=== PATIENT | female | born 1960 | race Caucasian/White ===

== ENCOUNTER 2017-12-22 13:58 | Emergency (ER) | payer MEDICAID, SELFPAY ==
[2017-12-22 14:01] VITALS: BP 150/91; PULSE 102; PULSE 98; RESP 14; TEMP 36.4; O2SAT 97; O2SAT 98; BMI 31.8
--- NOTE | 2017-12-22 14:03 | EKG12_ITS ---
Test Reason : [facility] Blood Pressure : / mmHG Vent. Rate : 090 BPM Atrial Rate : 090 BPM P-R Int : 170 ms QRS Dur : 092 ms QT Int : 334 ms P-R-T Axes : 068 -43 070 degrees QTc Int : 408 ms Sinus rhythm with occasional Premature ventricular complexes Left axis deviation Septal infarct , age undetermined Abnormal ECG Confirmed by GROVER HUERTA, EVE ([id number]), video editor KRISTINA POWELL ([id number]) on 12/25/2017 3:12:46 PM Referred By: NARCISA Confirmed By:EVE NESS MD
[2017-12-22 14:25] LABS: Absolute Neutrophil Count 7.3 X10^3/uL (2.0-7.7); Basophil# 0.04 X10^3/uL; Basophil% 0.3 % (0-1); Eosinophil# 0.65 X10^3/uL; Eosinophils% 5.4 % (0-5); Hematocrit 46.7 % (37-47); Hemoglobin 15.6 g/dl (12.0-15.0); Lymphocyte % 27.3 % (19-41); Mean Corp Hgb Conc 33.4 g/gl (32-36); Mean Corpuscular Hgb 30.6 pg (27.0-32.0); Mean Corpuscular Volume 91.7 fL (81-99); Mean Platelet Vol. 11.7 fl (6.2-12.0); Monocyte# 0.79 X10^3/uL; Monocyte% 6.5 % (0-10); Neutrophil # 7.28 X10^3/uL (2.7-7.7); Neutrophil % 60.3 % (47-70); POSITIVE COUNT NO; POSITIVE DIFFERENTIAL NO; POSITIVE MORPHOLOGY NO; Platelet Count 98 K/mm3 (150-450); RBC Distribution Width CV 13.4 % (11.6-14.6); RBC Distribution Width SD 45.2 fl (35.1-43.9); Red Blood Count 5.09 M/mm3 (4.2-5.4); White Blood Count 12.1 K/mm3 (4.4-11.0)
[2017-12-22 14:48] LABS: Alcohol, Blood (Medical)-Serum < 3.0 mg/dL
[2017-12-22 14:51] LABS: Anion Gap 9 (5-15); BUN 7 mg/dL (7-18); BUN/Creat Ratio 9.6 RATIO (10-20); Calcium,Total 9.6 mg/dL (8.5-10.1); Chloride 109 mmol/L (98-107); Creatinine, Serum 0.73 mg/dL (0.55-1.02); EST Glomerular Filtration Rate 87 mL/min (>60); Est Glom Filt Rate - Afr Amer 105 mL/min (>60); Estimated Creatinine Clearance 72.54 ml/min; Glucose 137 mg/dL (74-106); Potassium 3.6 mmol/L (3.5-5.1); Sodium Level 140 mmol/L (136-145)
[2017-12-22 15:15] LABS: Pregnancy, Serum, hCG Quali. NEGATIVE Negative (0-9 Nonpreg)
[2017-12-22 15:19] LABS: Amphetamine Urine VISTA POSITIVE (<1000 ng/mL); Barbiturate Urine VISTA NEGATIVE (< 200 ng/mL); Benzodiazepine Urine VISTA NEGATIVE (< 200 ng/mL); Cocaine Urine VISTA NEGATIVE (< 300 ng/mL); Ecstacy Urine VISTA NEGATIVE (< 500 ng/mL); Methadone Urine VISTA NEGATIVE (< 300 ng/mL); PCP Urine VISTA NEGATIVE (< 25 ng/mL); THC Urine VISTA POSITIVE (< 50 ng/mL); Vista UDS pH Range 5
--- NOTE | 2017-12-22 16:25 | ED.VISSUMM ---
- ER Visit Summary Date of Service: 12/22/17 Chief Complaint: Suicidal gesture History of Present Illness: The patient is a 57 F presents to the emergency department with suicidal gesture. Patient states that she got into a verbal altercation with her daughter today. She states that she took 5 of her Paxil. She states that her son made her vomit them up. She states that she has been increasingly depressed. She denies any prior attempted suicide. She denies any fevers or chills. She was brought here by squad after the son called. Physical Examination: Vital signs reviewed General: Well-nourished, well-developed Head: Normocephalic, atraumatic Eyes: Pupils equal and reactive, extraocular muscles intact Neck, supple, no lymphadenopathy Heart: Regular rate and rhythm Respiratory: No distress, clear bilaterally Abdomen: Soft, nontender, nondistended, no peritoneal signs Back: Nontender Extremities: Nontender, no edema, no cords Skin: Normal color no rash Neuro: Alert and oriented, no focal or lateralizing deficits Test Results: [] Emergency Department Course and Treatment: EKG was obtained on patient arrival. There was no prolonged QT or other dangerous arrhythmia. The patient was observed. Screening labs were obtained were unremarkable. At this time, I do for the patient is medically cleared for psychiatric evaluation. Patient was discussed with crisis. Disposition is pending. Treatment Plan: [] Disposition: Pending Impression: Suicidal gesture This note was generated with [employer] dictation software. It may contain incorrect words, spelling, and punctuation that were not noted in review of the chart prior to signing ED Disposition - Plan for ED Patient: Chief Complaint: Overdose Referrals: Jeannette Dill [Primary Care Provider] -
--- NOTE | 2017-12-22 16:53 | ED.DCSUM_ITS ---
- ER Visit Summary Date of Service: 12/22/17 Chief Complaint: [] History of Present Illness: The patient is a 57 F [] Physical Examination: [] Test Results: [] Emergency Department Course and Treatment: [] Treatment Plan: [] Disposition: [] Impression: [] This note was generated with [employer] dictation software. It may contain incorrect words, spelling, and punctuation that were not noted in review of the chart prior to signing ED Disposition - Plan for ED Patient: Chief Complaint: Overdose Instructions: ED Depression Referrals: Counseling,Center [GROUP OF PHYSICIANS] -
[2017-12-22 17:13] VITALS: BP 135/75; PULSE 80; RESP 14; O2SAT 98
== END 2017-12-22 17:16 | disposition home or self-care (01) ==
LOC: ED 14:32
PROVIDERS: Emergency Provider Emergency Medicine
DX: R45.851 Suicidal ideations (principal); F32.9 Major depressive disorder, single episode, unspecified; Z72.0 Tobacco use; Z79.899 Other long term (current) drug therapy
CPT/HCPCS: 80048; 80307; 80320; 84703; 85025; 93005; 99285; G0480

== ENCOUNTER → 2018-01-16 11:09 | Outpatient (CLI) | payer MEDICAID, SELFPAY ==
--- NOTE | 2018-01-16 11:15 | EKG12_ITS ---
Test Reason : ABN EKG Blood Pressure : / mmHG Vent. Rate : 068 BPM Atrial Rate : 068 BPM P-R Int : 156 ms QRS Dur : 090 ms QT Int : 386 ms P-R-T Axes : 004 -35 024 degrees QTc Int : 410 ms Normal sinus rhythm Left axis deviation Low voltage QRS (limb leads) Septal infarct , age undetermined Abnormal ECG Confirmed by ISABELLE HUERTA, GRAHAM ([id number]), managing editor KRISTINA POWELL ([id number]) on 01/17/2018 3:21:04 PM Referred By: [facility] Confirmed By:GRAHAM WALTON MD
== END ==
DX: R94.31 Abnormal electrocardiogram [ECG] [EKG] (principal)
CPT/HCPCS: 93005

== ENCOUNTER → 2018-02-26 09:32 | Outpatient (CLI) | payer MEDICAID, SELFPAY ==
[2018-02-13 16:19] VITALS: BMI 32.1
[2018-02-26 10:54] LABS: AST(SGOT) 12 U/L (15-37); Alanine Aminotransfer ALT/SGPT 13 U/L (13-56); Alkaline Phosphatase 61 U/L (45-117); Bilirubin, Direct 0.13 mg/dL (0.00-0.30); Cholesterol 176 mg/dL (200); Globulin 3.6 g/dL (2.2-4.2); High Density Lipoprotein 50 mg/dL; Protein, Total 6.6 g/dL (6.4-8.2); Triglycerides 146 mg/dL; Very Low Density Lipoprotein 29 mg/dL (5-40)
== END ==
PROVIDERS: Referring Provider Internal Medicine Cardiovascular Disease; Visit Provider Internal Medicine Cardiovascular Disease
DX: E78.5 Hyperlipidemia, unspecified (principal)
CPT/HCPCS: 36415; 80061; 80076

== ENCOUNTER → 2018-03-07 12:49 | Outpatient (CLI) | payer MEDICAID, SELFPAY ==
--- NOTE | 2018-03-07 12:50 | STEWCON_ITS ---
Reason For Study: Abnormal EKG Stress Results Protocol: Mook Protocol Maximum Predicted HR: 161 bpm Target HR: 137 bpm % Maximum Predicted HR: 86 % DurationHeart Rate Stage (mm:ss) (bpm) BP Comment Baseline 71 116/72Diluted Definity 4 ML Given; No Chest Pain Mook Protocol Stage I 3:00 121 164/78No Chest Pain; Moderate Dyspnea Mook Protocol Stage II 1:30 139 / No Chest Pain; Moderate to Severe Dyspnea Recovery 79 118/80No Chest Pain Stress Duration: 4:30 mm:ss Maximum Stress HR: 139 bpm METS: 7 Baseline Echocardiogram Findings The estimated ejection fraction is 65 %. Stress Echo Wall motion Data Resting WM Intermediate WM Stress WM Resting Wall Motion Wall Motion Stress No regional wall motion Mid-Anterior : Mildly abnormalities noted. hypokinetic. Mid-anteroseptal : Mildly hypokinetic. EKG Data The baseline ECG displays normal sinus rhythm. The patient exercised according to the regular Mook protocol for a total duration of 4:30. The maximum heart rate attained was 144 beats per minute. This was 89% of maximum predicted heart rate. The patient exercised into stage 2 of the Mook protocol. During stress, there were no ST or T wave changes noted to suggest ischemia. Interpretation Summary The estimated ejection fraction is 65 %. Mid-anteroseptal : Mildly hypokinetic Abnormal, adequate, treadmill echocardiogram. Positive for ischemia by echocardiographic criteria. Patient appeared to develop mid anterior and anteroseptal hypokinesis at peak exercise seen in 2 views. No anginal symptoms noted. Rare PVCs noted. Appropriate blood pressure response to exercise. Below average exercise capacity for age. Final LVEF approximately 55%. Poor echo windows noted requiring Definity agent. Test terminated due to dyspnea which may be an anginal equivalent. Ordering Physician: Mynor Ramsey Referring Physician: Mynor Ramsey Performed By: Merary Craven RDCS
--- OUTSIDE RECORDS SUMMARY | 2018-05-02 21:48 | XMS RPT_ITS ---
:1960 Author Organization OHIP Support Name Relationship Address Phone D Unavailable Unavailable Unavailable IRINA KETTY Unavailable [address] + [place] [address] QUARLESSHAWNA CRAMER Unavailable Unavailable + D Unavailable Unavailable Unavailable IRINA, KETTY Unavailable [address] + [place] [address] QUARLESSHAWNA CRAMER Unavailable Unavailable + D Unavailable Unavailable Unavailable IRINA, EKTTY Unavailable [address] + [place] [address] QUARLESSHAWNA CRAMER Unavailable Unavailable + D Unavailable Unavailable Unavailable IRINA KETTY Unavailable [address] + [place] [address] QUARLESSHAWNA CRAMER Unavailable Unavailable + D Unavailable Unavailable Unavailable IRINA, KETTY Unavailable [address] + [place] [address] QUARLESSHAWNA CRAMER Unavailable . + [place], [place] . D Unavailable Unavailable Unavailable IRINA, KETTY Unavailable [address] + [place] [address] QUARLESSHAWNA CRAMER Unavailable Unavailable + [place], [place] D Unavailable Unavailable Unavailable IRINA KETTY Unavailable [address] + [place] [address] QUARLESSHAWNA CRAMER Unavailable Unavailable + [place], [place] D Unavailable Unavailable Unavailable IRINA, KETTY Unavailable [address] + [place] [address] QUARLESSHAWNA CRAMER Unavailable Unavailable + [place] IRINA KETTY Unavailable [address] + [place] [address] UE Unavailable Unavailable Unavailable QUARLES, SHAWNA Unavailable . + ., [place] . KETTY AREVALO Unavailable [address] + [place] [address] UE Unavailable Unavailable Unavailable QUARLES, SHAWNA Unavailable Unavailable Unavailable KETTY AREVALO Unavailable [address] + [place] [address] UE Unavailable Unavailable Unavailable QUARLES, SHAWNA Unavailable . + ., [place] . KETTY AREVALO Unavailable [address] + [place] [address] UE Unavailable Unavailable Unavailable QUARLES, SHAWNA Unavailable Unavailable Unavailable Care Team Providers Name Role Phone Mynor Ramsey Attending Unavailable Mynor Ramsey Referring Unavailable [facility] Unavailable Swivannat CHRISTINE, Joyce Consulting Unavailable Mynor Ramsey Consulting Unavailable [facility] Unavailable Luc Bliss Attending Unavailable [facility] Attending Unavailable [facility] Referring Unavailable [facility] Primary [facility] Unavailable Mynor Ramsey Attending Unavailable [facility] Referring Unavailable Victor Hugo Walton Attending Unavailable Victor Hugo Walton Referring Unavailable Mynor Ramsey Attending Unavailable Mynor Ramsey Referring Unavailable [facility] Primary [facility] Unavailable Swihart CHRISTINE, Joyce Consulting Unavailable Mynor Ramsey Attending Unavailable Mynor Ramsey Referring Unavailable [facility] Primary [facility] Unavailable Mynor Ramsey Attending Unavailable Mynor Ramsey Referring Unavailable [facility] Primary [facility] Unavailable [address] THRU ORDER TAKER, Joyce Consulting Unavailable Mynor Ramsey Attending Unavailable Mynor Ramsey Referring Unavailable [facility] Unavailable [address] THRU ORDER TAKER, Joyce Consulting Unavailable Mynor Ramsey Consulting Unavailable Mynor Ramsey Attending Unavailable [facility] Referring Unavailable Mynor Ramsey Attending Unavailable Mynor Ramsey Referring Unavailable [facility] Primary [facility] Unavailable [address] THRU ORDER TAKER, Joyce Consulting Unavailable Mynor Ramsey Attending Unavailable Mynor Ramsey Referring Unavailable [facility] Unavailable [address] THRU ORDER TAKER, Joyce Consulting Unavailable Mynor Ramsey Consulting Unavailable PROBLEMS PROBLEMS DATE TYPE CONDITION / CODE ATTENDING STATUS SOURCE 03/22/2018 Unknown R06.09 - Other forms Mynor Ramsey of dyspnea / Community R06.09(ICD-10) Hospital Repository 03/22/2018 Unknown R07.9 - Chest pain, Mynor Ramsey unspecified / Community R07.9(ICD-10) Hospital Repository 03/22/2018 Unknown R94.39 - Abnormal Mynor Ramsey result of other Pending Sale To [facility] function study / Repository R94.39(ICD-10) 03/16/2018 Unknown R94.31 - Abnormal Mynor Ramsey electrocardiogram Community [ECG] [EKG] / Hospital R94.31(ICD-10) Repository PROCEDURES PROCEDURES No Procedure Records FoundRESULTS RESULTS DISCHARGE INSTRUCTION Observed: 03/24/2018 Status: F Source: [place] 1:31 PM [facility] REPOSITORY [facility] Medical Records Department [address] [place] [address] Instructions for Home/Discharge Instructions 03/22/18 0855 MR#: [id number] Acct: [id number] Name: ALLY LIMON Brandie Rep #: [id number] : 1960 58 From: Luh TRAMMELL PCP: [facility] Status: [facility] Discharge Diet: No Restrictions - You may continue your normal diet. Discharge Activity: Return to Normal Activity May shower in (days): 1 May resume sexual activity in: 1 week - if no groin problems occur. Lifting Restrictions: 10 pounds and also avoid any pushing or pulling for 3 days after your test. Call your doctor if your incision/area has: Continuous Slow Oozing, Sudden Increased Bleeding, Increased Pain/ Swelling, Increased Redness, Foul Smelling Discharge, Swelling at the incision site Call your doctor if you observe: Fever of 101 or Higher, Chest pain Remove Dressing in (days):: 1 Additional Dressing/Incision Instructions:: Keep the dressing (bandage) on until the next morning. You may then shower, but do not take a tub bath for 5 days after your test. It is normal to have some tenderness and discomfort at the puncture site. Sometimes bruising also occurs. However, if pain, numbness, or coldness occurs below the puncture site (in your leg, toes, arms or fingers) call your doctor at once. You may have a small, marble sized knot at the puncture site. This is normal. Do not rub it. It will go away in 4-6 weeks. Bleeding can occur from the area where the puncture was done. Blood may spurt or drip from the site. If blood spurts, apply pressure right away to stop bleeding and call 911. Although rare, bleeding into the tissue (hematoma) can also occur. If this happens, a large, firm area goose egg under the skin will appear. If any of these occur, lie down as flat as you can and have someone apply firm pressure to the cath site with a gauze pad or a clean washcloth for 10-15 minutes. Call 911 or go to the Emergency Department. Additional Instructions: You will need to stay on the Plavix for at least one year before stopping this Allergies/Adverse Reactions: Allergies latex Allergy (Verified 03/13/18 11:38) Rash codeine Adverse Reaction (Verified 03/13/18 11:38) Nausea Medications to take at Discharge Albuterol IH (ProAir) [Proair Hfa] 2 puff INHALATION Q4H PRN PRN 10/28/13 Levothyroxine [Synthroid] 75 mcg PO DAILY 10/28/13 Paroxetine HCl [Paxil] 40 mg PO DAILY 10/28/13 albuterol sulfate 2.5 mg/3 mL (0.083 %) solution for nebulization 2.5 mg INHALATION Q4H PRN 02/05/18 cholecalciferol (vitamin D3) 2,000 unit capsule 2,000 unit PO DAILY 02/05/18 gabapentin 100 mg capsule 100 mg PO DAILY 02/05/18 gabapentin 300 mg capsule 300 mg PO QHS cap 02/05/18 mesalamine 800 mg tablet,delayed release 800 mg PO TID tab 02/05/18 mometasone-formoterol HFA 200 mcg-5 mcg/actuation aerosol inhaler 2 puff INHALATION BID 02/05/18 omeprazole 40 mg capsule,delayed release 40 mg PO DAILY 02/05/18 aspirin 81 mg tablet,delayed release 81 mg PO DAILY #30 tab 03/09/18 clopidogrel 75 mg tablet 75 mg PO DAILY #30 tab 03/09/18 Primary Care Physician: Celso Dill [Primary Care Provider] - Test Results: Test results from this visit will be discussed in further detail at your follow-up appointment, if applicable. Please Follow Up With: Luh Vazquez PA When: 04/04 at 1pm Cardiac Rehabilitation Info Cardiac Rehabilitation Program Information: Cardiac Rehabilitation is important for patients like you who are recovering from a heart problem. Cardiac rehabilitation programs are recognized as integral to the continued care of the patient with coronary heart disease. The cardiac rehabilitation program is designed to optimize a patient's physical, psychological, and social functioning. Health rn homecare work in cardiac rehabilitation programs and assist you with getting the treatments you need to get stronger and healthier - like exercise, healthy eating habits, and medications. Cardiac rehabilitation has been show to help people with heart problems live longer and have better life enjoyment than people who do not go to cardiac rehabilitation. Please contact the Cardiac Rehabilitation Program at [facility] at in two weeks if you have not heard from them. 03/24/18 1331 <Electronically signed by Luh TRAMMELL> Date Luh TRAMMELL CC: Joyce KING; [facility] 12 LEAD ELECTROCARDIOGRAM Observed: 03/23/2018 Status: F Source: [place] 11:08 AM [facility] REPOSITORY [facility] Cardiovascular Services [address] [place] [address] 12 Lead EKG 03/22/18 0524 MR#: [id number] Acct: [id number] Name: LIMONALLY Brandie Rep #: [id number] : 1960 58 From: Atif Wilkins MD Attending Dr: Mynor Ramsey MD Status: [facility] Ordering Dr: Mynor Ramsey MD Date: 03/22/18 Location: [facility] Sex: F C Admitted: Test Reason : AM EKG Blood Pressure : / mmHG Vent. Rate : 059 BPM Atrial Rate : 059 BPM P-R Int : 138 ms QRS Dur : 082 ms QT Int : 394 ms P-R-T Axes : 047 -25 032 degrees QTc Int : 390 ms Sinus bradycardia Septal infarct , age undetermined Abnormal ECG When compared with ECG of 21-MAR-2018 11:19, MANUAL COMPARISON REQUIRED, DATA IS UNCONFIRMED Confirmed by ATIF WILKINS MD ([id number]), editor at large KRISTINA POWELL ([id number]) on 03/23/2018 11:07:30 AM Referred By: Mynor Ramsey Confirmed By:ATIF WILKINS MD 03/23/18 110 Date Atif Wilkins MD CC: Mynor Ramsey MD; [facility] Signed 12 LEAD ELECTROCARDIOGRAM Observed: 03/23/2018 Status: F Source: [place] 11:08 AM [facility] REPOSITORY [facility] Cardiovascular Services [address] [place] [address] 12 Lead EKG 03/21/18 1119 MR#: [id number] Acct: [id number] Name: ALLY LIMON Brandie Rep #: [id number] : 1960 58 From: Atif Wilkins MD Attending Dr: Mynor Ramsey MD Status: [facility]P [facility] Ordering Dr: Mynor Ramsey MD Date: 03/21/18 Location: [facility] Sex: F C Admitted: Test Reason : POST PCI Blood Pressure : / mmHG Vent. Rate : 060 BPM Atrial Rate : 060 BPM P-R Int : 170 ms QRS Dur : 082 ms QT Int : 426 ms P-R-T Axes : 061 -32 024 degrees QTc Int : 426 ms Normal sinus rhythm Left axis deviation Septal infarct , age undetermined Abnormal ECG Confirmed by ATIF WILKINS MD ([id number]), editor at large KRISTINA POWELL ([id number]) on 03/23/2018 11:08:03 AM Referred By: Mynor Ramsey Confirmed By:ATIF WILKINS MD 03/23/181 Date Atif Wilkins MD CC: Mynor Ramsey MD; [facility] Signed CBC-COMPLETE BLOOD CNT Collected: 03/22/2018 Status: F Source: [place] NO DIFF 5:20 AM [facility] REPOSITORY TYPE CODE TESTS RESULT OUT OF RANGE REFERENCE UNITS LAB L100.1000 4.4-11.0 K/mm3 Normal WBC 9.0 LAB L100.1200 4.2-5.4 M/mm3 Normal RBC 4.25 LAB L100.1300 12.0-15.0 g/dl Normal HGB 13.0 LAB L100.1400 37-47 % Normal HCT 40.2 LAB L100.1500 81-99 fL Normal MCV 94.6 LAB L100.1600 27.0-32.0 pg Normal MCH 30.6 LAB L100.1700 32-36 g/gl Normal MCHC 32.3 LAB L100.1810 11.6-14.6 % Normal RDW CV 13.5 LAB L100.1820 35.1-43.9 fl High RDW SD 45.1 LAB L100.1900 150-450 K/mm3 Normal PLT 237 LAB L100.2000 6.2-12.0 fl Normal MPV 10.6 Performed By: #### L100.0500 #### [facility] [address] [place], [place], [address] COMPREHENSIVE METABOLIC Collected: 03/22/2018 Status: F Source: [place] PROFIL 5:20 AM [facility] REPOSITORY TYPE CODE TESTS RESULT OUT OF RANGE REFERENCE UNITS LAB L501.0100 74-106 mg/dL Normal GLU 100 Result Comment: Fasting Glucose result from 100 to 125 mg/dL suggests IMPAIRED HOMEOSTASIS per A.D.A. criteria. Please note revised GLUCOSE reference range effective 2017. LAB L501.1000 7-18 mg/dL Low BUN 6 LAB L501.1100 0.55-1.02 mg/dL Normal CREAT,SERUM 0.61 Result Comment: The validity of the calculated GFR AND GFRAA in patients over 70 years has not been determined. Clinical correlation is essential. LAB L501.1110 >60 mL/min Normal EST GFR 107 Result Comment: Non- GFR Calc LAB L501.1115 >60 mL/min Normal EST GFR - AA 129 Result Comment: GFR Calc LAB L501.1255 ml/min Normal Estimated CRCL 85.75 LAB L501.1300 10-20 RATIO Low BUN/CRE 9.8 LAB L501.1500 6.4-8. g/dL Normal 2 T PROT 6.4 LAB L501.1800 3.2-5. g/dL Low 0 ALB 3.0 LAB L501.1950 2.2-4. g/dL Normal 2 GLOB 3.4 LAB L501.2000 0.9-2. RATIO Normal 4 A/G 0.9 LAB L501.2200 8.5-10 mg/dL Normal .1 CA 8.7 LAB L501.4100 15-37 U/L Low AST 9 LAB L501.4305 45-117 U/L Normal ALK P 61 LAB L501.4405 13-56 U/L Normal ALT 13 LAB L501.4600 0.20-1 mg/dL Normal .00 T BILI 0.40 LAB L501.5300 136-14 mmol/L Normal 5 NA 143 LAB L501.5600 3.5-5. mmol/L Normal 1 K 4.2 LAB L501.5900 98-107 mmol/L High CL 112 LAB L501.6100 21.0-3 mmol/L Normal 2.0 CO2 24.0 LAB L501.6200 5-15 Normal GAP 7 Performed By: #### L500.4050, L500.4100 #### [facility] [address] [place], [address] LIPID PROFILE Collected: 03/22/2018 Status: F Source: [place] 5:20 AM [facility] REPOSITORY TYPE CODE TESTS RESULT OUT OF RANGE REFERENCE UNITS LAB L501.4900 200 mg/dL Normal CHOL 169 Result Comment: <200 mg/dL Desirable 200-240 mg/dL Borderline >240 mg/dL High Risk LAB L501.5000 mg/dL Normal TRIG 70 Result Comment: The drugs N-Acetylcysteine and Metamizole may falsely depress this assay. Serum Triglycerides Reference Interval Normal <150 mg/dL Borderline high 150 - 199 mg/dL High 200 - 499 mg/dL Very High > or = 500 mg/dL LAB L501.6400 mg/dL Normal HDL 58 Result Comment: The drugs N-Acetylcysteine and Metamizole may falsely depress this assay. Reference Range HDL <40 mg/dL Low HDL Cholesterol HDL >or= 60 mg/dL High HDL Cholesterol LAB L501.6500 0-130 mg/dL Normal LDL 97 LAB L501.6600 5-40 mg/dL Normal VLDL 14 Performed By: #### L500.4050, L500.4100 #### [facility] [address] [facility] [place], [address] ACT ACTIVATED CLOTTING Collected: 03/21/2018 Status: F Source: [place] TIME 10:41 AM [facility] REPOSITORY TYPE CODE TESTS RESULT OUT OF RANGE REFERENCE UNITS LAB L9100.0100 74-137 sec High ACTk CLOT 202 TIME Performed By: #### L9100.0100 #### [facility] Point of Care [address] [place] [address] CBC-COMPLETE BLOOD CNT Collected: 03/21/2018 Status: F Source: [place] NO DIFF 9:00 AM [facility] REPOSITORY TYPE CODE TESTS RESULT OUT OF RANGE REFERENCE UNITS LAB L100.1000 4.4-11.0 K/mm3 Normal WBC 7.9 LAB L100.1200 4.2-5.4 M/mm3 Normal RBC 4.55 LAB L100.1300 12.0-15.0 g/dl Normal HGB 13.8 LAB L100.1400 37-47 % Normal HCT 42.9 LAB L100.1500 81-99 fL Normal MCV 94.3 LAB L100.1600 27.0-32.0 pg Normal MCH 30.3 LAB L100.1700 32-36 g/gl Normal MCHC 32.2 LAB L100.1810 11.6-14.6 % Normal RDW CV 13.7 LAB L100.1820 35.1-43.9 fl High RDW SD 46.0 LAB L100.1900 150-450 K/mm3 Normal PLT 220 LAB L100.2000 6.2-12.0 fl Normal MPV 10.9 Performed By: #### L100.0500 #### [facility] [address] [facility]. [place], [place], [address] PROTHROMBIN TIME W/INR Collected: 03/21/2018 Status: F Source: [place] 9:00 AM [facility] REPOSITORY TYPE CODE TESTS RESULT OUT OF RANGE REFERENCE UNITS LAB L300.4150 11.7-14.9 SECONDS Normal PROTIME 13.7 LAB L300.4200 Normal INR 1.1 Performed By: #### L300.3900, L300.4310 #### [facility] [address] [place], [place], [address] PARTIAL THROMBOPLAST Collected: 03/21/2018 Status: F Source: [place] TIME 9:00 AM [facility] REPOSITORY TYPE CODE TESTS RESULT OUT OF RANGE REFERENCE UNITS LAB L300.4310 24.1-36.2 Seconds Normal PTT 31.8 Performed By: #### L300.3900, L300.4310 #### [facility] [address] [facility] [place], [address] BASIC METABOLIC Collected: 03/21/2018 Status: F Source: [place] PROFILE (BMP) 9:00 AM [facility] REPOSITORY TYPE CODE TESTS RESULT OUT OF RANGE REFERENCE UNITS LAB L501.0100 74-106 mg/dL Normal GLU 83 Result Comment: Please note revised GLUCOSE reference range effective 2017. LAB L501.1000 7-18 mg/dL Normal BUN 7 LAB L501.1100 0.55-1.02 mg/dL Normal CREAT,SERUM 0.57 Result Comment: The validity of the calculated GFR AND GFRAA in patients over 70 years has not been determined. Clinical correlation is essential. LAB L501.1110 >60 mL/min Normal EST GFR 115 Result Comment: Non- GFR Calc LAB L501.1115 >60 mL/min Normal EST GFR - AA 139 Result Comment: GFR Calc LAB L501.1300 10-20 RATIO Normal BUN/CRE 12.3 LAB L501.2200 8.5-10.1 mg/dL CA Normal 8.9 LAB L501.5300 136-145 mmol/L NA Normal 141 LAB L501.5600 3.5-5.1 mmol/L K Normal 3.9 LAB L501.5900 98-107 mmol/L High CL 109 LAB L501.6100 21.0-32.0 mmol/L Normal CO2 25.0 LAB L501.6200 5-15 Normal GAP 7 Performed By: #### L500.2500 #### [facility] [address] [place], [address] ECHOCARDIOGRAM COMPLETE Observed: 03/16/2018 Status: F Source: [place] 11:52 AM [facility] REPOSITORY [facility] Cardiovascular Services [address] [place] [address] Echo Complete 03/15/18 1257 MR#: [id number] Acct: [id number] Name: ALLY LIMON Rep #: [id number] : 1960 58 From: Mynor Ramsey MD Attending Dr: Mynor Ramsey MD Status: REG CLI Ordering Dr: Mynor Ramsey MD Date: 03/15/18 Location: [facility] Sex: F C Admitted: Reason For Study: Abnormal EKG Procedure This was a 2D Doppler, Color Flow transthoracic echocardiogram. Exam performed in department. Left Ventricle Normal size and thickness. The estimated ejection fraction is 65 %. Stage 1 diastolic dysfunction. No regional wall motion abnormalities noted. Right Ventricle Normal size and thickness. Normal systolic function. Atria Normal left atrium. Normal right atrium. Normal atrial septum. Mitral Valve The mitral valve is structurally normal. No prolapse or stenosis seen. Tricuspid Valve Normal tricuspid valve. Unable to estimate RV systolic pressure due to inadequate jet, pulmonary artery pressure probably normal. Aortic Valve Normal aortic valve. Trisinus/trileaflet aortic valve. Pulmonic Valve Normal pulmonic valve. Great Vessels Normal aortic root. Normal arch. Normal inferior vena cava. Inferior vena cava collapse with sniff. Pericardium/Pleural No pericardial effusion. MMode/2D Measurements AND Calculations LVIDd: 4.4 cm IVSd: 1.3 cm Ao root diam: 3.4 cm LVIDs: 3.0 cm LVPWd: 1.1 cm RVDd: 3.8 cm FS: 30.8 % LAV(MOD-bp): 43.9 ml LVAd ap4: 26.7 cm2 SV(MOD-sp4): 44.9 ml LAV(MOD-bp) Indexed: 23.1 ml/m2 EDV(MOD-sp4): 80.8 ml LAV(MOD-sp2): 40.1 ml EDV(sp4-el): 82.8 ml LAV(MOD-sp4): 42.5 ml LVAs ap4: 16.1 cm2 ESV(MOD-sp4): 36.0 ml ESV(sp4-el): 36.1 ml EF(MOD-sp4): 55.5 % EF(sp4-el): 56.4 % SV(sp4-el): 46.7 ml LA A4 area: 16.8 cm2 RA A4 area: 14.9 cm2 Time Measurements MV dec time: 0.36 sec Doppler Measurements AND Calculations MV E max micky: 61.5 cm/sec Lat Peak E' Micky: 10.3 cm/sec Med Peak E' Micky: 7.6 cm/sec MV A max micky: 73.3 cm/sec E/E' lat: 6.0 E/E' med: 8.0 MV E/A: 0.84 MV V2 max: 80.2 cm/sec MV P1/2t max micky: 60.8 cm/sec Ao V2 max: 142.1 cm/sec MV max P.6 mmHg MV P1/2t: 101.8 msec Ao max P.1 mmHg MV V2 mean: 43.8 cm/sec Ao V2 mean: 85.9 cm/sec MV mean P.87 mmHg MV dec slope: 174.9 cm/sec2 Ao mean P.6 mmHg MV V2 VTI: 25.7 cm MVA(P1/2t): 2.2 cm2 Ao V2 VTI: 26.3 cm LV V1 max: 113.9 cm/sec PA V2 max: 91.4 cm/sec LV V1 max P.2 mmHg LV V1 mean P.2 mmHg LV V1 mean: 66.7 cm/sec LV V1 VTI: 21.1 cm Interpretation Summary The estimated ejection fraction is 65 %. Stage 1 diastolic dysfunction. Unable to estimate RV systolic pressure due to inadequate jet, pulmonary artery pressure probably normal. There is no comparison study available. Ordering Physician: Mynor Ramsey Referring Physician: Mynor Ramsey Performed By: Lavon Arroyo, [facility] 03/16/18 1152 Date Mynor Ramsey MD CC: Mynor Ramsey MD; [facility] Date Dictated: 03/15/18 1257 Date Transcribed: 03/16/181151 Lead Die Molder: Signed CARDIOLOGY VISIT Observed: 03/13/2018 Status: F Source: [place] REPORT 11:49 AM [facility] REPOSITORY [facility] [address] [place], [place] [address]. [address] [place] [address] OFFICE VISIT Date of Service: 03/13/18 MR#: [id number] Acct: [id number] Name: ALLY LIMON Rep #: [id number] : 1960 Provider: Mynor Ramsey MD Age/Sex: 58/F Location: [facility] Status: Signed HPI HPI Chief Complaint: Abnl EKG/updated H AND P Details: ALLY LIMON, is a 58 F who presents to the office today for evaluation of EKG abnormalities and to update her H AND P for upcoming catheterization. She has a history of asthma, hypothyroidism, GERD, depression, rheumatoid arthritis and left knee pain. Apparently she previously visited [facility] ER due to overdose of Paxil. Patient reported an increase in stress mostly due to of her mother and family conflict with her daughter. In the ER an EKG was found to be abnormal with specific findings of normal sinus rhythm, left anterior hemiblock, and low voltage on the QRS and possible old septal infarct patient was referred to our office for further evaluation. Is now in counseling for her suicide attempt, and is doing fairly well. She smokes about less than 1/2 pack cigarettes per day, but has markedly cut back from our office visit in February 2018, and has smoked for the past 53 years. She does complain dyspnea on exertion but has had asthma since she was a child. Her asthma is mostly triggered by extreme temperatures but not by her smoking. She is tried nicotine gum and nicotine patch in the past which was unsuccessful. She has never tried Chantix. To the best of her knowledge she cannot recall a time when she developed chest pressure or chest pain or flulike symptoms which may have been an RI and disguise. She is taking and tolerating her medicines well. She does have a history of ulcerative colitis as well but appears to be in remission. Part of her cardiac workup she underwent a treadmill echocardiogram on 03/07/18 in which she only went about 4-1/2 minutes, and had anterior and apical hypokinesis at peak exercise. Since her last visit the patient has had some exertional chest pain, and she is pending left heart catheterization on 03/21/18. She has cut down to smoking about 6 cigarettes/day she is taking and tolerating her aspirin Plavix well. She has had no lower GI bleeding. In our office today her blood pressure is 100/60 and pulse is 68 and regular. Her physical exam demonstrates clear lungs bilaterally, regular rate and rhythm, normal S1/S2, no murmurs, S3 or S4, no edema noted. 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 EKG dated 01/16/18 shows normal sinus rhythm, left anterior hemiblock, possible old anteroseptal wall myocardial infarction, no acute changes. Lipids as of 02/26/18 showing LDL of 97 and HDL of 50. 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 Is patient in pain?: No Allergies latex Allergy (Verified 03/13/18 11:38) Rash codeine Adverse Reaction (Verified 03/13/18 11:38) Nausea Medications Albuterol IH (ProAir) [Proair Hfa] 2 puff INHALATION Q4H PRN PRN 10/28/13 [History Confirmed 03/13/18] Levothyroxine [Synthroid] 75 mcg PO DAILY 10/28/13 [History Confirmed 03/13/18] Paroxetine HCl [Paxil] 40 mg PO DAILY 10/28/13 [History Confirmed 03/13/18] albuterol sulfate 2.5 mg/3 mL (0.083 %) solution for nebulization 2.5 mg INHALATION Q4H PRN 02/05/18 [History Confirmed 03/13/18] cholecalciferol (vitamin D3) 2,000 unit capsule 2,000 unit PO DAILY 02/05/18 [History Confirmed 03/13/18] gabapentin 100 mg capsule 100 mg PO .COMPLEX 02/05/18 [History Confirmed 03/13/18] gabapentin 300 mg capsule 300 mg PO QHS cap 02/05/18 [History Confirmed 03/13/18] mesalamine 800 mg tablet,delayed release 800 mg PO TID tab 02/05/18 [History Confirmed 03/13/18] minocycline 100 mg capsule 100 mg PO DAILY 02/05/18 [History Confirmed 03/13/18] mometasone-formoterol HFA 200 mcg-5 mcg/actuation aerosol inhaler 2 puff INHALATION BID 02/05/18 [History Confirmed 03/13/18] omeprazole 40 mg capsule,delayed release 40 mg PO DAILY 02/05/18 [History Confirmed 03/13/18] aspirin 81 mg tablet,delayed release 81 mg PO DAILY #30 tab 03/09/18 [Rx Confirmed 03/13/18] clopidogrel 75 mg tablet 75 mg PO DAILY #30 tab 03/09/18 [Rx Confirmed 03/13/18] PFSH Medical History Dyspnea on exertion (Acute) Abnormal stress test (Acute) Rheumatoid arthritis (Chronic) Depression (Chronic) GERD (gastroesophageal reflux disease) (Chronic) Hypothyroidism (Chronic) Asthma (Chronic) Premature ventricular contractions (Acute) Abnormal EKG (Acute) Surgical History History of carpal tunnel release (Chronic) History of total hysterectomy (Chronic 2003) S/P tonsillectomy and adenoidectomy (Chronic) Family History Mother COPD (chronic obstructive pulmonary disease) Daughter Bipolar disorder Schizophrenia PTSD (post-traumatic stress disorder) Daughter Schizophrenia Bipolar disorder PTSD (post-traumatic stress disorder) Social History Smoking Status: Current every day smoker ROS Const Const: Positive for other (Here for updated H AND P for heart cath on 03/21/18); negative for fatigue, weakness, body ache, fever(s), headache(s), chills, frequent falls, night sweats, daytime sleepiness, difficulty sleeping, excessive sweating, weight gain, weight loss, increased appetite, poor appetite or anorexia Eyes Eyes: Negative for blind spots, loss of peripheral vision, transient loss of vision, blurry vision, change in vision, double vision, floaters, tunnel vision or other ENT ENT: Negative for headache(s), dizziness, hearing loss, tinnitus, Nosebleed/epistaxis, balance problems, post nasal drip, lip swelling, tongue swelling, bleeding gums, hoarseness, neck pain, dry mouth or other Cardio Chest Pain: Yes (continues to have on exertion: abnormal stress) Palpitations: No Edema: None Muscle aches with walking: None Resp Respiratory: Positive for SOB with activity (occcasionally); negative for SOB at rest, SOB orthopnea\SOB lying down, Cough, Coughing up blood/hemoptysis, chest congestion, pain on inspiration, snoring, stridor, wheezing, crackles, paroxysmal nocturnal dyspnea or other GI GI: Negative nausea, vomiting, heartburn, constipation, belching, bloating, cramping, vomiting blood/hematemesis, bright, red blood in stools, black,tarry stools, loose stools, Difficulty Swallowing or other : Negative for hematuria, frequent nighttime urination/ nocturia, erectile dysfunction or abnormal vaginal bleeding Musc Musc: Negative for balance problems, muscle aches/ myalgia, muscle weakness or joint pain Skin Skin: Negative redness, non-healing lesions, rash, unusual bruising, skin ulcer, wounds, jaundice or other Neuro Neuro: Negative for weakness, headache(s), frequent falls, blurry vision, double vision, dizziness, lightheadedness, near syncope, syncope, orthostatic symptoms, confusion, memory loss, restless legs, vertigo, seizures, lack of coordination or other Franklin Hematologic/Lymphatic: Negative for easy bleeding, easy bruising, enlarged lymph nodes or other Endo Endo: Negative for fatigue, excessive sweating, cold intolerance, heat intolerance, flushing, increased thirst/drinking, increased hunger, hair loss, hair growth or other Psych Psych: Negative for anxiety, depression, thoughts of harming anyone, thoughts of harming yourself, visual hallucinations, panic attacks or audible hallucinations Allergy Allergy/Immunology: Negative for lip swelling, Negative for tongue swelling, Negative for rash, Negative for throat swelling, Negative for hives Cardiology Exam Const Appearance: cooperative, healthy appearing and no acute distress Nutritional Appearance: well nourished Orientation: alert, oriented x3 and oriented to person Head Head: normal to inspection, atraumatic and normocephalic Nose: external nose normal Face and Sinus: face symmetric Mouth: oral mucosae normal Eyes General: appearance normal, both eyes and all related structures Eyelids: eyelids normal Conjunctivae: conjunctivae normal Pupils: PERRL and normal by confrontation EOM: EOM intact bilaterally Neck Neck: normal visual inspection and full ROM Carotids: normal carotid upstroke Chest Chest inspection: normal inspection of the chest Auscultation: Bilateral: Clear to Auscultation Cardio Palpation: normal PMI Rate: regular rate Rhythm: regular rhythm Heart sounds: S1 normal and S2 normal GI GI: normal to inspection, no hepatosplenomegaly and bowel sounds present Neuro General: alert, oriented x3, awake, CN's II-XI intact bilaterally and moves all extremities Skin Skin: no rashes or lesions noted Extremities Pulses: Normal: Right Femoral Pulse, Left Femoral Pulse, Right Dorsalis Pedis Pulse, Left Dorsalis Pedis Pulse, Right Posterior Tibial Pulse, Left Posterior Tibial Pulse, Right Radial Pulse, Left Radial Pulse Lower Extremity Edema: None: Bilateral Psych Psychological: normal affect Assessment AND Plan 1. Abnormal stress test R94.39 Plan 1. Abnormal stress test: The patient has a combination of abnormal EKG, abnormal stress test with anterior hypokinesis, poor exercise capacity, and intermittent subtle virginal chest pain. She is tolerating her aspirin and Plavix well, and she is scheduled to undergo a diagnostic left heart catheterization on 03/21/18. I wish to make sure that she can tolerate Tip of the therapy given her ulcerative colitis. She appears to be stable at this time and her blood pressure is well controlled. 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 Should the patient have worsening exertional angina have a low threshold to move up her catheterization date. In the meantime she will continue baby aspirin, Plavix. She is a poor candidate for beta-blockers given her previous asthma. We will hold off on antilipid therapy until after her catheterizations been completed. I think the patient would be a good candidate for nicotine replacement therapy such as a nicotine patch at 7 mg a day. She is down to 6 cigarettes/day. The risks/benefits of the procedure were thoroughly spent with the patient including specific attention to lack of on-site surgical backup, the patient is agreed to proceed. 2. Return office in 6 months. This note was generated using a voice recognition system and there may be incorrect words, spelling or punctuation that were not noted when reviewing the office note prior to saving. Orders Orders: Plan Detail Other Orders Orders: Follow Up +6M ([facility]) Coding Level of Care Code Off vis,est,level 3 Diagnoses Abnormal stress test R94.39 Coding Level of Care Code Off vis,est,level 3 Diagnoses Abnormal stress test R94.39 03/13/18 1149 <Electronically signed by Mynor Ramsey MD> Date Mynor Ramsey MD [facility] Signature: Date (if applicable) CC: [facility] CARDIOLOGY VISIT Observed: 03/09/2018 Status: F Source: [place] REPORT 11:14 AM [facility] REPOSITORY [facility] [address] [place] [address] OFFICE VISIT Date of Service: 02/06/18 MR#: [id number] Acct: [id number] Name: ALLY LIMON Rep #: [id number] : 1960 Provider: Mynor Ramsey MD Age/Sex: 58/F Location: [facility] Status: Signed HPI HPI Details: ALLY LIMON, is a 58 F who presents to the office today for Intake Intake Visit Reasons: ABN EKG ([facility]) Allergies latex Allergy (Verified 02/13/18 16:22) Rash codeine Adverse Reaction (Verified 02/13/18 16:22) Nausea Medications Albuterol IH (ProAir) [Proair Hfa] 2 puff INHALATION Q4H PRN PRN 10/28/13 [History Confirmed 02/07/18] Levothyroxine [Synthroid] 75 mcg PO DAILY 10/28/13 [History Confirmed 02/07/18] Paroxetine HCl [Paxil] 40 mg PO DAILY 10/28/13 [History Confirmed 02/07/18] albuterol sulfate 2.5 mg/3 mL (0.083 %) solution for nebulization 2.5 mg INHALATION Q4H PRN 02/05/18 [History Confirmed 02/07/18] cholecalciferol (vitamin D3) 2,000 unit capsule 2,000 unit PO DAILY 02/05/18 [History Confirmed 02/07/18] gabapentin 100 mg capsule 100 mg PO .COMPLEX 02/05/18 [History Confirmed 02/07/18] gabapentin 300 mg capsule 300 mg PO QHS cap 02/05/18 [History Confirmed 02/07/18] mesalamine 800 mg tablet,delayed release 800 mg PO TID tab 02/05/18 [History Confirmed 02/07/18] minocycline 100 mg capsule 100 mg PO DAILY 02/05/18 [History Confirmed 02/07/18] mometasone-formoterol HFA 200 mcg-5 mcg/actuation aerosol inhaler 2 puff INHALATION BID 02/05/18 [History Confirmed 02/07/18] omeprazole 40 mg capsule,delayed release 40 mg PO DAILY 02/05/18 [History Confirmed 02/07/18] aspirin 81 mg tablet,delayed release 81 mg PO DAILY #30 tab 03/09/18 [Rx] clopidogrel 75 mg tablet 75 mg PO DAILY #30 tab 03/09/18 [Rx] PFSH Medical History Rheumatoid arthritis (Chronic) Depression (Chronic) GERD (gastroesophageal reflux disease) (Chronic) Hypothyroidism (Chronic) Asthma (Chronic) Premature ventricular contractions (Acute) Abnormal EKG (Acute) Surgical History History of carpal tunnel release (Chronic) History of total hysterectomy (Chronic 2003) S/P tonsillectomy and adenoidectomy (Chronic) Family History Mother COPD (chronic obstructive pulmonary disease) Daughter Bipolar disorder Schizophrenia PTSD (post-traumatic stress disorder) Daughter Schizophrenia Bipolar disorder PTSD (post-traumatic stress disorder) Social History Smoking Status: Current every day smoker ROS Const Const: Negative for fatigue, weakness, body ache, fever(s), headache(s), chills, frequent falls, night sweats, daytime sleepiness, difficulty sleeping, excessive sweating, weight gain, weight loss, increased appetite, poor appetite, anorexia or other Eyes Eyes: Negative for blind spots, loss of peripheral vision, transient loss of vision, blurry vision, change in vision, double vision, floaters, tunnel vision or other ENT ENT: Negative for headache(s), dizziness, hearing loss, tinnitus, Nosebleed/epistaxis, balance problems, post nasal drip, lip swelling, tongue swelling, bleeding gums, hoarseness, neck pain, dry mouth or other Cardio Chest Pain: No Resp Respiratory: Negative for SOB with activity, SOB at rest, SOB orthopnea\SOB lying down, Coughing up blood/hemoptysis, chest congestion, pain on inspiration, snoring, stridor, wheezing, crackles, paroxysmal nocturnal dyspnea or other GI GI: Negative nausea, vomiting, heartburn, constipation, belching, bloating, cramping, vomiting blood/hematemesis, bright, red blood in stools, black,tarry stools, loose stools, Difficulty Swallowing or other : Negative for hematuria, frequent nighttime urination/ nocturia, erectile dysfunction or abnormal vaginal bleeding Musc Musc: Negative for balance problems, muscle aches/ myalgia, muscle weakness or joint pain Skin Skin: Negative redness, non-healing lesions, rash, unusual bruising, skin ulcer, wounds, jaundice or other Neuro Neuro: Negative for weakness, headache(s), frequent falls, blurry vision, double vision, dizziness, lightheadedness, near syncope, syncope, orthostatic symptoms, confusion, memory loss, restless legs, vertigo, seizures, lack of coordination or other [place] Hematologic/Lymphatic: Negative for easy bleeding, easy bruising, enlarged lymph nodes or other Endo Endo: Negative for fatigue, excessive sweating, cold intolerance, heat intolerance, flushing, increased thirst/drinking, increased hunger, hair loss, hair growth or other Psych Psych: Negative for anxiety, depression, thoughts of harming anyone, thoughts of harming yourself, visual hallucinations, panic attacks or audible hallucinations Allergy Allergy/Immunology: Negative for lip swelling, Negative for tongue swelling, Negative for rash, Negative for throat swelling, Negative for hives Coding Level of Care Code Off vis,est,level 3 Coding Level of Care Code Off vis,est,level 3 03/09/18 1114 <Electronically signed by Mynor Ramsey MD> Date Mynor Ramsey MD Cosigner Signature: Date (if applicable) CC: [facility] STRESS TEST ECHO W/ Observed: 03/07/2018 Status: F Source: [place] CONTRAST 4:14 PM [facility] REPOSITORY [facility] [place] [address] Stress Test Echo W/Contrast MR#: [id number] Acct: [id number] Name: ALLY LIMON Rep #: [id number] : 1960 58 From: Mynor Ramsey MD Primary Care: [facility] Status: REG CLI Ordering Dr: Mynor Ramsey MD Sex: F C Reason For Study: Abnormal EKG Stress Results Protocol: Mook Protocol Maximum Predicted HR: 161 bpm Target HR: 137 bpm % Maximum Predicted HR: 86 % DurationHeart Rate Stage (mm:ss) (bpm) BP Comment Baseline 71 116/72Diluted Definity 4 ML Given; No Chest Pain Mook Protocol Stage I 3:00 121 164/78No Chest Pain; Moderate Dyspnea Mook Protocol Stage II 1:30 139 / No Chest Pain; Moderate to Severe Dyspnea Recovery 79 118/80No Chest Pain Stress Duration: 4:30 mm:ss Maximum Stress HR: 139 bpm METS: 7 Baseline Echocardiogram Findings The estimated ejection fraction is 65 %. Stress Echo Wall motion Data Resting WM Intermediate WM Stress WM Resting Wall Motion Wall Motion Stress No regional wall motion Mid-Anterior : Mildly abnormalities noted. hypokinetic. Mid-anteroseptal : Mildly hypokinetic. EKG Data The baseline ECG displays normal sinus rhythm. The patient exercised according to the regular Mook protocol for a total duration of 4:30. The maximum heart rate attained was 144 beats per minute. This was 89% of maximum predicted heart rate. The patient exercised into stage 2 of the Mook protocol. During stress, there were no ST or T wave changes noted to suggest ischemia. Interpretation Summary The estimated ejection fraction is 65 %. Mid-anteroseptal : Mildly hypokinetic Abnormal, adequate, treadmill echocardiogram. Positive for ischemia by echocardiographic criteria. Patient appeared to develop mid anterior and anteroseptal hypokinesis at peak exercise seen in 2 views. No anginal symptoms noted. Rare PVCs noted. Appropriate blood pressure response to exercise. Below average exercise capacity for age. Final LVEF approximately 55%. Poor echo windows noted requiring Definity agent. Test terminated due to dyspnea which may be an anginal equivalent. Ordering Physician: Mynor Ramsey Referring Physician: Mynor Ramsey Performed By: Merary Craven RDCS 03/07/18 1613 Date Mynor Ramsey MD CC: Mynor Ramsey MD; [facility] Date Dictated: 03/07/18 1314 Date Transcribed: 03/07/181612 Lead Die Molder: Signed LIVER PROFILE Collected: 02/26/2018 Status: F Source: [place] 9:47 AM [facility] REPOSITORY TYPE CODE TESTS RESULT OUT OF RANGE REFERENCE UNITS LAB L501.1500 6.4-8.2 g/dL Normal T PROT 6.6 LAB L501.1800 3.2-5.0 g/dL Low ALB 3.0 LAB L501.1950 2.2-4.2 g/dL Normal GLOB 3.6 LAB L501.4100 15-37 U/L Low AST 12 LAB L501.4305 45-117 U/L Normal ALK P 61 LAB L501.4405 13-56 U/L Normal ALT 13 LAB L501.4600 0.20-1.00 mg/dL Normal T BILI 0.40 LAB L501.4700 0.00-0.30 mg/dL Normal D BILI 0.13 Performed By: #### L500.3400, L500.4100 #### [facility] [address] [place], [place], [id number] LIPID PROFILE Collected: 02/26/2018 Status: F Source: [place] 9:47 AM [facility] REPOSITORY TYPE CODE TESTS RESULT OUT OF RANGE REFERENCE UNITS LAB L501.4900 200 mg/dL Normal CHOL 176 Result Comment: <200 mg/dL Desirable 200-240 mg/dL Borderline >240 mg/dL High Risk LAB L501.5000 mg/dL Normal TRIG 146 Result Comment: The drugs N-Acetylcysteine and Metamizole may falsely depress this assay. Serum Triglycerides Reference Interval Normal <150 mg/dL Borderline high 150 - 199 mg/dL High 200 - 499 mg/dL Very High > or = 500 mg/dL LAB L501.6400 mg/dL Normal HDL 50 Result Comment: The drugs N-Acetylcysteine and Metamizole may falsely depress this assay. Reference Range HDL <40 mg/dL Low HDL Cholesterol HDL >or= 60 mg/dL High HDL Cholesterol LAB L501.6500 0-130 mg/dL Normal LDL 97 LAB L501.6600 5-40 mg/dL Normal VLDL 29 Performed By: #### L500.3400, L500.4100 #### [facility] [address] [place], [address] CARDIOLOGY VISIT Observed: 02/18/2018 Status: F Source: [place] REPORT 12:32 PM [facility] REPOSITORY [facility] 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 Accompanied by: Daughter Is patient in pain?: No Allergies latex Allergy (Verified 02/13/18 16:22) Rash codeine Adverse Reaction (Verified 02/13/18 16:22) Nausea Medications Albuterol IH (ProAir) [Proair Hfa] 2 puff INHALATION Q4H PRN PRN 10/28/13 [History Confirmed 02/07/18] Levothyroxine [Synthroid] 75 mcg PO DAILY 10/28/13 [History Confirmed 02/07/18] Paroxetine HCl [Paxil] 40 mg PO DAILY 10/28/13 [History Confirmed 02/07/18] albuterol sulfate 2.5 mg/3 mL (0.083 %) solution for nebulization 2.5 mg INHALATION Q4H PRN 02/05/18 [History Confirmed 02/07/18] cholecalciferol (vitamin D3) 2,000 unit capsule 2,000 unit PO DAILY 02/05/18 [History Confirmed 02/07/18] gabapentin 100 mg capsule 100 mg PO .COMPLEX 02/05/18 [History Confirmed 02/07/18] gabapentin 300 mg capsule 300 mg PO QHS cap 02/05/18 [History Confirmed 02/07/18] mesalamine 800 mg tablet,delayed release 800 mg PO TID tab 02/05/18 [History Confirmed 02/07/18] minocycline 100 mg capsule 100 mg PO DAILY 02/05/18 [History Confirmed 02/07/18] mometasone-formoterol HFA 200 mcg-5 mcg/actuation aerosol inhaler 2 puff INHALATION BID 02/05/18 [History Confirmed 02/07/18] omeprazole 40 mg capsule,delayed release 40 mg PO DAILY 02/05/18 [History Confirmed 02/07/18] PFSH Medical History Rheumatoid arthritis (Chronic) Depression (Chronic) GERD (gastroesophageal reflux disease) (Chronic) Hypothyroidism (Chronic) Asthma (Chronic) Premature ventricular contractions (Acute) Abnormal EKG (Acute) Surgical History History of carpal tunnel release (Chronic) History of total hysterectomy (Chronic 2003) S/P tonsillectomy and adenoidectomy (Chronic) Family History Mother COPD (chronic obstructive pulmonary disease) Daughter Bipolar disorder Schizophrenia PTSD (post-traumatic stress disorder) Daughter Schizophrenia Bipolar disorder PTSD (post-traumatic stress disorder) Social History Smoking Status: Current every day smoker ROS Const Const: Positive for other (Referred by ER for abn. ekg); negative for fatigue, weakness, body ache, fever(s), headache(s), chills, frequent falls, night sweats, daytime sleepiness, difficulty sleeping, excessive sweating, weight gain, weight loss, increased appetite, poor appetite or anorexia Eyes Eyes: Negative for blind spots, loss of peripheral vision, transient loss of vision, blurry vision, change in vision, double vision, floaters, tunnel vision or other ENT ENT: Negative for headache(s), dizziness, hearing loss, tinnitus, Nosebleed/epistaxis, balance problems, post nasal drip, lip swelling, tongue swelling, bleeding gums, hoarseness, neck pain, dry mouth or other Cardio Chest Pain: No Palpitations: No Edema: None Muscle aches with walking: None Resp Respiratory: Positive for SOB with activity (Does smoke.) and Cough (productive clear sputum); negative for SOB at rest, SOB orthopnea\SOB lying down, Coughing up blood/hemoptysis, chest congestion, pain on inspiration, snoring, stridor, wheezing, crackles, paroxysmal nocturnal dyspnea or other GI GI: Negative nausea, vomiting, heartburn, constipation, belching, bloating, cramping, vomiting blood/hematemesis, bright, red blood in stools, black,tarry stools, loose stools, Difficulty Swallowing or other : Negative for hematuria, frequent nighttime urination/ nocturia, erectile dysfunction or abnormal vaginal bleeding Musc Musc: Negative for balance problems, muscle aches/ myalgia, muscle weakness or joint pain Skin Skin: Negative redness, non-healing lesions, rash, unusual bruising, skin ulcer, wounds, jaundice or other Neuro Neuro: Negative for weakness, headache(s), frequent falls, blurry vision, double vision, dizziness, lightheadedness, near syncope, syncope, orthostatic symptoms, confusion, memory loss, restless legs, vertigo, seizures, lack of coordination or other [place] Hematologic/Lymphatic: Negative for easy bleeding, easy bruising, enlarged lymph nodes or other Endo Endo: Negative for fatigue, excessive sweating, cold intolerance, heat intolerance, flushing, increased thirst/drinking, increased hunger, hair loss, hair growth or other Psych Psych: Negative for anxiety, depression, thoughts of harming anyone, thoughts of harming yourself, visual hallucinations, panic attacks or audible hallucinations Allergy Allergy/Immunology: Negative for lip swelling, Negative for tongue swelling, Negative for rash, Negative for throat swelling, Negative for hives Assessment AND Plan Orders Orders: Plan Detail Follow Up +6M (Bra[place]io) Coding Level of Care Code Off vis,est,level 3 Coding Level of Care Code Off vis,est,level 3 02/18/18 1232 <Electronically signed by Mynor Ramsey MD> Date [facility] Signature: Date (if applicable) CC: [facility] CARDIOLOGY VISIT Observed: 02/13/2018 Status: F Source: [place] REPORT 4:40 PM [facility] REPOSITORY [facility] [address] [place] [address]. [address] [place] [address] OFFICE VISIT Date of Service: 02/13/18 MR#: [id number] Acct: [id number] Name: ALLY LIMON Rep #: [id number] : 1960 Provider: Mynor Ramsey MD Age/Sex: 58/F Location: [facility] Status: Signed HPI HPI Chief Complaint: Abnl EKG Details: ALLY LIMON, is a 58 F who presents to the office today for evaluation of EKG abnormalities. She has a history of asthma, hypothyroidism, GERD, depression, rheumatoid arthritis and left knee pain. Apparently she recent visited [facility] due to overdose of Paxil. Patient reported an increase in stress mostly due to of her mother and family conflict with her daughter. In the ER an EKG was found to be abnormal with specific findings of normal sinus rhythm, left anterior hemiblock, and low voltage on the QRS and possible old septal infarct patient was referred to our office for further evaluation. Is now in counseling for her suicide attempt, and is doing fairly well. She smokes about less than 1/2 pack cigarettes per day for the past 53 years and continues to smoke. She denies any chest pain, chest pressure, but does complain dyspnea on exertion but has had asthma since she was a child. Her asthma is mostly triggered by extreme temperatures but not by her smoking. She is tried nicotine gum and nicotine patch in the past which was unsuccessful. She has never tried Chantix. To the best of her knowledge she cannot recall a time when she developed chest pressure or chest pain or flulike symptoms which may have been an RI and disguise. She is taking and tolerating her medicines well. She does have a history of ulcerative colitis as well but appears to be in remission. In our office today her blood pressure is 90/64 and pulse is 84 and regular. Her physical exam demonstrates clear lungs bilaterally, regular rate and rhythm, normal S1/S2, no murmurs, S3 or S4, no edema noted. 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 EKG dated 01/16/18 shows normal sinus rhythm, left anterior hemiblock, possible old anteroseptal wall myocardial infarction, no acute changes. Lipids are pending. Intake Vital Signs02/13/18 Height 5 ft 4 in 02/13/18 Weight: 187 lb 02/13/18 Body Mass Index (BMI) 32.1 02/13/18 Blood Pressure 90/64 Intake Visit Reasons: ABN EKG (FREE CLINIC) Allergies latex Allergy (Verified 02/13/18 16:22) Rash codeine Adverse Reaction (Verified 02/13/18 16:22) Nausea Medications Albuterol IH (ProAir) [Proair Hfa] 2 puff INHALATION Q4H PRN PRN 10/28/13 [History Confirmed 02/07/18] Levothyroxine [Synthroid] 75 mcg PO DAILY 10/28/13 [History Confirmed 02/07/18] Paroxetine HCl [Paxil] 40 mg PO DAILY 10/28/13 [History Confirmed 02/07/18] albuterol sulfate 2.5 mg/3 mL (0.083 %) solution for nebulization 2.5 mg INHALATION Q4H PRN 02/05/18 [History Confirmed 02/07/18] cholecalciferol (vitamin D3) 2,000 unit capsule 2,000 unit PO DAILY 02/05/18 [History Confirmed 02/07/18] gabapentin 100 mg capsule 100 mg PO .COMPLEX 02/05/18 [History Confirmed 02/07/18] gabapentin 300 mg capsule 300 mg PO QHS cap 02/05/18 [History Confirmed 02/07/18] mesalamine 800 mg tablet,delayed release 800 mg PO TID tab 02/05/18 [History Confirmed 02/07/18] minocycline 100 mg capsule 100 mg PO DAILY 02/05/18 [History Confirmed 02/07/18] mometasone-formoterol HFA 200 mcg-5 mcg/actuation aerosol inhaler 2 puff INHALATION BID 02/05/18 [History Confirmed 02/07/18] omeprazole 40 mg capsule,delayed release 40 mg PO DAILY 02/05/18 [History Confirmed 02/07/18] PFSH Medical History Rheumatoid arthritis (Chronic) Depression (Chronic) GERD (gastroesophageal reflux disease) (Chronic) Hypothyroidism (Chronic) Asthma (Chronic) Premature ventricular contractions (Acute) Abnormal EKG (Acute) Surgical History History of carpal tunnel release (Chronic) History of total hysterectomy (Chronic 2003) S/P tonsillectomy and adenoidectomy (Chronic) Family History Mother COPD (chronic obstructive pulmonary disease) Daughter Bipolar disorder Schizophrenia PTSD (post-traumatic stress disorder) Daughter Schizophrenia Bipolar disorder PTSD (post-traumatic stress disorder) Social History Smoking Status: Current every day smoker Cardiology Exam Const Appearance: cooperative, healthy appearing and no acute distress Nutritional Appearance: well nourished Orientation: alert, oriented x3 and oriented to person Head Head: normal to inspection, atraumatic and normocephalic Nose: external nose normal Face and Sinus: face symmetric Mouth: oral mucosae normal Eyes General: appearance normal, both eyes and all related structures Eyelids: eyelids normal Conjunctivae: conjunctivae normal Pupils: PERRL and normal by confrontation EOM: EOM intact bilaterally Neck Neck: normal visual inspection and full ROM Carotids: normal carotid upstroke Chest Chest inspection: normal inspection of the chest Auscultation: Bilateral: Clear to Auscultation Cardio Palpation: normal PMI Rate: regular rate Rhythm: regular rhythm Heart sounds: S1 normal and S2 normal GI GI: normal to inspection, no hepatosplenomegaly and bowel sounds present Neuro General: alert, oriented x3, awake, CN's II-XI intact bilaterally and moves all extremities Skin Skin: no rashes or lesions noted Extremities Pulses: Normal: Right Femoral Pulse, Left Femoral Pulse, Right Dorsalis Pedis Pulse, Left Dorsalis Pedis Pulse, Right Posterior Tibial Pulse, Left Posterior Tibial Pulse, Right Radial Pulse, Left Radial Pulse Lower Extremity Edema: None: Bilateral Psych Psychological: normal affect Assessment AND Plan 1. Abnormal EKG R94.31 12/22/17 @ [facility] ER: Septal infarct, age undetermined, left axis deviation, occ. PVC's Plan 1. Abnormal EKG: Patient has signs and symptoms of possible significant coronary occlusive disease and has an abnormal EKG. Her shortness of breath may be asthma related. She can use to smoke and she has had a recent suicide attempt by taking too much Paxil. She is currently in counseling and doing fairly well with respect to that. To better evaluate her abnormal EKG I recommended a 2D echo with Doppler as well as a treadmill echocardiogram. If either 1 of these are grossly abnormal she will require a diagnostic coronary angiogram. If her stress test is negative, we will continue medical management at this time. I have strongly encouraged the patient discontinue all tobacco products, and she may require assistance from a medicine standpoint such as Chantix if this is permissible with her other antianxiety and antidepressant medications. In addition I recommend a fasting lipid profile to further risk stratify the patient. If her LDL is greater than 130 I would recommend antilipid therapy for primary prevention. 2. Return office in 6 months. This note was generated using a voice recognition system and there may be incorrect words, spelling or punctuation that were not noted when reviewing the office note prior to saving. Plan Detail Other Medications Discontinued: Follow Up +6M ([place]) Coding Level of Care Code Off vis,new,level 4 Diagnoses Abnormal EKG R94.31 Coding Level of Care Code Off vis,new,level 4 Diagnoses Abnormal EKG R94.31 02/13/18 1640 <Electronically signed by Mynor Ramsey MD> Date Mynor Jenkins Signature: Date (if applicable) CC: 12 LEAD ELECTROCARDIOGRAM Observed: 01/17/2018 Status: F Source: [place] 3:21 PM [facility] REPOSITORY [facility] Cardiovascular Services [address] [place] [address] 12 Lead EKG 01/16/18 1123 MR#: [id number] Acct: [id number] Name: ALLY LIMON Rep #: [id number] : 1960 57 From: Victor Hugo Walton MD Attending Dr: CELSO MUNSON Status: REG CLI Ordering Dr: Celso Dill Date: 01/16/18 Location: [facility] Sex: F C Admitted: Test Reason : ABN EKG Blood Pressure : / mmHG Vent. Rate : 068 BPM Atrial Rate : 068 BPM P-R Int : 156 ms QRS Dur : 090 ms QT Int : 386 ms P-R-T Axes : 004 -35 024 degrees QTc Int : 410 ms Normal sinus rhythm Left axis deviation Low voltage QRS (limb leads) Septal infarct , age undetermined Abnormal ECG Confirmed by ISABELLE HUERTA, VICTOR HUGO ([id number]), editor at large KRISTINA POWELL ([id number]) on 01/17/2018 3:21:04 PM Referred By: CELSO MUNSON Confirmed By:VICTOR HUGO WALTON MD 01/17/18 1521 Date Victor Hugo Walton MD CC: CELSO MUNSON Signed CBC AND DIFFERENTIAL Collected: 12/27/2017 Status: F Source: [place] 9:06 AM CLINIC REFERENCE REPOSITORY TYPE CODE TESTS RESULT OUT OF REFERENCE UNITS RANGE LAB WBC(LOINC) 3.70-11.00 k/uL WBC 9.31 LAB RBC(LOINC) 3.90-5.20 m/uL RBC 4.78 LAB HGB(LOINC) 11.5-15.5 g/dL Hemoglobin 14.6 LAB HCT(LOINC) 36.0-46.0 % Hematocrit 44.8 LAB MCV(LOINC) 80.0-100.0 fL MCV 93.7 LAB MCH(LOINC) 26.0-34.0 pG MCH 30.5 LAB MCHC(LOINC 30.5-36.0 g/dL ) MCHC 32.6 LAB RDWCV(LOIN 11.5-15.0 % C) RDW-CV 13.2 LAB PLTCT(LOIN 150-400 C) Platelet Count Result Comment: Platelets Clumped, Estimate Normal Result checked and verified No clot detected. Platelet count confirmed by manual review of peripheral blood smear. LAB MPV(LOINC) 9.0-12.7 fL MPV 11.9 LAB ANEUT(LOINC) % Neut% 54.2 LAB AANEUT(LOINC) 1.45-7.50 k/uL Abs Neut 5.05 LAB ALYMP(LOINC) % Lymph% 30.5 LAB AALYMP(LOINC) 1.00-4.00 k/uL Abs Lymph 2.84 LAB AMONO(LOINC) % Queens% 7.6 LAB AAMONO(LOINC) <0.87 k/uL Abs [place] 0.71 LAB AEOS(LOINC) % Eosin% 6.7 LAB AAEOS(LOINC) <0.46 k/uL High Abs Eosin 0.62 LAB ABASO(LOINC) % Baso% 1.0 LAB AABASO(LOINC) <0.11 k/uL Abs Baso 0.09 LAB AUNRBC(LOINC) 0 /100 WBC NRBCs 0.0 LAB ABNRBC(LOINC) <0.01 k/uL Absolute nRBC <0.01 LAB DTYP(LOINC) DTYPE ADIFF Performed By: #### FT4, TSH, CBCDIF, HBA1C, LIPB, CMP, VITD #### [facility] Routine Lab [address] [place], [place] [address] COMP METABOLIC PANEL Collected: 12/27/2017 Status: F Source: [place] 9:06 AM CLINIC REFERENCE REPOSITORY TYPE CODE TESTS RESULT OUT OF REFERENCE UNITS RANGE LAB TP(LOINC) 6.3-8.0 g/dL Protein, Total 7.2 LAB ALB(LOINC) 3.9-4.9 g/dL Albumin 4.0 LAB CA(LOINC) 8.5-10.2 mg/dL Calcium, Total 9.8 LAB TBIL(LOINC 0.2-1.3 mg/dL ) Bilirubin, Total 0.4 LAB ALKP(LOINC 32-117 U/L ) Alkaline Phosphatase 63 LAB AST(LOINC) 13-35 U/L AST 17 LAB GLU(LOINC) 74-99 mg/dL Glucose 91 LAB BUN(LOINC) 7-21 mg/dL Low BUN 6 LAB CRET(LOINC 0.58-0.96 mg/dL ) Creatinine 0.65 LAB NA(LOINC) 136-144 mmol/L Sodium 141 LAB K(LOINC) 3.7-5.1 mmol/L Potassium 4.2 LAB CL(LOINC) 97-105 mmol/L Chloride 104 LAB CO2(LOINC) 22-30 mmol/L CO2 25 LAB AGAP(LOINC 9-18 mmol/L ) Anion Gap 12 LAB ALT(LOINC) 7-38 U/L ALT 9 LAB GFRAA(LOIN C) eGFR- >60 Amer. LAB GFRNAA([place] . NC) eGFR-All Other Races >60 Performed By: #### FT4, TSH, CBCDIF, HBA1C, LIPB, CMP, VITD #### [facility] Routine Lab [address] [place] [address] LIPID PANEL, BASIC Collected: 12/27/2017 Status: F Source: [place] 9:06 AM CLINIC REFERENCE REPOSITORY TYPE CODE TESTS RESULT OUT OF REFERENCE UNITS RANGE LAB CHOL(LOINC <200 mg/dL ) Cholesterol 192 LAB TRIGLY([place] <150 mg/dL NC) Triglyceride 144 LAB HDL(LOINC) >39 mg/dL HDL-Cholesterol 43 LAB LDL(LOINC) <100 mg/dL High LDL-Cholesterol 120 LAB NONHDL([place] <130 mg/dL NC) Non HDL High Cholesterol 149 LAB FT(LOINC) hrs Fasting Time UN LAB VLDL(LOINC <30 mg/dL ) VLDL Cholesterol 29 LAB TCHDL(LOIN <5.10 C) TC:HDL Ratio 4.47 LAB LDLHDL([place] <2.54 NC) LDL:HDL Ratio High 2.79 Performed By: #### FT4, TSH, CBCDIF, HBA1C, LIPB, CMP, VITD #### [facility] Routine Lab [address] [place] [address] TSH Collected: 12/27/2017 Status: F Source: [place] 9:06 AM CLINIC REFERENCE REPOSITORY TYPE CODE TESTS RESULT OUT OF RANGE REFERENCE UNITS LAB TSH(LOINC) 0.400-5.500 uU/mL High TSH 10.060 Performed By: #### FT4, TSH, CBCDIF, HBA1C, LIPB, CMP, VITD #### [facility] Routine Lab [address] [place] [address] FREE T4 Collected: 12/27/2017 Status: F Source: [place] 9:06 AM [facility] REFERENCE REPOSITORY TYPE CODE TESTS RESULT OUT OF RANGE REFERENCE UNITS LAB FT4(LOINC) 0.9-1.7 ng/dL Free T4 0.9 Performed By: #### FT4, TSH, CBCDIF, HBA1C, LIPB, CMP, VITD #### [facility] Routine Lab [address] [place] [address] HEMOGLOBIN A1C Collected: 12/27/2017 Status: F Source: [place] 9:06 AM CLINIC REFERENCE REPOSITORY TYPE CODE TESTS RESULT OUT OF REFERENCE UNITS RANGE LAB HGBA1C(ARNULFO 4.3-5.6 % NC) Hemoglobin A1c 5.5 LAB HBA0(LOINC mg/dL ) Est. Average Glucose 111 Performed By: #### FT4, TSH, CBCDIF, HBA1C, LIPB, CMP, VITD #### [facility] Routine Lab [address] [place] [address] VITAMIN D 25 HYDROXY Collected: 12/27/2017 Status: F Source: [place] 9:06 AM CLINIC REFERENCE REPOSITORY TYPE CODE TESTS RESULT OUT OF REFERENCE UNITS RANGE LAB VITD(LOINC) 31.0-80.0 ng/mL Vitamin D 25 36.6 Hydroxy Performed By: #### FT4, TSH, CBCDIF, HBA1C, LIPB, CMP, VITD #### [facility] Routine Lab [address] [place] [id number] 12 LEAD ELECTROCARDIOGRAM Observed: 12/25/2017 Status: F Source: [place] 3:12 PM [facility] REPOSITORY [facility] Cardiovascular Services [address] [place] [address] 12 Lead EKG 12/22/17 1440 MR#: [id number] Acct: [id number] Name: ALLY LIMON Rep #: [id number] : 1960 57 From: Atif Wilkins MD Attending Dr: Status: DEP ER Ordering Dr: Luc Bliss MD Date: 12/22/17 Location: ED Sex: F C Admitted: Test Reason : MHC Blood Pressure : / mmHG Vent. Rate : 090 BPM Atrial Rate : 090 BPM P-R Int : 170 ms QRS Dur : 092 ms QT Int : 334 ms P-R-T Axes : 068 -43 070 degrees QTc Int : 408 ms Sinus rhythm with occasional Premature ventricular complexes Left axis deviation Septal infarct , age undetermined Abnormal ECG Confirmed by GROVER HUERTA, ATIF ([id number]), editor at large KRISTINA POWELL ([id number]) on 12/25/2017 3:12:46 PM Referred By: NARCISA Confirmed By:ATIF WILKINS MD 12/25/17 1512 Date Atif Wilkins MD CC: Luc Bliss MD; CELSO MUNSON Signed EMERGENCY DEPARTMENT Observed: 12/22/2017 Status: F Source: [place] SUMMARY 4:57 PM [facility] REPOSITORY [facility] Medical Records Department [address] [place] [address] Emergency Department Summary 12/22/17 1652 MR#: [id number] Acct: [id number] Name: ALLY LIMON Rep #: [id number] : 1960 57 From: Luc Bliss MD PCP: CELSO MUNSON Status: REG ER - ER Visit Summary Date of Service: 12/22/17 Chief Complaint: [] History of Present Illness: The patient is a 57 F [] Physical Examination: [] Test Results: [] Emergency Department Course and Treatment: [] Treatment Plan: [] Disposition: [] Impression: [] This note was generated with compropagoation software. It may contain incorrect words, spelling, and punctuation that were not noted in review of the chart prior to signing ED Disposition - Plan for ED Patient: Chief Complaint: Overdose Instructions: ED Depression Referrals: Counseling,Center [GROUP OF PHYSICIANS] - What to do if you have Problems For any increased pain, shortness of breath, bleeding, nausea or vomiting, chest pain, or any unexpected problems, contact your Primary Care Provider. Call [employer] [facility] ([phone]) or report to the closest Emergency Room. Call 911 if necessary. 12/22/17 165 <Electronically signed by Luc Bliss MD> Date Luc Bliss MD Cosigner Signature (If Indicated): Date CC: CELSO MUNSON EMERGENCY DEPARTMENT Observed: 12/22/2017 Status: F Source: [place] SUMMARY 4:52 PM [facility] REPOSITORY [facility] Medical Records Department [address] [place] [address] Emergency Department Summary 12/22/17 1625 MR#: [id number] Acct: [id number] Name: ALLY LIMON Rep #: [id number] : 1960 57 From: Luc Bliss MD PCP: CELSO MUNSON Status: REG ER ADDENDUM by Luc Bliss MD on 12/22/17 at 1652 The patient was seen and evaluated by crisis. At this point, she is anirudh for safety. She states that she was just angry and upset her daughter. I do not feel that this was a legitimate attempt. The patient is comfortable going home with family. She does know that if anything changes she should return immediately or call 911. She will be discharged home. Date Luc Bliss MD cc: CELSO TAVARES [facility] * Signed - ER Visit Summary Date of Service: 12/22/17 Chief Complaint: Suicidal gesture History of Present Illness: The patient is a 57 F presents to the emergency department with suicidal gesture. Patient states that she got into a verbal altercation with her daughter today. She states that she took 5 of her Paxil. She states that her son made her vomit them up. She states that she has been increasingly depressed. She denies any prior attempted suicide. She denies any fevers or chills. She was brought here by squad after the son called. Physical Examination: Vital signs reviewed General: Well-nourished, well-developed Head: Normocephalic, atraumatic Eyes: Pupils equal and reactive, extraocular muscles intact Neck, supple, no lymphadenopathy Heart: Regular rate and rhythm Respiratory: No distress, clear bilaterally Abdomen: Soft, nontender, nondistended, no peritoneal signs Back: Nontender Extremities: Nontender, no edema, no cords Skin: Normal color no rash Neuro: Alert and oriented, no focal or lateralizing deficits Test Results: [] Emergency Department Course and Treatment: EKG was obtained on patient arrival. There was no prolonged QT or other dangerous arrhythmia. The patient was observed. Screening labs were obtained were unremarkable. At this time, I do for the patient is medically cleared for psychiatric evaluation. Patient was discussed with crisis. Disposition is pending. Treatment Plan: [] Disposition: Pending Impression: Suicidal gesture This note was generated with Settle dictation software. It may contain incorrect words, spelling, and punctuation that were not noted in review of the chart prior to signing ED Disposition - Plan for ED Patient: Chief Complaint: Overdose Referrals: [facility] Katharine,Celso Tavares [Primary Care Provider] - What to do if you have Problems For any increased pain, shortness of breath, bleeding, nausea or vomiting, chest pain, or any unexpected problems, contact your Primary Care Provider. Call [employer] [facility] ([phone]) or report to the closest Emergency Room. Call 911 if necessary. 12/22/17 1639 <Electronically signed by Luc Bliss MD> Date Luc Bliss MD Cosigner Signature (If Indicated): Date CC: CELSO TAVARES [facility] URINE DRUG SCREEN Collected: 12/22/2017 Status: F Source: [place] (ALEX) 2:45 PM [facility] REPOSITORY TYPE CODE TESTS RESULT OUT OF RANGE REFERENCE UNITS LAB L505.0075 TO BE Normal CONFIRMED Result Comment: CONFIRMATORY TESTING FOR ALL POSITIVE URINE DRUG SCREEN RESULTS WILL ONLY BE SENT OUT UPON PHYSICIAN ORDER. VISTA Urine Drug Screen methods provide only preliminary analytical test results. A more specific alternate chemical method must be used in order to obtain a confirmed analytical result. Gas chromatography/mass spectrometery (GC/MS) is the preferred confirmatory method. Clinical consideration and professional judgement should be applied to any drug of abuse test result, particularly when preliminary positive results are used. URINE TCA TESTING MUST BE ORDERED SEPARATELY. USE TEST MNEMONIC: [facility] LAB L505.5005 VISTA UDS PH 5 Normal LAB L505.5015 <1000 High ng/mL AMPHETAMINES POSITIVE LAB L505.5025 < 200 ng/mL BARBITIURATES Normal NEGATIVE LAB L505.5035 < 200 ng/mL BENZODIAZIPINE Normal NEGATIVE LAB L505.5045 < 300 ng/mL COCAINE Normal NEGATIVE LAB L505.5055 < 500 ng/mL ECSTACY Normal NEGATIVE LAB L505.5065 < 300 ng/mL METHADONE Normal NEGATIVE LAB L505.5075 < 300 ng/mL OPIATES Normal NEGATIVE LAB L505.5085 < 25 ng/mL PCP Normal NEGATIVE LAB L505.5095 < 50 High ng/mL THC POSITIVE Performed By: #### L505.5000 #### [facility] [place], [address] CBC W/DIFF, AUTOMATED Collected: 12/22/2017 Status: F Source: [place] 2:10 PM [facility] REPOSITORY TYPE CODE TESTS RESULT OUT OF RANGE REFERENCE UNITS LAB L100.1000 4.4-11.0 K/mm3 High WBC 12.1 LAB L100.1200 4.2-5.4 M/mm3 Normal RBC 5.09 LAB L100.1300 12.0-15.0 g/dl High HGB 15.6 LAB L100.1400 37-47 % Normal HCT 46.7 LAB L100.1500 81-99 fL Normal MCV 91.7 LAB L100.1600 27.0-32.0 pg Normal MCH 30.6 LAB L100.1700 32-36 g/gl Normal MCHC 33.4 LAB L100.1810 11.6-14.6 % Normal RDW CV 13.4 LAB L100.1820 35.1-43.9 fl High RDW SD 45.2 LAB L100.1900 150-450 K/mm3 Low PLT 98 LAB L100.2000 6.2-12.0 fl Normal MPV 11.7 LAB L100.2100 47-70 % Normal NEUT% 60.3 LAB L100.2200 19-41 % Normal LY% 27.3 LAB L100.2300 0-10 % Normal MONO% 6.5 LAB L100.2400 0-5 % High EO% 5.4 LAB L100.2500 0-1 % Normal BASO% 0.3 LAB L100.2550 0.0-0.9 % Normal IM GRAN % 0.200 Result Comment: IG% - Immature Granulocytes (promyelocytes, myelocytes and metamyelocytes) > 1% indicates that a LEFT SHIFT is Present. LAB L100.2620 2.0-7.7 X10 3/uL Normal Absolute Neut 7.3 LAB L100.2720 0.83-4.51 X10 3/ul Normal Absolute Lymph 3.30 Performed By: #### L100.0100 #### [facility] [place], [address] ALCOHOL, BLOOD Collected: 12/22/2017 Status: F Source: [place] (MEDICAL)-SERUM 2:10 PM [facility] REPOSITORY TYPE CODE TESTS RESULT OUT OF RANGE REFERENCE UNITS LAB L501.9100 mg/dL Normal SERUM < 3.0 ETOH Result Comment: The serum:whole blood ethanol ratio is approximately 1.14 and varies slightly with hematocrit. Medical Alcohol reference interval and critical value in non-tolerant individuals; 50 - 100 Impairment 100 Intoxication 100 - 250 Severe Poisoning 250 - 400 Deep/possible fatal coma Performed By: #### L501.9100 #### [facility] [address] [facility] [address] [place], [place], [id number] BASIC METABOLIC Collected: 12/22/2017 Status: F Source: [place] PROFILE (BMP) 2:10 PM [facility] REPOSITORY TYPE CODE TESTS RESULT OUT OF RANGE REFERENCE UNITS LAB L501.0100 74-106 mg/dL High GLU 137 Result Comment: Fasting Glucose result greater than or equal to 126 mg/dL suggests DIABETES MELLITUS per A.D.A. criteria. Please note revised GLUCOSE reference range effective 2017. LAB L501.1000 7-18 mg/dL Normal BUN 7 LAB L501.1100 0.55-1.02 mg/dL Normal CREAT,SERUM 0.73 Result Comment: The validity of the calculated GFR AND GFRAA in patients over 70 years has not been determined. Clinical correlation is essential. LAB L501.1110 >60 mL/min Normal EST GFR 87 Result Comment: Non- GFR Calc LAB L501.1115 >60 mL/min Normal EST GFR - AA 105 Result Comment: GFR Calc LAB L501.1255 ml/min Normal Estimated CRCL 72.54 LAB L501.1300 10-20 RATIO Low BUN/CRE 9.6 LAB L501.2200 8.5-10 mg/dL Normal .1 CA 9.6 LAB L501.5300 136-14 mmol/L Normal 5 NA 140 LAB L501.5600 3.5-5. mmol/L Normal 1 K 3.6 LAB L501.5900 98-107 mmol/L High CL 109 LAB L501.6100 21.0-3 mmol/L Normal 2.0 CO2 22.0 LAB L501.6200 5-15 Normal GAP 9 Performed By: #### L500.2500 #### [facility] [address] [facility] [place], [place], [address] ,SERUM,HCG QUALI. Collected: Status: F Source: [place] 12/22/2017 2:10 PM [facility] REPOSITORY TYPE CODE TESTS RESULT OUT OF REFERENCE UNITS RANGE LAB L700.7000 0-9 Nonpreg Negative Normal HCGSQUAL NEGATIVE LAB L700.6700 =>Qualitative mIU/mL Normal HCG Qual 2 triggr Performed By: #### L700.6800 #### [facility] [address] [place], [address] PROGRESS Observed: 08/16/2017 Status: COMPLETED Source: [place] 1:25 PM [facility] REPOSITORY HNO ID: [id number] Author: Jennifer Watts ([facility]) Service: (none) Author Type: Nurse Practitioner Type: Progress Notes Filed: 08/16/2017 1:38 PM Note Text: Subjective HPI Ally Limon is a 57 year old female who presents with her right thumb swollen and painful, for the past 2 months. She has been soaking it in epsom salt and water and she pulled an ingrown nail out of it last night and it has been throbbing since. She has taken tylenol for the pain. She rates the pain a 10/10 today. She has had some yellow drainage and bleeding from the nailbed. Review of Systems Constitutional: Negative. Negative for fever. Musculoskeletal: Negative. Negative for joint pain. Skin: See HPI BP 102/68 Pulse 80 Temp 36.8 ?C (98.3 ?F) (Tympanic) Resp 16 Wt 88.1 kg (194 lb 3.2 oz) BMI 33.33 kg/m? PAST MEDICAL HISTORY Diagnosis Date - Asthma - Bronchitis - Depression - Hypothyroid - Non morbid obesity 08/21/2015 - Rectal bleeding - Tobacco abuse - Ulcerative colitis (HCC) PAST SURGICAL HISTORY Procedure Laterality Date - COLONOSCOP W/ OR W/O BRSH SPEC 02/13/13 Colonoscopy - COLONOSCOP W/ OR W/O BRS SPEC 08/27/15 Colonoscopy - EGD W/O OR W/BRUSH/WASH 02/13/13 EGD - PAST SURGICAL HISTORY OF 1993 complete hysterectomy - PAST SURGICAL HISTORY OF 1994? cyst removed right hand - PAST SURGICAL HISTORY OF 04/2015 carpal tunnel left wrist ALLERGIES Codeine; Latex MEDICATIONS mesalamine (ASACOL HD) 800 mg TbEC EC tablet Take 1 tablet by mouth three times daily. PANTOPRAZOLE SODIUM (PANTOPRAZOLE ORAL) Take by mouth once daily. gabapentin (NEURONTIN) 100 mg capsule Take 2-3caps by mouth at night Levothyroxine 75 mcg cap Take by mouth. budesonide-formoterol (SYMBICORT) 160-4.5 mcg/actuation inhaler Inhale 2 Puffs as instructed twice daily. PARoxetine (PAXIL) 40 mg tablet Take 40 mg by mouth once daily. albuterol HFA (PROAIR HFA) 90 mcg/actuation inhaler Inhale 2 Puffs as instructed every 4 hours as needed. FAMILY HISTORY Problem Relation Age of Onset - Coronary Artery Disease Mother - Diabetes Brother Social History Substance Use Topics - Smoking status: Current Every Day Smoker Packs/day: 0.50 Years: 38.00 Types: Cigarettes - Smokeless tobacco: Never Used Comment: smoked up to 2 packs/day, now down to 0.5 pks/day - Alcohol use No Objective Physical Exam Constitutional: She is well-developed, well-nourished, and in no distress. Musculoskeletal: Right hand: She exhibits tenderness. She exhibits normal range of motion, normal capillary refill and no swelling. Normal sensation noted. Hands: Neurological: She is alert. Skin: Skin is warm and dry. There is erythema. Nursing note and vitals reviewed. ASSESSMENT/PLAN: 1. Paronychia of right thumb - ICD9: 681.02, ICD10: L03.011 - Begin treatment with Cephalaxin (Keflex) - No lymphangetic streaking, this was defined for patient to watch for and to seek medical care immediately if appears - CEPHALEXIN 500 MG CAPSULE - MUPIROCIN 2 % TOPICAL OINTMENT - advised patient to continue epsom salt soaks but to allow digit to dry between soaking times, limit soaks to 15 mins three times daily. - Follow-up with your PCP in 3-5 days if symptoms have not improved or sooner if symptoms worsen - Discussed red flags and need for immediate medical evaluation if any occur. - Discussed supportive care treatment with fluids, rest and analgesia. - Discussed expected course of illness Jennifer Watts APRN.MACHINE II ENGRAVER CNOV Observed: 08/16/2017 Status: COMPLETED Source: [place] 1:15 PM [facility] REPOSITORY Office Visit ([facility]) ALLY LIMON ([id number]) 1960 F Date Time Provider Department 08/16/17 1:15 PM JENNIFER WATTS ([facility]) [facility] During your visit today, we recorded the following information about you: Temperature Pulse Respiration Blood pressure 98.3 degrees 80/minute 16/minute 102/68 Weight 88.1 kg Jennifer Watts ([facility]) 08/16/2017 1:38 PM Signed Subjective HPI Allysantos Limon is a 57 year old female who presents with her right thumb swollen and painful, for the past 2 months. She has been soaking it in epsom salt and water and she pulled an ingrown nail out of it last night and it has been throbbing since. She has taken tylenol for the pain. She rates the pain a 10/10 today. She has had some yellow drainage and bleeding from the nailbed. Review of Systems Constitutional: Negative. Negative for fever. Musculoskeletal: Negative. Negative for joint pain. Skin: See HPI BP 102/68 Pulse 80 Temp 36.8 ?C (98.3 ?F) (Tympanic) Resp 16 Wt 88.1 kg (194 lb 3.2 oz) BMI 33.33 kg/m? PAST MEDICAL HISTORY Diagnosis Date - Asthma - Bronchitis - Depression - Hypothyroid - Non morbid obesity 08/21/2015 - Rectal bleeding - Tobacco abuse - Ulcerative colitis (HCC) PAST SURGICAL HISTORY Procedure Laterality Date - COLONOSCOP W/ OR W/O BRS SPEC 02/13/13 Colonoscopy - COLONOSCOP W/ OR W/O BRS SPEC 08/27/15 Colonoscopy - EGD W/O OR W/BRUSH/WASH 02/13/13 EGD - PAST SURGICAL HISTORY OF 1993 complete hysterectomy - PAST SURGICAL HISTORY OF 1994? cyst removed right hand - PAST SURGICAL HISTORY OF 04/2015 carpal tunnel left wrist ALLERGIES Codeine; Latex MEDICATIONS mesalamine (ASACOL HD) 800 mg TbEC EC tablet Take 1 tablet by mouth three times daily. PANTOPRAZOLE SODIUM (PANTOPRAZOLE ORAL) Take by mouth once daily. gabapentin (NEURONTIN) 100 mg capsule Take 2-3caps by mouth at night Levothyroxine 75 mcg cap Take by mouth. budesonide-formoterol (SYMBICORT) 160-4.5 mcg/actuation inhaler Inhale 2 Puffs as instructed twice daily. PARoxetine (PAXIL) 40 mg tablet Take 40 mg by mouth once daily. albuterol HFA (PROAIR HFA) 90 mcg/actuation inhaler Inhale 2 Puffs as instructed every 4 hours as needed. FAMILY HISTORY Problem Relation Age of Onset - Coronary Artery Disease Mother - Diabetes Brother Social History Substance Use Topics - Smoking status: Current Every Day Smoker Packs/day: 0.50 Years: 38.00 Types: Cigarettes - Smokeless tobacco: Never Used Comment: smoked up to 2 packs/day, now down to 0.5 pks/day - Alcohol use No Objective Physical Exam Constitutional: She is well-developed, well-nourished, and in no distress. Musculoskeletal: Right hand: She exhibits tenderness. She exhibits normal range of motion, normal capillary refill and no swelling. Normal sensation noted. Hands: Neurological: She is alert. Skin: Skin is warm and dry. There is erythema. Nursing note and vitals reviewed. ASSESSMENT/PLAN: 1. Paronychia of right thumb - ICD9: 681.02, ICD10: L03.011 - Begin treatment with Cephalaxin (Keflex) - No lymphangetic streaking, this was defined for patient to watch for and to seek medical care immediately if appears - CEPHALEXIN 500 MG CAPSULE - MUPIROCIN 2 % TOPICAL OINTMENT - advised patient to continue epsom salt soaks but to allow digit to dry between soaking times, limit soaks to 15 mins three times daily. - Follow-up with your PCP in 3-5 days if symptoms have not improved or sooner if symptoms worsen - Discussed red flags and need for immediate medical evaluation if any occur. - Discussed supportive care treatment with fluids, rest and analgesia. - Discussed expected course of illness Jennifer Watts APRN.Jennifer Velasco ([employer]) 08/16/2017 1:30 PM Signed Take medications as prescribed. If not improving in 3-5 days, or you have worsening symptoms, see your primary care provider for recheck. Referring Provider: SELF [[id number]] Allergies As of Date: 08/16/2017 Noted Allergy Reaction CODEINE 07/26/2012 8 - GI Upset LATEX 07/26/2012 2 - Rash Date Reviewed: 08/16/2017 Reviewed by: Jennifer Watts ([facility]) - Fully Assessed Reason for Visit: Thumb Pain [1582] Cmt: right thumb painful and swollen after removing ingrown nail x 2 months Primary Visit Diagnosis:Paronychia of right thumb [L03.011] Order(s):cephALEXin (KEFLEX) 500 mg capsuleTake 1 capsule by mouth three times daily for 10 days.Disp: 30 capsuleRfl: 0 mupirocin (BACTROBAN) 2 % ointmentApply 1 application to affected area three times daily. Location: right thumbDisp: 15 gRfl: 0 Prescriptions as of 08/16/2017 Sig: MESALAMINE 800 MG TABLET,ERIN* Take 1 tablet by mouth three * PANTOPRAZOLE ORAL Take by mouth once daily. GABAPENTIN 100 MG CAPSULE Take 2-3caps by mouth at night LEVOTHYROXINE 75 MCG CAPSULE Take by mouth. BUDESONIDE-FORMOTEROL HFA 160* Inhale 2 Puffs as instructed * PAROXETINE 40 MG TABLET Take 40 mg by mouth once crys* ALBUTEROL SULFATE HFA 90 MCG/* Inhale 2 Puffs as instructed * CEPHALEXIN 500 MG CAPSULE Take 1 capsule by mouth three* MUPIROCIN 2 % TOPICAL OINTMENT Apply 1 application to affect* Problem List As Of Date 08/16/[address] of the chest [R93.8] INVALID FOR* Bilateral hand pain [M79.641, M79.642] INVALID FOR* Hip pain, bilateral [M25.551, M25.552] INVALID FOR* Lumbago [M54.5] INVALID FOR* Rheumatoid arthritis of multiple sites without *INVALID FOR* NEELAM positive [R76.8] INVALID FOR* Nicotine dependence, uncomplicated [F17.200] INVALID FOR* [place]berden nodes [M15.1] INVALID FOR* Pain in both feet [M79.671, M79.672] INVALID FOR* Vitamin D deficiency [E55.9] INVALID FOR* Positive anti-CCP test [R76.8] INVALID FOR* PHN (postherpetic neuralgia) [B02.29] INVALID FOR* Bilateral low back pain without sciatica [M54.5]INVALID FOR* Chronic pain syndrome [G89.4] INVALID FOR* Knee pain, bilateral [M25.561, M25.562] INVALID FOR* Rectal bleeding [K62.5] Hypothyroid [E03.9] INVALID FOR* Tobacco abuse [Z72.0] INVALID FOR* Depression [F32.9] INVALID FOR* Ulcerative colitis (HCC) [K51.90] INVALID FOR* Asthma [J45.909] INVALID FOR* Non morbid obesity [E66.9] INVALID FOR* Ulcerative colitis with rectal bleeding (HCC) [*INVALID FOR* Other instructions from your clinician: Take medications as prescribed. If not improving in 3- 5 days, or you have worsening symptoms, see your primary care provider for recheck. Prescriptions ordered this encounter Disp Refills Start End CEPHALEXIN 500 MG CAPSULE 30 c* 0 08/16/2017 08/26/2017 Route: ORAL Sig: Take 1 capsule by mouth three times daily for 10 days. MUPIROCIN 2 % TOPICAL OINTMENT 15 g 0 08/16/2017 Route: TOPICAL Sig: Apply 1 application to affected area three times daily. Location: right thumb Encounter Status:Closed by JENNIFER WATTS on 08/16/17 FECAL OCCULT BLD Collected: 05/25/2017 Status: F Source: [facility] 8:18 AM CLINIC REFERENCE REPOSITORY TYPE CODE TESTS RESULT OUT OF REFERENCE UNITS RANGE LAB IFO(LOINC) Negative Immuno Negative FOB COMP METABOLIC PANEL Collected: 05/12/2017 Status: F Source: [place] 9:35 AM CLINIC REFERENCE REPOSITORY TYPE CODE TESTS RESULT OUT OF REFERENCE UNITS RANGE LAB TP(LOINC) 6.3-8.0 g/dL Protein, Total 7.2 LAB ALB(LOINC) 3.9-4.9 g/dL Albumin 3.9 LAB CA(LOINC) 8.5-10.2 mg/dL Calcium, Total 9.2 LAB TBIL(LOINC 0.2-1.3 mg/dL ) Bilirubin, Total 0.3 LAB ALKP(LOINC 32-117 U/L ) Alkaline Phosphatase 69 LAB AST(LOINC) 13-35 U/L AST 20 LAB GLU(LOINC) 74-99 mg/dL Glucose 94 LAB BUN(LOINC) 7-21 mg/dL BUN 12 LAB CRET(LOINC 0.58-0.96 mg/dL ) Creatinine 0.74 LAB NA(LOINC) 136-144 mmol/L Sodium 142 LAB K(LOINC) 3.7-5.1 mmol/L Potassium 4.5 LAB CL(LOINC) 97-105 mmol/L Chloride High 106 LAB CO2(LOINC) 22-30 mmol/L CO2 24 LAB AGAP(LOINC 9-18 mmol/L ) Anion Gap 12 LAB ALT(LOINC) 7-38 U/L ALT 10 LAB GFRAA(LOIN C) eGFR- >60 Amer. LAB GFRNAA(ARNULFO . NC) eGFR-All Other Races >60 LIPID PANEL, BASIC Collected: 05/12/2017 Status: F Source: [place] 9:35 AM CLINIC REFERENCE REPOSITORY TYPE CODE TESTS RESULT OUT OF REFERENCE UNITS RANGE LAB CHOL(LOINC <200 mg/dL ) Cholesterol 189 LAB TRIGLY(ARNULFO <150 mg/dL NC) Triglyceride 86 LAB HDL(LOINC) >39 mg/dL HDL-Cholesterol 63 LAB LDL(LOINC) <100 mg/dL High LDL-Cholesterol 109 LAB NONHDL(ARNULFO <130 mg/dL NC) Non HDL Cholesterol 126 LAB FT(LOINC) hrs Fasting Time 10 LAB VLDL(LOINC <30 mg/dL ) VLDL Cholesterol 17 LAB TCHDL(LOIN <5.10 C) TC:HDL Ratio 3.00 LAB LDLHDL(ARNULFO <2.54 NC) LDL:HDL Ratio 1.73 CBC AND DIFFERENTIAL Collected: 05/12/2017 Status: F Source: [place] 9:35 AM [facility] REFERENCE REPOSITORY TYPE CODE TESTS RESULT OUT OF REFERENCE UNITS RANGE LAB WBC(LOINC) 3.70-11.00 k/uL WBC 8.17 LAB RBC(LOINC) 3.90-5.20 m/uL RBC 4.76 LAB HGB(LOINC) 11.5-15.5 g/dL Hemoglobin 14.3 LAB HCT(LOINC) 36.0-46.0 % High Hematocrit 46.5 LAB MCV(LOINC) 80.0-100.0 fL MCV 97.7 LAB MCH(LOINC) 26.0-34.0 pG MCH 30.0 LAB MCHC(LOINC 30.5-36.0 g/dL ) MCHC 30.8 LAB RDWCV(LOIN 11.5-15.0 % C) RDW-CV 13.9 LAB PLTCT(LOIN 150-400 k/uL C) Low Platelet Count 147 LAB MPV(LOINC) 9.0-12.7 fL MPV 11.2 LAB ANEUT(LOIN % C) Neut% 54.6 LAB AANEUT(ARNULFO 1.45-7.50 k/uL NC) Abs Neut 4.46 LAB ALYMP(LOIN % C) Lymph% 27.2 LAB AALYMP(ARNULFO 1.00-4.00 k/uL NC) Abs Lymph 2.22 LAB AMONO(LOIN % C) [place]% 7.8 LAB AAMONO(ARNULFO <0.87 k/uL NC) Abs [place] 0.64 LAB AEOS(LOINC % ) Eosin% 9.4 LAB AAEOS(LOIN <0.46 k/uL C) Abs High Eosin 0.77 LAB ABASO(LOIN % C) Baso% 1.0 LAB AABASO(ARNULFO <0.11 k/uL NC) Abs Baso 0.08 LAB AUNRBC(ARNULFO 0 /100 WBC NC) NRBCs 0.0 LAB ABNRBC(ARNULFO <0.01 k/uL NC) Absolute nRBC <0.01 LAB DTYP(LOINC ) DTYPE ADIFF TSH Collected: 05/12/2017 Status: F Source: [place] 9:35 AM CLINIC REFERENCE REPOSITORY TYPE CODE TESTS RESULT OUT OF RANGE REFERENCE UNITS LAB TSH(LOINC) 0.400-5.500 uU/mL TSH 3.830 FREE T4 Collected: 05/12/2017 Status: F Source: [place] 9:35 AM CLINIC REFERENCE REPOSITORY TYPE CODE TESTS RESULT OUT OF RANGE REFERENCE UNITS LAB FT4(LOINC) 0.9-1.7 ng/dL Low Free T4 0.8 HEMOGLOBIN A1C Collected: 05/12/2017 Status: F Source: [place] 9:35 AM CLINIC REFERENCE REPOSITORY TYPE CODE TESTS RESULT OUT OF REFERENCE UNITS RANGE LAB HGBA1C(ARNULFO 4.3-5.6 % NC) Hemoglobin A1c 5.6 LAB HBA0(LOINC mg/dL ) Est. Average Glucose 114 VITAMIN D 25 HYDROXY Collected: 05/12/2017 Status: F Source: [place] 9:35 AM CLINIC REFERENCE REPOSITORY TYPE CODE TESTS RESULT OUT OF REFERENCE UNITS RANGE LAB VITD(LOINC) 31.0-80.0 ng/mL Low Vitamin D 25 30.7 Hydroxy ALPHA 1 ANTITRYPSIN Collected: 02/03/2017 Status: F Source: [place] 9:30 AM CLINIC REFERENCE REPOSITORY TYPE CODE TESTS RESULT OUT OF REFERENCE UNITS RANGE LAB AAT(LOINC) 90-200 mg/dL Alpha 1 antitrypsin 148 FREE T4 Collected: 09/30/2016 Status: F Source: [place] 8:30 AM CLINIC REFERENCE REPOSITORY TYPE CODE TESTS RESULT OUT OF RANGE REFERENCE UNITS LAB FT4(LOINC) 0.9-1.7 ng/dL Free T4 0.9 Performed By: #### TSH, FT4 #### [facility] Routine Lab [address] [id number] TSH Collected: 09/30/2016 Status: F Source: [place] 8:30 AM CLINIC REFERENCE REPOSITORY TYPE CODE TESTS RESULT OUT OF RANGE REFERENCE UNITS LAB TSH(LOINC) 0.400-5.500 uU/mL High TSH 5.820 Performed By: #### TSH, FT4 #### [facility] Routine Lab [address] [id number] ALLERGIES ALLERGIES DATE TYPE / CODE NAME / CODE REACTION SEVERITY SOURCE 03/13/2018 Drug codeine/N00021 Nausea Unknown [facility] Allergy/4160 1550(RXNORM) [place] [address](SNOMED Repository CT) 03/13/2018 Drug latex/[id number] Rash Unknown [facility] Allergy/4160 21(RXNORM) [facility] [address](SNOMED Repository CT) 07/26/2012 DRUG CODEINE GI UPSET [facility] INGREDI/4195 [facility] [address](SNOMED Repository CT) 07/26/2012 DRUG LATEX RASH [facility]/4195 [facility] [address]653(SNOMED Repository CT) ENCOUNTERS ENCOUNTERS ADMIT/DISCHARGE ACCOUNT ADMITTING ENCOUNTER LOCATION SOURCE NUMBER [facility] 03/22/2018 [id number] Ambulatory BMSBuilding:Edwige Ramsey MS.CF.[facility] Repository 03/21/2018/03/22/20 [id number] Ambulatory [address] Hospital ing:CLSPRoom: Repository [id number] 03/15/2018 [id number] Ambulatory BMSBuilding:B Braulio MS.CF.[facility] Repository 03/15/2018 [id number] Ambulatory [facility] Hospital ing:[facility] Repository 03/13/2018/03/13/20 [id number] Ambulatory BMSBuilding:B Braulio 18 MS.[facility] Repository 03/07/2018 [id number] Ambulatory BMSBuilding:B Stokes MS.CF.[facility] Repository 03/07/2018 [id number] Ambulatory [facility] Hospital ing:[facility]S Repository 02/26/2018 [id number] Ambulatory [facility] Hospital ing:LAB Repository 02/13/2018/02/14/20 [id number] Ambulatory BMSBuilding:B Braulio 18 MS.[facility] Repository 01/16/2018 [id number] Ambulatory [facility] Hospital ing:[facility]S Repository 01/16/2018 [id number] Ambulatory BMSBuilding:W Braulio [facility] Repository 12/22/2017/12/23/19 [id number] Emergency [address] Hospital ing:ED Repository 08/16/2017/08/18/19 [id number] Ambulatory [address] Repository PAYERS PAYERS ENCOUNTER GUARANTOR PAYER SUBSCRIBER SOURCE 03/22/2018 ALLY Diego Primary ALLY C Braulio [id number] Insurance:MEDICARE GILLESPIEDOB: [facility] RDAPT PART A BPolic [id number] Number: Repository [address]Iiw: [phone] [id number] [phone] () Date:2018-03-09 03/22/2018 Secondary ALLY C Stokes Insurance:MEDICAIDPo GILLESPIEDOB[facility] Number: [id number] Hospital [id number] Repository e Date:2018-03-09 03/22/2018 Tertiary NOT GIVENUNK Stokes Insurance:SELF PAY [facility]: Effective Repository Date:2018-03-22 03/21/2018 ALLY C Primary ALLY C Stokes [id number] Insurance:MEDICARE GILLESPIEDOB: [address] PART A [facility] [id number] Number: Repository [address]Qhq: 330 [id number] [phone] (HP) Date:2018-03-09 03/21/2018 Secondary ALLY C Stokes Insurance:MEDICAIDPo GILLESPIEDOB: Community licy Number: [id number] Hospital [id number] Repository e Date:2018-03-09 03/21/2018 Tertiary NOT GIVENUNK Bra[place]io Insurance:SELF PAY [facility] Number: Effective Repository Date:2018-03-09 03/15/2018 ALLY C Primary ALLY C Braulio [id number] Insurance:MEDICARE GILLESPIEDOB: [address] PART A [facility] [id number], [place] Number: Repository [id number]: 330 [id number] [phone] (HP) Date:2018-02-14 03/15/2018 Secondary ALLY C Stokes Insurance:MEDICAIDPo GILLESPIEDOB: Community licy Number: [id number] Hospital [id number] Repository e Date:2018-02-14 03/15/2018 Tertiary NOT GIVENUNK Stokes Insurance:SELF PAY [facility] Number: Effective Repository Date:2018-03-15 03/15/2018 ALLY C Primary ALLY C Stokes [id number] Insurance:MEDICARE GILLESPIEDOB: [address] PART A [facility] [id number], [place] Number: Repository [phone]: 330 [id number] [phone] (HP) Date:2018-02-14 03/15/2018 Secondary ALLY C Braulio Insurance:MEDICAIDPo GILLESPIEDOB: Community licy Number: [id number] Hospital [id number] Repository e Date:2018-02-14 03/15/2018 Tertiary NOT GIVENUNK [place] Insurance:SELF PAY [facility] Hospital Number: Effective Repository Date:2018-02-14 03/13/2018 ALLY Diego Primary ALLY C Braulio [id number] Insurance:MEDICARE GILLESPIEDOB: [facility] [address] PART A BPolicy [id number] Number: Repository [address]Kht: 330 [id number] [phone] (HP) Date:2018-03-09 03/13/2018 Secondary ALLY C Braulio Insurance:CARESOURCE GILLESPIEDOB: Community Policy Number: [id number] Hospital [id number] Repository Date:2018-03-09[address]ATTN: [place] [address]AP: 03/13/2018 Tertiary NOT GIVENUNK [place] Insurance:SELF PAY [facility] Number: Effective Repository Date:2018-03-13 03/07/2018 ALLY Diego Primary ALLY C Braulio [id number] Insurance:CARESOURCE GILLESPIEDOB: [facility] [address] Policy Number: [id number] [id number] Repository [address]Vsk: [phone]) Date:2018-02-14P O [phone] () [address]ATTN: [place] [address]HO: 03/07/2018 Secondary NOT GIVENUNK Stokes Insurance:SELF PAY [facility] Number: Effective Repository Date:2018-03-07 03/07/2018 ALLY C Primary ALLY C Stokes [id number] Insurance:CARESOURCE GILLESPIEDOB: [facility] [address] Policy Number: [id number] [id number] Repository [address]Nkn: ([phone]) Date:2018-02-14P O [phone] () [address]ATTN: [place] [address]VD: 03/07/2018 Secondary NOT GIVENUNK Bra[place] Insurance:SELF PAY [facility] Number: Effective Repository Date:2018-02-14 02/26/2018 ALLY C Primary ALLY C Braulio [id number] Insurance:CARESOURCE GILLESPIEDOB: [facility] [address] Policy Number: [id number] [id number] Repository [address]Mlh: ([phone]) Date:2018-02-26 O [phone] () [address]ATTN: [place] [address]DO: 02/26/2018 Secondary NOT GIVENUNK Bra[place] Insurance:SELF PAY [facility] Hospital Number: Effective Repository Date:2018-02-26 02/13/2018 ALLY C Primary ALLY C Braulio [id number] Insurance:CARESOURCE GILLESPIEDOB: [facility] [address] Policy Number: [id number] [address] [id number] Repository [address]Zmr: ([phone]) Date:2018-02-07 O [phone] () [address]ATTN: [place] [address]BP: 02/13/2018 Secondary ALLY C Braulio Insurance:MEDICARE GILLESPIEDOB: Community PART A [facility] [id number] Hospital Number: Repository [id number] Date:2018-02-07 02/13/2018 Tertiary NOT GIVENUNK Bra[place] Insurance:SELF PAY [facility] Hospital Number: Effective Repository Date:2018-02-13 01/16/2018 ALLY C Primary ALLY C Braulio [id number] Insurance:CARESOURCE GILLESPIEDOB: [facility] [address] Policy Number: [id number] [id number] Repository [address]Rqt: ([phone]) Date:2018-01-16P O [phone] () [address]ATTN: [place] [address]IL: 01/16/2018 Secondary NOT GIVENUNK Braulio Insurance:SELF PAY [facility] Number: Effective Repository Date:2018-01-16 01/16/2018 ALLY Brandie Primary ALLY Diego Stokes [id number] Insurance:CARESOURCE GILLESPIEDOB: [facility] [address] Policy Number: [id number] [id number] Repository [address]Ugw: ([phone]) Date:2018-01-16P O [phone] () [address]ATTN: [place] [address]XT: 01/16/2018 Secondary NOT GIVENUNK Braulio Insurance:SELF PAY [facility] Number: Effective Repository Date:2018-01-16 12/22/2017 Ally Diego Primary Ally Diego Braulio [id number] Insurance:CARESOURCE GillespieDOB: [facility] Rd[address] Policy Number: [id number] [id number] Repository [address]Mqg: ([phone]) Date:2017-12-22P O [phone] () [address]ATTN: [place] [address]UJ: 12/22/2017 Secondary NOT GIVENUNK Stokes Insurance:SELF PAY [facility] Number: Effective Repository Date:2017-12-22
== END ==
PROVIDERS: Referring Provider Internal Medicine Cardiovascular Disease; Visit Provider Internal Medicine Cardiovascular Disease
DX: R94.31 Abnormal electrocardiogram [ECG] [EKG] (principal)
CPT/HCPCS: 93017; 93350; Q9957; A4216; C8928

== ENCOUNTER → 2018-03-15 12:56 | Outpatient (CLI) | payer MEDICARE, MEDICAID, SELFPAY ==
[2018-03-13 11:36] VITALS: BMI 31.9
--- NOTE | 2018-03-15 12:58 | ECHOD_ITS ---
Reason For Study: Abnormal EKG Procedure This was a 2D Doppler, Color Flow transthoracic echocardiogram. Exam performed in department. Left Ventricle Normal size and thickness. The estimated ejection fraction is 65 %. Stage 1 diastolic dysfunction. No regional wall motion abnormalities noted. Right Ventricle Normal size and thickness. Normal systolic function. Atria Normal left atrium. Normal right atrium. Normal atrial septum. Mitral Valve The mitral valve is structurally normal. No prolapse or stenosis seen. Tricuspid Valve Normal tricuspid valve. Unable to estimate RV systolic pressure due to inadequate jet, pulmonary artery pressure probably normal. Aortic Valve Normal aortic valve. Trisinus/trileaflet aortic valve. Pulmonic Valve Normal pulmonic valve. Great Vessels Normal aortic root. Normal arch. Normal inferior vena cava. Inferior vena cava collapse with sniff. Pericardium/Pleural No pericardial effusion. MMode/2D Measurements & Calculations LVIDd: 4.4 cm IVSd: 1.3 cm Ao root diam: 3.4 cm LVIDs: 3.0 cm LVPWd: 1.1 cm RVDd: 3.8 cm FS: 30.8 % LAV(MOD-bp): 43.9 ml LVAd ap4: 26.7 cm2 SV(MOD-sp4): 44.9 ml LAV(MOD-bp) Indexed: 23.1 ml/m2 EDV(MOD-sp4): 80.8 ml LAV(MOD-sp2): 40.1 ml EDV(sp4-el): 82.8 ml LAV(MOD-sp4): 42.5 ml LVAs ap4: 16.1 cm2 ESV(MOD-sp4): 36.0 ml ESV(sp4-el): 36.1 ml EF(MOD-sp4): 55.5 % EF(sp4-el): 56.4 % SV(sp4-el): 46.7 ml LA A4 area: 16.8 cm2 RA A4 area: 14.9 cm2 Time Measurements MV dec time: 0.36 sec Doppler Measurements & Calculations MV E max micky: 61.5 cm/sec Lat Peak E' Micky: 10.3 cm/sec Med Peak E' Micky: 7.6 cm/sec MV A max micky: 73.3 cm/sec E/E' lat: 6.0 E/E' med: 8.0 MV E/A: 0.84 MV V2 max: 80.2 cm/sec MV P1/2t max micky: 60.8 cm/sec Ao V2 max: 142.1 cm/sec MV max P.6 mmHg MV P1/2t: 101.8 msec Ao max P.1 mmHg MV V2 mean: 43.8 cm/sec Ao V2 mean: 85.9 cm/sec MV mean P.87 mmHg MV dec slope: 174.9 cm/sec2 Ao mean P.6 mmHg MV V2 VTI: 25.7 cm MVA(P1/2t): 2.2 cm2 Ao V2 VTI: 26.3 cm LV V1 max: 113.9 cm/sec PA V2 max: 91.4 cm/sec LV V1 max P.2 mmHg LV V1 mean P.2 mmHg LV V1 mean: 66.7 cm/sec LV V1 VTI: 21.1 cm Interpretation Summary The estimated ejection fraction is 65 %. Stage 1 diastolic dysfunction. Unable to estimate RV systolic pressure due to inadequate jet, pulmonary artery pressure probably normal. There is no comparison study available. Ordering Physician: Mynor Ramsey Referring Physician: Mynor Ramsey Performed By: Lavon Arroyo RCS
== END ==
PROVIDERS: Referring Provider Internal Medicine Cardiovascular Disease; Visit Provider Internal Medicine Cardiovascular Disease
DX: R94.31 Abnormal electrocardiogram [ECG] [EKG] (principal)
CPT/HCPCS: 93306

== ENCOUNTER 2018-03-21 07:16 | Day surgery (SDC) | payer MEDICARE, MEDICAID, SELFPAY ==
[2018-03-13 11:36] VITALS: BMI 31.9
[2018-03-13 13:41] LABS: Hematocrit 42.9 % (37-47); Hemoglobin 13.8 g/dl (12.0-15.0); Mean Corp Hgb Conc 32.2 g/gl (32-36); Mean Corpuscular Hgb 30.3 pg (27.0-32.0); Mean Corpuscular Volume 94.3 fL (81-99); Mean Platelet Vol. 10.9 fl (6.2-12.0); Platelet Count 220 K/mm3 (150-450); RBC Distribution Width CV 13.7 % (11.6-14.6); Red Blood Count 4.55 M/mm3 (4.2-5.4); White Blood Count 7.9 K/mm3 (4.4-11.0)
[2018-03-13 13:43] LABS: Scan Indicated on CBC? Y/N NO
[2018-03-13 13:52] LABS: International Normalized Ratio 1.1; Prothrombin Time (Protime)PT. 13.7 SECONDS (11.7-14.9)
[2018-03-13 13:53] LABS: Partial Thromboplast Time 31.8 Seconds (24.1-36.2)
[2018-03-13 14:14] LABS: Anion Gap 7 (5-15); BUN 7 mg/dL (7-18); BUN/Creat Ratio 12.3 RATIO (10-20); Calcium,Total 8.9 mg/dL (8.5-10.1); Chloride 109 mmol/L (98-107); Creatinine, Serum 0.57 mg/dL (0.55-1.02); EST Glomerular Filtration Rate 115 mL/min (>60); Est Glom Filt Rate - Afr Amer 139 mL/min (>60); Glucose 83 mg/dL (74-106); Potassium 3.9 mmol/L (3.5-5.1); Sodium Level 141 mmol/L (136-145)
[2018-03-20 09:31] VITALS: BMI 31.9
[2018-03-21] VITALS (19 sets, daily range): BP systolic 103–131; BP diastolic 40–86; PULSE 58–86; RESP 14–23; TEMP 36.7–36.9; O2SAT 94–100; BMI 32.2; BMI 31.7
--- NOTE | 2018-03-21 11:01 | CL.I_ITS ---
Patient Name: BRANDON REDD Study Date: 03/21/2018 Performing: Mynor Ramsey MD Ht: 64.17 inches 163 cm : 1960 Wt: 185.19 lbs 84 kg Age: 58 Gender: female BSA: 1.9 PROCEDURE(S) PERFORMED EE15-IAY/COR/LV PO62-TQW W OR WO PTCA, SINGLE CORONARY ARTERY CLINICAL PROFILE AND CO-MORBIDITIES Indications: New Onset Angina <= 2 months, Suspected CAD Heart Failure: None Stress/Imaging Stress Echocardiogram: Yes Result: Positive Low Risk Stress Echocardiogram: Positi ve Low Risk Angina Classification Anginal Classification w/in 2 Weeks: CCS II CAD Presentations: Unstable angina. Comorbidities/Risk Factors: Current/Recent Smoker (< 1year) Hypertension Dyslipidemia Chronic Lung Disease CONCLUSIONS Single vessel CAD of the mid LAD Perserved Left Ventricular systolic function with normal EDP Non obstructive coronary arteries Successful PTCA/CAPRICE of mid LAD with a 3.0 x 16 Promus Synergy; post dilated with a 3.0 x 8 NC Balloon ; 75%-->0%, no dissection. RECOMMENDATIONS Referred for immediate PCI Highly recommend quitting all tobacco products Follow up with primary behavioral health tech Risk factor modification ASA Indefinitley Plavix for at least 12 months Routine post interventional care Refer for Outpatient Cardiac Rehab Manual sheath removal per protocol Follow up with Dr. Ramsey Medical management of mid RCA unless or until pt has recurrent chest pain. DESCRIPTION OF PROCEDURE The patient arrived to the procedure lab. The risks and benefits of the procedure as well as a full d escription of our services here and lack of surgical backup were fully explained to the patient and/o r their significant other prior to the catheterization. The Timeout was completed, verifying the judy ect patient and procedure. The patient's procedural site was prepped and draped in the usual fashion. Local anesthetic was given subcutaneously to right groin region with Lidocaine 2%. Using a modified Seldinger technique, arterial access was obtained via the right femoral artery, a 4Fr sheath was inse rted. Left Coronary Artery selective angiography was performed in multiple views using a 4 Fr. JL5 c atheter. Right Coronary Artery selective angiography was then performed in multiple views using a 4 F r. 3DRC catheter. Left Ventriculography was performed in LARRY projection using a 4 Fr. Pigtail cathete r. LV to AO pullback pressures were then recordedThe images were reviewed and options discussed. A decision was then made to proceed with an Intervention, IVUS or other adjunct procedure. Arterial sheath was exchanged for a 6 Fr Sheath. EBU3.75 Guide catheter was inserted and engaged into the LCA. BMW Guide wire was advanced to the LAD. 3x16 Synergy Drug Eluting stent was inserted. D rug Eluting stent was advanced across the lesion in the LAD, mid. Angiogram performed post stent depl oyment. 3x8 NC Emerge Balloon catheter was inserted. Balloon catheter was advanced across lesion in t he LAD, mid. PTCA balloon inflated at 14 atms for 8 secs. PTCA balloon inflated at 14 atms for 6 secs . Angiogram performed post balloon dilatation. Contrast was injected through the sheath and the Right Iliac and Femoral artery were assessed for possible closure device. The arterial sheath was pulled and a Mynx closure device was deployed for hemostasis CORONARY ANGIOGRAPHY DOMINANCE: Right Dominant LEFT HEART ASSESSMENT Left Ventricular Ejection Fraction: by LV Gram 75 % Normal Left Ventricular systolic function Normal Left Ventricular End Diastolic Pressure Normal LV wall motion LEFT MAIN: Angiographically normal LEFT ANTERIOR DECENDING ARTERY: MID LAD: 75 % Stenosis CIRCUMFLEX ARTERY: Mild luminal irregularities less than 30% RIGHT CORONARY ARTERY: MID RCA: 50 % long tubular Stenosis INTERVENTION INFORMATION LESION SITE: LAD (Mid) Lesion Complexity: Non-High/Non-C, lesion at bifurcation: Yes, thrombus present: No, lesion length: 1 6 mm, culprit lesion: Yes Pre Stenosis: 75 % Pre intervention CARLITOS flow: 3 PROCEDURE: Drug Eluting Stent with post dilatation Post Stenosis: 0 % Post intervention CARLITOS flow: 3 Lesion Devices: Nur .[address] [place] Straight 190cm Medtronic 6 Fr EBU3.75 100cm Guide Catheter Torito Sci Synergy MR CAPRICE 3.00x16 Torito Sci NC EMERGE MR 3.00x08 BALLOON COMPLICATIONS No Complications PROCEDURE MEDICATIONS Versed 1 mg IV Oxygen: 2 L/min via nasal cannula Heparin 6000 unit(s) IV 03/21/2018 10:22:32 Nitro 200 mcg IC 03/21/2018 10:24:33 Nitro 200 mcg IC 03/21/2018 10:24:33 IV Fluids: .9 NaCl increased to WO ml/hr 03/21/2018 10:24:20 SUMMARY OF HEMODYNAMIC DATA Time AIR REST ECG 07:39:00 AO 91/62 (76) SA 10:12:56 LV 125/0, 22 10:18:53 LV 113/-8, 14 10:18:59 LVp 121/-8, 7 10:19:06 AOp 110/65 (85) 10:19:11 Signed By Mynor Ramsey MD On 03/21/2018 11:00:42 AM Mynor Ramsey MD
--- NOTE | 2018-03-21 11:10 | EKG12_ITS ---
Test Reason : POST PCI Blood Pressure : / mmHG Vent. Rate : 060 BPM Atrial Rate : 060 BPM P-R Int : 170 ms QRS Dur : 082 ms QT Int : 426 ms P-R-T Axes : 061 -32 024 degrees QTc Int : 426 ms Normal sinus rhythm Left axis deviation Septal infarct , age undetermined Abnormal ECG Confirmed by GROVER HUERTA, EVE ([id number]), map editor KRISTINA POWELL ([id number]) on 03/23/2018 11:08:03 AM Referred By: Mynor Ramsey Confirmed By:EVE NESS MD
[2018-03-21 11:15] LABS: ACT Activated Clotting Time 202 sec (74-137)
[2018-03-21] MEDS: 0.9% Normal Saline 1,000 ML 150 ML IV (11:52)
[2018-03-21] MEDS: Acetaminophen 325 MG Tablet 650 MG PO (12:32)
--- NOTE | 2018-03-21 13:09 | CRPHASE1 ---
Patient Data/Charges Refer Phase II:: Yes Phase II Referral:: [facility] Risk Factors/Lifestyle Smoking Status: Current every day smoker Hx Dyslipidemia: Yes Hx Obesity: Yes Height: 1.63 m Weight:: 83.915 kg BMI: 31.7 Family History: Family History (Last Reviewed 03/13/18 @ 11:36 by Stephania Cooper) Mother COPD (chronic obstructive pulmonary disease) Daughter Bipolar disorder Schizophrenia PTSD (post-traumatic stress disorder) Daughter Schizophrenia Bipolar disorder PTSD (post-traumatic stress disorder) Phase I Education Given On:: [place], Nutrition, Antiplatelet medication, CHF, Smoking cessation, Diabetes - Type I, Diabetes - Type II Issues Affecting Care:: None, Reading difficulty, Physical, Cognitive, Cultural/Religion, Visual, Economic, Hearing, Emotional, Language/Speech, Social Knowledge of Condition:: Yes Medical/Surgical History [place]:: Yes Hypertension:: Yes Dyslipidemia:: Yes Discharge/Home/Social Eval Discharge Disposition: Home
--- NOTE | 2018-03-21 13:13 | CRPHASE1_ITS ---
Patient Data/Charges Refer Phase II:: Yes Phase II Referral:: [facility] Risk Factors/Lifestyle Smoking Status: Current every day smoker Hx Dyslipidemia: Yes Hx Obesity: Yes Height: 1.63 m Weight:: 83.915 kg BMI: 31.7 Family History: Family History (Last Reviewed 03/13/18 @ 11:36 by Stephania Cooper) Mother COPD (chronic obstructive pulmonary disease) Daughter Bipolar disorder Schizophrenia PTSD (post-traumatic stress disorder) Daughter Schizophrenia Bipolar disorder PTSD (post-traumatic stress disorder) Phase I Education Given On:: [place], Nutrition, Antiplatelet medication, CHF, Smoking cessation, Diabetes - Type I, Diabetes - Type II Issues Affecting Care:: None, Reading difficulty, Physical, Cognitive, Cultural/Scientologist, Visual, Economic, Hearing, Emotional, Language/Speech, Social Knowledge of Condition:: Yes Medical/Surgical History [place]:: Yes Hypertension:: Yes Dyslipidemia:: Yes Discharge/Home/Social Eval Discharge Disposition: Home
--- NOTE | 2018-03-21 13:14 | CRPH1.INSTRU ---
General Education CAD and cardiac anatomy and function:: Patient communicates acknowledgment, Family communicates acknowledgment Explanation of diagnoses and procedures:: Patient communicates acknowledgment Sign/Symptoms of OR:: Patient communicates acknowledgment Antiplatelet therapy: Patient communicates acknowledgment Proper use of NTG-SL: Not instructed Emergency procedures and activation of EMS: Patient communicates acknowledgment Compliance of all prescribed medications: Patient communicates acknowledgment Smoking Patient Nicotine/Smoking Risk Factors Are:: Cigarettes Nicotine/Smoking Response Code:: Patient communicates acknowledgment Dyslipidemia Dyslipidemia Response Code:: Patient communicates acknowledgment Overweight/Obesity Patient Overweight/Obesity Risk Factors Are:: Overweight = 26-29 Recommendations Include:: Weight loss of 5-10%, Reduced calorie diet, Exercise 5-7 times/week Overweight/Obesity:: Patient communicates acknowledgment Hypertension Recommendations Include:: Maintain BP <130/85, BP <130/80 if diabetic, DASH dietary guidelines, Decrease/maintain normal body weight, Moderation of ETOH Hypertension:: Patient communicates acknowledgment Heart Disease Heart Disease Response Code:: Patient communicates acknowledgment Diabetes Patient Diabetes Risk Factors Are:: No documented hx of diabetes Diabetes:: Patient communicates acknowledgment Metabolic Syndrome Metabolic Syndrome Response Code:: Patient communicates acknowledgment Sedentary Sedentary Response Code:: Patient communicates acknowledgment Stress Stress Response Code:: Patient communicates acknowledgment
[2018-03-21] MEDS: Pantoprazole Sodium 40 MG Tablet PO (15:02)
[2018-03-21] MEDS: Albuterol 2.5 MG/3 ML VIAL.NEB. INHALATION (18:43)
[2018-03-21] MEDS: Budesonide Respules 0.5 MG/2 ML AMPUL.NEB. INHALATION (18:43)
[2018-03-21] MEDS: Gabapentin 300 MG Capsule PO (21:15)
[2018-03-21] MEDS: Doxycycline 100 MG CAPSULE PO (21:15)
[2018-03-21] MEDS: MESALAMINE 400 MG CAPSULE.DR 800 MG PO (21:15)
[2018-03-22] VITALS (13 sets, daily range): BP systolic 104–129; BP diastolic 59–81; PULSE 70–81; RESP 16–25; TEMP 36.5–36.9; O2SAT 94–98
[2018-03-22] MEDS: Levothyroxine 75 MCG Tablet PO (05:28)
[2018-03-22] MEDS: MESALAMINE 400 MG CAPSULE.DR 800 MG PO ×2 (05:28→09:36)
[2018-03-22 05:43] LABS: Hematocrit 40.2 % (37-47); Mean Corp Hgb Conc 32.3 g/gl (32-36); Mean Corpuscular Hgb 30.6 pg (27.0-32.0); Mean Corpuscular Volume 94.6 fL (81-99); Mean Platelet Vol. 10.6 fl (6.2-12.0); Platelet Count 237 K/mm3 (150-450); RBC Distribution Width CV 13.5 % (11.6-14.6); RBC Distribution Width SD 45.1 fl (35.1-43.9); Red Blood Count 4.25 M/mm3 (4.2-5.4)
[2018-03-22 05:53] LABS: Scan Indicated on CBC? Y/N NO
[2018-03-22 05:54] LABS: ALB/GLOB Ratio 0.9 RATIO (0.9-2.4); AST(SGOT) 9 U/L (15-37); Alanine Aminotransfer ALT/SGPT 13 U/L (13-56); Alkaline Phosphatase 61 U/L (45-117); Anion Gap 7 (5-15); BUN 6 mg/dL (7-18); BUN/Creat Ratio 9.8 RATIO (10-20); Calcium,Total 8.7 mg/dL (8.5-10.1); Chloride 112 mmol/L (98-107); Cholesterol 169 mg/dL (200); Creatinine, Serum 0.61 mg/dL (0.55-1.02); EST Glomerular Filtration Rate 107 mL/min (>60); Est Glom Filt Rate - Afr Amer 129 mL/min (>60); Estimated Creatinine Clearance 85.75 ml/min; Globulin 3.4 g/dL (2.2-4.2); Glucose 100 mg/dL (74-106); High Density Lipoprotein 58 mg/dL; Potassium 4.2 mmol/L (3.5-5.1); Protein, Total 6.4 g/dL (6.4-8.2); Sodium Level 143 mmol/L (136-145); Triglycerides 70 mg/dL; Very Low Density Lipoprotein 14 mg/dL (5-40)
[2018-03-22] MEDS: Albuterol 2.5 MG/3 ML VIAL.NEB. INHALATION (05:58)
[2018-03-22] MEDS: Budesonide Respules 0.5 MG/2 ML AMPUL.NEB. INHALATION (05:58)
--- NOTE | 2018-03-22 07:10 | NURSING ---
All documentation by Wolfgang Pham RN reviewed and agreed upon by this RN.
--- NOTE | 2018-03-22 08:55 | PCM.DC.CCA ---
Discharge Diet: No Restrictions - You may continue your normal diet. Discharge Activity: Return to Normal Activity May shower in (days): 1 May resume sexual activity in: 1 week - if no groin problems occur. Lifting Restrictions: 10 pounds and also avoid any pushing or pulling for 3 days after your test. Call your doctor if your incision/area has: Continuous Slow Oozing, Sudden Increased Bleeding, Increased Pain/ Swelling, Increased Redness, Foul Smelling Discharge, Swelling at the incision site Call your doctor if you observe: Fever of 101 or Higher, Chest pain Remove Dressing in (days):: 1 Additional Dressing/Incision Instructions:: Keep the dressing (bandage) on until the next morning. You may then shower, but do not take a tub bath for 5 days after your test. It is normal to have some tenderness and discomfort at the puncture site. Sometimes bruising also occurs. However, if pain, numbness, or coldness occurs below the puncture site (in your leg, toes, arms or fingers) call your doctor at once. You may have a small, marble sized knot at the puncture site. This is normal. Do not rub it. It will go away in 4-6 weeks. Bleeding can occur from the area where the puncture was done. Blood may spurt or drip from the site. If blood spurts, apply pressure right away to stop bleeding and call 911. Although rare, bleeding into the tissue (hematoma) can also occur. If this happens, a large, firm area goose egg under the skin will appear. If any of these occur, lie down as flat as you can and have someone apply firm pressure to the cath site with a gauze pad or a clean washcloth for 10-15 minutes. Call 911 or go to the Emergency Department. Additional Instructions: You will need to stay on the Plavix for at least one year before stopping this Allergies/Adverse Reactions: Allergies latex Allergy (Verified 03/13/18 11:38) Rash codeine Adverse Reaction (Verified 03/13/18 11:38) Nausea Medications to take at Discharge Albuterol IH (ProAir) [Proair Hfa] 2 puff INHALATION Q4H PRN PRN 10/28/13 Levothyroxine [Synthroid] 75 mcg PO DAILY 10/28/13 Paroxetine HCl [Paxil] 40 mg PO DAILY 10/28/13 albuterol sulfate 2.5 mg/3 mL (0.083 %) solution for nebulization 2.5 mg INHALATION Q4H PRN 02/05/18 cholecalciferol (vitamin D3) 2,000 unit capsule 2,000 unit PO DAILY 02/05/18 gabapentin 100 mg capsule 100 mg PO DAILY 02/05/18 gabapentin 300 mg capsule 300 mg PO QHS cap 02/05/18 mesalamine 800 mg tablet,delayed release 800 mg PO TID tab 02/05/18 mometasone-formoterol HFA 200 mcg-5 mcg/actuation aerosol inhaler 2 puff INHALATION BID 02/05/18 omeprazole 40 mg capsule,delayed release 40 mg PO DAILY 02/05/18 aspirin 81 mg tablet,delayed release 81 mg PO DAILY #30 tab 03/09/18 clopidogrel 75 mg tablet 75 mg PO DAILY #30 tab 03/09/18 Primary Care Physician: Jeannette Dill [Primary Care Provider] - Test Results: Test results from this visit will be discussed in further detail at your follow-up appointment, if applicable. Please Follow Up With: Luh Vazquez PA When: 04/04 at 1pm Cardiac Rehabilitation Info Cardiac Rehabilitation Program Information: Cardiac Rehabilitation is important for patients like you who are recovering from a heart problem. Cardiac rehabilitation programs are recognized as integral to the continued care of the patient with coronary heart disease. The cardiac rehabilitation program is designed to optimize a patient's physical, psychological, and social functioning. Health acute care assistant work in cardiac rehabilitation programs and assist you with getting the treatments you need to get stronger and healthier - like exercise, healthy eating habits, and medications. Cardiac rehabilitation has been show to help people with heart problems live longer and have better life enjoyment than people who do not go to cardiac rehabilitation. Please contact the Cardiac Rehabilitation Program at [facility] at in two weeks if you have not heard from them.
--- NOTE | 2018-03-22 08:58 | DCINST_ITS ---
Discharge Diet: No Restrictions - You may continue your normal diet. Discharge Activity: Return to Normal Activity May shower in (days): 1 May resume sexual activity in: 1 week - if no groin problems occur. Lifting Restrictions: 10 pounds and also avoid any pushing or pulling for 3 days after your test. Call your doctor if your incision/area has: Continuous Slow Oozing, Sudden Increased Bleeding, Increased Pain/ Swelling, Increased Redness, Foul Smelling Discharge, Swelling at the incision site Call your doctor if you observe: Fever of 101 or Higher, Chest pain Remove Dressing in (days):: 1 Additional Dressing/Incision Instructions:: Keep the dressing (bandage) on until the next morning. You may then shower, but do not take a tub bath for 5 days after your test. It is normal to have some tenderness and discomfort at the puncture site. Sometimes bruising also occurs. However, if pain, numbness, or coldness occurs below the puncture site (in your leg, toes, arms or fingers) call your doctor at once. You may have a small, marble sized knot at the puncture site. This is normal. Do not rub it. It will go away in 4-6 weeks. Bleeding can occur from the area where the puncture was done. Blood may spurt or drip from the site. If blood spurts, apply pressure right away to stop bleeding and call 911. Although rare, bleeding into the tissue (hematoma) can also occur. If this happens, a large, firm area goose egg under the skin will appear. If any of these occur, lie down as flat as you can and have someone apply firm pressure to the cath site with a gauze pad or a clean washcloth for 10-15 minutes. Call 911 or go to the Emergency Department. Additional Instructions: You will need to stay on the Plavix for at least one year before stopping this Allergies/Adverse Reactions: Allergies latex Allergy (Verified 03/13/18 11:38) Rash codeine Adverse Reaction (Verified 03/13/18 11:38) Nausea Medications to take at Discharge Albuterol IH (ProAir) [Proair Hfa] 2 puff INHALATION Q4H PRN PRN 10/28/13 Levothyroxine [Synthroid] 75 mcg PO DAILY 10/28/13 Paroxetine HCl [Paxil] 40 mg PO DAILY 10/28/13 albuterol sulfate 2.5 mg/3 mL (0.083 %) solution for nebulization 2.5 mg INHALATION Q4H PRN 02/05/18 cholecalciferol (vitamin D3) 2,000 unit capsule 2,000 unit PO DAILY 02/05/18 gabapentin 100 mg capsule 100 mg PO DAILY 02/05/18 gabapentin 300 mg capsule 300 mg PO QHS cap 02/05/18 mesalamine 800 mg tablet,delayed release 800 mg PO TID tab 02/05/18 mometasone-formoterol HFA 200 mcg-5 mcg/actuation aerosol inhaler 2 puff INHALATION BID 02/05/18 omeprazole 40 mg capsule,delayed release 40 mg PO DAILY 02/05/18 aspirin 81 mg tablet,delayed release 81 mg PO DAILY #30 tab 03/09/18 clopidogrel 75 mg tablet 75 mg PO DAILY #30 tab 03/09/18 Primary Care Physician: Jeannette Dill [Primary Care Provider] - Test Results: Test results from this visit will be discussed in further detail at your follow- up appointment, if applicable. Please Follow Up With: Luh Vazquez PA When: 04/04 at 1pm Cardiac Rehabilitation Info Cardiac Rehabilitation Program Information: Cardiac Rehabilitation is important for patients like you who are recovering from a heart problem. Cardiac rehabilitation programs are recognized as integral to the continued care of the patient with coronary heart disease. The cardiac rehabilitation program is designed to optimize a patient's physical, psychological, and social functioning. Health aged or disabled care worker work in cardiac rehabilitation programs and assist you with getting the treatments you need to get stronger and healthier - like exercise, healthy eating habits, and medications. Cardiac rehabilitation has been show to help people with heart problems live longer and have better life enjoyment than people who do not go to cardiac rehabilitation. Please contact the Cardiac Rehabilitation Program at [facility] at in two weeks if you have not heard from them.
[2018-03-22] MEDS: Doxycycline 100 MG CAPSULE PO (09:35)
[2018-03-22] MEDS: Clopidogrel Bisulfate 75 MG Tablet PO (09:36)
[2018-03-22] MEDS: Pantoprazole Sodium 40 MG Tablet PO (09:36)
[2018-03-22] MEDS: Aspirin E.C. 81 MG Tablet PO (09:36)
[2018-03-22] MEDS: Gabapentin 100 MG Capsule 200 MG PO (09:39)
--- NOTE | 2018-03-22 10:00 | EKG12_ITS ---
Test Reason : AM EKG Blood Pressure : / mmHG Vent. Rate : 059 BPM Atrial Rate : 059 BPM P-R Int : 138 ms QRS Dur : 082 ms QT Int : 394 ms P-R-T Axes : 047 -25 032 degrees QTc Int : 390 ms Sinus bradycardia Septal infarct , age undetermined Abnormal ECG When compared with ECG of 21-MAR-2018 11:19, MANUAL COMPARISON REQUIRED, DATA IS UNCONFIRMED Confirmed by GROVER HUERTA, EVE ([id number]), non linear editor KRISTINA POWELL ([id number]) on 03/23/2018 11:07:30 AM Referred By: Mynor Ramsey Confirmed By:EVE NESS MD
--- NOTE | 2018-03-22 11:08 | PN.CARD_ITS ---
Subjectve: Patient doing very well overnight. No chest pain or angina. Right groin is clean/dry/intact without evidence of thrills, bruits or hematoma. EKG shows normal sinus rhythm, no acute changes. Hemoglobin and creatinine within nominal limits. Telemetry negative. Objective: Vital Signs Temp Pulse Resp BP Pulse Ox 97.7 F L 76 16 111/63 96 03/22/18 08:00 03/22/18 10:00 03/22/18 10:00 03/22/18 10:00 03/22/18 10:00 Oxygen Flow Rate (L/min) 2 Oxygen Delivery Method Room Air Weight: 184 lb 11.958 oz Body Mass Index (BMI) 32.2 Intake and Output for Last 24 Hours 03/20/18 03/21/18 03/22/18 23:59 23:59 23:59 Intake Total 1380 / 1380 480 / 480 Output Total 200 / 200 Balance 1180 / 1180 480 / 480 General: Awake, Alert, Oriented x 3 HEENT: PERRL, EOMI, Sclera Non Icteric Neck: Supple, Good ROM, No Lymph Node Enlargement Lungs: Clear to auscultation Cardiovascular: Regular Rhythm, Normal S1, Normal S2, No Murmurs, No Rubs, No Gallops Vascular: No Carotid Bruits, Normal Femoral Pulses, Normal Radial Pulses, Normal Dorsalis Pedal Pulse, Normal Posterior Tibial Pulses Abdomen: Bowel Sounds Present, Soft, Non Tender, No HSM, No Organomegaly Extremities: No Cyanosis, No Clubbing, No edema Neurological: No Focal Motor or Sensory Deficit 03/22/18 05:20: WBC 9.0, RBC 4.25, Hgb 13.0, Hct 40.2, MCV 94.6, MCH 30.6, MCHC 32.3, RDW 13.5, RDW Differential 45.1 H, Plt Count 237, MPV 10.6 03/22/18 05:20: Sodium 143, Potassium 4.2, Chloride 112 H, Carbon Dioxide 24.0, Anion Gap 7, BUN 6 L, Creatinine 0.61, Est GFR (MDRD) Af Amer 129, Est GFR (MDRD) Non-Af 107, BUN/Creatinine Ratio 9.8 L, Glucose 100, Calcium 8.7, Total Bilirubin 0.40, Triglycerides 70, Cholesterol 169, LDL Cholesterol 97, VLDL Cholesterol 14, HDL Cholesterol 58 Rhythm: EKG: ECHO: Stress Test: Cardiac Cath: PCI: CT Surgery: Holter monitor: EPS: PPM: CXR: Chest CT Scan: Medical Necessity - Tobacco Use Smoking Status: Current every day smoker Assessment/Plan 1. Coronary artery disease: Patient underwent successful angioplasty and drug- eluting stenting of her mid LAD. No additional lesions require intervention or evaluation at this time. Patient will maintain aspirin Plavix going forward. She will be discharged home and follow-up with Dr. Ramsey going forward. She will return in 2 weeks for a groin check. If everything is okay she may then be enrolled in cardiac rehab. 2. Hyperlipidemia: Continue statin based medications. Her LDL should be let less than 70. 3. Patient may be discharged home. Code Visit Inpatient E&M: 37766 Subs Hosp L2
--- OUTSIDE RECORDS SUMMARY | 2018-05-07 02:28 | XMS RPT_ITS ---
:1960 Author Organization OHIP Support Name Relationship Address Phone D Unavailable Unavailable Unavailable KETTY AREVALO Unavailable [address] + [place] [address] QUARLESSHAWNA CRAMER Unavailable . + ., . . D Unavailable Unavailable Unavailable IRINA KETTY Unavailable [address] + [place] [address] QUARLESSHAWNA CRAMER Unavailable Unavailable + D Unavailable Unavailable Unavailable IRINA KETTY Unavailable [address] + [place] [address] QUARLESKAITLYNN CRAMERA Unavailable . + ., . . D Unavailable Unavailable Unavailable IRINA KETTY Unavailable [address] + [place] [address] QUARLESSHAWNA CRAMER Unavailable Unavailable + D Unavailable Unavailable Unavailable IRINA KETTY Unavailable [address] + [place] [address] QUARLESKAITLYNN CRAMERA Unavailable Unavailable + D Unavailable Unavailable Unavailable IRINA KETTY Unavailable [address] + [place] [address] KAITLYNN QUARLSEA Unavailable Unavailable + D Unavailable Unavailable Unavailable IRINA KETTY Unavailable [address] + [place] [address] QUARLESSHAWNA CRAMER Unavailable . + [place], [place] . D Unavailable Unavailable Unavailable IRINA KETTY Unavailable [address] + [place] [address] QUARLESKAITLYNN CRAMERA Unavailable Unavailable + [place], [place] D Unavailable Unavailable Unavailable IRINA KETTY Unavailable [address] + [place] [address] QUARLESKAITLYNN CRAMERA Unavailable Unavailable + [place], [place] D Unavailable Unavailable Unavailable IRINA KETTY Unavailable [address] + [place] [address] QUARLES SHAWNA Unavailable Unavailable + [place] KETTY AREVALO Unavailable [address] + [place] [address] UE Unavailable Unavailable Unavailable QUARLES, SHAWNA Unavailable . + ., [place] . IRINA KETTY Unavailable [address] + [place] [address] UE Unavailable Unavailable Unavailable QUARLES, SHAWNA Unavailable Unavailable Unavailable KETTY AREVALO Unavailable [address] + [place] [address] UE Unavailable Unavailable Unavailable QUARLES, SHAWNA Unavailable . + ., [place] . KETTY AREVALO Unavailable [address] + [place] [address] UE Unavailable Unavailable Unavailable QUARLES SHAWNA Unavailable Unavailable Unavailable Care Team Providers Name Role Phone Mynor Ramsey Attending Unavailable Mynor Ramsey Referring Unavailable [facility] Primary Care Unavailable Joyce Rich Consulting Unavailable Mynor Ramsey Consulting Unavailable Luh Vazquez Attending Unavailable [facility] Referring Unavailable [facility] Primary Care Unavailable Luc Bliss Attending Unavailable [facility] Attending Unavailable [facility] Referring Unavailable [facility] Primary Care Unavailable Mynor Ramsey Attending Unavailable [facility] Referring Unavailable Mynor Ramsey Attending Unavailable Mynor Ramsey Referring Unavailable Victor Hugo Walton Attending Unavailable Victor Hugo Walton Referring Unavailable Mynor Ramsey Attending Unavailable Mynor Ramsey Referring Unavailable [facility] Primary Care Unavailable Joyce Rich Consulting Unavailable Mynor Ramsey Attending Unavailable Mynor Ramsey Referring Unavailable [facility] Primary Care Unavailable Mynor Ramsey Attending Unavailable Mynor Ramsey Referring Unavailable [facility] Primary Care Unavailable Joyce Rich Consulting Unavailable Mynor Ramsey Attending Unavailable Mynor Ramsey Referring Unavailable [facility] Primary Care Unavailable [place] WAREHOUSE RECEIVER, Joyce Consulting Unavailable Mynor Ramsey Consulting Unavailable Mynor Ramsey Attending Unavailable [facility] Referring Unavailable Mynor Ramsey Attending Unavailable Mynor Ramsey Referring Unavailable [facility] Primary Care Unavailable [place] WAREHOUSE RECEIVER, Joyce Consulting Unavailable Mynor Ramsey Attending Unavailable Mynor Ramsey Referring Unavailable [facility] Primary Care Unavailable [place] WAREHOUSE RECEIVER, Joyce Consulting Unavailable Ramsey Mynor Consulting Unavailable PROBLEMS PROBLEMS DATE TYPE CONDITION / CODE ATTENDING STATUS SOURCE 03/22/2018 Unknown R06.09 - Other forms Ramsey Mynor Active [place] of dyspnea / Community R06.09(ICD-10) Hospital Repository 03/22/2018 Unknown R07.9 - Chest pain, RamseyMynor Active [place] unspecified / Community R07.9(ICD-10) Hospital Repository 03/22/2018 Unknown R94.39 - Abnormal Mynor Ramsey Active [place] result of other [facility] Hospital function study / Repository R94.39(ICD-10) 03/16/2018 Unknown R94.31 - Abnormal Ramsey Mynor Active [place] electrocardiogram Community [ECG] [EKG] / Hospital R94.31(ICD-10) Repository PROCEDURES PROCEDURES No Procedure Records FoundRESULTS RESULTS CARDIOLOGY VISIT Observed: 04/04/2018 Status: F Source: [place] REPORT 1:42 PM [facility] REPOSITORY [facility] [address] [place] [address] OFFICE VISIT Date of Service: 04/04/18 MR#: [id number] Acct: [id number] Name: ALLY LIMON Rep #: [id number] : 1960 Provider: Luh Vazquez Age/Sex: 58/F Location[place] [facility] Status: Signed HPI HPI Chief Complaint: Abnl EKG/updated H AND P Details: ALLY LIMON, is a 58 F who presents to the office today for a cardiovascular follow-up. Patient does have history of coronary artery disease with recent stenting to her LAD. This was discovered during a hospital stay where an abnormal EKG was noted, stress echocardiogram was abnormal, heart catheterization was then done for diagnostic purposes. Patient states that since she had her stenting done she feels significantly better. Her shortness of breath is significantly worse. She hardly needs to use her inhaler. She is working on smoking cessation. She does not have any chest pressure or heaviness. She does not have any orthopnea. She does not have any lightheadedness or dizziness. She does not have any lower extremity edema. Intake Vital Signs04/04/18 Height 5 ft 4 in 04/04/18 Weight: 190 lb 04/04/18 Body Mass Index (BMI) 32.5 04/04/18 Blood Pressure 120/74 04/04/18 Blood Pressure Location Lt brachial Intake Visit Reasons: S/P CATH AND PCI Nursing Home Admissions Director Required: No Accompanied by: daughter Is patient in pain?: No Allergies latex Allergy (Verified 04/04/18 12:56) Rash codeine Adverse Reaction (Verified 04/04/18 12:56) Nausea Medications Albuterol IH (ProAir) [Proair Hfa] 2 puff INHALATION Q4H PRN PRN 10/28/13 [History Confirmed 04/04/18] Levothyroxine [Synthroid] 75 mcg PO DAILY 10/28/13 [History Confirmed 04/04/18] Paroxetine HCl [Paxil] 40 mg PO DAILY 10/28/13 [History Confirmed 04/04/18] albuterol sulfate 2.5 mg/3 mL (0.083 %) solution for nebulization 2.5 mg INHALATION Q4H PRN 02/05/18 [History Confirmed 04/04/18] cholecalciferol (vitamin D3) 2,000 unit capsule 2,000 unit PO DAILY 02/05/18 [History Confirmed 04/04/18] gabapentin 100 mg capsule 100 mg PO DAILY 02/05/18 [History Confirmed 04/04/18] gabapentin 300 mg capsule 300 mg PO QHS cap 02/05/18 [History Confirmed 04/04/18] mesalamine 800 mg tablet,delayed release 800 mg PO TID tab 02/05/18 [History Confirmed 04/04/18] mometasone-formoterol HFA 200 mcg-5 mcg/actuation aerosol inhaler 2 puff INHALATION BID 02/05/18 [History Confirmed 04/04/18] omeprazole 40 mg capsule,delayed release 40 mg PO DAILY 02/05/18 [History Confirmed 04/04/18] aspirin 81 mg tablet,delayed release 81 mg PO DAILY #30 tab 03/09/18 [Rx Confirmed 04/04/18] clopidogrel 75 mg tablet 75 mg PO DAILY #90 tab 04/04/18 [Rx Confirmed 04/04/18] PFSH Medical History Atherosclerotic heart disease of [place] coronary artery without angina pectoris (Chronic) Dyspnea on exertion (Acute) Abnormal stress test (Acute) Rheumatoid arthritis (Chronic) Depression (Chronic) GERD (gastroesophageal reflux disease) (Chronic) Hypothyroidism (Chronic) Asthma (Chronic) Premature ventricular contractions (Acute) Abnormal EKG (Acute) Surgical History Stented coronary artery (Chronic 03/21/18) History of carpal tunnel release (Chronic) History [...] vision or other ENT ENT: Negative for headache(s) or balance problems Cardio Chest Pain: Yes (continues to have [...] Negative for weakness, headache(s), frequent falls, blurry vision or double vision [place] Hematologic/Lymphatic: Negative for easy bleeding, easy bruising, enlarged lymph nodes or other Endo Endo: Negative for fatigue or excessive sweating Psych Psych: Negative for anxiety, depression, thoughts of harming anyone, thoughts of harming yourself, visual hallucinations, panic attacks or audible hallucinations Allergy Allergy/Immunology: Negative for rash Cardiology Exam Const Appearance: cooperative, no acute distress and well developed Orientation: alert, awake and oriented x3 Head Head: normocephalic and atraumatic Mouth: moist mucous membranes Eyes General: appearance normal, both eyes and all related structures Conjunctivae: conjunctivae normal Pupils: PERRL EOM: EOM intact bilaterally Neck Neck: normal visual inspection, no lymphadenopathy and no JVD Carotids: Negative bruit Neck Mass: Negative Neck mass Chest Chest inspection: normal inspection of the chest and symmetric chest movement Auscultation: Bilateral: Clear to Auscultation Cardio Palpation: normal PMI Rate: regular rate Rhythm: regular rhythm Heart sounds: S1 normal and S2 normal; negative rub, gallop or murmur GI GI: normal to inspection, soft, no hepatosplenomegaly and bowel sounds present; negative tender Neuro General: alert, awake, oriented x3, CN's II-XI intact bilaterally and moves all extremities Extremities Pulses: Normal: Left Femoral Pulse (well healed, small round bump noted, no bruits), Right Posterior Tibial Pulse, Left Posterior Tibial Pulse, Right Radial Pulse, Left Radial Pulse Lower Extremity Edema: None: Bilateral Psych Psychological: normal affect Assessment AND Plan Problems 1. Atherosclerosis of [place] coronary artery of [place] heart without angina pectoris I25.10 CAPRICE to mid LAD (3.0 X 16 [employer]) 03/21/[address] Ramsey @ [facility] Plan Patient did undergo stenting of her LAD. She does not have any symptoms of angina. She will continue with current aggressive medical management and risk factor modification. Encouraged her to attend cardiac rehab. Encouraged smoking cessation. Medications Refilled: Plan Detail Additional Comments Thank you for allowing us to participate in patient's plan of care, if you have any questions please do not hesitate to call. This note was generated using a voice recognition system and there may be incorrect words, spelling or punctuation errors that were not noted when reviewing the office note prior to saving. Follow Up 04/04/18 (Keep as is) Coding Level of Care Code Off vis,est,level 3 Diagnoses Atherosclerosis of [place] coronary artery of [place] heart without angina pectoris I25.10 Council vs. transplanted heart: [place] heart Coding Level of Care Code Off vis,est,level 3 Diagnoses Atherosclerosis of [place] coronary artery of [place] heart without angina pectoris I25.10 Council vs. transplanted heart: [place] heart 04/04/18 1342 <Electronically signed by Luh TRAMMELL> Date Luh TRAMMELL Cosigner Signature: Date (if applicable) CC: CELSO LOPEZ [facility] DISCHARGE INSTRUCTION Observed: 03/24/2018 Status: F Source: [place] 1:31 PM [facility] REPOSITORY [facility] Medical Records Department [address] [place] [address] Instructions for Home/Discharge Instructions 03/22/18 0855 MR#: [id number] Acct: [id number] Name: ALLY LIMON Rep #: [id number] : 1960 58 From: Luh TRAMMELL PCP: CELSO MUNSON Status: DEP [facility] Discharge Diet: No Restrictions - You may [...] DAILY #30 tab 03/09/18 Primary Care Physician: [facility] Celso Munson [Primary Care Provider] - Test Results: Test [...] patient's physical, psychological, and social functioning. Health geriatric personal care aide work in cardiac rehabilitation programs and assist you with getting the treatments you need to get stronger and healthier - like exercise, healthy eating habits, and medications. Cardiac rehabilitation has been show to help people with heart problems live longer and have better life enjoyment than people who do not go to cardiac rehabilitation. Please contact the Cardiac Rehabilitation Program at [facility] at in two weeks if you have not heard from them. 03/24/18 1331 <Electronically signed by Luh TRAMMELL> Date Luh TRAMMELL CC: Joyce KING; CELSO TAVARES [facility] 12 LEAD ELECTROCARDIOGRAM Observed: 03/23/2018 Status: F Source: [place] 11:08 AM [facility] REPOSITORY [facility] Cardiovascular Services [address] [place] [address] 12 Lead EKG 03/22/18 0524 MR#: [id number] Acct: [id number] Name: ALLY LIMON Rep #: [id number] : 1960 58 From: Atif Wilkins MD Attending Dr: Mynor Ramsey MD Status: DEP SDC Ordering Dr: Mynor Ramsey MD Date: 03/22/18 Location: [facility] Sex: F C Admitted: Test Reason : [...] COMPARISON REQUIRED, DATA IS UNCONFIRMED Confirmed by GROVER HUERTA, ATIF ([id number]), commercial production editor KRISTINA POWELL ([id number]) on 03/23/2018 11:07:30 AM Referred By: Mynor Ramsey Confirmed By:ATIF WILKINS MD 03/23/18 1107 Date Atif Wilkins MD CC: Mynor Ramsey MD; [facility] Signed 12 LEAD ELECTROCARDIOGRAM Observed: 03/23/2018 Status: F Source: [place] 11:08 AM [facility] REPOSITORY [facility] Cardiovascular Services [address] [place] [address] 12 Lead EKG 03/21/18 1119 MR#: [id number] Acct: [id number] Name: ALLY LIMON Rep #: [id number] : 1960 58 From: Atif Wilkins MD Attending Dr: Mynor Ramsey MD Status: DEP SDC Ordering Dr: Mynor Ramsey MD Date: 03/21/18 Location: [facility] Sex: F C Admitted: Test Reason : [...] ECG Confirmed by GROVER HUERTA, ATIF ([id number]), commercial production editor KRISTINA POWELL ([id number]) on 03/23/2018 11:08:03 AM Referred By: Mynor Ramsey Confirmed By:ATIF WILKINS MD 03/23/18 1108 Date Atif Wilkins MD CC: Mynor Ramsey MD; CELSO TAVARES [facility] Signed CBC-COMPLETE BLOOD CNT Collected: 03/22/2018 Status: F Source: [place] NO DIFF 5:20 AM [facility] REPOSITORY TYPE CODE TESTS RESULT OUT [...] MPV 10.6 Performed By: #### L100.0500 #### [facility] [address] [place], [place], [address] COMPREHENSIVE METABOLIC Collected: 03/22/2018 Status: F Source: [place] PROFIL 5:20 AM [facility] REPOSITORY TYPE CODE TESTS RESULT OUT [...] 7 Performed By: #### L500.4050, L500.4100 #### [facility] [address] [place], [place], [id number] LIPID PROFILE Collected: 03/22/2018 Status: F Source: [place] 5:20 AM [facility] REPOSITORY TYPE CODE TESTS RESULT OUT [...] 14 Performed By: #### L500.4050, L500.4100 #### [facility] [address] [place], [address] ACT ACTIVATED CLOTTING Collected: 03/21/2018 Status: F Source: [place] TIME 10:41 AM [facility] REPOSITORY TYPE CODE TESTS RESULT OUT OF RANGE REFERENCE UNITS LAB L9100.0100 74-137 sec High ACTk CLOT 202 TIME Performed By: #### L9100.0100 #### [facility] Point of Care [address] [place] [address] CBC-COMPLETE BLOOD CNT Collected: 03/21/2018 Status: F Source: [place] NO DIFF 9:00 AM [facility] REPOSITORY TYPE CODE TESTS RESULT OUT [...] MPV 10.9 Performed By: #### L100.0500 #### [facility] [address] [place], [address] PROTHROMBIN TIME W/INR Collected: 03/21/2018 Status: F Source: [place] 9:00 AM [facility] REPOSITORY TYPE CODE TESTS RESULT OUT OF RANGE REFERENCE UNITS LAB L300.4150 11.7-14.9 SECONDS Normal PROTIME 13.7 LAB L300.4200 Normal INR 1.1 Performed By: #### L300.3900, L300.4310 #### [facility] [address] [place], [address] PARTIAL THROMBOPLAST Collected: 03/21/2018 Status: F Source: [place] TIME 9:00 AM [facility] REPOSITORY TYPE CODE TESTS RESULT OUT OF RANGE REFERENCE UNITS LAB L300.4310 24.1-36.2 Seconds Normal PTT 31.8 Performed By: #### L300.3900, L300.4310 #### [facility] [address] [facility] [address] BASIC METABOLIC Collected: 03/21/2018 Status: F Source: [place] PROFILE (BMP) 9:00 AM [facility] REPOSITORY TYPE CODE TESTS RESULT OUT [...] GAP 7 Performed By: #### L500.2500 #### [facility] [address] [place], [address] ECHOCARDIOGRAM COMPLETE Observed: 03/16/2018 Status: F Source: [place] 11:52 AM [facility] REPOSITORY [facility] Cardiovascular Services [address] [place] [address] Echo Complete 03/15/18 1257 MR#: [id number] Acct: [id number] Name: ALLY LIMON Rep #: [id number] : 1960 58 From: Mynor Ramsey MD Attending Dr: Mynor Ramsey MD Status: REG CLI Ordering Dr: Mynor Ramsey MD Date: 03/15/18 Location: [facility] Sex: F C Admitted: Reason For Study: [...] Referring Physician: Mynor Ramsey Performed By: Lavon Arroyo RCS 03/16/18 1152 Date Mynor Ramsey MD CC: Mynor Ramsey MD; [facility] Date Dictated: 03/15/18 1257 Date Transcribed: 03/16/18 1152 Biomedical Engineering Technologist: Signed CARDIOLOGY VISIT Observed: 03/13/2018 Status: F Source: [place] REPORT 11:49 AM [facility] REPOSITORY [facility] [address] [place] [address] OFFICE VISIT Date of Service: 03/13/18 MR#: [id number] Acct: [id number] Name: ALLY LIMON Rep #: [id number] : 1960 Provider: Mynor Ramsey MD Age/Sex: 58/F Location: [facility] [place] Status: Signed HPI HPI Chief Complaint: Abnl EKG/updated H AND P Details: ALLY LIMON, is a 58 F who presents to the office today for evaluation of EKG abnormalities and to update her H AND P for upcoming catheterization. She has a history of asthma, hypothyroidism, GERD, depression, rheumatoid arthritis and left knee pain. Apparently she previously visited [facility] ER due to overdose of Paxil. Patient [...] flulike symptoms which may have been an IN and disguise. She is taking and tolerating [...] Update H AND P for 03/21 cath Nursing Home Admissions Director Required: No Is patient in pain?: No [...] well controlled. No indication to change her Animal Care Giver date. Should the patient have worsening exertional [...] MD Cosigner Signature: Date (if applicable) CC: [facility] CARDIOLOGY VISIT Observed: 03/09/2018 Status: F Source: [place] REPORT 11:14 AM [facility] REPOSITORY [facility] [address] [place] [address]. [address] [place] [address] OFFICE VISIT Date of Service: 02/06/18 MR#: [id number] Acct: [id number] Name: ALLY LIMON Rep #: [id number] : 1960 Provider: Mynor Ramsey MD Age/Sex: 58/F Location: [facility] [place] Status: Signed HPI HPI Details: ALLY LIMON, is a 58 F who presents to the office today for Intake Intake Visit Reasons: ABN EKG ([facility]) Allergies latex Allergy (Verified 02/13/18 16:22) Rash [...] MD Cosigner Signature: Date (if applicable) CC: [facility] STRESS TEST ECHO W/ Observed: 03/07/2018 Status: F Source: [place] CONTRAST 4:14 PM [facility] REPOSITORY [facility] Cardiovascular Services [facility] [place] [address] Stress Test Echo W/Contrast MR#: [id number] Acct: [id number] Name: ALLY LIMON Rep #: [id number] : 1960 58 From: Mynor Ramsey MD Primary Care: [facility] Status: REG CLI Ordering Dr: Mynor Ramsey [...] Mynor Ramsey MD CC: Mynor Ramsey MD; [facility] Date Dictated: 03/07/18 1314 Date Transcribed: 03/07/18 1613 Biomedical Engineering Technologist: Signed LIVER PROFILE Collected: 02/26/2018 Status: F Source: [place] 9:47 AM [facility] REPOSITORY TYPE CODE TESTS RESULT OUT [...] 0.13 Performed By: #### L500.3400, L500.4100 #### [facility] [address] [place], [address] LIPID PROFILE Collected: 02/26/2018 Status: F Source: [place] 9:47 AM [facility] REPOSITORY TYPE CODE TESTS RESULT OUT [...] 29 Performed By: #### L500.3400, L500.4100 #### [facility] [address] [place], [address] CARDIOLOGY VISIT Observed: 02/18/2018 Status: F Source: [place] REPORT 12:32 PM [facility] REPOSITORY [facility] [address] [place] [address] OFFICE VISIT Date of Service: 02/13/18 MR#: [id number] Acct: [id number] Name: ALLY LIMON Rep #: [id number] : 1960 Provider: Mynor Ramesy MD Age/Sex: 58/F Location: [facility] Status: Signed HPI HPI Details: ALLY LIMON, is a 58 F who presents to the office today for Intake Vital Signs02/13/18 Height 5 ft 4 in 02/13/18 Weight: 187 lb 02/13/18 Body Mass Index (BMI) 32.1 02/13/18 Blood Pressure 90/64 Intake Visit Reasons: ABN EKG ([facility]) Nursing Home Admissions Director Required: No Accompanied by: Daughter Is patient [...] Mynor Ramsey MD> Date [facility]ynor [facility] Signature: Date (if applicable) CC: [facility] CARDIOLOGY VISIT Observed: 02/13/2018 Status: F Source: [place] REPORT 4:40 PM [facility] REPOSITORY [facility] [address] [place] [address]. [address] [place] [address] OFFICE VISIT Date of Service: 02/13/18 MR#: [id number] Acct: [id number] Name: KEVAN LIMONSalvador Diego Rep #: [id number] : 1960 Provider: Mynor Ramsey MD Age/Sex: 58/F Location: [facility] Status: Signed HPI HPI Chief Complaint: Abnl EKG Details: ALLY LIMON, is a 58 F who presents to the office today for evaluation of EKG abnormalities. She has a history of asthma, hypothyroidism, GERD, depression, rheumatoid arthritis and left knee pain. Apparently she recent visited [facility] ER due to overdose of Paxil. Patient [...] flulike symptoms which may have been an IN and disguise. She is taking and tolerating [...] Plan 1. Abnormal EKG R94.31 12/22/[address] [facility] ER: Septal infarct, age undetermined, left axis [...] MD Cosigner Signature: Date (if applicable) CC: 12 LEAD ELECTROCARDIOGRAM Observed: 01/17/2018 Status: F Source: [place] 3:21 PM [facility] REPOSITORY [facility] Cardiovascular Services [address] [place] [address] 12 Lead EKG 01/16/18 1123 MR#: [id number] Acct: [id number] Name: ALLY LIMON Rep #: [id number] : 1960 57 From: Victor Hugo Walton MD Attending Dr: CELSO MUNSON Status: REG CLI Ordering Dr: Celso Dill Date: 01/16/18 Location: [facility] Sex: F C Admitted: Test Reason : [...] , age undetermined Abnormal ECG Confirmed by VICTOR HUGO WALTON MD ([id number]), commercial production editor KRISTINA POWELL ([id number]) on 01/17/2018 3:21:04 PM Referred By: CELSO MUNSON Confirmed By:VICTOR HUGO WALTON MD 01/17/18 1526 Date Victor Hugo Walton MD CC: KARLAShane TAVARES [facility] Signed CBC AND DIFFERENTIAL Collected: 12/27/2017 Status: F Source: [place] 9:06 AM [facility] REPOSITORY TYPE CODE TESTS RESULT OUT [...] k/uL Abs Lymph 2.84 LAB AMONO(LOINC) % Karnes% 7.6 LAB AAMONO(LOINC) <0.87 k/uL Abs Karnes 0.71 LAB AEOS(LOINC) % Eosin% 6.7 LAB AAEOS(LOINC) <0.46 k/uL High Abs Eosin 0.62 LAB ABASO(LOINC) % Baso% 1.0 LAB AABASO(LOINC) <0.11 k/uL Abs Baso 0.09 LAB AUNRBC(LOINC) 0 /100 WBC NRBCs 0.0 LAB ABNRBC(LOINC) <0.01 k/uL Absolute nRBC <0.01 LAB DTYP(LOINC) DTYPE ADIFF Performed By: #### CBCDIF, CMP, LIPB, TSH, FT4, HBA1C, VITD #### [facility] Routine Lab [address] [place], [place] [address] COMP METABOLIC PANEL Collected: 12/27/2017 Status: F Source: [place] 9:06 AM CLINIC REFERENCE REPOSITORY TYPE CODE [...] eGFR-All Other Races >60 Performed By: #### CBCDIF, CMP, LIPB, TSH, FT4, HBA1C, VITD #### [facility] Routine Lab [address] [place], [place] [address] LIPID PANEL, BASIC Collected: 12/27/2017 Status: F Source: [place] 9:06 AM CLINIC REFERENCE REPOSITORY TYPE CODE [...] LDL:HDL Ratio High 2.79 Performed By: #### CBCDIF, CMP, LIPB, TSH, FT4, HBA1C, VITD #### [facility] Routine Lab [address] [place] [address] TSH Collected: 12/27/2017 Status: F Source: [place] 9:06 [facility] REFERENCE REPOSITORY TYPE CODE TESTS RESULT OUT OF RANGE REFERENCE UNITS LAB TSH(LOINC) 0.400-5.500 uU/mL High TSH 10.060 Performed By: #### CBCDIF, CMP, LIPB, TSH, FT4, HBA1C, VITD #### [facility] Routine Lab [address] [address] FREE T4 Collected: 12/27/2017 Status: F Source: [place] 9:06 [facility] REFERENCE REPOSITORY TYPE CODE TESTS RESULT OUT OF RANGE REFERENCE UNITS LAB FT4(LOINC) 0.9-1.7 ng/dL Free T4 0.9 Performed By: #### CBCDIF, CMP, LIPB, TSH, FT4, HBA1C, VITD #### [facility] Routine Lab [address] [address] HEMOGLOBIN A1C Collected: 12/27/2017 Status: F Source: [place] 9:06 AM [facility] REFERENCE REPOSITORY TYPE CODE TESTS RESULT OUT OF REFERENCE UNITS RANGE LAB HGBA1C(ARNULFO 4.3-5.6 % NC) Hemoglobin A1c 5.5 LAB HBA0(LOINC mg/dL ) Est. Average Glucose 111 Performed By: #### CBCDIF, CMP, LIPB, TSH, FT4, HBA1C, VITD #### [facility] Routine Lab [address] [place], [place] [address] VITAMIN D 25 HYDROXY Collected: 12/27/2017 Status: F Source: [place] 9:06 AM CLINIC REFERENCE REPOSITORY TYPE CODE TESTS RESULT OUT OF REFERENCE UNITS RANGE LAB VITD(LOINC) 31.0-80.0 ng/mL Vitamin D 25 36.6 Hydroxy Performed By: #### CBCDIF, CMP, LIPB, TSH, FT4, HBA1C, VITD #### [facility] Routine Lab [address] [place], [place] [address] 12 LEAD ELECTROCARDIOGRAM Observed: 12/25/2017 Status: F Source: [place] 3:12 PM [facility] REPOSITORY [facility] Cardiovascular Services [address] [place] [address] 12 Lead EKG 12/22/17 1440 MR#: [id number] Acct: [id number] Name: ALLY LIMON Rep #: [id number] : 1960 57 From: Atif Wilkins MD [...] Abnormal ECG Confirmed by ATIF WILKINS MD ([id number]), commercial production editor KRISTINA POWELL ([id number]) on 12/25/2017 3:12:46 PM Referred By: NARCISA Confirmed By:ATIF WILKINS MD 12/25/17 1512 Date Atif Wilkins MD CC: Luc Bliss MD; [facility] Signed EMERGENCY DEPARTMENT Observed: 12/22/2017 Status: F Source: [place] SUMMARY 4:57 PM [facility] REPOSITORY [facility] Medical Records Department [address] [place] [address] Emergency Department Summary 12/22/17 1652 MR#: [id number] Acct: [id number] Name: ALLY LIMON Rep #: [id number] : 1960 57 From: Luc Bliss MD PCP: CELSO TVAARES [facility] Status: REG ER - ER Visit Summary Date of Service: 12/22/17 Chief Complaint: [] History of Present Illness: The patient is a 57 F [] Physical Examination: [] Test Results: [] Emergency Department Course and Treatment: [] Treatment Plan: [] Disposition: [] Impression: [] This note was generated with Business Labation software. It may contain incorrect words, spelling, [...] problems, contact your Primary Care Provider. Call [facility] ([phone]) or report to the closest Emergency Room. Call 911 if necessary. 12/22/171656 <Electronically signed by Luc Bliss MD> Date Luc Bliss MD Cosigner Signature (If Indicated): Date CC: CELSO TAVARES [facility] EMERGENCY DEPARTMENT Observed: 12/22/2017 Status: F Source: [place] SUMMARY 4:52 PM [facility] REPOSITORY [facility] Medical Records Department [address] [place] [address] Emergency Department Summary 12/22/17 1625 MR#: [id number] Acct: [id number] Name: ALLY LIMON Rep #: [id number] : 1960 57 From: Luc Bliss MD PCP: CELSO TAVARES [facility] Status: REG ER ADDENDUM by Luc Bliss [...] discharged home. Date Luc Bliss MD cc: [place] ANUSHA [facility] * Signed - ER Visit Summary [...] Suicidal gesture This note was generated with Baroc [employer] dictation software. It may contain incorrect words, spelling, and punctuation that were not noted in review of the chart prior to signing ED Disposition - Plan for ED Patient: Chief Complaint: Overdose Referrals: [facility],Celso Tavares [Primary Care Provider] - What to do if you have Problems For any increased pain, shortness of breath, bleeding, nausea or vomiting, chest pain, or any unexpected problems, contact your Primary Care Provider. Call [facility] ([phone]) or report to the closest Emergency Room. Call 911 if necessary. 12/22/17 0469 <Electronically signed by Luc Bliss MD> Date Luc Bliss MD Cosigner Signature (If Indicated): Date CC: CELSO TAVARES [facility] URINE DRUG SCREEN Collected: 12/22/2017 Status: F Source: [place] ([place]) 2:45 PM [facility] REPOSITORY TYPE CODE TESTS RESULT OUT [...] THC POSITIVE Performed By: #### L505.5000 #### [facility] [address] [place], [place], [address] CBC W/DIFF, AUTOMATED Collected: 12/22/2017 Status: F Source: [place] 2:10 PM [facility] REPOSITORY TYPE CODE TESTS RESULT OUT [...] Lymph 3.30 Performed By: #### L100.0100 #### [facility] [address] [place], [address] ALCOHOL, BLOOD Collected: 12/22/2017 Status: F Source: [place] (MEDICAL)-SERUM 2:10 PM [facility] REPOSITORY TYPE CODE TESTS RESULT OUT [...] fatal coma Performed By: #### L501.9100 #### [facility] [address] [facility] [place], [address] BASIC METABOLIC Collected: 12/22/2017 Status: F Source: [place] PROFILE (BMP) 2:10 PM [facility] REPOSITORY TYPE CODE TESTS RESULT OUT [...] GAP 9 Performed By: #### L500.2500 #### [facility] [address] [facility] [place], [address] ,SERUM,HCG QUALI. Collected: Status: F Source: [place] 12/22/2017 2:10 PM [facility] REPOSITORY TYPE CODE TESTS RESULT OUT OF REFERENCE UNITS RANGE LAB L700.7000 0-9 Nonpreg Negative Normal HCGSQUAL NEGATIVE LAB L700.6700 =>Qualitative mIU/mL Normal HCG Qual 2 triggr Performed By: #### L700.6800 #### [facility] [address] [facility] [place], [address] PROGRESS Observed: 08/16/2017 Status: COMPLETED Source: [place] 1:25 PM [facility] REPOSITORY HNO ID: [id number] Author: Jennifer Watts ([facility]) Service: (none) Author Type: Nurse Practitioner [...] Laterality Date - COLONOSCOP W/ OR W/O [facility] SPEC 02/13/13 Colonoscopy - COLONOSCOP W/ OR W/O [facility] SPEC 08/27/15 Colonoscopy - EGD W/O OR [...] Discussed expected course of illness Jennifer Watts APRN.CNP CNOV Observed: 08/16/2017 Status: COMPLETED Source: [place] 1:15 PM [facility] REPOSITORY Office Visit (WSTR) ALLY LIMON ([id number]) 1960 F Date Time Provider Department 08/16/17 1:15 PM JENNIFER WATTS ([facility]) WSTR During your visit today, we recorded the following information about you: Temperature Pulse Respiration Blood pressure 98.3 degrees 80/minute 16/minute 102/68 Weight 88.1 kg Jennifer Watts ([place]) 08/16/2017 1:38 PM Signed Subjective HPI Ally Diego Ashly is a 57 year old female who [...] Laterality Date - COLONOSCOP W/ OR W/O [facility] SPEC 02/13/13 Colonoscopy - COLONOSCOP W/ OR W/O [facility] SPEC 08/27/15 Colonoscopy - EGD W/O OR [...] course of illness Jennifer Watts APRN.Jennifer Velasco ([facility]) 08/16/2017 1:30 PM Signed Take medications as prescribed. If not improving in 3-5 days, or you have worsening symptoms, see your primary care provider for recheck. Referring Provider: SELF [200] Allergies As of Date: 08/16/2017 Noted Allergy Reaction CODEINE 07/26/2012 8 - GI Upset LATEX 07/26/2012 2 - Rash Date Reviewed: 08/16/2017 Reviewed by: Jennifer Watts ([facility]) - Fully Assessed Reason for Visit: [...] OCCULT BLD Collected: 05/25/2017 Status: F Source: [facility] 8:18 AM CLINIC REFERENCE REPOSITORY TYPE CODE TESTS RESULT OUT OF REFERENCE UNITS RANGE LAB IFO(LOINC) Negative Immuno Negative FOB COMP METABOLIC PANEL Collected: 05/12/2017 Status: F Source: [place] 9:35 AM CLINIC REFERENCE REPOSITORY TYPE CODE [...] PANEL, BASIC Collected: 05/12/2017 Status: F Source: [place] 9:35 AM [facility] REFERENCE REPOSITORY TYPE CODE TESTS RESULT OUT [...] AND DIFFERENTIAL Collected: 05/12/2017 Status: F Source: [place] 9:35 AM CLINIC REFERENCE REPOSITORY TYPE CODE [...] Abs Lymph 2.22 LAB AMONO(LOIN % C) Karnes% 7.8 LAB AAMONO(ARNULFO <0.87 k/uL NC) Abs Karnes 0.64 LAB AEOS(LOINC % ) Eosin% 9.4 LAB AAEOS(LOIN <0.46 k/uL C) Abs High Eosin 0.77 LAB ABASO(LOIN % C) Baso% 1.0 LAB AABASO(ARNULFO <0.11 k/uL NC) Abs Baso 0.08 LAB AUNRBC(ARNULFO 0 /100 WBC NC) NRBCs 0.0 LAB ABNRBC(ARNULFO <0.01 k/uL NC) Absolute nRBC <0.01 LAB DTYP(LOINC ) DTYPE ADIFF TSH Collected: 05/12/2017 Status: F Source: [place] 9:35 AM CLINIC REFERENCE REPOSITORY TYPE CODE TESTS RESULT OUT OF RANGE REFERENCE UNITS LAB TSH(LOINC) 0.400-5.500 uU/mL TSH 3.830 FREE T4 Collected: 05/12/2017 Status: F Source: [place] 9:35 AM CLINIC REFERENCE REPOSITORY TYPE CODE TESTS RESULT OUT OF RANGE REFERENCE UNITS LAB FT4(LOINC) 0.9-1.7 ng/dL Low Free T4 0.8 HEMOGLOBIN A1C Collected: 05/12/2017 Status: F Source: [place] 9:35 AM [facility] REPOSITORY TYPE CODE TESTS RESULT OUT OF REFERENCE UNITS RANGE LAB HGBA1C(ARNULFO 4.3-5.6 % NC) Hemoglobin A1c 5.6 LAB HBA0(LOINC mg/dL ) Est. Average Glucose 114 VITAMIN D 25 HYDROXY Collected: 05/12/2017 Status: F Source: [place] 9:35 AM [facility] REPOSITORY TYPE CODE TESTS RESULT OUT OF REFERENCE UNITS RANGE LAB VITD(LOINC) 31.0-80.0 ng/mL Low Vitamin D 25 30.7 Hydroxy ALPHA 1 ANTITRYPSIN Collected: 02/03/2017 Status: F Source: [place] 9:30 AM [facility] REPOSITORY TYPE CODE TESTS RESULT OUT OF REFERENCE UNITS RANGE LAB AAT(LOINC) 90-200 mg/dL Alpha 1 antitrypsin 148 FREE T4 Collected: 09/30/2016 Status: F Source: [place] 8:30 AM [facility] REPOSITORY TYPE CODE TESTS RESULT OUT OF RANGE REFERENCE UNITS LAB FT4(LOINC) 0.9-1.7 ng/dL Free T4 0.9 Performed By: #### FT4, TSH #### [facility] Routine Lab [address] [place], [place] [address] TSH Collected: 09/30/2016 Status: F Source: [place] 8:30 AM [facility] REPOSITORY TYPE CODE TESTS RESULT OUT OF RANGE REFERENCE UNITS LAB TSH(LOINC) 0.400-5.500 uU/mL High TSH 5.820 Performed By: #### FT4, TSH #### [facility] Routine Lab [address] [place], [place] [address] ALLERGIES ALLERGIES DATE TYPE / CODE NAME / CODE REACTION SEVERITY SOURCE 04/04/2018 Drug codeine/F05493 Nausea Unknown [facility] Allergy/4160 1550(RXNORM) [facility] [address](SNOMED Repository CT) 04/04/2018 Drug latex/[id number] Rash Unknown [place] Allergy/4160 21(RXNORM) [facility] [address]86(SNOMED Repository CT) 07/26/2012 DRUG CODEINE GI UPSET [facility] INGREDI/4195 [facility] [address](SNOMED Repository CT) 07/26/2012 [facility]EX [facility] [address](SNOMED Repository CT) ENCOUNTERS ENCOUNTERS ADMIT/DISCHARGE ACCOUNT ADMITTING ENCOUNTER LOCATION SOURCE NUMBER CLASS 04/04/2018/04/04/20 [id number] Ambulatory BMSBuilding:Edwige [facility] Repository 03/22/2018 [id number] Ambulatory BMSBuilding:Edwige Ramsey MS.[facility] Repository 03/21/2018 [id number] Ambulatory BMSBuilding:[facility] Repository 03/21/2018/03/22/20 [id number] Ambulatory [address] ing:CLSPRoom: Repository [id number] 03/15/2018 [id number] Ambulatory BMSBuilding:Edwige Ramsey MS.[facility] Repository 03/15/2018 [id number] Ambulatory [facility] Hospital ing:[facility] Repository 03/13/2018/03/13/20 [id number] Ambulatory BMSBuilding:Edwige Ramsey [address] [facility] Repository 03/07/2018 [id number] Ambulatory BMSBuilding:Edwige Ramsey MS.[facility] Repository 03/07/2018 [id number] Ambulatory [facility] Hospital ing:[facility] Repository 02/26/2018 [id number] Ambulatory [facility] Hospital ing:LAB Repository 02/13/2018/02/14/20 [id number] Ambulatory BMSBuilding:[place] [facility] Repository 01/16/2018 [id number] Ambulatory [facility] Hospital ing:[facility] Repository 01/16/2018 [id number] Ambulatory BMSBuilding:W [facility] Repository 12/22/2017/12/23/19 [id number] Emergency [address] Hospital ing:ED Repository 08/16/2017/08/18/19 [id number] Ambulatory [address] Repository PAYERS PAYERS ENCOUNTER GUARANTOR PAYER SUBSCRIBER SOURCE 04/04/2018 ALLY Diego Primary ALLY Diego [place] [id number] Insurance:MEDICARE GILLESPIEDOB: [address] [facility] [id number] [place] Number: Repository [address]Wzu: 330 [id number] [phone] (HP) Date:2018-03-21 04/04/2018 Secondary ALLY C [place] Insurance:MEDICAIDPo GILLESPIEDOB: Community licy Number: [id number] Hospital [id number] Repository e Date:2018-03-21 04/04/2018 Tertiary NOT GIVENUNK [place] Insurance:SELF PAY [facility] Number: Effective Repository Date:2018-04-04 03/22/2018 ALLY Diego Primary ALLY Diego [place] [id number] Insurance:MEDICARE GILLESPIEDOB: Community [address] [facility] [id number], [place] Number: Repository [address]Wvo: 330 [id number] [phone] (HP) Date:2018-03-09 03/22/2018 Secondary ALLY C [place] Insurance:MEDICAIDPo GILLESPIEDOB: Community licy Number: [id number] Hospital [id number] Repository e Date:2018-03-09 03/22/2018 Tertiary NOT GIVENUNK [place] Insurance:SELF PAY [facility] Number: Effective Repository Date:2018-03-22 03/21/2018 ALLY Diego Primary ALLY C [place] [id number] Insurance:MEDICARE GILLESPIEDOB: Community [address] PART A [facility] [id number], [place] Number: Repository [address]Khu: 330 [id number] [phone] (HP) Date:2018-03-09 03/21/2018 Secondary ALLY C [place] Insurance:MEDICAIDPo GILLESPIEDOB: Community licy Number: [id number] Hospital [id number] Repository e Date:2018-03-09 03/21/2018 Tertiary NOT GIVENUNK [place] Insurance:SELF PAY [facility] Number: Effective Repository Date:2018-03-21 03/21/2018 ALLY C Primary ALLY C [place] [id number] Insurance:MEDICARE GILLESPIEDOB: Community [address] PART A [facility] [id number] [place] Number: Repository [phone]: 330 [id number] [phone] (HP) Date:2018-03-09 03/21/2018 Secondary ALLY C [place] Insurance:MEDICAIDPo GILLESPIEDOB: Community licy Number: [id number] Hospital [id number] Repository e Date:2018-03-09 03/21/2018 Tertiary NOT GIVENUNK [place] Insurance:SELF PAY [facility] Number: Effective Repository Date:2018-03-09 03/15/2018 ALLY C Primary ALLY C [place] [id number] Insurance:MEDICARE GILLESPIEDOB: Community [address] [facility] [id number] Number: Repository [address]Ltq: 330 [id number] [phone] (HP) Date:2018-02-14 03/15/2018 Secondary ALLY C [place] Insurance:MEDICAIDPo GILLESPIEDOB: Community licy Number: [id number] Hospital [id number] Repository e Date:2018-02-14 03/15/2018 Tertiary NOT GIVENUNK [place] Insurance:SELF PAY [facility] Number: Effective Repository Date:2018-03-15 03/15/2018 ALLY C Primary ALLY C [place] [id number] Insurance:MEDICARE GILLESPIEDOB: Community [address] PART A [facility] [id number], [place] Number: Repository [address]Jwa: 330 [id number] [phone] (HP) Date:2018-02-14 03/15/2018 Secondary ALLY C [place] Insurance:MEDICAIDPo GILLESPIEDOB: Community licy Number: [id number] Hospital [id number] Repository e Date:2018-02-14 03/15/2018 Tertiary NOT GIVENUNK [place] Insurance:SELF PAY [facility] Number: Effective Repository Date:2018-02-14 03/13/2018 ALLY C Primary ALLY C [place] [id number] Insurance:MEDICARE GILLESPIEDOB: [facility] [address] PART A BPolicy [id number] Number: Repository [address]Nud: [phone] [id number] [phone] (HP) Date:2018-03-09 03/13/2018 Secondary ALLY C [place] Insurance:CARESOURCE GILLESPIEDOB: Community Policy Number: [id number] Hospital [id number] Repository Date:2018-03-09[address]ATTN: [place] [address]ND: 03/13/2018 Tertiary NOT GIVENUNK [place] Insurance:SELF PAY [facility] Number: Effective Repository Date:2018-03-13 03/07/2018 ALLY C Primary ALLY C [place] [id number] Insurance:CARESOURCE GILLESPIEDOB: [facility] [address] Policy Number: [id number] [id number] Repository [address]Qpi: (330) Date:2018-02-14P O [phone] () [address]ATTN: [place] [address]NW: 03/07/2018 Secondary NOT GIVENUNK [place] Insurance:SELF PAY [facility] Number: Effective Repository Date:2018-03-07 03/07/2018 ALLY C Primary ALLY C [place] [id number] Insurance:CARESOURCE GILLESPIEDOB: [facility] [address] Policy Number: [id number] [id number] Repository [address]Had: (330) Date:2018-02-14P O [phone] () [address]ATTN: [place] [address]BN: 03/07/2018 Secondary NOT GIVENUNK [place] Insurance:SELF PAY [facility] Hospital Number: Effective Repository Date:2018-02-14 02/26/2018 ALLY C Primary ALLY C [place] [id number] Insurance:CARESOURCE GILLESPIEDOB: [facility] [address] Policy Number: [id number] [id number] Repository [address]Cei: ([phone]) Date:2018-02-26P O [phone] () [address]ATTN: [place] [address]HR: 02/26/2018 Secondary NOT GIVENUNK [place] Insurance:SELF PAY [facility] Hospital Number: Effective Repository Date:2018-02-26 02/13/2018 ALLY C Primary ALLY C [place] [id number] Insurance:CARESOURCE GILLESPIEDOB: [facility] [address] Policy Number: [id number] [id number] Repository [address]Pkb: ([phone]) Date:2018-02-07 O [phone] () [address]ATTN: [place] [address]UA: 02/13/2018 Secondary ALLY C [place] Insurance:MEDICARE GILLESPIEDOB: Community PART A BPolicy [id number] Hospital Number: Repository [id number] Date:2018-02-07 02/13/2018 Tertiary NOT GIVENUNK [place] Insurance:SELF PAY [facility] Hospital Number: Effective Repository Date:2018-02-13 01/16/2018 ALLY C Primary ALLY C [place] [id number] Insurance:CARESOURCE GILLESPIEDOB: [facility] [address] Policy Number: [id number] [id number] Repository [address]Inv: ([phone]) Date:2018-01-16P O [phone] (HP) [address]ATTN: [place] [address]KF: 01/16/2018 Secondary NOT GIVENUNK [place] Insurance:SELF PAY [facility] Number: Effective Repository Date:2018-01-16 01/16/2018 ALLY C Primary ALLY C [place] [id number] Insurance:CARESOURCE GILLESPIEDOB: [facility] [address] Policy Number: [id number] [id number] Repository [address]Tna: (330) Date:2018-01-16P O [phone] (HP) [address]ATTN: [place] [address]RG: 01/16/2018 Secondary NOT GIVENUNK [place] Insurance:SELF PAY [facility] Number: Effective Repository Date:2018-01-16 12/22/2017 Ally C Primary Ally C [place] [id number] Insurance:CARESOURCE GillespieDOB: [facility] [address] Policy Number: [id number] [id number] Repository [address]Ijt: (330) Date:2017-12-22P O [phone] () [address]ATTN: [place] [address]WR: 12/22/2017 Secondary NOT GIVENUNK [place] Insurance:SELF PAY [facility] Number: Effective Repository Date:2017-12-22
== END 2018-03-22 11:08 | disposition home or self-care (01) ==
LOC: CLSP 07:17 → ICU 10:39
PROVIDERS: Referring Provider Internal Medicine Cardiovascular Disease; Visit Provider Internal Medicine Cardiovascular Disease
DX: I25.110 Atherosclerotic heart disease of native coronary artery with unstable angina pectoris (principal); E78.5 Hyperlipidemia, unspecified; R94.39 Abnormal result of other cardiovascular function study; R06.09 Other forms of dyspnea; J45.909 Unspecified asthma, uncomplicated; E03.9 Hypothyroidism, unspecified; K21.9 Gastro-esophageal reflux disease without esophagitis; F32.9 Major depressive disorder, single episode, unspecified; M06.9 Rheumatoid arthritis, unspecified; F17.210 Nicotine dependence, cigarettes, uncomplicated; Z79.51 Long term (current) use of inhaled steroids; Z79.82 Long term (current) use of aspirin; Z79.899 Other long term (current) drug therapy
CPT/HCPCS: 36415; 80048; 80053; 80061; 85027; 85347; 85610; 85730; 92928; 93005; 93458; 94640; 99152; 99153; C1760; J7030; J7040; Q9967; C1725; C1769; C1874; C1887; C1894; C9600

== ENCOUNTER 2019-10-15 15:14 | Emergency (ER) | payer MEDICARE, SELFPAY ==
[2018-03-21 13:13] VITALS: BMI 31.7
[2019-04-01 11:27] VITALS: BMI 30.2
[2019-10-15 15:16] VITALS: BP 134/66; PULSE 103; RESP 15; TEMP 36.8; O2SAT 99; BMI 32.1
--- NOTE | 2019-10-15 16:09 | ED.VIS.GEN ---
History of Present Illness Chief Complaint: Allergic Reaction Informant: Patient Narrative: Patient is a 59-year-old female with a past medical history of ulcerative colitis who presents to the emergency room for swelling, pain and erythema of her right sided face. She denies ever having this happen before in the past. Her symptoms have been present over the past 24 hours. She does get lesions over her extremities and she did develop them on her face. She has been seen before by her primary care doctor. She did take off the scab prior to this happening. She has not tried taking anything for this. She denies any painful eye movements. No foreign body sensation in her eye. No hearing changes or ear pain. The majority the pain is preauricular and mildly under her right eyelid. She denies any vision changes. No systemic symptoms including any fever/chills or nausea/vomiting. No chest pain or shortness of breath. Does not know any aggravating or relieving factors. Past Medical History - Allergies and Home Meds Allergies/Adverse Reactions: Allergies latex Allergy (Verified 10/15/19 15:16) Rash codeine Adverse Reaction (Verified 10/15/19 15:16) Nausea Primary Care Physician: [facility] Jeannette Alcantar [Primary Care Provider] - Prior records reviewed: Yes Past Medical History: - - CAD, ulcerative colitis, RA Smoking Status: Current every day smoker Drugs: None Review of Systems All systems negative except as indicated General: Denies: Chills, Fever, Sweats Eyes: Denies: Visual changes - bilaterally, Diplopia ENT: Denies: Bilateral ear pain, Rhinorrhea, Sore throat Cardiovascular: Denies: Chest pain, Palpitations Respiratory: Denies: Dyspnea, Cough, Dyspnea on exertion Gastrointestinal: Denies: Abdominal pain, Nausea, Vomiting, Diarrhea Genitourinary: Denies: Dysuria, Hematuria, Frequency Musculoskeletal: Denies: Back pain, Extremity Pain Skin: Reports: Rash - Erythema over face. Denies: Wounds Neurological: Denies: Headache, Weakness, Numbness Allergy: Denies: Swelling of the mouth, Swelling of the tongue Physical Exam Vital Signs/Narrative: Vital Signs Temp Pulse Resp BP Pulse Ox 10/15/19 15:16 98.2 F 103 H 15 134/66 H 99 Inital Vital Signs reviewed: Yes General: Well nourished, Well developed, No Acute Distress Head: Normocephalic, Atraumatic, Tenderness, - - Patient has mild preauricular swelling, warmth and tenderness. No fluctuating abscess present. There are some overlying skin lesions that are open but not draining. Mild swelling under the right eyelid. These are tender to palpation. No mastoid process tenderness. Eyes: Perrl, EOMI, - ENT: Moist mucous membranes, No rhinorrhea, TM's clear, - - No oral lesions present.. Negative for: Nasal congestion Neck: Supple, Nontender, No lymphadenopathy, - - No mass present. Cardiovascular: Regular rate, Regular rhythm, No murmurs Respiratory: No distress, CTA bilaterally, Chest nontender Abdomen: Soft, Nontender, Nondistended, Normal bowel sounds Back: Nontender, Normal Inspection Extremities: Nontender, No edema Skin: Normal color, No rash Neurological: Alert, Oriented x3, Cranial nerves II-XII grossly intact, Normal Strength, Normal Sensation Psychological: Normal affect, Normal Mood Diagnostic/Tx/Re-eval - Medical Decision Making Patient presents [facility] for what appears to be facial cellulitis. She does have some superficial lesions which are chronic for her. She states that she picked up a stab which I think she has an opportunistic bacterial infection from this. We will give first dose of antibiotic here in the emergency department and sent home with prescription. Does need to have close follow-up with her PCP given the location of the infection. At this time no evidence of periorbital cellulitis. No mastoiditis. He is not a diabetic. Vital signs are within normal limits upon arrival except for mild tachycardia but this resolved on my examination. She understands she is to return to the [facility] department if she develops any worsening of the cellulitis despite taking antibiotics or developing any systemic symptoms. At this time will discharge home in stable condition. She understands and is agreeable with this plan. ED Disposition - Plan for ED Patient: Disposition: Home or Assisted Living Diagnosis: Cellulitis, face Instructions: ED FACIAL CELLULITIS Prescriptions: Smz/Tmp Ds [Bactrim Ds] 2 tab PO BID #28 tab Transmission Status: Pending to [facility] Cephalexin [Keflex] 500 mg PO 4X/DAY 7 Days #28 cap Transmission Status: Pending to [facility] Referrals: Jeannette Dill [Primary Care Provider] - 2 Days for wound check
[2019-10-15] MEDS: Smz/Tmp Ds Tablet 2 TABLET PO (16:42)
[2019-10-15] MEDS: Cephalexin 250 MG Capsule 500 MG PO (16:43)
== END 2019-10-15 16:45 | disposition home or self-care (01) ==
PROVIDERS: Emergency Provider Emergency Medicine; PCP Nurse Practitioner Family
DX: L03.211 Cellulitis of face (principal); F17.200 Nicotine dependence, unspecified, uncomplicated; M06.9 Rheumatoid arthritis, unspecified; I25.10 Atherosclerotic heart disease of native coronary artery without angina pectoris
CPT/HCPCS: 99283

== ENCOUNTER → 2019-11-19 08:41 | Outpatient (CLI) | payer MEDICARE, MEDICAID, SELFPAY ==
[2018-03-21 13:13] VITALS: BMI 31.7
[2019-11-07 10:30] VITALS: BMI 32.1
[2019-11-19 09:18] LABS: Absolute Lymphocyte Count 2.98 X10^3/uL (0.83-4.51); Absolute Neutrophil Count 4.8 X10^3/uL (2.0-7.7); Eosinophil# 1.04 X10^3/uL; Eosinophils% 10.6 % (0-5); Hematocrit 41.9 % (37-47); Hemoglobin 13.4 g/dL (12.0-15.0); Lymphocyte # 2.98 X10^3/ul (4.0); Lymphocyte % 30.3 % (19-41); Mean Corpuscular Hgb 30.1 pg (27.0-32.0); Mean Corpuscular Volume 94.2 fL (81-99); Mean Platelet Vol. 10.1 fl (6.2-12.0); Monocyte# 0.86 X10^3/uL; Monocyte% 8.7 % (0-10); NRBC Flagged by Analyzer 0 % (0-5); Neutrophil # 4.82 X10^3/uL (2.7-7.7); Neutrophil % 49.1 % (47-70); Platelet Count 291 K/mm3 (150-450); RBC Distribution Width SD 44.9 fl (35.1-43.9); Red Blood Count 4.45 M/mm3 (4.2-5.4); White Blood Count 9.8 K/mm3 (4.4-11.0)
[2019-11-19 10:25] LABS: ALB/GLOB Ratio 0.9 RATIO (0.9-2.4); AST(SGOT) 15 U/L (15-37); Alanine Aminotransfer ALT/SGPT 21 U/L (13-56); Albumin, Serum 3.3 g/dL (3.2-5.0); Alkaline Phosphatase 75 U/L (45-117); Anion Gap 7 (5-15); BUN 6 mg/dL (7-18); BUN/Creat Ratio 8.9 RATIO (10-20); Calcium,Total 8.7 mg/dL (8.5-10.1); Chloride 108 mmol/L (98-107); Creatinine, Serum 0.68 mg/dL (0.55-1.02); EST Glomerular Filtration Rate 94 mL/min (>60); Est Glom Filt Rate - Afr Amer 114 mL/min (>60); Globulin 3.8 g/dL (2.2-4.2); Glucose 105 mg/dL (74-106); Potassium 3.9 mmol/L (3.5-5.1); Protein, Total 7.1 g/dL (6.4-8.2); Sodium Level 140 mmol/L (136-145); Thyroid Stim Hormone (TSH) 4.73 uIU/mL (0.358-3.74)
== END ==
PROVIDERS: PCP Nurse Practitioner Family
DX: E03.9 Hypothyroidism, unspecified (principal); E78.5 Hyperlipidemia, unspecified; D50.9 Iron deficiency anemia, unspecified
CPT/HCPCS: 36415; 80053; 84439; 84443; 85025

== ENCOUNTER 2020-11-02 07:54 | Emergency (ER) | payer MEDICARE, MEDICAID, SELFPAY ==
[2018-03-21 13:13] VITALS: BMI 31.7
[2020-06-17 14:39] VITALS: BMI 33.6
[2020-11-02 07:55] VITALS: BP 128/86; PULSE 87; RESP 18; TEMP 36.2; O2SAT 97; BMI 33.6
--- NOTE | 2020-11-02 08:45 | EDS_ITS ---
HPI History of Present Illness Chief Complaint: Wound Informant: patient Onset/Context/Timing Onset: Days (5) Context: Gradual Onset Timing: Continuous Quality: Pruritic Location: Left lower leg Worsened by: Nothing Relieved by: Nothing Narrative Narrative: Patient presents with rash to her left lower leg that has been getting worse over the last 5 days. Patient states it is gradually getting worse. Patient states she was bit by an insect 5 days ago. Patient states the insect laid eggs in her leg. Patient states she has been able to use a magnifying glass and pull out some of the eggs. Patient denies any fevers or chills. Patient denies any other discharge or drainage. [facility] Medical History (Updated 11/02/20 @ 08:[address] Dmitriy Shafer, DO) Abnormal EKG Abnormal stress test Asthma Atherosclerotic heart disease of [place] coronary artery without angina pectoris Depression Dyspnea on exertion GERD (gastroesophageal reflux disease) Hyperlipidemia Hypothyroidism Premature ventricular contractions Rheumatoid arthritis Home Medications albuterol sulfate 2 puff INHALATION Q4H PRN PRN 10/28/13 [History Last Taken Unknown] paroxetine HCl 40 mg PO DAILY 10/28/13 [History Last Taken 03/20/18] albuterol sulfate 2.5 mg INHALATION Q4H PRN 02/05/18 [History Last Taken 03/21/18 06:15] cholecalciferol (vitamin D3) 50 mcg (2,000 unit) capsule 2,000 unit PO DAILY 02/05/18 [History Last Taken 03/20/18 09:00] gabapentin 100 mg capsule 100 mg PO DAILY 02/05/18 [History Last Taken 03/20/18] gabapentin 300 mg capsule 300 mg PO QHS cap 02/05/18 [History Last Taken 03/20/18] mometasone-formoterol HFA 200 mcg-5 mcg/actuation aerosol inhaler 2 puff INHALATION BID 02/05/18 [History Last Taken 03/19/18] omeprazole 40 mg capsule,delayed release 40 mg PO DAILY 02/05/18 [History Last Taken 03/20/18] aspirin 81 mg tablet,delayed release 81 mg PO DAILY #90 tab 04/01/19 [Rx Last Taken Unknown] atorvastatin 20 mg tablet 20 mg PO QHS #90 tab 04/01/19 [Rx Last Taken Unknown] clopidogrel 75 mg tablet 75 mg PO DAILY #90 tab 04/01/19 [Rx Last Taken Unknown] mesalamine 0.375 gram capsule,extended release 24 hr 1.5 g PO QAM 04/01/19 [Hi story Last Taken Unknown] levothyroxine 75 mcg tablet 100 mcg PO DAILY tab 11/19/19 [History Last Taken Unknown] cephalexin 500 mg PO Q6 #40 capsule 11/02/20 [Rx Last Taken Unknown] Allergy/AdvReac Type Severity Reaction Status Date / Time latex Allergy Rash Verified 11/02/20 07:57 codeine AdvReac Nausea Verified 11/02/20 07:57 Family History Mother COPD (chronic obstructive pulmonary disease) Daughter Bipolar disorder Schizophrenia PTSD (post-traumatic stress disorder) Daughter Schizophrenia Bipolar disorder PTSD (post-traumatic stress disorder) Surgical History History of carpal tunnel release History of total hysterectomy (2003) S/P tonsillectomy and adenoidectomy Stented coronary artery (03/21/18) Social History Smoking Status: Current every day smoker tobacco type: cigarettes ROS ROS ED Constitutional Constitutional ED: Denies chills or fever(s) Eyes Eyes: Denies blurry vision or change in vision ENT ENT ED: Denies rhinorrhea or sore throat Cardiovascular Cardiovascular: Denies chest pain or palpitations Respiratory/Chest Respiratory/Chest: Denies cough or dyspnea Gastrointestinal Gastrointestinal: Denies nausea or vomiting Genitourinary Genitourinary ED: Denies dysuria or hematuria Musculoskeletal Musculoskeletal: Reports neck pain; Denies back pain Integumentary Reports rash; Denies abscess Neurologic Neurologic: Denies headache(s) or weakness Allergic/Immunologic Allergic/Immunologic ED: Denies mouth swelling or urticaria EXAM Physical Exam Const Vital Signs: 11/02/20 07:55 Temperature 97.2 F L Temperature Source Temporal Pulse Rate 87 Respiratory Rate 18 Blood Pressure 128/86 H Blood Pressure Mean 100 Pulse Ox 97 Oxygen Delivery Method Room Air Positive well nourished and well developed General Appearance ED: well developed Neck supple and no JVD Extremity General Extremety ED: Negative for edema or tenderness General Extremity: Negative for edema Neuro oriented x3, CN's II-XII intact bilaterally and no sensory deficits noted Sensorium / Orientation: alert Motor Exam: strength 5/5 throughout Psych mental status grossly normal Skin Skin Narrative: There is an erythematous macular rash over the medial aspect of the left lower leg. There are other lesions on the anterior and lateral aspects of the left lower leg with some mild surrounding erythema. There is no fluctuance. There is no discharge or drainage. There are no petechia. I did not see any insect or larva. MDM MDM MDM Narrative Medical decision making narrative: Since there is some mild surrounding erythema over some of the lesions, I will cover the patient with Keflex. Patient was instructed to use [id number] hydrocortisone cream to help with itching. Patient was instructed to follow-up with her primary care physician in 5 to 7 days. Patient understood and was agreeable with the plan. All questions were answered. Discharge Plan Triage Chief Complaint: Wound ED Provider: Dmitriy Shafer Dx/Rx/DC Orders Clinical Impression: Cellulitis of left lower leg Instructions: ED Cellulitis Prescriptions: New cephalexin [cephalexin] 500 MG capsule 500 mg PO Q6 Qty: 40 RF: 0 No Action gabapentin 100 mg capsule 100 mg PO DAILY RF: 0 gabapentin 300 mg capsule 300 mg PO QHS RF: 0 omeprazole 40 mg capsule,delayed release(DR/EC) 40 mg PO DAILY RF: 0 Dulera 200-5 mcg/actuation HFA aerosol inhaler 2 puff INHALATION BID RF: 0 albuterol sulfate 2.5 mg /3 mL (0.083 %) solution for nebulization 2.5 mg INHALATION Q4H PRN (Reason: Sob &/Or Wheezing) RF: 0 cholecalciferol (vitamin D3) 2,000 unit capsule 2,000 unit PO DAILY RF: 0 Apriso 0.375 gram capsule,extended release 24hr 1.5 g PO QAM RF: 0 aspirin [Adult Aspirin Regimen] 81 mg tablet,delayed release (DR/EC) 81 mg PO DAILY Qty: 90 RF: 3 clopidogrel [Plavix] 75 mg tablet 75 mg PO DAILY Qty: 90 RF: 3 atorvastatin 20 mg tablet 20 mg PO QHS Qty: 90 RF: 3 albuterol sulfate 1 PUFF inhaler 2 puff inhalation Q4H PRN PRN (Reason: Shortness Of Breath) RF: 0 paroxetine HCl 40 MG tablet 40 mg PO DAILY RF: 0 levothyroxine 75 mcg tablet 100 mcg PO DAILY RF: 0 Primary Care Provider: Jeannette Keating Referrals: [facility] Jeannette Villegas [Primary Care Provider] - 3-5 Days Activity Restrictions/Additional Instructions: Take the prescription for Keflex as prescribed until gone. You may also use [id number] hydrocortisone cream as needed for any itching. Disposition Disposition: Home, Self Care
[2020-11-02] MEDS: Cephalexin 500 MG Capsule PO (09:02)
== END 2020-11-02 09:22 | disposition home or self-care (01) ==
PROVIDERS: Emergency Provider Emergency Medicine
DX: L03.116 Cellulitis of left lower limb (principal); E78.5 Hyperlipidemia, unspecified; E03.9 Hypothyroidism, unspecified; M06.9 Rheumatoid arthritis, unspecified
CPT/HCPCS: 36415; 80053; 80061; 84443; 85025; 85652; 86038; 86431; 99283

== ENCOUNTER → 2020-11-02 09:25 | Outpatient (CLI) | payer MEDICARE, MEDICAID, SELFPAY ==
[2018-03-21 13:13] VITALS: BMI 31.7
[2020-11-02 07:55] VITALS: BMI 33.6
[2020-11-02 10:27] LABS: Erythrocyte Sedimentation Rate 32 mm/hr (0-30)
[2020-11-02 10:29] LABS: Absolute Lymphocyte Count 3.23 X10^3/uL (0.83-4.51); Absolute Neutrophil Count 5.4 X10^3/uL (2.0-7.7); Basophil# 0.11 X10^3/uL; Basophil% 1.1 % (0-1); Eosinophil# 0.73 X10^3/uL; Eosinophils% 7.1 % (0-5); Hematocrit 41.5 % (37-47); Hemoglobin 13.3 g/dL (12.0-15.0); Lymphocyte # 3.23 X10^3/ul (0.83-4.51); Lymphocyte % 31.4 % (19-41); Mean Corpuscular Hgb 29.1 pg (27.0-32.0); Mean Corpuscular Volume 90.8 fL (81-99); Mean Platelet Vol. 10.9 fl (6.2-12.0); Monocyte# 0.76 X10^3/uL; Monocyte% 7.4 % (0-10); NRBC Flagged by Analyzer 0 % (0-5); Neutrophil # 5.42 X10^3/uL (2.7-7.7); Neutrophil % 52.6 % (47-70); Platelet Count 261 K/mm3 (150-450); RBC Distribution Width CV 13.4 % (11.6-14.6); RBC Distribution Width SD 45.1 fl (35.1-43.9); Red Blood Count 4.57 M/mm3 (4.2-5.4); White Blood Count 10.3 K/mm3 (4.4-11.0)
[2020-11-02 11:09] LABS: AST(SGOT) 15 U/L (15-37); Alanine Aminotransfer ALT/SGPT 17 U/L (13-56); Albumin, Serum 3.4 g/dL (3.2-5.0); Alkaline Phosphatase 84 U/L (45-117); Anion Gap 6 (5-15); BUN 6 mg/dL (7-18); BUN/Creat Ratio 9.6 RATIO (10-20); Calcium,Total 8.8 mg/dL (8.5-10.1); Chloride 108 mmol/L (98-107); Cholesterol 120 mg/dL (200); Creatinine, Serum 0.62 mg/dL (0.55-1.02); EST Glomerular Filtration Rate 103 mL/min (>60); Est Glom Filt Rate - Afr Amer 125 mL/min (>60); Globulin 3.5 g/dL (2.2-4.2); Glucose 99 mg/dL (74-106); High Density Lipoprotein 52 mg/dL; Potassium 3.5 mmol/L (3.5-5.1); Protein, Total 6.9 g/dL (6.4-8.2); Sodium Level 141 mmol/L (136-145); Thyroid Stim Hormone (TSH) 0.61 uIU/mL (0.358-3.74); Triglycerides 55 mg/dL; Very Low Density Lipoprotein 11 mg/dL (5-40)
[2020-11-03 16:54] LABS: ANTINUCLEAR ANTIBODIES DIRECT Negative (Negative)
== END ==
PROVIDERS: Referring Provider Family Medicine; Visit Provider Family Medicine
DX: E03.9 Hypothyroidism, unspecified (principal)
CPT/HCPCS: 36415; 80053; 80061; 84443; 85025; 85652; 86038; 86431

== ENCOUNTER 2021-11-28 08:55 | Emergency (ER) | payer MEDICARE, MEDICAID, SELFPAY ==
[2018-03-21 13:13] VITALS: BMI 31.7
[2021-11-28 08:57] VITALS: BP 120/69; PULSE 87; RESP 18; TEMP 37.1; O2SAT 99; BMI 28.3
--- NOTE | 2021-11-28 09:26 | EDS_ITS ---
HPI History of Present Illness Chief Complaint: Other, Pain/Inj Informant: patient Onset/Context/Timing Onset: Days (2) Context: Gradual Onset Timing: Continuous Quality: Aching, burning Location: Right shoulder/scapula Worsened by: Ice Relieved by: Nothing Narrative Narrative: Patient presents with redness and swelling to her right scapular and shoulder area that has been getting worse over the past 2 days. Patient describes her pain as aching and burning. Patient states she used ice to the area which made it worse. Patient states she has then been using warm compresses. Patient states she was able to get some purulent drainage from the area. Patient states her pain is aching and burning. Patient states her pain is constant. Patient admits to some nausea but denies any vomiting. Patient admits to chills but denies any fevers. [facility] Medical History Asthma Atherosclerotic heart disease of [place] coronary artery without angina pectoris Cellulitis of left lower leg Coronary artery disease Depression GERD (gastroesophageal reflux disease) Hyperlipidemia Hypothyroidism Obesity Premature ventricular contractions Rheumatoid arthritis Tobacco abuse Ulcerative colitis Home Medications aspirin 81 mg tablet,delayed release (Adult Aspirin Regimen) 81 mg PO DAILY #90 tabs 04/01/19 [Rx Last Taken Unknown] albuterol sulfate 2.5 mg/3 mL (0.083 %) solution for nebulization 2.5 mg (3 mL) inhalation Q4H PRN Sob &/Or Wheezing #90 mL 04/16/21 [Rx Last Taken Unknown] atorvastatin 20 mg tablet 20 mg PO QHS #90 tabs 06/18/21 [Rx Last Taken Unknown] clopidogrel 75 mg tablet (Plavix) 75 mg PO DAILY #90 tabs 06/18/21 [Rx Last Taken Unknown] levothyroxine 75 mcg tablet 75 mcg PO DAILY #90 tabs 08/05/21 [Rx Last Taken Unknown] mesalamine 0.375 gram capsule,extended release 24 hr 0.75 g PO BID 3 months #360 caps 08/05/21 [Rx Last Taken Unknown] pantoprazole 40 mg tablet,delayed release 40 mg PO DAILY #90 tabs 08/05/21 [Rx Last Taken Unknown] paroxetine HCl 40 mg tablet 40 mg PO DAILY #90 tabs 08/05/21 [Rx Last Taken Unknown] albuterol sulfate 90 mcg/actuation aerosol inhaler 2 puff inhalation Q4H PRN PRN Shortness Of Breath #8.5 grams 08/09/21 [Rx Last Taken Unknown] cephalexin 500 mg capsule 500 mg PO Q6 #40 CAPSULES 11/28/21 [Rx Last Taken Unknown] oseltamivir 75 mg capsule 75 mg PO BID #10 CAPSULES 11/28/21 [Rx Last Taken Unknown] Allergy/AdvReac Type Severity Reaction Status Date / Time latex Allergy Rash Verified 11/28/21 08:57 codeine AdvReac Nausea Verified 11/28/21 08:57 Family History Mother COPD (chronic obstructive pulmonary disease) Daughter Bipolar disorder Schizophrenia PTSD (post-traumatic stress disorder) Daughter Schizophrenia Bipolar disorder PTSD (post-traumatic stress disorder) Surgical History History of carpal tunnel release History of coronary artery stent placement (03/21/18) History of tonsillectomy and adenoidectomy History of total hysterectomy (2003) Social History Smoking Status: Current every day smoker tobacco type: cigarettes substance use type: marijuana ROS ROS ED Constitutional Constitutional ED: Reports chills and subjective; Denies fever(s) Eyes Eyes: Denies blurry vision or change in vision ENT ENT ED: Denies rhinorrhea or sore throat Cardiovascular Cardiovascular: Denies chest pain or palpitations Respiratory/Chest Respiratory/Chest: Denies cough or dyspnea Gastrointestinal Gastrointestinal: Reports nausea; Denies vomiting Genitourinary Genitourinary ED: Reports urinary frequency; Denies dysuria or hematuria Musculoskeletal Musculoskeletal: Reports back pain; Denies neck pain Integumentary Reports rash; Denies abscess Neurologic Neurologic: Reports headache(s); Denies weakness Allergic/Immunologic Allergic/Immunologic ED: Denies mouth swelling or urticaria EXAM Physical Exam Const Vital Signs: 11/28/21 08:57 Temperature 98.8 F Temperature Source Temporal Pulse Rate 87 Respiratory Rate 18 Blood Pressure 120/69 Blood Pressure Mean 86 Pulse Ox 99 Oxygen Delivery Method Room Air Positive well nourished and well developed General Appearance ED: well developed and NAD HEENT Reports moist mucous membranes Neck supple and no JVD Extremity normal to inspection Neuro oriented x3, CN's II-XII intact bilaterally and no sensory deficits noted Sensorium / Orientation: alert Motor Exam: strength 5/5 throughout Psych mental status grossly normal Skin Skin Narrative: There is erythema and warmth over the right shoulder/scapular area. There is no fluctuance. There is no discharge or drainage. There is some induration noted. There is tenderness over this area. MDM MDM MDM Narrative Medical decision making narrative: Her feetPatient was given IV fluids here. Patient was given a dose of Unasyn. CBC shows leukocytosis of 19.3. Comprehensive metabolic profile was essentially within normal limits. Lactate was normal. Urinalysis shows leukocyte esterases of 500 with 25-50 white blood cells and 2+ bacteria. Urine culture was ordered. COVID-19 rapid antigen was obtained and was negative. Influenza A and influenza B swabs were obtained and was positive for influenza A. Patient was advised of her findings. Patient was given a prescription for Keflex to cover for the cellulitis and urinary tract infection. Patient was given a prescription for Tamiflu for the influenza. Patient was instructed to drink plenty of fluids. Patient was instructed to take Tylenol or ibuprofen as needed for any fevers or aches. Patient was instructed to follow-up with her primary care physician in 5 to 7 days. Patient understood and was agreeable with the plan. All questions were answered. Lab Data Attestation: I reviewed the patient's lab results. Labs: Laboratory Results - last 24 hr 11/28/21 11/28/21 11/28/21 09:50 09:50 09:50 WBC 19.3 H RBC 4.44 Hgb 13.4 Hct 40.8 MCV 91.9 MCH 30.2 MCHC 32.8 RDW Std Deviation 45.9 H RDW Coeff of Myla 13.5 Plt Count 248 MPV 9.8 Immature Gran % (Auto) 1.100 H Neut % (Auto) 82.9 H Lymph % (Auto) 8.0 L Tompkins % (Auto) 6.6 Eos % (Auto) 1.1 Baso % (Auto) 0.3 Absolute Neuts (auto) 16.0 H Absolute Lymphs (auto) 1.54 Nucleated RBC % 0 Sodium 135 L Potassium 3.3 L Chloride 103 Carbon Dioxide 25.0 Anion Gap 7 BUN 7 Creatinine 0.48 L Estim Creat Clear Calc 104.94 Est GFR (MDRD) Af Amer 168 Est GFR (MDRD) Non-Af 139 BUN/Creatinine Ratio 14.6 Glucose 111 H Lactic Acid 0.8 Calcium 8.6 Total Bilirubin 0.90 AST 9 L ALT 13 Alkaline Phosphatase 82 Total Protein 7.0 Albumin 2.9 L Globulin 4.1 Albumin/Globulin Ratio 0.7 L Urine Color Urine Clarity Urine pH Ur Specific [place] Urine Protein Urine Glucose (UA) Urine Ketones Urine Occult Blood Urine Nitrite Urine Bilirubin Urine Urobilinogen Ur Leukocyte Esterase Urine RBC Urine WBC Ur Squamous Epith Cells Urine Bacteria Urine Mucus 11/28/21 10:00 WBC RBC Hgb Hct MCV MCH MCHC RDW Std Deviation RDW Coeff of Myla Plt Count MPV Immature Gran % (Auto) Neut % (Auto) Lymph % (Auto) Tompkins % (Auto) Eos % (Auto) Baso % (Auto) Absolute Neuts (auto) Absolute Lymphs (auto) Nucleated RBC % Sodium Potassium Chloride Carbon Dioxide Anion Gap BUN Creatinine Estim Creat Clear Calc Est GFR (MDRD) Af Amer Est GFR (MDRD) Non-Af BUN/Creatinine Ratio Glucose Lactic Acid Calcium Total Bilirubin AST ALT Alkaline Phosphatase Total Protein Albumin Globulin Albumin/Globulin Ratio Urine Color Yellow Urine Clarity Clear Urine pH 5.0 Ur Specific [place] 1.020 Urine Protein 30 H Urine Glucose (UA) Normal Urine Ketones Negative Urine Occult Blood 50 H Urine Nitrite Negative Urine Bilirubin Negative Urine Urobilinogen 1 H Ur Leukocyte Esterase 500 H Urine RBC 0-5 SEEN Urine WBC 25-50 SEEN Ur Squamous Epith Cells 5-10 SEEN Urine Bacteria 2+ Urine Mucus 0 SEEN Discharge Plan Triage Chief Complaint: Other, Pain/Inj ED Provider: Dmitriy Shafer Dx/Rx/DC Orders Clinical Impression: Influenza A, Cellulitis of right shoulder, Urinary tract infection Instructions: ED Cellulitis, ED Influenza (Adult), ED Cystitis Female Adult Prescriptions: New cephalexin [cephalexin] 500 mg capsule 500 mg PO Q6 Qty: 40 0RF oseltamivir [oseltamivir] 75 mg capsule 75 mg PO BID Qty: 10 0RF No Action aspirin [Adult Aspirin Regimen] 81 mg tablet,delayed release (DR/EC) 81 mg PO DAILY Qty: 90 3RF atorvastatin 20 mg tablet 20 mg PO QHS Qty: 90 3RF clopidogrel [Plavix] 75 mg tablet 75 mg PO DAILY Qty: 90 3RF paroxetine HCl 40 mg tablet 40 mg PO DAILY Qty: 90 3RF mesalamine 0.375 gram capsule,extended release 24hr 0.75 g PO BID 90 Days Qty: 360 3RF levothyroxine 75 mcg tablet 75 mcg PO DAILY Qty: 90 2RF pantoprazole 40 mg tablet,delayed release (DR/EC) 40 mg PO DAILY Qty: 90 2RF albuterol sulfate 2.5 mg /3 mL (0.083 %) solution for nebulization 2.5 mg INHALATION Q4H PRN (Reason: Sob &/Or Wheezing) Qty: 90 0RF albuterol sulfate 90 mcg/actuation HFA aerosol inhaler 2 puff inhalation Q4H PRN PRN (Reason: Shortness Of Breath) Qty: 8.5 2RF Primary Care Provider: Shelli Richter Referrals: Shelli Richter MD [Primary Care Provider] - 3-5 Days Disposition Disposition: Home, Self Care
[2021-11-28] MEDS: Morphine 4 MG/ML Syringe IV (09:44)
[2021-11-28] MEDS: 0.9% Normal Saline 1,000 ML 1000 ML IV (09:44)
[2021-11-28 09:58] LABS: Absolute Lymphocyte Count 1.54 X10^3/uL (0.83-4.51); Basophil# 0.06 X10^3/uL; Basophil% 0.3 % (0-1); Eosinophil# 0.22 X10^3/uL; Eosinophils% 1.1 % (0-5); Hematocrit 40.8 % (37-47); Hemoglobin 13.4 g/dL (12.0-15.0); Lymphocyte # 1.54 X10^3/ul (0.83-4.51); Mean Corp Hgb Conc 32.8 g/dL (32-36); Mean Corpuscular Hgb 30.2 pg (27.0-32.0); Mean Corpuscular Volume 91.9 fL (81-99); Mean Platelet Vol. 9.8 fl (6.2-12.0); Monocyte# 1.27 X10^3/uL; Monocyte% 6.6 % (0-10); NRBC Flagged by Analyzer 0 % (0-5); Neutrophil # 15.96 X10^3/uL (2.7-7.7); Neutrophil % 82.9 % (47-70); Platelet Count 248 K/mm3 (150-450); RBC Distribution Width CV 13.5 % (11.6-14.6); RBC Distribution Width SD 45.9 fl (35.1-43.9); Red Blood Count 4.44 M/mm3 (4.2-5.4); White Blood Count 19.3 K/mm3 (4.4-11.0)
[2021-11-28 10:06] LABS: Mucous, Urine 0 SEEN /hpf (<or=2+)
[2021-11-28 10:08] LABS: Color, Urine Yellow (Yellow); Glucose, Dipstick Normal (Normal); Ketone-Dipstick Negative (Negative); Leukocyte Esterase-Dipstick 500 /ul (Negative); Nitrite-Dipstick Negative (Negative); Occult Blood-Urine 50 /ul (Negative); Protein-Dipstick 30 mg/dl (Negative); Urine Bilirubin Dipstick Negative (Negative); Urine Clarity Clear (Clear); Urine Urobilinogen 1 mg/dl (Normal)
[2021-11-28 10:13] LABS: ALB/GLOB Ratio 0.7 RATIO (0.9-2.4); AST(SGOT) 9 U/L (15-37); Alanine Aminotransfer ALT/SGPT 13 U/L (13-56); Albumin, Serum 2.9 g/dL (3.2-5.0); Alkaline Phosphatase 82 U/L (45-117); Anion Gap 7 (5-15); BUN 7 mg/dL (7-18); BUN/Creat Ratio 14.6 RATIO (10-20); Calcium,Total 8.6 mg/dL (8.5-10.1); Chloride 103 mmol/L (98-107); Creatinine, Serum 0.48 mg/dL (0.55-1.02); EST Glomerular Filtration Rate 139 mL/min (>60); Est Glom Filt Rate - Afr Amer 168 mL/min (>60); Estimated Creatinine Clearance 104.94 ml/min; Globulin 4.1 g/dL (2.2-4.2); Glucose 111 mg/dL (74-106); Potassium 3.3 mmol/L (3.5-5.1); Sodium Level 135 mmol/L (136-145)
[2021-11-28 10:15] LABS: Red Blood Cells-Urine 0-5 SEEN /hpf (0-5); Squamous Epithelial Cells - UA 5-10 SEEN /hpf (5-10); White Blood Cells 25-50 SEEN /hpf (0-5)
[2021-11-28 10:16] LABS: Bacteria 2+ /hpf (None Seen)
[2021-11-28 10:18] LABS: Lactic Acid 0.8 mmol/L (0.4-1.9)
== END 2021-11-28 11:11 | disposition home or self-care (01) ==
PROVIDERS: Emergency Provider Emergency Medicine; PCP Internal Medicine; Visit Provider Emergency Medicine
DX: J10.1 Influenza due to other identified influenza virus with other respiratory manifestations (principal); L03.113 Cellulitis of right upper limb; N39.0 Urinary tract infection, site not specified; E78.5 Hyperlipidemia, unspecified; I25.10 Atherosclerotic heart disease of native coronary artery without angina pectoris; R11.0 Nausea; E03.9 Hypothyroidism, unspecified; F17.210 Nicotine dependence, cigarettes, uncomplicated; Z79.82 Long term (current) use of aspirin; Z79.899 Other long term (current) drug therapy; Z20.822 Contact with and (suspected) exposure to COVID-19
CPT/HCPCS: 80053; 81001; 83605; 85025; 87428; 96361; 96365; 96375; 99283; J7030; J0295

== ENCOUNTER 2022-02-27 17:58 | Emergency (ER) | payer MEDICARE, MEDICAID, SELFPAY ==
[2018-03-21 13:13] VITALS: BMI 31.7
[2022-02-27 18:00] VITALS: BP 152/85; PULSE 76; RESP 18; TEMP 36.9; O2SAT 100; BMI 29.2
[2022-02-27 18:06] VITALS: BP 154/85; PULSE 76; RESP 18; TEMP 36.9; O2SAT 100
--- NOTE | 2022-02-27 18:12 | EDS_ITS ---
HPI <VALERI Geiger - Last Filed: 02/27/22 18:18> History of Present Illness Chief Complaint: Dental Narrative Narrative: Patient has significant dental caries and today woke up with right cheek swelling and right upper dental pain. She is actually scheduled to see a maxillofacial surgeon in 2 days to talk about teeth extractions. She denies fever chills or difficulty swallowing or breathing. PFSH <VALERI Geiger - Last Filed: 02/27/22 18:18> [facility] Medical History (Updated 02/27/22 @ 18:15 by VALERI Geiger) Asthma Atherosclerotic heart disease of [place] coronary artery without angina pectoris Cellulitis Cellulitis of left lower leg Coronary artery disease Depression Flu GERD (gastroesophageal reflux disease) Hyperlipidemia Hypothyroidism Obesity Premature ventricular contractions Rheumatoid arthritis Tobacco abuse Ulcerative colitis Home Medications aspirin 81 mg tablet,delayed release (Adult Aspirin Regimen) 81 mg PO DAILY #90 tabs 04/01/19 [Rx Last Taken Unknown] albuterol sulfate 2.5 mg/3 mL (0.083 %) solution for nebulization 2.5 mg (3 mL) inhalation Q4H PRN Sob &/Or Wheezing #90 mL 04/16/21 [Rx Last Taken Unknown] atorvastatin 20 mg tablet 20 mg PO QHS #90 tabs 06/18/21 [Rx Last Taken Unknown] clopidogrel 75 mg tablet (Plavix) 75 mg PO DAILY #90 tabs 06/18/21 [Rx Last Taken Unknown] levothyroxine 75 mcg tablet 75 mcg PO DAILY #90 tabs 08/05/21 [Rx Last Taken Unknown] mesalamine 0.375 gram capsule,extended release 24 hr 0.75 g PO BID 3 months #360 caps 08/05/21 [Rx Last Taken Unknown] paroxetine HCl 40 mg tablet 40 mg PO DAILY #90 tabs 08/05/21 [Rx Last Taken Unknown] cephalexin 500 mg capsule 500 mg PO Q6 #40 CAPSULES 11/28/21 [Rx Last Taken Unknown] oseltamivir 75 mg capsule 75 mg PO BID #10 CAPSULES 11/28/21 [Rx Last Taken Unknown] lansoprazole 30 mg capsule,delayed release 30 mg PO DAILY #90 caps 12/08/21 [Rx Last Taken Unknown] albuterol sulfate 90 mcg/actuation aerosol inhaler 2 puff inhalation Q4H PRN PRN Shortness Of Breath #8.5 grams 01/24/22 [Rx Last Taken Unknown] montelukast 10 mg tablet 10 mg PO DAILY #90 tabs 01/24/22 [Rx Last Taken Unknow n] hydrocodone-acetaminophen 5-325mg 5mg-325mg 1 tab PO Q6H PRN PRN Pain 3 days #12 TABLETS 02/27/22 [Rx Last Taken Unknown] ondansetron 4 mg disintegrating tablet 4 mg PO Q8H PRN PRN Nausea #12 tabs 02/27/22 [Rx Last Taken Unknown] penicillin V potassium 500 mg tablet 500 mg PO 4X/DAY #40 tabs 02/27/22 [Rx Last Taken Unknown] Allergy/AdvReac Type Severity Reaction Status Date / Time latex Allergy Rash Verified 02/27/22 18:08 codeine AdvReac Nausea Verified 02/27/22 18:08 Family History Mother COPD (chronic obstructive pulmonary disease) Daughter Bipolar disorder Schizophrenia PTSD (post-traumatic stress disorder) Daughter Schizophrenia Bipolar disorder PTSD (post-traumatic stress disorder) Surgical History History of carpal tunnel release History of coronary artery stent placement (03/21/18) History of tonsillectomy and adenoidectomy History of total hysterectomy (2003) Social History Smoking Status: Current every day smoker tobacco type: cigarettes substance use type: marijuana ROS <VALERI Geiger - Last Filed: 02/27/22 18:18> ROS ED ROS Narrative Constitutional: Negative for fever, chills, malaise. Eyes: Negative for visual change. Positive for dental pain. CVS: Negative for palpitations, chest pain, syncope. Respiratory: Negative for shortness of breath, cough, orthopnea. GI: Negative for abdominal pain, nausea, vomiting. : Negative for dysuria, hematuria or frequency. Neuro: Negative for headache, motor/sensory dysfunction. Skin: Negative for rash, abscess, or wound. Musc: Negative for joint pain, swelling, trauma. Heme: Negative for easy bruising, bleeding, lymphadenopathy. EXAM <VALERI Geiger - Last Filed: 02/27/22 18:18> Physical Exam Narrative Exam Narrative: CONST: Patient sitting in no acute distress. EYES: Normal inspection. ENT: Skin appears normal with right cheek swelling, extensive dental caries with most teeth eroded down to the gumline, induration of right maxillary gingiva with no fluctuant periapical abscess, no trismus or tongue elevation, sublingual space is soft, airway intact, neck has good range of motion. NECK: Normal inspection. RESP: No respiratory distress, CTAB. CVS: Regular rate and rhythm, no murmur, no gallop. SKIN: Color normal, no rash, warm, dry, intact. EXTREMITIES: Normal appearance, no pedal edema. NEURO: Oriented x4. PSYCH: Normal affect. Const Vital Signs: 02/27/22 18:00 02/27/22 18:06 02/27/22 18:20 Temperature 98.4 F 98.4 F Temperature Source Temporal Temporal Pulse Rate 76 76 Respiratory Rate 18 18 18 Blood Pressure 152/85 H 154/85 H Blood Pressure Mean 107 108 Pulse Ox 100 100 Oxygen Delivery Method Room Air Room Air <Dr. Jose Mcarthur, - Last Filed: 02/27/22 23:00> Physical Exam Const Vital Signs: 02/27/22 18:00 02/27/22 18:06 02/27/22 18:20 Temperature 98.4 F 98.4 F Temperature Source Temporal Temporal Pulse Rate 76 76 Respiratory Rate 18 18 18 Blood Pressure 152/85 H 154/85 H Blood Pressure Mean 107 108 Pulse Ox 100 100 Oxygen Delivery Method Room Air Room Air [facility] <VALERI Geiger - Last Filed: 02/27/22 18:18> [facility] Narrative Medical decision making narrative: Patient has right maxillary dental pain and right facial swelling that started this morning. She appears well nontoxic with unremarkable vital signs. She has extensive caries with most teeth eroded down to the gumline. Right maxillary gingiva is inflamed but there is no fluctuance or indication for I&D. She will be placed on penicillin, Vicodin for pain control, and Zofran and has follow-up scheduled within oromaxillofacial surgeon in 2 days. She was discharged in stable condition. <Dr. Jose Mcarthur DO - Last Filed: 02/27/22 23:00> [facility] Narrative Medical decision making narrative: Patient has right maxillary dental pain and right facial swelling that started this morning. She appears well nontoxic with unremarkable vital signs. She has extensive caries with most teeth eroded down to the gumline. Right maxillary gingiva is inflamed but there is no fluctuance or indication for I&D. She will be placed on penicillin, Vicodin for pain control, and Zofran and has follow-up scheduled within oromaxillofacial surgeon in 2 days. She was discharged in stable condition. Attending note: Patient seen and evaluated with college director. I perform my own [id number] evaluation. I agree with the plan of work-up. Increasing facial swelling today. History of poor dentition. Has a oral maxillary appointment in 2 days. Codeine allergy. History of coronary disease with stenting. Tylenol not helping. Exam swelling right maxillary is poor dentition. Right upper molar decay with gum swelling there is no fluctuance. no indication for I&D at this time. She is started on antibiotics. Short course of [place] medication. She will keep her dental appointment. Monday. Discharge Plan Triage Chief Complaint: Dental ED Midlevel Provider: Lila Calderon ED Provider: Jose Mcarthur Dx/Rx/DC Orders Clinical Impression: Abscess, dental, Dental caries Instructions: Dental Abscess Prescriptions: New hydrocodone-acetaminophen 5-325 mg tablet 1 tab PO Q6H PRN PRN (Reason: Pain) 3 Days Qty: 12 0RF ondansetron 4 mg tablet,disintegrating 4 mg PO Q8H PRN PRN (Reason: Nausea) Qty: 12 0RF penicillin V potassium 500 mg tablet 500 mg PO 4X/DAY Qty: 40 0RF No Action aspirin [Adult Aspirin Regimen] 81 mg tablet,delayed release (DR/EC) 81 mg PO DAILY Qty: 90 3RF atorvastatin 20 mg tablet 20 mg PO QHS Qty: 90 3RF clopidogrel [Plavix] 75 mg tablet 75 mg PO DAILY Qty: 90 3RF paroxetine HCl 40 mg tablet 40 mg PO DAILY Qty: 90 3RF mesalamine 0.375 gram capsule,extended release 24hr 0.75 g PO BID 90 Days Qty: 360 3RF levothyroxine 75 mcg tablet 75 mcg PO DAILY Qty: 90 2RF lansoprazole 30 mg capsule,delayed release(DR/EC) 30 mg PO DAILY Qty: 90 2RF cephalexin [cephalexin] 500 mg capsule 500 mg PO Q6 Qty: 40 0RF oseltamivir [oseltamivir] 75 mg capsule 75 mg PO BID Qty: 10 0RF albuterol sulfate 2.5 mg /3 mL (0.083 %) solution for nebulization 2.5 mg INHALATION Q4H PRN (Reason: Sob &/Or Wheezing) Qty: 90 0RF albuterol sulfate 90 mcg/actuation HFA aerosol inhaler 2 puff inhalation Q4H PRN PRN (Reason: Shortness Of Breath) Qty: 8.5 2RF montelukast 10 mg tablet 10 mg PO DAILY Qty: 90 2RF Primary Care Provider: Shelli Richter Referrals: Shelli Richter MD [Primary Care Provider] - Activity Restrictions/Additional Instructions: Take the antibiotics as prescribed and follow-up with a dentist Disposition Disposition: Home, Self Care Discharge Date/Time: 02/27/22 18:27
[2022-02-27] MEDS: Ondansetron ODT 4 MG Tablet PO (18:17)
[2022-02-27] MEDS: Penicillin Vk 250 MG Tablet 500 MG PO (18:17)
[2022-02-27] MEDS: HYDROcodone Bitartrate/Apap 5/325 Tablet PO (18:17)
[2022-02-27 18:20] VITALS: RESP 18
== END 2022-02-27 18:27 | disposition home or self-care (01) ==
LOC: ED 18:25
PROVIDERS: Emergency Provider Emergency Medicine; PCP Internal Medicine; Visit Provider Emergency Medicine
DX: K02.9 Dental caries, unspecified (principal); I25.10 Atherosclerotic heart disease of native coronary artery without angina pectoris; E78.5 Hyperlipidemia, unspecified; K04.7 Periapical abscess without sinus; F17.210 Nicotine dependence, cigarettes, uncomplicated; J45.909 Unspecified asthma, uncomplicated
CPT/HCPCS: 99283

== ENCOUNTER 2022-04-28 13:32 | Emergency (ER) | payer MEDICARE, MEDICAID, SELFPAY ==
[2018-03-21 13:13] VITALS: BMI 31.7
[2022-04-28 13:33] VITALS: BP 122/76; PULSE 63; RESP 18; TEMP 36.1; O2SAT 99; BMI 28.3
--- NOTE | 2022-04-28 15:12 | EDS_ITS ---
HPI History of Present Illness Chief Complaint: Eye Problem Narrative Narrative: 62-year-old for male past medical history of hyperlipidemia, coronary artery disease, 2 autoimmune diseases presents with swelling around her right eye and redness. She states that a few days ago she developed a small rash on her right forehead. She thought it was like a pimple but only clear fluid came out. She had burning pain in that area and today she woke up with right periorbital swelling and erythema. She denies any loss of vision. No fevers or chills, no other symptoms. PFSH PFS Medical History Asthma Atherosclerotic heart disease of [place] coronary artery without angina pectoris Cellulitis Cellulitis of left lower leg Coronary artery disease Depression Flu GERD (gastroesophageal reflux disease) Hyperlipidemia Hypothyroidism Obesity Premature ventricular contractions Rheumatoid arthritis Tobacco abuse Ulcerative colitis Home Medications cephalexin 500 mg capsule 500 mg PO Q6 #40 CAPSULES 11/28/21 [Rx Last Taken Unknown] oseltamivir 75 mg capsule 75 mg PO BID #10 CAPSULES 11/28/21 [Rx Last Taken Un known] hydrocodone-acetaminophen 5-325mg 5mg-325mg 1 tab PO Q6H PRN PRN Pain 3 days #12 TABLETS 02/27/22 [Rx Last Taken Unknown] ondansetron 4 mg disintegrating tablet 4 mg PO Q8H PRN PRN Nausea #12 tabs 02/27/22 [Rx Last Taken Unknown] penicillin V potassium 500 mg tablet 500 mg PO 4X/DAY #40 tabs 02/27/22 [Rx Last Taken Unknown] aspirin 81 mg tablet,delayed release (Adult Aspirin Regimen) 81 mg PO DAILY #90 tabs 03/10/22 [Rx Last Taken Unknown] atorvastatin 20 mg tablet 20 mg PO QHS #90 tabs 03/10/22 [Rx Last Taken Unknown] clopidogrel 75 mg tablet (Plavix) 75 mg PO DAILY #90 tabs 03/10/22 [Rx Last Taken Unknown] albuterol sulfate 90 mcg/actuation aerosol inhaler 2 puff inhalation Q4H PRN PRN Shortness Of Breath #8.5 grams 03/17/22 [Rx Last Taken Unknown] lansoprazole 30 mg capsule,delayed release 30 mg PO DAILY #90 caps 03/17/22 [Rx Last Taken Unknown] levothyroxine 75 mcg tablet 75 mcg PO DAILY #90 tabs 03/17/22 [Rx Last Taken Unknown] mesalamine 0.375 gram capsule,extended release 24 hr 0.75 g PO BID 3 months #360 caps 03/17/22 [Rx Last Taken Unknown] montelukast 10 mg tablet 10 mg PO DAILY #90 tabs 03/17/22 [Rx Last Taken Unknown] paroxetine HCl 40 mg tablet 40 mg PO DAILY #90 tabs 03/17/22 [Rx Last Taken Unknown] albuterol sulfate 2.5 mg/3 mL (0.083 %) solution for nebulization 2.5 mg (3 mL) inhalation Q4H PRN Sob &/Or Wheezing #90 mL 03/29/22 [Rx Last Taken Unknown] acyclovir 800 mg tablet 800 mg PO 5X/DAY #35 tabs 04/28/22 [Rx Last Taken Unknown] gabapentin 100 mg capsule 100 mg PO BID pain #14 caps 04/28/22 [Rx Last Taken Unknown] Allergy/AdvReac Type Severity Reaction Status Date / Time latex Allergy Rash Verified 04/28/22 13:33 codeine AdvReac Nausea Verified 04/28/22 13:33 Family History Mother COPD (chronic obstructive pulmonary disease) Daughter Bipolar disorder Schizophrenia PTSD (post-traumatic stress disorder) Daughter Schizophrenia Bipolar disorder PTSD (post-traumatic stress disorder) Surgical History History of carpal tunnel release History of coronary artery stent placement (03/21/18) History of tonsillectomy and adenoidectomy History of total hysterectomy (2003) Social History Smoking Status: Current every day smoker tobacco type: cigarettes substance use type: marijuana ROS ROS ED ROS Narrative Constitutional: No fever, no chills. HEENT: No sore throat. No neck pain. No loss of vision. No rhinorrhea. Rash on forehead for the last few days. Today with periorbital swelling and erythe ma. No discharge from eye, no tearing. Cardiovascular: No chest pain. No palpitations. No pedal edema. Respiratory: No cough, no shortness of breath. Abdominal: No abdominal pain. No nausea. No vomiting. Genitourinary: No dysuria. No hematuria. Musculoskeletal: No myalgias. No arthralgias. Neurologic: No headaches. No dizziness. No lightheadedness. Skin: Right forehead rash. No change in color. Psychiatric: No depression. No anxiety. EXAM Physical Exam Narrative Exam Narrative: Afebrile. Vital signs noted. Nontoxic-appearing. HEENT: Normocephalic. Atraumatic. PERRL, EOMI. Neck soft and supple. No point tenderness or step off. Positive rash, erythematous patch right forehead. Positive periorbital swelling and erythema. No pain with eye movement. No noted discharge. Cardiovascular: Regular rate and rhythm. No murmurs, rubs, or gallops apprecia juventino. Respiratory: No tachypnea. Lungs clear to auscultation bilaterally. Gastrointestinal: Abdomen soft, nontender, with normoactive bowel sounds. No rebound or guarding. Neurological: Awake. Alert. Nonfocal, nonlateralizing. Skin: No rash. Normal color. No pallor. Musculoskeletal: No pedal edema. Full range of motion extremities. Const Vital Signs: 04/28/22 13:33 Temperature 97 F L Temperature Source Temporal Pulse Rate 63 Respiratory Rate 18 Blood Pressure 122/76 H Blood Pressure Mean 91 Pulse Ox 99 Oxygen Delivery Method Room Air MDM MDM MDM Narrative Medical decision making narrative: While the patient states that she had a pimple on her left forehead a few weeks ago, she popped it and pus came out and that has healed. As she had clear fluid drainage on the right I think that was more likely vesicular, and that she is experiencing shingles outbreak in the V1 distribution. I did look in her ear canal, and there were no evidence of vesicles. Negative Vee sign. She will be treated with acyclovir 800 mg 5 times a day for the next 5 to 7 days. I also wrote her prescription for gabapentin. I will stain her eye with fluorescein and tetracaine to ensure that she has no dendritic lesions on her eye. After staining her right eye with fluorescein, there were no dendritic lesions noted. At this point in time, I feel she can be discharged safely home with follow-up. She will follow-up with her primary care physician. Discharge Plan Triage Chief Complaint: Eye Problem Other Complaint: Cellulitis ED Provider: Huseyin Escalante Dx/Rx/DC Orders Clinical Impression: Shingles, Periorbital swelling Instructions: ED Shingles (Herpes Zoster) Prescriptions: New acyclovir 800 mg tablet 800 mg PO 5X/DAY Qty: 35 0RF gabapentin 100 mg capsule 100 mg PO BID Qty: 14 0RF No Action cephalexin [cephalexin] 500 mg capsule 500 mg PO Q6 Qty: 40 0RF oseltamivir [oseltamivir] 75 mg capsule 75 mg PO BID Qty: 10 0RF hydrocodone-acetaminophen 5-325 mg tablet 1 tab PO Q6H PRN PRN (Reason: Pain) 3 Days Qty: 12 0RF ondansetron 4 mg tablet,disintegrating 4 mg PO Q8H PRN PRN (Reason: Nausea) Qty: 12 0RF penicillin V potassium 500 mg tablet 500 mg PO 4X/DAY Qty: 40 0RF aspirin [Adult Aspirin Regimen] 81 mg tablet,delayed release (DR/EC) 81 mg PO DAILY Qty: 90 3RF atorvastatin 20 mg tablet 20 mg PO QHS Qty: 90 3RF clopidogrel [Plavix] 75 mg tablet 75 mg PO DAILY Qty: 90 3RF paroxetine HCl 40 mg tablet 40 mg PO DAILY Qty: 90 3RF montelukast 10 mg tablet 10 mg PO DAILY Qty: 90 2RF mesalamine 0.375 gram capsule,extended release 24hr 0.75 g PO BID 90 Days Qty: 360 3RF levothyroxine 75 mcg tablet 75 mcg PO DAILY Qty: 90 2RF lansoprazole 30 mg capsule,delayed release(DR/EC) 30 mg PO DAILY Qty: 90 2RF albuterol sulfate 90 mcg/actuation HFA aerosol inhaler 2 puff inhalation Q4H PRN PRN (Reason: Shortness Of Breath) Qty: 8.5 2RF albuterol sulfate 2.5 mg /3 mL (0.083 %) solution for nebulization 2.5 mg INHALATION Q4H PRN (Reason: Sob &/Or Wheezing) Qty: 90 0RF Primary Care Provider: Shelli Richter Referrals: Shelli Richter MD [Primary Care Provider] - 3-5 Days if not improving Disposition Disposition: Home, Self Care
[2022-04-28] MEDS: Tetracaine 0.5% Ophthalmic Bottle 1 DRP OPHTHALMIC (15:16)
[2022-04-28] MEDS: Fluorescein 1 MG STRIP 1 STRIP OPHTHALMIC (15:16)
[2022-04-28 16:29] VITALS: BP 128/82; PULSE 68; RESP 17; TEMP 36.7; O2SAT 96
== END 2022-04-28 16:37 | disposition home or self-care (01) ==
PROVIDERS: Emergency Provider Emergency Medicine; PCP Internal Medicine; Visit Provider Emergency Medicine
DX: B02.9 Zoster without complications (principal); F17.210 Nicotine dependence, cigarettes, uncomplicated; I25.10 Atherosclerotic heart disease of native coronary artery without angina pectoris; R22.0 Localized swelling, mass and lump, head; E78.5 Hyperlipidemia, unspecified; Z79.899 Other long term (current) drug therapy
CPT/HCPCS: 99283

== ENCOUNTER → 2022-05-11 | Outpatient (CLI) | payer MEDICARE, MEDICAID, SELFPAY ==
[2018-03-21 13:13] VITALS: BMI 31.7
[2022-05-11 15:01] LABS: Absolute Lymphocyte Count 2.69 X10^3/uL (0.83-4.51); Absolute Neutrophil Count 4.3 X10^3/uL (2.0-7.7); Basophil# 0.11 X10^3/uL; Basophil% 1.3 % (0-1); Eosinophil# 0.51 X10^3/uL; Eosinophils% 6.1 % (0-5); Hematocrit 42.7 % (37-47); Hemoglobin 13.4 g/dL (12.0-15.0); Lymphocyte # 2.69 X10^3/ul (0.83-4.51); Lymphocyte % 32.3 % (19-41); Mean Corp Hgb Conc 31.4 g/dL (32-36); Mean Corpuscular Hgb 29.6 pg (27.0-32.0); Mean Corpuscular Volume 94.5 fL (81-99); Monocyte# 0.71 X10^3/uL; Monocyte% 8.5 % (0-10); NRBC Flagged by Analyzer 0 % (0-5); Neutrophil # 4.25 X10^3/uL (2.7-7.7); Neutrophil % 51.2 % (47-70); Platelet Count 297 K/mm3 (150-450); RBC Distribution Width CV 14.6 % (11.6-14.6); RBC Distribution Width SD 49.8 fl (35.1-43.9); Red Blood Count 4.52 M/mm3 (4.2-5.4); White Blood Count 8.3 K/mm3 (4.4-11.0)
[2022-05-11 16:27] LABS: Vitamin D,25 Hydroxy 28.8 ng/mL
[2022-05-11 16:29] LABS: ALB/GLOB Ratio 0.9 RATIO (0.9-2.4); AST(SGOT) 15 U/L (15-37); Alanine Aminotransfer ALT/SGPT 13 U/L (13-56); Albumin, Serum 3.4 g/dL (3.2-5.0); Alkaline Phosphatase 75 U/L (45-117); Anion Gap 6 (5-15); BUN 10 mg/dL (7-18); Calcium,Total 9.3 mg/dL (8.5-10.1); Chloride 107 mmol/L (98-107); Cholesterol 140 mg/dL (200); Creatinine, Serum 0.62 mg/dL (0.55-1.02); EST Glomerular Filtration Rate 103 mL/min (>60); Est Glom Filt Rate - Afr Amer 124 mL/min (>60); Globulin 3.9 g/dL (2.2-4.2); Glucose 85 mg/dL (74-106); High Density Lipoprotein 66 mg/dL; Potassium 4.9 mmol/L (3.5-5.1); Protein, Total 7.3 g/dL (6.4-8.2); Sodium Level 141 mmol/L (136-145); Thyroid Stim Hormone (TSH) 6.22 uIU/mL (0.358-3.74); Triglycerides 91 mg/dL; Very Low Density Lipoprotein 18 mg/dL (5-40)
== END | disposition home or self-care (01) ==
PROVIDERS: PCP Internal Medicine; Referring Provider Physician Assistant; Visit Provider Physician Assistant
DX: I25.10 Atherosclerotic heart disease of native coronary artery without angina pectoris (principal); E78.5 Hyperlipidemia, unspecified; E03.9 Hypothyroidism, unspecified; K21.9 Gastro-esophageal reflux disease without esophagitis; J45.909 Unspecified asthma, uncomplicated; E55.9 Vitamin D deficiency, unspecified
CPT/HCPCS: 36415; 80053; 80061; 82306; 84443; 85025

== ENCOUNTER → 2022-08-02 | Outpatient (CLI) | payer MEDICARE, MEDICAID, SELFPAY ==
[2018-03-21 13:13] VITALS: BMI 31.7
--- NOTE | 2022-08-03 18:17 | STRESSREP_ITS ---
Stress Test Report Exercise myocardial perfusion stress test. 62-year-old lady with a history of chest pain Stress protocol: Resting EKG demonstrates normal sinus rhythm with a rate of 71 bpm resting blood pressure is 114/78 mmHg. The patient exercised according to the regular [facility] protocol for a total duration of 6 minutes attaining a maximum heart rate of 112 bpm which was 71% of maximum predicted heart rate; the maximum workload was 7 METS metabolic equivalents. At rest there were no ST or T wave changes noted to suggest ischemia and at peak exercise upsloping ST changes only were noted which did not meet the criteria for ischemia. No clinical angina was noted the test was terminated due to the target heart rate being achieved/fatigue. The peak blood pressure was 140/90 mmHg. Rate-pressure product was 15,400. Myocardial perfusion protocol. 13.3 mCi of technetium 99m sestamibi was injected at rest. The patient exercised according to regular [facility] protocol for total duration of 6 minutes and at peak exercise 39.6 mCi of technetium 99m sestamibi was injected stress images were obtained stress and rest images were reconstructed in comparing the short axis vertical long and horizontal long axis. Gated images were also obtained. Perfusion SPECT analysis: Review of the stress images demonstrate normal uptake of tracer noted in all ar eas of the myocardium. The resting images similarly demonstrate normal uptake of tracer noted in all areas of the myocardium. No areas of reversibility are noted to suggest ischemia no previous infarct was noted. Gated SPECT analysis: The gated ejection fraction is 72%. Conclusion: Normal exercise myocardial perfusion stress test at a moderate workload Preserved ejection fraction.
== END | disposition home or self-care (01) ==
LOC: CVS 06:57
PROVIDERS: PCP Internal Medicine; Referring Provider Physician Assistant Medical; Visit Provider Physician Assistant Medical
DX: I25.10 Atherosclerotic heart disease of native coronary artery without angina pectoris (principal)
CPT/HCPCS: 78452; 93017; A9500; A4216

== ENCOUNTER 2022-12-15 17:48 | Emergency (ER) | payer MEDICARE, MEDICAID, SELFPAY ==
[2018-03-21 13:13] VITALS: BMI 31.7
[2022-12-15 17:49] VITALS: BP 126/81; PULSE 97; RESP 19; TEMP 36.6; O2SAT 100; BMI 32.1
--- NOTE | 2022-12-15 18:54 | EDS_ITS ---
HPI History of Present Illness Chief Complaint: Lower Extremity Injury Detail of Chief Complaint: Presents because of persistent rash right foot and toes. Informant: patient Onset/Context/Timing Onset: Weeks Context: Sudden Onset Timing: Continuous Quality: Erythematous pruritic rash with serous drainage Location: Right foot and toes Current Severity: Mild Maximum Severity: Mild Worsened by: Itching Relieved by: Thing Associated Symptoms Associated Symptoms: No constitutional symptoms Narrative Narrative: Patient apparently was seen in urgent care placed on doxycycline for presumed infection. Patient presents because of a weepy erythematous pruritic rash. She does live [place]. She does not garden. She does have pets. Her daughter is noted to have a rash. Question whether the dog may have transferred antigen to patient. Her rash is consistent with a contact dermatitis. Prior similar symptoms: No Recent Illness/Hospitalization: Yes [facility] Medical History Asthma Atherosclerotic heart disease of [place] coronary artery without angina pectoris Cellulitis Cellulitis of left lower leg Coronary artery disease Depression Flu GERD (gastroesophageal reflux disease) Hyperlipidemia Hypothyroidism Obesity Premature ventricular contractions Rheumatoid arthritis Tobacco abuse Ulcerative colitis Home Medications aspirin 81 mg tablet,delayed release (Adult Aspirin Regimen) 81 mg PO DAILY #90 tabs 03/10/22 [Rx Last Taken Unknown] atorvastatin 20 mg tablet 20 mg PO QHS #90 tabs 03/10/22 [Rx Last Taken Unknown] clopidogrel 75 mg tablet (Plavix) 75 mg PO DAILY #90 tabs 03/10/22 [Rx Last Taken Unknown] mesalamine 0.375 gram capsule,extended release 24 hr 0.75 g (2 x 0.375 gram) PO BID 3 months #360 caps 03/17/22 [Rx Last Taken Unknown] montelukast 10 mg tablet 10 mg PO DAILY #90 tabs 03/17/22 [Rx Last Taken Unknown] paroxetine HCl 40 mg tablet 40 mg PO DAILY #90 tabs 03/17/22 [Rx Last Taken Unknown] acyclovir 800 mg tablet 800 mg PO 5X/DAY #35 tabs 04/28/22 [Rx Last Taken Unknown] melatonin 10 mg capsule 10 mg PO HS 05/11/22 [History Last Taken Unknown] cholecalciferol (vitamin D3) 50 mcg (2,000 unit) capsule 50 mcg PO DAILY 09/01/22 [History Last Taken Unknown] levothyroxine 88 mcg tablet 88 mcg PO DAILY #90 tabs 09/01/22 [Rx Last Taken Unknown] albuterol sulfate 2.5 mg/3 mL (0.083 %) solution for nebulization 2.5 mg (3 mL) inhalation Q4H PRN Sob &/Or Wheezing #90 mL 09/08/22 [Rx Last Taken Unknown] lansoprazole 30 mg capsule,delayed release See Rx Instructions .Route .COMPLEX #60 caps 11/02/22 [Rx Last Taken Unknown] albuterol sulfate 90 mcg/actuation aerosol inhaler 2 puff inhalation Q4H PRN PRN Shortness Of Breath #8.5 grams 11/22/22 [Rx Last Taken Unknown] prednisone 10 mg tablet 10 mg PO UD #33 tabs 12/15/22 [Rx Last Taken Unknown] Allergy/AdvReac Type Severity Reaction Status Date / Time latex Allergy Rash Verified 12/15/22 17:51 codeine AdvReac Nausea Verified 12/15/22 17:51 Family History Mother COPD (chronic obstructive pulmonary disease) Daughter Bipolar disorder Schizophrenia PTSD (post-traumatic stress disorder) Daughter Schizophrenia Bipolar disorder PTSD (post-traumatic stress disorder) Surgical History History of carpal tunnel release History of coronary artery stent placement (03/21/18) History of tonsillectomy and adenoidectomy History of total hysterectomy (2003) Social History Smoking Status: Current every day smoker tobacco type: cigarettes substance use type: marijuana ROS ROS ED Constitutional Constitutional ED: Denies chills, fever(s), subjective or sweats Eyes Eyes: Denies blurry vision, change in vision or diplopia ENT ENT ED: Denies ear pain, rhinorrhea or sore throat Cardiovascular Cardiovascular: Denies chest pain Respiratory/Chest Respiratory/Chest: Denies cough, dyspnea or dyspnea on exertion Gastrointestinal Gastrointestinal: Denies nausea or vomiting Integumentary Reports rash Allergic/Immunologic Allergic/Immunologic ED: Denies mouth swelling, tongue swelling or urticaria EXAM Physical Exam Const Vital Signs: 12/15/22 17:49 Temperature 97.9 F Temperature Source Temporal Pulse Rate 97 Respiratory Rate 19 H Blood Pressure 126/81 H Blood Pressure Mean 96 Pulse Ox 100 Oxygen Delivery Method Room Air Positive well nourished, well developed and obese General Appearance ED: well developed and NAD; Negative for cyanotic or diaphoretic Nutritional Appearance: obese HEENT Reports moist mucous membranes HEENT Narrative: Head is atraumatic normocephalic. Eyes PERRL and EOMs intact bilaterally General Eye ED: Negative for pale conjunctiva or scleral icterus Resp normal respiratory effort Cardio regular rate and regular rhythm Extremity Negative for normal to inspection Extremity Narrative: She has rash consistent with contact dermatitis. There is erythema and the wounds are weepy crusting. General Extremety ED: Negative for edema or tenderness General Extremity: Negative for edema Neuro oriented x3, CN's II-XII intact bilaterally and no sensory deficits noted Sensorium / Orientation: alert Psych mental status grossly normal Skin Skin Narrative: Rash consistent with contact dermatitis. MDM MDM MDM Narrative Medical decision making narrative: Patient was treated with tapering dose of prednisone. Since patient has no conscious symptoms there is no lymphangitis induration warmth lymphadenopathy and has a inflammatory pruritic rash we will treat with prednisone and no need for laboratory studies. Discharge Plan Triage Chief Complaint: Lower Extremity Injury ED Provider: Cristóbal Mccullough Dx/Rx/DC Orders Clinical Impression: Contact dermatitis Instructions: ED Contact Dermatitis Prescriptions: New prednisone 10 mg tablet 10 mg PO UD Qty: 33 0RF Rx Instructions: Take 4 tablets daily for 3 days, then 3 daily for 3 days, then 2 daily for 3 days, then 1 a day for 3 days then 1 QOD for 3 doses. No Action melatonin 10 mg capsule 10 mg PO HS cholecalciferol (vitamin D3) 50 mcg (2,000 unit) capsule 50 mcg PO DAILY levothyroxine 88 mcg tablet 88 mcg PO DAILY Qty: 90 1RF acyclovir 800 mg tablet 800 mg PO 5X/DAY Qty: 35 0RF aspirin [Adult Aspirin Regimen] 81 mg tablet,delayed release (DR/EC) 81 mg PO DAILY Qty: 90 3RF atorvastatin 20 mg tablet 20 mg PO QHS Qty: 90 3RF clopidogrel [Plavix] 75 mg tablet 75 mg PO DAILY Qty: 90 3RF paroxetine HCl 40 mg tablet 40 mg PO DAILY Qty: 90 3RF montelukast 10 mg tablet 10 mg PO DAILY Qty: 90 2RF mesalamine 0.375 gram capsule,extended release 24hr 0.75 g PO BID 90 Days Qty: 360 3RF albuterol sulfate 2.5 mg /3 mL (0.083 %) solution for nebulization 2.5 mg INHALATION Q4H PRN (Reason: Sob &/Or Wheezing) Qty: 90 0RF lansoprazole 30 mg capsule,delayed release(DR/EC) See Rx Instructions .ROUTE .COMPLEX Qty: 60 0RF Dose Instruction: take 1 capsule by mouth once daily Rx Instructions: take 1 capsule by mouth once daily albuterol sulfate 90 mcg/actuation HFA aerosol inhaler 2 puff inhalation Q4H PRN PRN (Reason: Shortness Of Breath) Qty: 8.5 2RF Primary Care Provider: Shelli Richter Referrals: Shelli Richter MD [Primary Care Provider] - 1 Week if not improving Disposition Disposition: Home, Self Care
[2022-12-15] MEDS: predniSONE 20 MG Tablet 60 MG PO (19:00)
[2022-12-15 19:05] VITALS: BP 134/78; PULSE 64; RESP 14; TEMP 36.4; O2SAT 99
== END 2022-12-15 19:21 | disposition home or self-care (01) ==
LOC: ED 19:13
PROVIDERS: Emergency Provider Emergency Medicine; PCP Internal Medicine; Visit Provider Emergency Medicine
DX: L25.9 Unspecified contact dermatitis, unspecified cause (principal); I25.10 Atherosclerotic heart disease of native coronary artery without angina pectoris; E78.5 Hyperlipidemia, unspecified; F17.210 Nicotine dependence, cigarettes, uncomplicated; E03.9 Hypothyroidism, unspecified; E66.9 Obesity, unspecified; Z68.32 Body mass index [BMI] 32.0-32.9, adult; Z95.5 Presence of coronary angioplasty implant and graft; Z79.02 Long term (current) use of antithrombotics/antiplatelets; Z79.82 Long term (current) use of aspirin; Z79.899 Other long term (current) drug therapy
CPT/HCPCS: 99283

== ENCOUNTER 2023-01-16 14:32 | Observation (INO) | payer MEDICARE, MEDICAID, SELFPAY ==
[2018-03-21 13:13] VITALS: BMI 31.7
[2023-01-16] VITALS (8 sets, daily range): BP systolic 98–122; BP diastolic 64–83; PULSE 64–133; RESP 14–22; TEMP 36.6–36.9; O2SAT 93–98; BMI 34.3; BMI 32.7
--- NOTE | 2023-01-16 14:39 | EKG12_ITS ---
Test Reason : SB Blood Pressure : / mmHG Vent. Rate : 130 BPM Atrial Rate : 130 BPM P-R Int : 150 ms QRS Dur : 080 ms QT Int : 298 ms P-R-T Axes : 075 -60 070 degrees QTc Int : 438 ms Sinus tachycardia Left axis deviation Low voltage QRS Septal infarct , age undetermined Abnormal ECG Confirmed by GROVER HUERTA, EVE ([id number]), research editor JOSEE RUBIO ([id number]) on 01/18/2023 10:51:26 AM Referred By: MEGHAN Confirmed By:EVE NESS MD
--- NOTE | 2023-01-16 14:43 | EDS_ITS ---
HPI History of Present Illness Chief Complaint: Chest Pain Informant: patient Onset/Context/Timing Onset: Today Narrative Narrative: Patient presents after feeling tingling all over her body, shortness of breath, sweating while driving about 1/2-hour ago. Patient states she had taken a dose of Augmentin and then got in her car. She felt a tingling and burning sensation over her whole body and felt like she had difficulty breathing. It did not feel like her typical asthma. She felt lightheaded and as if she may pass out. She denies any pain. She has taken Augmentin in the past but states its been a whil e since she had it. [facility] Medical History Asthma Atherosclerotic heart disease of [place] coronary artery without angina pectoris Cellulitis Cellulitis of left lower leg Coronary artery disease Depression Flu GERD (gastroesophageal reflux disease) Hyperlipidemia Hypothyroidism Obesity Premature ventricular contractions Rheumatoid arthritis Tobacco abuse Ulcerative colitis Home Medications aspirin 81 mg tablet,delayed release (Adult Aspirin Regimen) 81 mg PO DAILY HEART HEALTH #90 tabs 03/10/22 [Rx Last Taken 01/16/23] atorvastatin 20 mg tablet 20 mg PO QHS CHOLESTEROL #90 tabs 03/10/22 [Rx Last Taken 01/15/23] clopidogrel 75 mg tablet (Plavix) 75 mg PO DAILY BLOOD THINNER #90 tabs 03/10/22 [Rx Last Taken 01/16/23] mesalamine 0.375 gram capsule,extended release 24 hr 0.75 g (2 x 0.375 gram) PO BID ULCERATIVE COLITIS 3 months #360 caps 03/17/22 [Rx Last Taken 01/16/23] montelukast 10 mg tablet 10 mg PO DAILY ALLERGIES #90 tabs 03/17/22 [Rx Last Taken 01/16/23] melatonin 10 mg capsule 10 mg PO QHS SLEEP 05/11/22 [History Last Taken 01/15/23] levothyroxine 88 mcg tablet 88 mcg PO DAILY THYROID #90 tabs 09/01/22 [Rx Last Taken 01/16/23] albuterol sulfate 90 mcg/actuation aerosol inhaler 2 puff inhalation Q4H PRN Shortness Of Breath 01/16/23 [History Last Taken 01/16/23] lansoprazole 30 mg capsule,delayed release 30 mg PO DAILY ACID REFLUX 01/16/23 [History Last Taken 01/16/23] paroxetine HCl 40 mg tablet 40 mg PO QHS DEPRESSION 01/16/23 [History Last Taken 01/15/23] Allergy/AdvReac Type Severity Reaction Status Date / Time latex Allergy Rash Verified 01/16/23 14:38 codeine AdvReac Nausea Verified 01/16/23 14:38 Family History Mother COPD (chronic obstructive pulmonary disease) Daughter Bipolar disorder Schizophrenia PTSD (post-traumatic stress disorder) Daughter Schizophrenia Bipolar disorder PTSD (post-traumatic stress disorder) Surgical History History of carpal tunnel release History of coronary artery stent placement (03/21/18) History of tonsillectomy and adenoidectomy History of total hysterectomy (2003) Social History Smoking Status: Current every day smoker tobacco type: cigarettes substance use type: marijuana ROS ROS ED Constitutional Constitutional ED: Denies chills or fever(s) Eyes Eyes: Denies discharge from eye(s) ENT ENT ED: Denies discharge from eye(s), rhinorrhea or sore throat Cardiovascular Cardiovascular: Denies chest pain or palpitations Respiratory/Chest Respiratory/Chest: Reports dyspnea; Denies cough Gastrointestinal Gastrointestinal: Denies abdominal pain, nausea or vomiting Musculoskeletal Musculoskeletal: Denies back pain or extremity pain Integumentary Denies Abrasions or rash Neurologic Neurologic: Reports paresthesias and weakness Psychiatric Psychiatric: Reports anxiety; Denies depression Allergic/Immunologic Allergic/Immunologic ED: Denies lip swelling or urticaria EXAM Physical Exam Const Vital Signs: 01/16/23 14:33 01/16/23 14:37 01/16/23 14:47 Temperature 98 F Temperature Source Temporal Pulse Rate 133 H 102 H Respiratory Rate 20 H 16 Respiratory Effort Short of Breath Labored Accessory Muscle Use Nasal Flaring Pursed Lip Respiratory Depth Deep Respiratory Pattern Tachypnea Normal Blood Pressure 98/69 Blood Pressure Mean 78 Pulse Ox 97 Oxygen Delivery Method Room Air Nasal Cannula Oxygen Flow Rate (L/min) 2 01/16/23 15:32 01/16/23 16:00 01/16/23 18:00 Temperature 98.4 F Temperature Source Pulse Rate 85 76 64 Respiratory Rate 18 14 14 Respiratory Effort Respiratory Depth Respiratory Pattern Blood Pressure 117/76 109/69 101/78 Blood Pressure Mean 89 82 85 Pulse Ox 98 98 98 Oxygen Delivery Method Room Air Room Air Oxygen Flow Rate (L/min) 01/16/23 14:36 Temperature Temperature Source Pulse Rate Respiratory Rate Respiratory Effort Short of Breath Respiratory Depth Respiratory Pattern Blood Pressure Blood Pressure Mean Pulse Ox Oxygen Delivery Method Oxygen Flow Rate (L/min) Positive well nourished and well developed General Appearance ED: well developed HEENT Reports normocephalic and head/scalp atraumatic Eyes PERRL and EOMs intact bilaterally Neck supple Chest Wall inspection of chest normal and palpation of chest normal Resp clear to auscultation bilaterally Cardio regular rhythm Rate: tachycardic GI non-tender Palpation: soft Extremity normal to inspection Neuro oriented x3 and no sensory deficits noted Sensorium / Orientation: alert Motor Exam: strength 5/5 throughout Psych mental status grossly normal Skin Skin Narrative: Diffuse erythema noted on her skin but no urticarial lesions. MDM MDM MDM Narrative Medical decision making narrative: Patient placed on ekg monitor tech. EKG obtained. Labwork obtained to evaluate for leukocytosis, anemia, and electrolyte derangement. Chest x-ray obtained to evaluate for acute lung pathology, cardiac size, or mediastinal abnormality. Patient given Solu-Medrol, Benadryl, Pepcid for potential allergic reaction. DuoNeb treatment given. History & Record Review Discussion w/independent historian: Patient and Family Additional record(s) reviewed:: Prior ED visit and Prior labs Lab Data Attestation: I reviewed the patient's lab results. Labs: Laboratory Results - last 24 hr 01/16/23 01/16/23 01/16/23 14:45 15:52 16:58 WBC 9.3 RBC 5.23 Hgb 15.6 H Hct 49.0 H MCV 93.7 MCH 29.8 MCHC 31.8 L RDW Std Deviation 46.5 H RDW Coeff of Myla 13.4 Plt Count 400 MPV 9.9 Immature Gran % (Auto) 0.400 Neut % (Auto) 21.0 L Lymph % (Auto) 69.2 H [place] % (Auto) 5.0 Eos % (Auto) 3.8 Baso % (Auto) 0.6 Absolute Neuts (auto) 1.9 L Absolute Lymphs (auto) 6.40 H Nucleated RBC % 0 Differential Comment SCANNED D-Dimer Quant (PE/DVT) 0.74 H* Sodium 141 Potassium 3.7 Chloride 112 H Carbon Dioxide 19.0 L Anion Gap 10 BUN 6 L Creatinine 0.71 Estim Creat Clear Calc 70.03 Est GFR (MDRD) Af Amer 106 Est GFR (MDRD) Non-Af 88 BUN/Creatinine Ratio 8.4 L Glucose 152 H Calcium 8.9 Troponin I High Sens 7 42 POC Glucose 118 H Radiography Chest X-Ray - ED: 1 View, Read by ED Physician, Normal, Heart, Lungs and Mediastinum Diagnostic Testing: Clinical Impression(s) from Imaging Studies Chest X-Ray 01/16/23 15:01 IMPRESSION: Left costophrenic angle atelectasis versus scarring with otherwise no evidence of focal infiltrate. Electronically Signed: Hao Bazan DO at 15:19 EDT , Chest CTA 01/16/23 18:27 IMPRESSION: Negative CTA chest examination, without a demonstrated pulmonary embolism or arterial dissection. Extensive bilateral lower lobe and lingular atelectasis Tiny biapical emphysematous changes with possible early pulmonary fibrosis. Electronically Signed: Miriam Tyson MD at 19:07 EDT , EKG Initial EKG: Attestation: I personally reviewed and interpreted this EKG as follows: Interpretation: Sinus Tachycardia (Sinus tach at 130. No acute ischemia.) Treatment and Re-Evaluation :: After the patient's DuoNeb treatment as well as Solu-Medrol, Benadryl, and Pepcid patient's symptoms significantly improved. She was resting comfortably on multiple repeat examinations. Skin erythema resolved. CBC reveals white count of 9.3 and hemoglobin concentrated at 15.6. Differential is unremarkable. Chemistry studies reveal slightly low bicarb at 19. Renal function is normal. Initial troponin is 7. Repeat troponin is 42 for a delta of 35. Although symptomatically patient feels significantly impro marielos, with a positive delta troponin I did recommend observation overnight for cycling of enzymes and further monitoring of her cardiac rhythm. She is currently in sinus rhythm with heart rate in the 70s. My suspicion is her slight increase in troponin is secondary to her tachycardia that she had on arrival. I will also add a D-dimer to evaluate for potential PE. I will speak with the hospitalist. Addendum: Patient's D-dimer does return slightly elevated. CTA of the chest is obtained and reveals no evidence of pulmonary embolism. Discharge Plan Dx/Rx/DC Orders Clinical Impression: Elevated troponin, Allergic reaction Disposition Disposition: Acute Care Hospital [facility] Discharge Date/Time: 01/16/23 20:15
[2023-01-16] MEDS: Ipratropium/Albuterol Sulfate 3 ML AMPUL.NEB INHALATION (14:46)
[2023-01-16] MEDS: 0.9% Normal Saline (500mL Bag) 500 ML 1000 ML IV (14:48)
[2023-01-16] MEDS: DiphenhydrAMINE 50 MG/ML Syringe 25 MG IV (14:50)
[2023-01-16] MEDS: MethylPREDNISolone 125 MG/2 ML Vial IV (14:51)
[2023-01-16] MEDS: Famotidine 200 MG/20 ML MDV 20 MG in 0.9% Normal Saline (Pres. free 8 ML 300 MG IV (14:53)
[2023-01-16 14:55] LABS: Absolute Neutrophil Count 1.9 X10^3/uL (2.0-7.7); Basophil# 0.06 X10^3/uL; Basophil% 0.6 % (0-1); Eosinophil# 0.35 X10^3/uL; Eosinophils% 3.8 % (0-5); Hemoglobin 15.6 g/dL (12.0-15.0); Lymphocyte % 69.2 % (19-41); Mean Corp Hgb Conc 31.8 g/dL (32-36); Mean Corpuscular Hgb 29.8 pg (27.0-32.0); Mean Corpuscular Volume 93.7 fL (81-99); Mean Platelet Vol. 9.9 fl (6.2-12.0); Monocyte# 0.46 X10^3/uL; NRBC Flagged by Analyzer 0 % (0-5); Neutrophil # 1.94 X10^3/uL (2.7-7.7); POSITIVE DIFFERENTIAL YES; Platelet Count 400 K/mm3 (150-450); RBC Distribution Width CV 13.4 % (11.6-14.6); RBC Distribution Width SD 46.5 fl (35.1-43.9); Red Blood Count 5.23 M/mm3 (4.2-5.4); White Blood Count 9.3 K/mm3 (4.4-11.0)
[2023-01-16] MEDS: 0.9% Normal Saline (1000mL) 1,000 ML 150 ML IV (14:55)
--- NOTE | 2023-01-16 15:01 | RAD_ITS ---
STUDY: X-RAY CHEST REASON FOR EXAM: Female, 62 years old. sob TECHNIQUE: Single AP portable view of the chest. COMPARISON: 12/17/2016 FINDINGS: Left costophrenic angle atelectasis versus scarring is present. There is no demonstrated pleural abnormality. Normal size heart. Normal mediastinum and suleiman. Normal visualized pulmonary arteries. Normal visualized aortic arch and descending thoracic aorta. Normal visualized thoracic spine. Normal visualized ribs, clavicles, and shoulders. There is no demonstrated abnormality of the visualized soft tissue structures of the upper abdomen. RAD/Chest 1 View (Portable) IMPRESSION: Left costophrenic angle atelectasis versus scarring with otherwise no evidence of focal infiltrate. Electronically Signed: Hao Bazan DO at 15:19 EDT ,
[2023-01-16 15:04] LABS: Differential Indicated SCAN CRITERIA MET
[2023-01-16 15:15] LABS: Anion Gap 10 (5-15); BUN 6 mg/dL (7-18); BUN/Creat Ratio 8.4 RATIO (10-20); Calcium,Total 8.9 mg/dL (8.5-10.1); Chloride 112 mmol/L (98-107); Creatinine, Serum 0.71 mg/dL (0.55-1.02); EST Glomerular Filtration Rate 88 mL/min (>60); Est Glom Filt Rate - Afr Amer 106 mL/min (>60); Estimated Creatinine Clearance 70.03 ml/min; Glucose 152 mg/dL (74-106); Potassium 3.7 mmol/L (3.5-5.1); Sodium Level 141 mmol/L (136-145); Troponin-I HS (w/2H Reflex) 7 pg/mL (3.0-54.0)
[2023-01-16 16:02] LABS: Differential Comment SCANNED
[2023-01-16 16:10] LABS: Bedside Glucose 118 mg/dL (74-106)
[2023-01-16 16:50] LABS: Reflex Troponin-HS? (from REC) Y
[2023-01-16 17:31] LABS: Troponin-I HS 42 pg/mL (3.0-54.0)
[2023-01-16 18:26] LABS: D-Dimer Quantitative (DVT/PE) 0.74 FEU/ug/m (0.27-0.49)
--- NOTE | 2023-01-16 18:27 | CT_ITS ---
STUDY: CTA CHEST REASON FOR EXAM: Female, 62 years old. sob, elevated d-dimer RADIATION DOSAGE (If Supplied By Facility): CTDIvol = ( 14.87 ) mGy, DLP = ( 526.20 ) mGycm TECHNIQUE: The examination was performed with the intravenous administration of IV 100mL [id number]-370. Post-processing of the angiographic images was performed, with multiplanar reformation and 3D reconstruction. Individualized dose optimization techniques were used for this CT. COMPARISON: None. FINDINGS: Normal enhancement of the main pulmonary artery and right and left pulmonary arteries. Normal enhancement of the bilateral peripheral pulmonary arteries. There is no demonstrated pulmonary embolism. There is atherosclerotic calcification of the aortic arch with tortuosity. There is no demonstrated aortic dissection. Normal cardiac size with coronary artery calcifications. Normal mediastinum. Normal hilar regions. Normal visualized trachea and bronchi. The lungs are well expanded. Tiny emphysematous and subpleural interstitial changes with interstitial prominence suggestive of early fibrosis. Bilateral lower lobe and lingular atelectasis, remainder of the lung parenchyma is clear. Normal pleura. Normal chest wall structures. There are degenerative changes of thoracic spine. Possible tiny stones versus sludge versus contrast in the gallbladder. Otherwise unremarkable visualized upper abdomen. CT/CTA Chest W/WO Contrast IMPRESSION: Negative CTA chest examination, without a demonstrated pulmonary embolism or arterial dissection. Extensive bilateral lower lobe and lingular atelectasis Tiny biapical emphysematous changes with possible early pulmonary fibrosis. Electronically Signed: Miriam Tyson MD at 19:07 EDT ,
--- NOTE | 2023-01-16 18:40 | HP.PCM.HOS_ITS ---
HPI - General General Date of Admission: 01/16/23 HPI Narrative BRANDON REDD, is a 62 F who presents to the hospital with an allergic reaction. She took a dose of Augmentin that she had leftover from a previous infection and states that she almost immediately started feeling short of breath with swollen lips and a swollen throat. She had whole body tingles with a burning sensation throughout her body. She was able to make it to the ER and she was tachycardic on arrival secondary to stress and was not requiring any oxygen. She was given the treatment for an allergic reaction and all of her symptoms resolved. She denies any chest pain and no longer has any shortness of breath however in the process of working her up she had initial troponin of 7 and so a delta was obtained which katelynn to 42. She does have a cardiac history with a stent previously in 2017 but she had a normal stress test back in July. She denies any chest pain, no further shortness of breath or lightheadedness. A D-dimer was obtained and elevated so a CTA has been ordered of the chest but this is currently pending. [facility] Medical History Asthma Atherosclerotic heart disease of [place] coronary artery without angina pectoris Cellulitis Cellulitis of left lower leg Coronary artery disease Depression Flu GERD (gastroesophageal reflux disease) Hyperlipidemia Hypothyroidism Obesity Premature ventricular contractions Rheumatoid arthritis Tobacco abuse Ulcerative colitis Home Medications aspirin 81 mg tablet,delayed release (Adult Aspirin Regimen) 81 mg PO DAILY HEART HEALTH #90 tabs 03/10/22 [Rx Last Taken 01/16/23] atorvastatin 20 mg tablet 20 mg PO QHS CHOLESTEROL #90 tabs 03/10/22 [Rx Last Taken 01/15/23] clopidogrel 75 mg tablet (Plavix) 75 mg PO DAILY BLOOD THINNER #90 tabs 03/10/22 [Rx Last Taken 01/16/23] mesalamine 0.375 gram capsule,extended release 24 hr 0.75 g (2 x 0.375 gram) PO BID ULCERATIVE COLITIS 3 months #360 caps 03/17/22 [Rx Last Taken 01/16/23] montelukast 10 mg tablet 10 mg PO DAILY ALLERGIES #90 tabs 03/17/22 [Rx Last Taken 01/16/23] melatonin 10 mg capsule 10 mg PO QHS SLEEP 05/11/22 [History Last Taken 01/15/23] levothyroxine 88 mcg tablet 88 mcg PO DAILY THYROID #90 tabs 09/01/22 [Rx Last Taken 01/16/23] albuterol sulfate 90 mcg/actuation aerosol inhaler 2 puff inhalation Q4H PRN Shortness Of Breath 01/16/23 [History Last Taken 01/16/23] lansoprazole 30 mg capsule,delayed release 30 mg PO DAILY ACID REFLUX 01/16/23 [History Last Taken 01/16/23] paroxetine HCl 40 mg tablet 40 mg PO QHS DEPRESSION 01/16/23 [History Last Taken 01/15/23] Allergy/AdvReac Type Severity Reaction Status Date / Time latex Allergy Rash Verified 01/16/23 14:38 codeine AdvReac Nausea Verified 01/16/23 14:38 Family History Mother COPD (chronic obstructive pulmonary disease) Daughter Bipolar disorder Schizophrenia PTSD (post-traumatic stress disorder) Daughter Schizophrenia Bipolar disorder PTSD (post-traumatic stress disorder) Surgical History History of carpal tunnel release History of coronary artery stent placement (03/21/18) History of tonsillectomy and adenoidectomy History of total hysterectomy (2003) Social History Smoking Status: Current every day smoker tobacco type: cigarettes substance use type: marijuana ROS Constitutional Constitutional: Denies chills, fatigue, fever(s) or malaise Eyes Eyes: Denies blurry vision ENT HEENT: Denies headache(s) or nasal discharge Cardiovascular Cardiovascular: Denies chest pain, dyspnea on exertion or syncope Respiratory/Chest Respiratory/Chest: Reports shortness of breath at rest; Denies cough or shortness of breath with exertion Gastrointestinal Gastrointestinal: Denies constipation, diarrhea, nausea or vomiting Genitourinary Genitourinary: Denies dysuria Neurologic Neurologic: Denies focal weakness, numbness or tremor(s) Psychiatric Psychiatric: Denies anxiety or depression Allergic/Immunologic Allergic/Immunologic: Reports lip swelling and throat swelling Vital Signs Vital Signs Vital Signs: 01/16/23 14:33 01/16/23 14:37 01/16/23 14:47 Temperature 98 F Temperature Source Temporal Pulse Rate 133 H 102 H Respiratory Rate 20 H 16 Respiratory Effort Short of Breath Labored Accessory Muscle Use Nasal Flaring Pursed Lip Respiratory Depth Deep Respiratory Pattern Tachypnea Normal Blood Pressure 98/69 Blood Pressure Mean 78 Pulse Ox 97 Oxygen Delivery Method Room Air Nasal Cannula Oxygen Flow Rate (L/min) 2 01/16/23 15:32 01/16/23 16:00 Temperature Temperature Source Pulse Rate 85 76 Respiratory Rate 18 14 Respiratory Effort Respiratory Depth Respiratory Pattern Blood Pressure 117/76 109/69 Blood Pressure Mean 89 82 Pulse Ox 98 98 Oxygen Delivery Method Room Air Room Air Oxygen Flow Rate (L/min) Weight Weight: 200 lb Body Mass Index (BMI) 34.3 Physical Exam Narrative General: Alert, Oriented x3, Cooperative, No apparent distress HEENT: Atraumatic, PERRLA, EOMI, Normocephalic Oral: Moist Mucosa Neck: Supple, No JVD Lungs: Clear to auscultation, Normal air movement, No rhonchi, No wheeze, No rales Cardiovascular: Regular rate, Regular Rhythm, Normal S1, Normal S2, No murmurs Abdomen: Soft, Non Tender, Non-Distended, No Hepato-splenomegaly Extremities: No edema, Capillary Refill Less than 3 Seconds Skin: No rashes, No breakdown Musculoskeletal: No Tenderness to Palpation of Joints or Extremities Neurological: Cranial nerves II-XII grossly intact, Motor Exam 5/5 strength throughout, Sensory exam intact to light touch and pain Psych/Mental Status: Normal Affect, Appropriate Results Lab / Micro Data 01/16/23 14:45 01/16/23 14:45 Labs: Laboratory Results - last 24 hr 01/16/23 14:45: WBC 9.3, RBC 5.23, Hgb 15.6 H, Hct 49.0 H, MCV 93.7, MCH 29.8, MCHC 31.8 L, RDW Std Deviation 46.5 H, RDW Coeff of Myla 13.4, Plt Count 400, MPV 9.9, Immature Gran % (Auto) 0.400, Neut % (Auto) 21.0 L, Lymph % (Auto) 69.2 H, [place] % (Auto) 5.0, Eos % (Auto) 3.8, Baso % (Auto) 0.6, Absolute Neuts (auto) 1.9 L, Absolute Lymphs (auto) 6.40 H, Nucleated RBC % 0, Differential Comment SCANNED, D-Dimer Quant (PE/DVT) 0.74 H*, Sodium 141, Potassium 3.7, Chloride 112 H, Carbon Dioxide 19.0 L, Anion Gap 10, BUN 6 L, Creatinine 0.71, Estim Creat Clear Calc 70.03, Est GFR (MDRD) Af Amer 106, Est GFR (MDRD) Non-Af 88, BUN/Cr eatinine Ratio 8.4 L, Glucose 152 H, Calcium 8.9, Troponin I High Sens 7 01/16/23 15:52: POC Glucose 118 H 01/16/23 16:58: Troponin I High Sens 42 Radiology Impression Chest X-Ray 01/16/23 15:01 IMPRESSION: Left costophrenic angle atelectasis versus scarring with otherwise no evidence of focal infiltrate. Electronically Signed: Hao Beni, DO at 15:19 EDT , Assessment & Plan Assessment/Plan (1) Allergic reaction: PLAN: Plan 1. Allergic reaction to Augmentin ? Resolved 2. CAD status post stent/HTN/HLD ? Blood pressures are stable, she was little bit tachycardic on admission ? Initial troponin was 7 and then delta troponin was 42 even though it still in the normal range plan to admit to repeat in 4 to 6 hours ? She had a normal stress test at the end of July 2022 ? Continue Lipitor, aspirin, Plavix 3. GERD ? Stable ? Continue with PPI 4. Hypothyroidism ? Stable ? Continue with Synthroid 5. Ulcerative colitis ? Stable ? Continue with mesalamine 6. Anxiety/depression ? Stable ? Continue with Paxil DVT: Ambulation 75 minutes was spent on direct patient care, including documentation as well as chart review and collaboration with colleagues Charges/Coding Visit Charges Inpatient E&M: 75218 Init Hosp L3
[2023-01-16] MEDS: Paroxetine 20 MG Tablet 40 MG PO (21:16)
[2023-01-16] MEDS: MELATONIN 10 MG TABLET PO (21:16)
[2023-01-16] MEDS: Atorvastatin Calcium 20 MG Tablet PO (21:16)
[2023-01-16 21:36] LABS: Troponin-I HS 88 pg/mL (3.0-54.0)
[2023-01-17] VITALS (12 sets, daily range): BP systolic 115–145; BP diastolic 70–88; PULSE 64–99; RESP 12–19; TEMP 36.4–36.6; O2SAT 94–100
[2023-01-17] MEDS: Levothyroxine 88 MCG Tablet PO (05:23)
[2023-01-17 06:40] LABS: Absolute Lymphocyte Count 1.27 X10^3/uL (0.83-4.51); Absolute Neutrophil Count 9.8 X10^3/uL (2.0-7.7); Basophil# 0.03 X10^3/uL; Basophil% 0.3 % (0-1); Hematocrit 41.1 % (37-47); Hemoglobin 13.3 g/dL (12.0-15.0); Lymphocyte # 1.27 X10^3/ul (0.83-4.51); Mean Corp Hgb Conc 32.4 g/dL (32-36); Mean Corpuscular Hgb 30.2 pg (27.0-32.0); Mean Corpuscular Volume 93.4 fL (81-99); Mean Platelet Vol. 10.1 fl (6.2-12.0); Monocyte# 0.28 X10^3/uL; Monocyte% 2.4 % (0-10); NRBC Flagged by Analyzer 0 % (0-5); Neutrophil # 9.81 X10^3/uL (2.7-7.7); Neutrophil % 85.3 % (47-70); Platelet Count 326 K/mm3 (150-450); RBC Distribution Width CV 13.6 % (11.6-14.6); RBC Distribution Width SD 46.6 fl (35.1-43.9); White Blood Count 11.5 K/mm3 (4.4-11.0)
[2023-01-17 07:07] LABS: Anion Gap 7 (5-15); BUN 14 mg/dL (7-18); Calcium,Total 8.6 mg/dL (8.5-10.1); Chloride 114 mmol/L (98-107); EST Glomerular Filtration Rate 89 mL/min (>60); Est Glom Filt Rate - Afr Amer 108 mL/min (>60); Estimated Creatinine Clearance 71.03 ml/min; Glucose 121 mg/dL (74-106); Sodium Level 143 mmol/L (136-145)
[2023-01-17] MEDS: Montelukast 10 MG Tablet PO (08:32)
[2023-01-17] MEDS: Acetaminophen 325 MG Tablet 650 MG PO (08:32)
[2023-01-17] MEDS: Aspirin E.C. 81 MG Tablet PO (08:32)
[2023-01-17] MEDS: Pantoprazole Sodium 40 MG Tablet PO (08:32)
[2023-01-17] MEDS: Clopidogrel Bisulfate 75 MG Tablet PO (08:32)
[2023-01-17 10:12] LABS: Troponin-I HS 185 pg/mL (3.0-54.0)
--- NOTE | 2023-01-17 12:24 | PCM.PN.HOSP ---
Reason for Visit Reason for Visit: Diagnoses Allergy, unspecified, initial encounter (01/16/23) Subjective Subjective Feeling much better than yesterday, had a headache earlier and some nausea associated with that but this resolved with Tylenol, denying any chest pain or shortness of breath Objective Data Objective Data Vital Signs: Vital Signs Temp Pulse Resp BP Pulse Ox O2 Del Method O2 Flow Rate 98 F 95 18 145/88 H 96 Room Air 2 01/17/23 08:29 01/17/23 08:29 01/17/23 08:29 01/17/23 08:29 01/17/23 08:29 01/17/23 08:29 01/16/23 14:37 Oxygen Flow Rate (L/min) 2 Oxygen Delivery Method Room Air Weight: 86.5 kg Body Mass Index (BMI) 32.7 Intake & Output: Intake and Output for Last 24 Hours 01/15/23 01/16/23 01/17/23 23:59 23:59 23:59 Intake Total 1690 / 1690 440 / 440 Balance 1690 / 1690 440 / 440 Lab / Micro Data 01/17/23 06:10 01/17/23 06:10 Labs: Laboratory Results - last 24 hr 01/16/23 14:45: WBC 9.3, RBC 5.23, Hgb 15.6 H, Hct 49.0 H, MCV 93.7, MCH 29.8, MCHC 31.8 L, RDW Std Deviation 46.5 H, RDW Coeff of Myla 13.4, Plt Count 400, MPV 9.9, Immature Gran % (Auto) 0.400, Neut % (Auto) 21.0 L, Lymph % (Auto) 69.2 H, [place] % (Auto) 5.0, Eos % (Auto) 3.8, Baso % (Auto) 0.6, Absolute Neuts (auto) 1.9 L, Absolute Lymphs (auto) 6.40 H, Nucleated RBC % 0, Differential Comment SCANNED, D-Dimer Quant (PE/DVT) 0.74 H*, Sodium 141, Potassium 3.7, Chloride 112 H, Carbon Dioxide 19.0 L, Anion Gap 10, BUN 6 L, Creatinine 0.71, Estim Creat Clear Calc 70.03, Est GFR (MDRD) Af Amer 106, Est GFR (MDRD) Non-Af 88, BUN/Creatinine Ratio 8.4 L, Glucose 152 H, Calcium 8.9, Troponin I High Sens 7 01/16/23 15:52: POC Glucose 118 H 01/16/23 16:58: Troponin I High Sens 42 01/16/23 21:11: Troponin I High Sens 88 H 01/17/23 06:10: WBC 11.5 H, RBC 4.40, Hgb 13.3, Hct 41.1, MCV 93.4, MCH 30.2, MCHC 32.4, RDW Std Deviation 46.6 H, RDW Coeff of Myla 13.6, Plt Count 326, MPV 10.1, Immature Gran % (Auto) 1.000 H, Neut % (Auto) 85.3 H, Lymph % (Auto) 11.0 L, [place] % (Auto) 2.4, Eos % (Auto) 0.0, Baso % (Auto) 0.3, Absolute Neuts (auto) 9.8 H, Absolute Lymphs (auto) 1.27, Nucleated RBC % 0, Sodium 143, Potassium 4.0, Chloride 114 H, Carbon Dioxide 22.0, Anion Gap 7, BUN 14, Creatinine 0.70, Estim Creat Clear Calc 71.03, Est GFR (MDRD) Af Amer 108, Est GFR (MDRD) Non-Af 89, BUN/Creatinine Ratio 20.0, Glucose 121 H, Calcium 8.6 01/17/23 09:38: Troponin I High Sens 185 H* Radiography Diagnostic Testing: Radiology Impression Chest X-Ray 01/16/23 15:01 IMPRESSION: Left costophrenic angle atelectasis versus scarring with otherwise no evidence of focal infiltrate. Electronically Signed: Hao Bazan DO at 15:19 EDT , Chest CTA 01/16/23 18:27 IMPRESSION: Negative CTA chest examination, without a demonstrated pulmonary embolism or arterial dissection. Extensive bilateral lower lobe and lingular atelectasis Tiny biapical emphysematous changes with possible early pulmonary fibrosis. Electronically Signed: Miriam Tyson MD at 19:07 EDT , Physical Exam Narrative General: Alert, oriented, no apparent distress HEENT: Atraumatic, normocephalic Eyes: Anicteric, normal conjunctiva, extraocular movements grossly intact Neck: Supple Respiratory: Clear to auscultation bilaterally, normal respiratory effort Cardiovascular: Regular rate and rhythm GI: Soft, nontender, nondistended Extremities: No edema Musculoskeletal: Moving all extremities Neuro: No overt focal neurological deficits Skin: Has small scab at base of third toe on right foot without any drainage Psych: Cooperative Assessment & Plan Assessment/Plan (1) Allergic reaction: PLAN: Plan 1. Allergic reaction to Augmentin ? Resolved -01/17: Augmentin added to allergies 2. Elevated troponin with history of CAD status post stent/HTN/HLD ? Blood pressures are stable, she was little bit tachycardic on admission ? Initial troponin was 7 and then delta troponin was 42 even though it still in the normal range plan to admit to repeat in 4 to 6 hours ? She had a normal stress test at the end of July 2022 ? Continue Lipitor, aspirin, Plavix -01/17: Troponin continue to uptrend, discussed with cardiology and given significant rise echocardiogram ordered and patient have heart cath. Further dispo pending results 3. GERD ? Stable ? Continue with PPI 4. Hypothyroidism ? Stable ? Continue with Synthroid 5. Ulcerative colitis ? Stable ? Continue with mesalamine 6. Anxiety/depression ? Stable ? Continue with Paxil DVT: Ambulation 35 minutes was spent on direct patient care, including documentation as well as chart review and collaboration with colleagues Charges/Coding Visit Charges Inpatient E&M: 75592 Subs Hosp L2
--- NOTE | 2023-01-17 13:27 | CON.PCM.CA_ITS ---
Assessment & Plan Assessment/Plan (1) Elevated troponin: PLAN: She does have mildly elevated troponin the etiology of which is not entire ly clear. Her cardiac catheterization did not demonstrate any significant obstructive disease. She will continue her current medical therapy with no changes. (2) History of coronary artery stent placement: PLAN: Her previous stents placed in the left anterior descending artery is noted to be patent with mild luminal irregularities. She will continue with risk factor modification smoking cessation. Thank you for allowing me to participate in the care of your patient. Please don't hesitate to call if any issues arise. HPI Consult Data Date of Consult: 01/17/23 HPI Narrative HPI Narrative: BRANDON REDD, is a 62 F who presents urgency room because she was noted to be short of breath. She does have a previous cardiac history and for reasons that are not entirely clear she had cardiac troponin enzymes drawn as well as a delta which was elevated and she was admitted with further elevation in her delta troponin. She denies any further chest pain or paroxysmal nocturnal dyspnea or pedal edema she has had no neck arm or jaw discomfort suggest angina. Her EKG did not demonstrate any significant abnormalities. Cardiology was called to see her due to the elevated troponin. [facility] Medical History Asthma Atherosclerotic heart disease of [place] coronary artery without angina pectoris Cellulitis Cellulitis of left lower leg Coronary artery disease Depression Flu GERD (gastroesophageal reflux disease) Hyperlipidemia Hypothyroidism Obesity Premature ventricular contractions Rheumatoid arthritis Tobacco abuse Ulcerative colitis Home Medications aspirin 81 mg tablet,delayed release (Adult Aspirin Regimen) 81 mg PO DAILY HEART HEALTH #90 tabs 03/10/22 [Rx Last Taken 01/16/23] atorvastatin 20 mg tablet 20 mg PO QHS CHOLESTEROL #90 tabs 03/10/22 [Rx Last Taken 01/15/23] clopidogrel 75 mg tablet (Plavix) 75 mg PO DAILY BLOOD THINNER #90 tabs 03/10/22 [Rx Last Taken 01/16/23] mesalamine 0.375 gram capsule,extended release 24 hr 0.75 g (2 x 0.375 gram) PO BID ULCERATIVE COLITIS 3 months #360 caps 03/17/22 [Rx Last Taken 01/16/23] montelukast 10 mg tablet 10 mg PO DAILY ALLERGIES #90 tabs 03/17/22 [Rx Last Taken 01/16/23] melatonin 10 mg capsule 10 mg PO QHS SLEEP 05/11/22 [History Last Taken 01/15/23] levothyroxine 88 mcg tablet 88 mcg PO DAILY THYROID #90 tabs 09/01/22 [Rx Last Taken 01/16/23] albuterol sulfate 90 mcg/actuation aerosol inhaler 2 puff inhalation Q4H PRN Shortness Of Breath 01/16/23 [History Last Taken 01/16/23] lansoprazole 30 mg capsule,delayed release 30 mg PO DAILY ACID REFLUX 01/16/23 [History Last Taken 01/16/23] paroxetine HCl 40 mg tablet 40 mg PO QHS DEPRESSION 01/16/23 [History Last Taken 01/15/23] Allergy/AdvReac Type Severity Reaction Status Date / Time amoxicillin [From Augmentin] Allergy Swelling Verified 01/17/23 12:26 clavulanic acid Allergy Swelling Verified 01/17/23 12:26 [From Augmentin] latex Allergy Rash Verified 01/16/23 14:38 codeine AdvReac Nausea Verified 01/16/23 14:38 Family History Mother COPD (chronic obstructive pulmonary disease) Daughter Bipolar disorder Schizophrenia PTSD (post-traumatic stress disorder) Daughter Schizophrenia Bipolar disorder PTSD (post-traumatic stress disorder) Surgical History History of carpal tunnel release History of coronary artery stent placement (03/21/18) History of tonsillectomy and adenoidectomy History of total hysterectomy (2003) Social History Smoking Status: Current every day smoker tobacco type: cigarettes substance use type: marijuana ROS Constitutional Constitutional: Denies fever(s) or weight loss Eyes Eyes: Reports systems reviewed and no addt'l complaints, except as documented ENT HEENT: Reports systems reviewed and no addt'l complaints, except as documented Cardiovascular Cardiovascular: Denies chest pain at rest, chest pain with activity, dyspnea at rest, dyspnea on exertion, edema, palpitations or paroxysmal nocturnal dyspnea Respiratory/Chest Respiratory/Chest: Denies dyspnea on exertion, productive cough, shortness of breath at rest or shortness of breath with exertion Gastrointestinal Gastrointestinal: Denies change in bowel habits, nausea, vomiting or weight changes Genitourinary Genitourinary: Denies difficulty urinating Musculoskeletal Musculoskeletal: Denies joint stiffness or muscle weakness Integumentary Integumentary: Denies lesions Neurologic Neurologic: Denies dizziness or syncope Psychiatric Psychiatric: Denies anxiety Endocrine Endocrinology: Denies excessive sweating or fatigue Hematologic/Lymphatic Hematologic/Lymphatic: Denies anemia Allergic/Immunologic Allergic/Immunologic: Denies seasonal rhinorrhea Risk Stratification Risk Stratification Applicable: Yes Age >/= 65: No >/= 3 CAD Risk Factors (HTN, HLD, DM, family hx of CAD, or current smoker): No Aspirin Use in the Past 7 Days: Yes Severe Angina (>/= episodes in 24 hours): No EKG ST Changes >/= 0.5mm: No Positive Cardiac Marker: Yes CARLITOS Risk Stratification Score: 2 CARLITOS % Risk: 8% Risk Objective Data Vital Signs: Vital Signs Temp Pulse Resp BP Pulse Ox O2 Del Method O2 Flow Rate 98 F 95 18 145/88 H 96 Room Air 2 01/17/23 08:29 01/17/23 08:29 01/17/23 08:29 01/17/23 08:29 01/17/23 08:29 01/17/23 08:29 01/16/23 14:37 Oxygen Flow Rate (L/min) 2 Oxygen Delivery Method Room Air Weight: 190 lb 11.198 oz Body Mass Index (BMI) 32.7 Intake & Output: Intake and Output for Last 24 Hours 01/15/23 01/16/23 01/17/23 23:59 23:59 23:59 Intake Total 1690 / 1690 440 / 440 Balance 1690 / 1690 440 / 440 Lab / Micro Data 01/17/23 06:10 01/17/23 06:10 Labs: Laboratory Results - last 24 hr 01/16/23 14:45: WBC 9.3, RBC 5.23, Hgb 15.6 H, Hct 49.0 H, MCV 93.7, MCH 29.8, MCHC 31.8 L, RDW Std Deviation 46.5 H, RDW Coeff of Myla 13.4, Plt Count 400, MPV 9.9, Immature Gran % (Auto) 0.400, Neut % (Auto) 21.0 L, Lymph % (Auto) 69.2 H, [place] % (Auto) 5.0, Eos % (Auto) 3.8, Baso % (Auto) 0.6, Absolute Neuts (auto) 1.9 L, Absolute Lymphs (auto) 6.40 H, Nucleated RBC % 0, Differential Comment SCANNED, D-Dimer Quant (PE/DVT) 0.74 H*, Sodium 141, Potassium 3.7, Chloride 112 H, Carbon Dioxide 19.0 L, Anion Gap 10, BUN 6 L, Creatinine 0.71, Estim Creat Clear Calc 70.03, Est GFR (MDRD) Af Amer 106, Est GFR (MDRD) Non-Af 88, BUN/Creatinine Ratio 8.4 L, Glucose 152 H, Calcium 8.9, Troponin I High Sens 7 01/16/23 15:52: POC Glucose 118 H 01/16/23 16:58: Troponin I High Sens 42 01/16/23 21:11: Troponin I High Sens 88 H 01/17/23 06:10: WBC 11.5 H, RBC 4.40, Hgb 13.3, Hct 41.1, MCV 93.4, MCH 30.2, MCHC 32.4, RDW Std Deviation 46.6 H, RDW Coeff of Myla 13.6, Plt Count 326, MPV 10.1, Immature Gran % (Auto) 1.000 H, Neut % (Auto) 85.3 H, Lymph % (Auto) 11.0 L, [place] % (Auto) 2.4, Eos % (Auto) 0.0, Baso % (Auto) 0.3, Absolute Neuts (auto) 9.8 H, Absolute Lymphs (auto) 1.27, Nucleated RBC % 0, Sodium 143, Potassium 4.0, Chloride 114 H, Carbon Dioxide 22.0, Anion Gap 7, BUN 14, Creatinine 0.70, Estim Creat Clear Calc 71.03, Est GFR (MDRD) Af Amer 108, Est GFR (MDRD) Non-Af 89, BUN/Creatinine Ratio 20.0, Glucose 121 H, Calcium 8.6 01/17/23 09:38: Troponin I High Sens 185 H* Cardiology Labs/Tests 01/16/23 14:45: WBC 9.3, RBC 5.23, Hgb 15.6 H, Hct 49.0 H, MCV 93.7, MCH 29.8, MCHC 31.8 L, Plt Count 400, MPV 9.9, Immature Gran % (Auto) 0.400, Neut % (Auto) 21.0 L, Lymph % (Auto) 69.2 H, [place] % (Auto) 5.0, Eos % (Auto) 3.8, Baso % (Auto) 0.6, Absolute Neuts (auto) 1.9 L, Nucleated RBC % 0, D-Dimer Quant (PE/DVT) 0.74 H*, Sodium 141, Potassium 3.7, Chloride 112 H, Carbon Dioxide 19.0 L, Anion Gap 10, BUN 6 L, Creatinine 0.71, Est GFR (MDRD) Af Amer 106, Est GFR (MDRD) Non-Af 88, BUN/Creatinine Ratio 8.4 L, Glucose 152 H, Calcium 8.9 01/17/23 06:10: WBC 11.5 H, RBC 4.40, Hgb 13.3, Hct 41.1, MCV 93.4, MCH 30.2, MCHC 32.4, Plt Count 326, MPV 10.1, Immature Gran % (Auto) 1.000 H, Neut % (Auto) 85.3 H, Lymph % (Auto) 11.0 L, [place] % (Auto) 2.4, Eos % (Auto) 0.0, Baso % (Auto) 0.3, Absolute Neuts (auto) 9.8 H, Nucleated RBC % 0, Sodium 143, Potassium 4.0, Chloride 114 H, Carbon Dioxide 22.0, Anion Gap 7, BUN 14, Creatinine 0.70, Est GFR (MDRD) Af Amer 108, Est GFR (MDRD) Non-Af 89, BUN/Creatinine Ratio 20.0, Glucose 121 H, Calcium 8.6 Rhythm: EKG: ECHO: Stress Test: Cardiac Cath: PCI: CT Surgery: Holter monitor: EPS: PPM: CXR: Chest CT Scan: Radiography Diagnostic Testing: Radiology Impression Chest X-Ray 01/16/23 15:01 IMPRESSION: Left costophrenic angle atelectasis versus scarring with otherwise no evidence of focal infiltrate. Electronically Signed: Hao Bazan DO at 15:19 EDT , Chest CTA 01/16/23 18:27 IMPRESSION: Negative CTA chest examination, without a demonstrated pulmonary embolism or arterial dissection. Extensive bilateral lower lobe and lingular atelectasis Tiny biapical emphysematous changes with possible early pulmonary fibrosis. Electronically Signed: Miriam Tyson MD at 19:07 EDT ,
--- NOTE | 2023-01-17 13:28 | DCINST_ITS ---
Discharge Instructions Diet Discharge Diet: - (DASH diet) Activity Discharge Activity: Return to Normal Activity Follow Up Care Test Results: Test results from this visit will be discussed in further detail at your follow- up appointment, if applicable. Discharge Plan Admission Admit Date/Time: 01/16/23 18:34 Primary Reason for Your Visit: Allergic reaction Attending Provider: Nydia White Primary Care Provider: Shelli Richter Consulting Providers: Bonifacio Lopez; Atif Wilkins Instructions Patient Instructions: ED ADVERSE DRUG REACTION Allergic, ED General Allergic Reactions Additional Instructions / Restrictions: -Check your incisions every day for signs of infection which would include redness, swelling, leaking. It is normal to have a small bruise or bump where the catheter was placed but a bruise that is getting larger is not normal. Please tell your healthcare team about this. Please proceed to the emergency department if you have uncontrollable bleeding from the site. -It is important to eat a diet that is low in fat, salt, and cholesterol -Okay to shower from the day after your heart catheterization but keep your incision site clean and dry. Discharge Orders/Prescriptions Prescriptions: Continued melatonin 10 mg capsule 10 mg PO QHS levothyroxine 88 mcg tablet 88 mcg PO DAILY Qty: 90 1RF lansoprazole 30 mg capsule,delayed release(DR/EC) 30 mg PO DAILY albuterol sulfate 90 mcg/actuation HFA aerosol inhaler 2 puff inhalation Q4H PRN (Reason: Shortness Of Breath) paroxetine HCl 40 mg tablet 40 mg PO QHS aspirin [Adult Aspirin Regimen] 81 mg tablet,delayed release (DR/EC) 81 mg PO DAILY Qty: 90 3RF atorvastatin 20 mg tablet 20 mg PO QHS Qty: 90 3RF clopidogrel [Plavix] 75 mg tablet 75 mg PO DAILY Qty: 90 3RF montelukast 10 mg tablet 10 mg PO DAILY Qty: 90 2RF mesalamine 0.375 gram capsule,extended release 24hr 0.75 g PO BID 90 Days Qty: 360 3RF Referrals / Follow Up: Atif Wilkins MD [Med Staff - Active Staff] - (Please continue routine follow-up with your cardiology office) Shelli Richter MD [Primary Care Provider] - Within 1 Week Disposition Disposition (needs filled in before D/C Order can be placed): Home, Self Care
--- NOTE | 2023-01-17 13:32 | DS.PCM_ITS ---
Providers Date of Admission: 01/16/23 Date of Discharge: 01/17/23 Primary Care Physician: Dr. Shelli Richter MD Consultations 01/17/23 10:25 Consult: Cardiology Routine Consulting Provider: Atif Wilkins Reason for Consult: rising troponin EMERGENT Consult: No MD Notified: Yes Date Notified: 01/17/23 Time Notified: 10:25 Method of Notification: Verbal Reason For Visit: ALLERGIC REACTION Diagnosis Discharge Diagnosis (1) Elevated troponin: Status: Acute Code(s): R79.89 - Other specified abnormal findings of blood chemistry (2) History of coronary artery stent placement: Status: Acute Code(s): Z95.5 - Presence of coronary angioplasty implant and graft Plan 1. Allergic reaction to Augmentin 2. Elevated troponin with history of CAD status post stent/HTN/HLD 3. GERD 4. Hypothyroidism 5. Ulcerative colitis 6. Anxiety/depression Medications at Discharge Home Medications aspirin 81 mg tablet,delayed release (Adult Aspirin Regimen) 81 mg PO DAILY HEART HEALTH #90 tabs 03/10/22 atorvastatin 20 mg tablet 20 mg PO QHS CHOLESTEROL #90 tabs 03/10/22 clopidogrel 75 mg tablet (Plavix) 75 mg PO DAILY BLOOD THINNER #90 tabs 03/10/22 mesalamine 0.375 gram capsule,extended release 24 hr 0.75 g (2 x 0.375 gram) PO BID ULCERATIVE COLITIS 3 months #360 caps 03/17/22 montelukast 10 mg tablet 10 mg PO DAILY ALLERGIES #90 tabs 03/17/22 melatonin 10 mg capsule 10 mg PO QHS SLEEP 05/11/22 levothyroxine 88 mcg tablet 88 mcg PO DAILY THYROID #90 tabs 09/01/22 albuterol sulfate 90 mcg/actuation aerosol inhaler 2 puff inhalation Q4H PRN Shortness Of Breath 01/16/23 lansoprazole 30 mg capsule,delayed release 30 mg PO DAILY ACID REFLUX 01/16/23 paroxetine HCl 40 mg tablet 40 mg PO QHS DEPRESSION 01/16/23 Hospital Course Procedures Cardiac catheterization Summary of Care Provided Minutes Spent on Discharge: 31 Hospital Course: 62-year-old female with history of coronary artery disease and stenting presented to [facility] 01/16/2023 due to feeling of throat and tongue swelling after taking a dose of Augmentin. She reportedly had taken it because she noticed a red spot on her foot and thought she had leftover Augmentin from previously being treated for contact dermatitis but exact source of the Augmentin is unclear. In the ED she was given Benadryl, Solu-Medrol, and Pepcid and symptoms resolved. She did have a troponin of 7 with a delta to 42 the patient was admitted for observation, troponin went up further x2 and was 185, cardiology consulted and patient taken for heart cath which did not show any obstruction or need for intervention. Discussed with cardiology, okay to discharge from cardiology perspective. Patient reports symptoms completely resolved and she never had any chest pain or shortness of breath. Routine follow-up. Physical Exam Narrative General: Alert, oriented, no apparent distress HEENT: Atraumatic, normocephalic Eyes: Anicteric, normal conjunctiva, extraocular movements grossly intact Neck: Supple Respiratory: Clear to auscultation bilaterally, normal respiratory effort Cardiovascular: Regular rate and rhythm GI: Soft, nontender, nondistended Extremities: No edema Musculoskeletal: Moving all extremities Neuro: No overt focal neurological deficits Skin: Has small scab at base of third toe on right foot without any drainage Psych: Cooperative Weight / BMI Weight Weight: 86.5 kg Body Mass Index (BMI) 32.7 ABG / Lab / Microbiology Data 01/17/23 06:10 01/17/23 06:10 Laboratory: Laboratory Results - last 24 hr 01/16/23 14:45: WBC 9.3, RBC 5.23, Hgb 15.6 H, Hct 49.0 H, MCV 93.7, MCH 29.8, MCHC 31.8 L, RDW Std Deviation 46.5 H, RDW Coeff of Myla 13.4, Plt Count 400, MPV 9.9, Immature Gran % (Auto) 0.400, Neut % (Auto) 21.0 L, Lymph % (Auto) 69.2 H, [place] % (Auto) 5.0, Eos % (Auto) 3.8, Baso % (Auto) 0.6, Absolute Neuts (auto) 1.9 L, Absolute Lymphs (auto) 6.40 H, Nucleated RBC % 0, Differential Comment SCANNED, D-Dimer Quant (PE/DVT) 0.74 H*, Sodium 141, Potassium 3.7, Chloride 112 H, Carbon Dioxide 19.0 L, Anion Gap 10, BUN 6 L, Creatinine 0.71, Estim Creat Clear Calc 70.03, Est GFR (MDRD) Af Amer 106, Est GFR (MDRD) Non-Af 88, BUN/Creatinine Ratio 8.4 L, Glucose 152 H, Calcium 8.9, Troponin I High Sens 7 01/16/23 15:52: POC Glucose 118 H 01/16/23 16:58: Troponin I High Sens 42 01/16/23 21:11: Troponin I High Sens 88 H 01/17/23 06:10: WBC 11.5 H, RBC 4.40, Hgb 13.3, Hct 41.1, MCV 93.4, MCH 30.2, MCHC 32.4, RDW Std Deviation 46.6 H, RDW Coeff of Myla 13.6, Plt Count 326, MPV 10.1, Immature Gran % (Auto) 1.000 H, Neut % (Auto) 85.3 H, Lymph % (Auto) 11.0 L, [place] % (Auto) 2.4, Eos % (Auto) 0.0, Baso % (Auto) 0.3, Absolute Neuts (auto) 9.8 H, Absolute Lymphs (auto) 1.27, Nucleated RBC % 0, Sodium 143, Potassium 4.0, Chloride 114 H, Carbon Dioxide 22.0, Anion Gap 7, BUN 14, Creatinine 0.70, Estim Creat Clear Calc 71.03, Est GFR (MDRD) Af Amer 108, Est GFR (MDRD) Non-Af 89, BUN/Creatinine Ratio 20.0, Glucose 121 H, Calcium 8.6 01/17/23 09:38: Troponin I High Sens 185 H* Radiography Diagnostic Testing: Radiology Impression Chest X-Ray 01/16/23 15:01 IMPRESSION: Left costophrenic angle atelectasis versus scarring with otherwise no evidence of focal infiltrate. Electronically Signed: Hao Bazan DO at 15:19 EDT , Chest CTA 01/16/23 18:27 IMPRESSION: Negative CTA chest examination, without a demonstrated pulmonary embolism or arterial dissection. Extensive bilateral lower lobe and lingular atelectasis Tiny biapical emphysematous changes with possible early pulmonary fibrosis. Electronically Signed: Miriam Tyson MD at 19:07 EDT , D/C Instructions Discharge Diet: - (DASH diet) Meaningful Use Info Meaningful Use Diagnoses (Choose all that apply): None applicable Discharge Plan Admission Admit Date/Time: 01/16/23 18:34 Primary Reason for Your Visit: Allergic reaction Attending Provider: Nydia White Primary Care Provider: Shelli Richter Consulting Providers: Bonifacio Lopez Cyril Instructions Patient Instructions: ED ADVERSE DRUG REACTION Allergic, ED General Allergic Reactions Additional Instructions / Restrictions: -Check your incisions every day for signs of infection which would include r edness, swelling, leaking. It is normal to have a small bruise or bump where the catheter was placed but a bruise that is getting larger is not normal. Please tell your healthcare team about this. Please proceed to the emergency department if you have uncontrollable bleeding from the site. -It is important to eat a diet that is low in fat, salt, and cholesterol -Okay to shower from the day after your heart catheterization but keep your incision site clean and dry. -AUGMENTIN HAS BEEN ADDED TO YOUR ALLERGY LIST, WOULD AVOID TAKING AUGMENTIN IN THE FUTURE GIVEN YOUR ALLERGIC REACTION Discharge Orders/Prescriptions Prescriptions: Continued melatonin 10 mg capsule 10 mg PO QHS levothyroxine 88 mcg tablet 88 mcg PO DAILY Qty: 90 1RF lansoprazole 30 mg capsule,delayed release(DR/EC) 30 mg PO DAILY albuterol sulfate 90 mcg/actuation HFA aerosol inhaler 2 puff inhalation Q4H PRN (Reason: Shortness Of Breath) paroxetine HCl 40 mg tablet 40 mg PO QHS aspirin [Adult Aspirin Regimen] 81 mg tablet,delayed release (DR/EC) 81 mg PO DAILY Qty: 90 3RF atorvastatin 20 mg tablet 20 mg PO QHS Qty: 90 3RF clopidogrel [Plavix] 75 mg tablet 75 mg PO DAILY Qty: 90 3RF montelukast 10 mg tablet 10 mg PO DAILY Qty: 90 2RF mesalamine 0.375 gram capsule,extended release 24hr 0.75 g PO BID 90 Days Qty: 360 3RF Referrals / Follow Up: Atif Wilkins MD [Med Staff - Active Staff] - (Please continue routine follow-up with your cardiology office) Shelli Richter MD [Primary Care Provider] - Within 1 Week Disposition Disposition (needs filled in before D/C Order can be placed): Home, Self Care Charges/Coding Visit Charges Inpatient E&M: 42129 Disch Hosp >30min
--- NOTE | 2023-01-17 13:34 | CL.D_ITS ---
Patient Name: BRANDON REDD Study Date: 01/17/2023 Performing: Atif Wilkins MD Ht: 64 inches 162.56 cm : 1960 Wt: 190.7 lbs 86.5 kg Age: 62 Gender: female BSA: 1.92 PROCEDURE(S) PERFORMED DC01-([id number])LHC/COR/LV CLINICAL PROFILE AND INDICATIONS Indications: Suspected CAD Heart Failure: None Stress/Imaging Stress/Image Study Performed: No CAD Presentations: Symptom unlikely to be ischemic. CONCLUSIONS Non obstructive coronary arteries Previously placed stent is patent RECOMMENDATIONS Medical therapy DESCRIPTION OF PROCEDURE The patient arrived to the procedure lab. The risks and benefits of the procedure as well as a full description of our services here and current unavailability of surgical backup were fully explained to the patient and/or their significant other prior to the catheterization. The Timeout was completed, verifying the correct patient and procedure. The patient's procedural site was prepped and draped in the usual fashion. Local anesthetic was given subcutaneously to right radial region with Lidocaine 2%. Using a modified Seldinger technique, arterial access was obtained via the right radial artery, a 6Fr sheath was inserted. Left Coronary Artery selective angiography was performed in multiple views using a 5 Fr. 4.0 Boon catheter. Right Coronary Artery selective angiography was then performed in multiple views using a 5 Fr. 4.0 Boon catheter. Left Ventriculography was performed in LARRY projection using a 5 Fr. Pigtail catheter. LV to AO pullback pressures were then recorded.The arterial sheath was pulled and a TR Band was applied for hemostasis w/ 12ml air CORONARY ANGIOGRAPHY DOMINANCE: Right Dominant LEFT HEART ASSESSMENT Left Ventricular Ejection Fraction: by LV Gram 60 % Normal LV wall motion Normal Left Ventricular systolic function LEFT MAIN: Angiographically normal LEFT ANTERIOR DESCENDING ARTERY: No significant disease noted MID LAD: Previously placed stent is patent CIRCUMFLEX ARTERY: No significant disease noted RIGHT CORONARY ARTERY: Mild luminal irregularities less than 30% COMPLICATIONS No Complications PROCEDURE MEDICATIONS Versed 1 mg IV Fentanyl 50 mcg IV Versed 1 mg IV Fentanyl 50 mcg IV Oxygen: 2 % FiO2 via nasal cannula Heparin given IA 01/17/2023 12:51:18 Verapamil 2.5mg, Ntg 100mcgs, 3000 units of Heparin given IA 01/17/2023 12:51:18 SUMMARY OF HEMODYNAMIC DATA Time AIR REST ECG 12:35:33 Art 130/68 (90) 12:53:09 AO 137/73 (101) SA 13:17:32 LV 132/7, 17 13:22:11 LV 108/8, 19 13:22:19 LV 119/10, 22 13:22:57 LV 122/10, 21 13:23:05 LVp 110/8, 21 13:23:10 AOp 130/-42 (69) 13:23:17 Signed By Atif Wilkins MD On 01/17/2023 13:34:13 Atif Wilkins MD
--- NOTE | 2023-01-17 14:15 | CASEMGMT ---
Patient has order for discharge. RN CM in to discuss needs at discharge. Patient denies needs at discharge. Patient had no further questions or concerns.
== END 2023-01-17 13:31 | disposition home or self-care (01) ==
LOC: ED 18:49 → PCU 19:37
PROVIDERS: Admitting Provider Family Medicine; Emergency Provider Emergency Medicine; PCP Internal Medicine; Visit Provider Internal Medicine
DX: R77.8 Other specified abnormalities of plasma proteins (principal); M06.9 Rheumatoid arthritis, unspecified; K51.90 Ulcerative colitis, unspecified, without complications; I25.10 Atherosclerotic heart disease of native coronary artery without angina pectoris; T36.0X5A Adverse effect of penicillins, initial encounter; E78.5 Hyperlipidemia, unspecified; Z95.5 Presence of coronary angioplasty implant and graft; F17.210 Nicotine dependence, cigarettes, uncomplicated; R06.02 Shortness of breath; Z79.02 Long term (current) use of antithrombotics/antiplatelets; R79.89 Other specified abnormal findings of blood chemistry; Z79.899 Other long term (current) drug therapy; Z79.82 Long term (current) use of aspirin; Z79.890 Hormone replacement therapy; E03.9 Hypothyroidism, unspecified; K21.9 Gastro-esophageal reflux disease without esophagitis; J45.909 Unspecified asthma, uncomplicated; F41.9 Anxiety disorder, unspecified; F32.A Depression, unspecified; R07.9 Chest pain, unspecified
CPT/HCPCS: 36415; 71045; 71275; 80048; 82962; 84484; 85025; 85379; 93005; 93458; 94640; 96365; 96366; 96375; 99152; 99153; 99221; 99285; J7030; J7040; Q9967; A4216; C1769; C1894; G0378; J3490

== ENCOUNTER → 2023-04-21 | Outpatient (CLI) | payer MEDICARE, MEDICAID, SELFPAY ==
[2018-03-21 13:13] VITALS: BMI 31.7
--- OUTSIDE RECORDS SUMMARY | 2023-04-21 14:39 | XMS RPT_ITS | CCD ---
Author Name Unknown Address [address] [place] [address] Organization [facility] Care Team Providers Care Recreational Programs Director Name Role Phone MARICARMEN VEGA Carlton Unavailable Unavailable Allergies Allergy Classification Reported Allergen(s) Allergy Type Date of Onset Reaction(s) Facility (1 source) codeine; Translations: [CODEINE] Drug Allergy 3 [facility] Repository (1 source) Latex; Translations: [LATEX] Propensity to adverse reactions to drug (disorder) 3 [facility] Repository Results Test Name Value Interpretation Reference Range Facil ity Encounters Encounter Date Encounter Type Care Provider Facility Start: 08-16-2017 End: 08-17-2017 Ambulatory MARICARMEN VEGA [facility] Start: 01-16-2017 End: 01-16-2017 Ambulatory MARICARMEN Carlton [facility]ILV[facility] Summary Purpose Family History No Family History Records FoundNo Family History Records Found Advance Directives No Advanced Directives Records FoundNo Advanced Directives Records Found Additional Source Comments INFORMATION SOURCE (unrecogn ized section and content) DATE CREATED AUTHOR AUTHOR'S ORGANIZ ATION 07/24/2019 [facility] FOR RECORDS PERTAINING TO PATIENTS WHO ARE OR HAVE BEEN ENROLLED IN A CHEMICAL DEPENDENCY/SUBSTANCEABUSE PROGRAM, SOME INFORMATION MAY BE OMITTED. This clinical summary was aggregated from multiple sources. Caution should be exercised in using it in the provision of clinical care. This summary normalizes information from multiple sources, and as a consequence, information in this document may materially change the coding, format and clinical context of patient data. In addition, data may be omitted in some cases. CLINICAL DECISIONS SHOULD BE BASED ON THE PRIMARY CLINICAL RECORDS. [facility] [employer] provides no warranty or guarantee of the accuracy or completeness of information in this document.
[2023-04-21 15:35] LABS: Absolute Lymphocyte Count 3.27 X10^3/uL (0.83-4.51); Absolute Neutrophil Count 3.7 X10^3/uL (2.0-7.7); Basophil# 0.09 X10^3/uL; Basophil% 1.1 % (0-1); Eosinophil# 0.59 X10^3/uL; Eosinophils% 7.1 % (0-5); Hematocrit 45.2 % (37-47); Lymphocyte # 3.27 X10^3/ul (0.83-4.51); Lymphocyte % 39.4 % (19-41); Mean Corpuscular Hgb 28.8 pg (27.0-32.0); Mean Platelet Vol. 10.3 fl (6.2-12.0); Monocyte# 0.68 X10^3/uL; Monocyte% 8.2 % (0-10); NRBC Flagged by Analyzer 0 % (0-5); Neutrophil # 3.65 X10^3/uL (2.7-7.7); Neutrophil % 43.8 % (47-70); Platelet Count 285 K/mm3 (150-450); RBC Distribution Width SD 44.2 fl (35.1-43.9); Red Blood Count 4.86 M/mm3 (4.2-5.4); White Blood Count 8.3 K/mm3 (4.4-11.0)
[2023-04-21 16:28] LABS: ALB/GLOB Ratio 0.9 RATIO (0.9-2.4); AST(SGOT) 13 U/L (15-37); Alanine Aminotransfer ALT/SGPT 17 U/L (13-56); Albumin, Serum 3.5 g/dL (3.2-5.0); Alkaline Phosphatase 76 U/L (45-117); Anion Gap 7 (5-15); BUN 9 mg/dL (7-18); BUN/Creat Ratio 12.7 RATIO (10-20); Calcium,Total 9.3 mg/dL (8.5-10.1); Chloride 108 mmol/L (98-107); Cholesterol 145 mg/dL (200); Creatinine, Serum 0.71 mg/dL (0.55-1.02); EST Glomerular Filtration Rate 88 mL/min (>60); Est Glom Filt Rate - Afr Amer 107 mL/min (>60); Globulin 3.7 g/dL (2.2-4.2); Glucose 99 mg/dL (74-106); High Density Lipoprotein 61 mg/dL; Potassium 4.5 mmol/L (3.5-5.1); Protein, Total 7.2 g/dL (6.4-8.2); Sodium Level 141 mmol/L (136-145); Thyroid Stim Hormone (TSH) 3.09 uIU/mL (0.358-3.74); Triglycerides 108 mg/dL; Very Low Density Lipoprotein 22 mg/dL (5-40)
== END | disposition home or self-care (01) ==
LOC: BIMLAB 13:33
PROVIDERS: PCP Internal Medicine; Visit Provider Internal Medicine
DX: E78.5 Hyperlipidemia, unspecified (principal)
CPT/HCPCS: 36415; 80053; 80061; 84443; 85025

== ENCOUNTER → 2023-05-09 | Outpatient (CLI) | payer MEDICARE, MEDICAID, SELFPAY ==
[2018-03-21 13:13] VITALS: BMI 31.7
--- NOTE | 2023-05-09 12:47 | RAD_ITS ---
STUDY: X-RAY - PELVIS AND LEFT HIP REASON FOR EXAM: Female, 63 years old. Left hip pain. TECHNIQUE: 3 views of the pelvis and hip. COMPARISON: Right hip x-rays dated 11/27/2014 FINDINGS: Normal bowel gas pattern. Phleboliths and vascular calcifications. Mild arthrosis of both sacroiliac joints and the symphysis pubis. Mild arthrosis of both hips. RAD/HIP, UNI W/ Pelvis 2-3 Views IMPRESSION: Osteopenia with mild arthrosis of both sacroiliac joints, symphysis pubis and both hips. Electronically Signed: Harsha Driscoll MD at 15:24 EST ,
--- NOTE | 2023-05-09 13:40 | SP.MBSS_ITS ---
Modified Barium Swallow Patient Information Study Date: 05/09/23 Study Time: 13:00 Direct Billable Minutes: 96 Total Minutes procedure & reportin Diagnosis: Dysphagia R13.10 Referring Physician: Shelli Richter Reason for Referral: Objectively assess swallow function, assess risk for aspiration, and determine recommendations for least restrictive diet textures and compensatory strategies to improve safety of swallow. Medical History: PMH: Asthma, hiatal hernia, ulcerative colitis,?Depression, Difficulty swall owing solids, GERD (gastroesophageal reflux disease), Hyperlipidemia, Premature ventricular contractions Patient presented to [facility] on 01/16/2023 with symptoms of throat swelling, irritation, and inability to breathe. Patient was diagnosed with an allergic reaction to Augmentin and discharged on 01/17/2023. She was discharged before a speech evaluation could be completed. Today, patient reported that food is feeling stuck due to inadequate throat opening and reports no issue swallowing liquids. She reported occasional coughing spells while eating food. Current Diet Ordered: Regular / Thin Dentition: Natural Teeth and Missing Teeth Mental Status: WNL Respiratory Status: Oxygenating on Room Air Penetration-Aspiration Scale Penetration-Aspiration Scale: OBJECTIVE ASSESSMENT OF SWALLOW FUNCTION (QUANTITATIVE ? PER TRIAL): PENETRATION / ASPIRATION SCALE (KAPLAN): 1 = does not enter airway 2 = enters airway/above vocal folds/ejected 3 = enters airway/above vocal folds/not ejected 4 = enters airway/contacts vocal folds/ejected 5 = enters airway/contacts vocal folds/not ejected 6 = enters airway/below vocal folds/ejected 7 = enters airway/below vocal folds/not ejected despite effort 8 = enters airway/below vocal folds/no effort VIDEOFLOROSCOPIC SCALE SCORE (KAPLAN): Grade I = aspiration of material that has penetrated into the laryngeal vestibule, intact cough reflex Grade II = aspiration < 10 % of the bolus, intact cough reflex Grade III = aspiration of < 10 % of the bolus, reduced cough reflex or aspiration of > 10 % of the bolus, intact cough reflex Grade IV = aspiration of > 10 % of the bolus, reduced cough reflex Penetration-Aspiration Scale Score Thin Liquid via teaspoon: Result: 1= does not enter airway Thin Liquid via teaspoon Trial 2: Result: 1= does not enter airway Thin Liquid via small single sip: cup: Result: 2= enter airway/above vocal folds/ejected Thin Liquid via sequential sips: cup: Result: 2= enter airway/above vocal folds/ejected [place] Thick Liquid via small single sip: cup: Result: 1= does not enter airway Pudding esophageal screen: Result: 1= does not enter airway Thin Liquid via single sip: straw: Result: 1= does not enter airway Oral Phase Labial Seal: No Labial Escape Tongue Control During Bolus Hold: Posterior escape of greater than half of bolus Bolus Preparation/Mastication: Timely and efficient chewing and mashing Bolus Transport/Lingual Motion: Repetitive/disorganized tongue motion Oral Residue: Residue collection on oral structures Pharyngeal Phase Initiation of Pharyngeal Swallow: Bolus head in pyriforms Soft Palate Elevation: Trace column of contrast/air between soft palate and pharyngeal wall Laryngeal Elevation: Comp. Superior move thyroid cart w/comp. apprx arytenoid cart-epig pet Anterior Hyoid Excursion: Partial anterior movement Epiglottic Movement: Complete inversion Laryngeal Vestibule Closure at Height of Swallow: Incomplete; narrow column of air/contrast in laryngeal vestibule Pharyngeal Stripping Wave: Present - complete Pharyngoesophageal Segment Opening: Complete distension and complete duration; no obstruction of flow Tongue Base Retraction: Narrow column of contrast between tongue base & post. pharyngeal wall Pharyngeal Residue: Collection of residue within or on pharyngeal structures Esophageal Phase Esophageal Clearance: Esophageal retention Diagnosis/Impression Diagnosis: Mild oropharyngeal dysphagia R13.12; Esophageal dysphagia R13.14 Impression: The oral phase is primarily marked by... -Decreased bolus control with >1/2 of the bolus spilling posteriorly to the pyriforms prior to swallow onset observed with cookie especially. -Repetitive tongue motion for A-P transport of pudding. -Mild oral residue after the swallow, which mostly cleared with independent initiation of multiple swallows. The pharyngeal phase is primarily marked by... -Trace laryngeal penetration with full ejection of thin liquids. No aspiration was observed during the study. -Mildly decreased tongue base retraction with resulting mild pharyngeal residues after the swallow with pudding and cookie. Second swallows, which the patient independently initiated, fully cleared mild residues. The esophageal phase is primarily marked by... -Esophageal retention of pudding in upper, mid, and lower esophagus. This esophageal clearance somewhat improved when provided thin liquid wash X2. The patient is at HIGH risk for reflux aspiration. -Small CP bar present at the level of C-5. A small amount of barium residue was seen collecting under the CP-bar intermittently during the study. Figure 1. Esophageal screen of pudding. Recommendations Diet: Regular Textures (Easy to Chew textures IDDSI Level 7 - add extra sauce/gravy to moisten) and Thin Liquids Comment: Consider 4-5 smaller meals per day. STOP if sensation of retention despite use of liquid wash - allow time for esophageal clearance and resume meal at a later time. Compensatory Strategies: Small Bites, Small Sips, Slow Rate, Alternate bites/solids and sips/liquids (1:1), Sitting upright and Remain sitting upright for 30 minutes after PO intake Recommend Repeat Modified Barium Swallow: No Need for Skilled Speech Therapy Services: Yes Comment: -Train the patient in use of strategies to decrease risk for aspiration and reflux aspiration. -Ongoing assessment of diet tolerance of recommended textures. -Train the patient oropharyngeal exercise program to improve bolus control, tongue base retraction, swallow onset (lingual resistance, [place], [place]). Recommended Referrals: GI Consult (Retention of barium pudding throughout upper, mid, and lower esophagus, which only somewhat cleared with liquid wash. Patient is at high risk for reflux aspiration.) Education Completed: 1. Described result of evaluation., 2. Pt understands corey luation & agrees with goals and treatment plan. and 7. Pt requires further education on strategies & risks. Status Active ST Patient: Active
== END | disposition home or self-care (01) ==
PROVIDERS: PCP Internal Medicine; Referring Provider Internal Medicine; Visit Provider Internal Medicine
DX: R13.10 Dysphagia, unspecified (principal); M25.552 Pain in left hip
CPT/HCPCS: 73502; 74230; 92611

== ENCOUNTER 2023-07-27 14:30 | Outpatient (RCR) | payer MEDICARE, MEDICAID, SELFPAY ==
[2018-03-21 13:13] VITALS: BMI 31.7
--- NOTE | 2023-06-29 15:33 | HP.PTEVAL_ITS ---
Patient's Visit Information Visit Information Visit Information: BRANDON REDD is a 63 year old F referred to Physical Therapy by Dr. 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 Date of Evaluation: 06/29/23 Physical Therapist: Dustin Sinclair PT, Cert MDT, OCS Visit Plan Frequency: 2x /Week Duration: 4 Weeks Plan: LATEX ALERGY INTERVENTIONS LUMBAR ROM ,DLS, POSTURAL EX'S ,HIP FLEXABILITY , STRENGTHENING HIP AND MODALTIES NEEDED Subjective Subjective: This 63 y/o female presents to physical therapy with lumbar pain and left hip pain. Patient has had lumbar pain many years . Patient lumbar pain and lateral hip. Patient seen DR rudolph PT and tried cortisone injection. Did x-rays showed . No medication. Seen pain management but interventions. Aggravating bending ,lifting unable and standing in back . Patient unable to lay on left side . Alleviating factors rest. Coughing/sneezing -. Bowel/bladder-. Patient pain affects sleeping. Patient pain located lumbar lateral leg and lateral hip. Patient c/o paresthesia/tingling in legs. Patient has been undercare Dr Chapa needs TKA per patient.Patient pain lumbar pain and hip pain . Patient goals to decrease pain SOCIAL: VOCATION: retired Pain Bilateral Back: Pain Intensity (Out of 10): 9 Pain Intensity Range: 10 Left Hip: Pain Intensity (Out of 10): 5 Pain Intensity Range: 10 Objective Objective: POSTURE: mild forward posture NEURO: c/o paresthesia/tingling left ,reflexes L3-4 ,L4-5 ,L5-S1 1/3 SYMMETRIES: align GAIT: ambulates with mild forward posture antalgic gait PALAPTION: tender greater trochanter ,I T band left AROM : supine knee flexion 0-110 degrees MMT: quads/hamstrings 4-/5, hip flexion/abd 3+/5 and ankle 4/5 FLEXABILITY: hams mod tight Special Tests L/S Slump test left side: Negative L/S Slump test right side: Negative L/S Left Straight Leg Raise: Negative L/S Right Straight Leg Raise: Negative L Hip Scour: Negative L Hip Impingement Provocation - Labrum: Negative L Hip Trendelenberg - Glut Medius: Negative L Hip Shari - IT Band: Positive Balance/Special Test Scores Oswestry Low Back Score: 37 Goals Goal 1:: Patient to be I with HEP for back Goal Time Frame: 4-6 Weeks Goal 2:: Patient to demonstrate 50% improvement with less pain and improved function Goal Time Frame: 4-6 Weeks Goal 3:: Patient to improve lumbar ROM for function of recovery for ADLS Goal Time Frame: 4-6 Weeks Goal 4:: Patient to improve back oswestry score by 5 points to improve QOL Goal Time Frame: 4-6 Weeks Goal 5:: Patient to improve strength hip s WFL to improve gait Goal Time Frame: 4-6 Weeks Goal 6:: Patient to decrease tenderness of lateral hip greater to lay on left side Goal Time Frame: 4-6 Weeks Rehabilitation Potential Physical Therapy Diagnosis: This patient has lumbar pain with possible lateral stenosis along with bursitis left hip pain worse with positioning and motion testing and aggravating with walking and standing thus benefit from skilled PT Rehabilitation Potential: Good Anticipated Interventions Patient/Client Instruction: Educate patient on: Condition and Plan of Care For the Purpose of:: To decrease pain, To increase ROM, To improve muscle performance and motor function, To improve ability to perform ADL's, To increase tolerance to activity/condition/position, To improve ability of physical actions for home/community/work/leisure, To decrease soft tissue restriction and To increase flexibility/ROM Therapeutic Exercise to Include: Strength training, Endurance training, Balance training, Postural training, Flexibilty training and Dynamic Lumbar Stabilization For the Purpose of:: To decrease pain, To increase ROM, To improve muscle per formance and motor function, To improve ability to perform ADL's, To increase tolerance to activity/condition/position, To improve ability of physical actions for home/community/work/leisure, To improve health of tissue, To decrease soft tissue restriction, To increase flexibility/ROM and To improve tolerance to ADL's TENS: Yes IF ES: Yes Cryotherapy (ice pack, ice massage): Yes Thermo therapy (hot pack): Yes Ultrasound (thermal/non thermal): Yes For the Purpose of:: To decrease pain, To improve nutrient delivery to tissue, To increase oxygenation perfusion, To improve health of tissue and To decrease soft tissue restriction Text: Thank you for the opportunity to evaluate your patient. For Medicare and Medicare HMO plans, please review the plan of care and approve it. It will need to be FAXED BACK to us at [phone] for Medicare purposes. For Medicare only, by signing this I certify the plan of care. Please let me know if there are questions or concerns regarding this plan of care. Physician Signature: Date:
--- NOTE | 2023-07-27 15:00 | HP.PTDCSUM ---
Discharge Summary D/C summary: It has been my pleasure to treat BRANDON REDD referred by Dr. 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 Discharge Date: Please see the following information for a summary of their discharge status. Subjective Subjective: Exercises help but pain is not going help with PT Pain Bilateral Back: Pain Intensity (Out of 10): 8 Left Hip: Pain Intensity (Out of 10): 9 L KNEE: Pain Intensity (Out of 10): 9 Overall Improvement % Improvement: 10 Objective Objective/Function: Objective: POSTURE: mild forward posture NEURO: c/o paresthesia/tingling left ,reflexes L3-4 ,L4-5 ,L5-S1 1/3 SYMMETRIES: align GAIT: ambulates with mild forward posture antalgic gait PALAPTION: tender greater trochanter ,I T band left AROM : supine knee flexion 0-110 degrees MMT: quads/hamstrings 4-/5, hip flexion/abd 3+/5 and ankle 4/5 FLEXABILITY: hams mod tight Goals Goal 1:: Patient to be I with HEP for back Goal Progress: Goal Met Goal 2:: Patient to demonstrate 50% improvement with less pain and improved function Goal Progress: Progressing Goal 3:: Patient to improve lumbar ROM for function of recovery for ADLS Goal Progress: Progressing Goal 4:: Patient to improve back oswestry score by 5 points to improve QOL Goal Progress: Progressing Goal 5:: Patient to improve strength hip s WFL to improve gait Goal Progress: Progressing Goal 6:: Patient to decrease tenderness of lateral hip greater to lay on left side Goal Progress: Progressing Plan Plan: D/C D/C Information d/c sentence: If there are questions or concerns regarding this patient's physical therapy, please feel free to call me at [phone]. Thank you for the referral of this patient. Sincerely, Dustin Sinclair, PT, Cert MDT, OCS Balance/Gait/Functional tests Balance/Special Test Scores Oswestry Low Back Score: 19 Improvement % Improvement: 10
== END 2023-07-27 19:00 | disposition home or self-care (01) ==
LOC: PT 14:30
PROVIDERS: PCP Internal Medicine; Referring Provider Orthopaedic Surgery; Visit Provider Orthopaedic Surgery
DX: M47.816 Spondylosis without myelopathy or radiculopathy, lumbar region (principal); M53.86 Other specified dorsopathies, lumbar region; M70.62 Trochanteric bursitis, left hip; M51.36 Other intervertebral disc degeneration, lumbar region
CPT/HCPCS: 97110; 97162; 97530

== ENCOUNTER 2023-12-03 12:58 | Emergency (ER) | payer MEDICARE, MEDICAID, SELFPAY ==
[2018-03-21 13:13] VITALS: BMI 31.7
[2023-12-03 12:59] VITALS: BP 129/80; PULSE 95; RESP 18; TEMP 35.6; O2SAT 97
--- NOTE | 2023-12-03 13:09 | RAD_ITS ---
EXAM: XR LEFT KNEE COMPLETE, 4 OR MORE VIEWS CLINICAL INDICATION: Trauma injury. TECHNIQUE: Four or more views of the left knee. COMPARISON: No relevant prior studies available. FINDINGS: BONES/JOINTS: Degenerative narrowing in the lateral femorotibial compartment of the left. Mild chondrocalcinosis in the lateral femorotibial compartment of the left knee more than the medial femorotibial compartment due to CPPD arthropathy. Small joint effusion in the suprapatellar bursa. No acute fracture. No subluxation. Normal alignment. No sclerotic or destructive changes observed. SOFT TISSUES: Small joint effusion in the suprapatellar bursa. RAD/Knee 4 or More Views IMPRESSION: 1. No acute fracture or dislocation of the left knee. 2. CPPD arthropathy with narrowing of the lateral tibiofemoral compartment. Electronically Signed: Huseyin Martins MD at 14:04 EDT ,
--- NOTE | 2023-12-03 13:11 | EDS_ITS ---
HPI History of Present Illness Chief Complaint: Lower Extremity Injury Informant: patient and family Narrative Narrative: Presents here via private vehicle with daughter injury lower extremities from 2 days ago. She reports helping clean her daughters place, she is outside stepped in covered hole where all water would come up. She hit her right thigh, injured her left knee. She does not recall everything. She denies headache neck pain back pain. Increasing pain in left knee today unable to bear weight. Denies paresthesias. She is on baby aspirin and Plavix history of coronary disease with a stent in the past. Prior similar symptoms: No PFSH PFSH Medical History Difficulty swallowing solids Left hip pain Elevated troponin Flu Cellulitis Tobacco abuse Coronary artery disease Ulcerative colitis Obesity Cellulitis of left lower leg Hyperlipidemia Atherosclerotic heart disease of [place] coronary artery without angina pectoris Rheumatoid arthritis Depression GERD (gastroesophageal reflux disease) Hypothyroidism Asthma Premature ventricular contractions Home Medications ?Medication ?Instructions ?Recorded ?Last Taken ?Type melatonin 10 mg capsule 10 mg PO QHS SLEEP 05/11/22 01/15/23 History aspirin 81 mg tablet,delayed See Rx Instructions .Route 04/14/23 Unknown Rx release .COMPLEX #90 tabs atorvastatin 20 mg tablet See Rx Instructions .Route 04/14/23 Unknown Rx .COMPLEX #90 tabs levothyroxine 88 mcg tablet See Rx Instructions .Route 04/21/23 Unknown Rx .COMPLEX #90 tabs clopidogrel 75 mg tablet See Rx Instructions .Route 04/24/23 Unknown Rx .COMPLEX #90 tabs paroxetine HCl 40 mg tablet 40 mg PO QHS DEPRESSION #90 tabs 07/14/23 Unknown Rx mesalamine 0.375 gram 0.75 g (2 x 0.375 gram) PO BID 08/15/23 Unknown Rx capsule,extended release 24 hr ULCERATIVE COLITIS 3 months #360 caps montelukast 10 mg tablet 10 mg PO DAILY ALLERGIES #90 tabs 09/13/23 Unknown Rx albuterol sulfate 90 mcg/actuation 2 puff inhalation Q4H PRN PRN for 10/05/23 Unknown Rx aerosol inhaler dyspnea #8.5 GMS lansoprazole 30 mg capsule,delayed 30 mg PO QAM for acid reflux #90 10/23/23 Unknown Rx release caps oxycodone-acetaminophen 5 mg-325 1 tab PO Q6H PRN PRN Pain 3 days 12/03/23 Unknown Rx mg tablet #12 TABLETS Allergy/AdvReac Type Severity Reaction Status Date / Time amoxicillin (From Augmentin) Allergy Swelling Verified 12/03/23 12:59 clavulanic acid (From Allergy Swelling Verified 12/03/23 12:59 Augmentin) latex Allergy Rash Verified 12/03/23 12:59 codeine AdvReac Nausea Verified 12/03/23 12:59 Family History Mother COPD (chronic obstructive pulmonary disease) Daughter Bipolar disorder Schizophrenia PTSD (post-traumatic stress disorder) Daughter Schizophrenia Bipolar disorder PTSD (post-traumatic stress disorder) Surgical History History of tonsillectomy and adenoidectomy History of coronary artery stent placement (03/21/18) History of total hysterectomy (2003) History of carpal tunnel release Social History Smoking Status: Current every day smoker tobacco type: cigarettes substance use type: marijuana ROS ROS ED Constitutional Constitutional ED: Denies chills, fever(s) or sweats Eyes Eyes: Denies change in vision ENT ENT ED: Denies dysphagia or sore throat Cardiovascular Cardiovascular: Denies chest pain, leg edema, palpitations or racing heartbeat Respiratory/Chest Respiratory/Chest: Denies cough, dyspnea or dyspnea on exertion Gastrointestinal Gastrointestinal: Denies abdominal pain, diarrhea, nausea or vomiting Genitourinary Genitourinary ED: Denies dysuria, hematuria or urinary frequency Musculoskeletal Musculoskeletal: Reports extremity pain; Denies back pain or neck pain Integumentary Reports other Details: ecchymosis ; Denies rash or wounds Neurologic Neurologic: Denies headache(s), paresthesias or weakness EXAM Physical Exam Const Vital Signs: 12/03/23 12:59 Temperature 96.1 F L Temperature Source Temporal Pulse Rate 95 Respiratory Rate 18 Blood Pressure 129/80 H Blood Pressure Mean 96 Pulse Ox 97 Oxygen Delivery Method Room Air Positive well nourished and well developed Constitutional Narrative: GCS 15. General Appearance ED: well developed and NAD HEENT Reports moist mucous membranes normocephalic and atraumatic Eyes EOMs intact bilaterally and conjunctivae normal General Eye ED: Yes normal appearance of both eyes Neck full ROM, no lymphadenopathy and supple General: Negative for tenderness Chest Wall Chest: Negative for tenderness Resp normal respiratory effort and normal air movement Effort and Inspection: symmetric chest movement; Negative for respiratory distress Cardio regular rate, regular rhythm and no murmurs Peripheral Pulses: pulses 2+ throughout GI normal to inspection, nondistended, normoactive bowel sounds and non-tender Palpation: Negative for guarding or rebound tenderness present Back/Spine no CVA tenderness and no thoracic nor lumbar tenderness Extremity Extremity Narrative: Right lower extremity: Negative logroll. There is ecchymosis in the lateral thigh with no deformities. No bony tenderness. No knee tenderness. Skin is intact. Soft compartments. Neuro vas intact distally. Left lower extremity: Negative logroll. Soft compartments of thigh and leg. Knee extensor mechanism intact. Positive Kate's laterally. No deformities. No patellar tenderness. Skin intact. Neuro vas intact. General Extremety ED: Yes tenderness; Negative for edema General Extremity: Negative for edema Neuro oriented x3, CN's II-XII intact bilaterally and no sensory deficits noted Sensorium / Orientation: awake and alert Skin no rashes or lesions noted and no wounds MDM MDM MDM Narrative Medical decision making narrative: Interventions / MDM: Differential diagnosis: Contusion, internal derangement left knee Diagnosis considered but do not suspect: Fractures however x-ray negative. My EKG interpretation: N/A Imaging independently reviewed and interpreted by myself: Right femur 2 views: No fracture noted. Left knee 4 views: Degenerative changes of the left knee noted. No fracture. External documents reviewed: N/A Test considered but not ordered:N/A ED course: Patient with mechanical fall 2 days of increasing pain in the left knee. No clear deformities. Ecchymosis to right thigh with no deformities and soft compartments. Patient with difficulty ambulate due to pain in her knee. Should be treated with oxycodone p.o. X-ray right femur and left knee for further evaluation. X-rays negative. Placed in a knee immobilizer for comfort on the left side. Walker provided. Prescription for pain medications. Will avoid NSAIDs due to history of ulcerative colitis. She is seeing orthopedist Dr. Chapa in the past. She will follow-up with him. All questions were answered. Re-evaluation: stable Disposition discussed with patient/family/significant other: Patient Case discussed with consulting clinician: N/A This note was generated with Dragon dictation software. It may contain incorrect words, spelling, and punctuation that were not noted in checking the note before signing. Radiography Diagnostic Testing: Clinical Impression(s) from Imaging Studies Knee X-Ray 12/03/23 13:09 IMPRESSION: 1. No acute fracture or dislocation of the left knee. 2. CPPD arthropathy with narrowing of the lateral tibiofemoral compartment. Electronically Signed: Huseyin Martins MD at 14:04 EDT , Femur X-Ray 12/03/23 13:30 IMPRESSION: Negative right femur x-rays. Electronically Signed: Huseyin Martins MD at 14:01 EDT , Discharge Plan Triage Chief Complaint: Lower Extremity Injury ED Provider: Jose Mcarthur Dx/Rx/DC Orders Clinical Impression: Internal derangement of left knee, Contusion of right anterior thigh, Fall Instructions: ED Meniscal Injury Knee Poss, ED Soft Tissue Contusion Prescriptions: New oxycodone-acetaminophen 5-325 mg tablet 1 tab PO Q6H PRN PRN (Reason: Pain) 3 Days Qty: 12 0RF No Action melatonin 10 mg capsule 10 mg PO QHS levothyroxine 88 mcg tablet See Rx Instructions .ROUTE .COMPLEX Qty: 90 1RF Dose Instruction: TAKE ONE TABLET BY MOUTH DAILY AT 8AM Rx Instructions: TAKE ONE TABLET BY MOUTH DAILY AT 8AM aspirin 81 mg tablet,delayed release (DR/EC) See Rx Instructions .ROUTE .COMPLEX Qty: 90 3RF Dose Instruction: TAKE ONE TABLET BY MOUTH DAILY AT 9AM Rx Instructions: TAKE ONE TABLET BY MOUTH DAILY AT 9AM atorvastatin 20 mg tablet See Rx Instructions .ROUTE .COMPLEX Qty: 90 3RF Dose Instruction: TAKE ONE TABLET BY MOUTH DAILY AT 9PM AT BEDTIME Rx Instructions: TAKE ONE TABLET BY MOUTH DAILY AT 9PM AT BEDTIME clopidogrel 75 mg tablet See Rx Instructions .ROUTE .COMPLEX Qty: 90 3RF Dose Instruction: TAKE ONE TABLET BY MOUTH DAILY AT 9AM Rx Instructions: TAKE ONE TABLET BY MOUTH DAILY AT 9AM paroxetine HCl 40 mg tablet 40 mg PO QHS Qty: 90 0RF mesalamine 0.375 gram capsule,extended release 24hr 0.75 g PO BID 90 Days Qty: 360 1RF montelukast 10 mg tablet 10 mg PO DAILY Qty: 90 0RF albuterol sulfate 90 mcg/actuation HFA aerosol inhaler 2 puff inhalation Q4H PRN PRN (Reason: for dyspnea) Qty: 8.5 0RF lansoprazole 30 mg capsule,delayed release(DR/EC) 30 mg PO QAM Qty: 90 2RF Primary Care Provider: Shelli Richter Referrals: Shelli Richter MD [Primary Care Provider] - Dylan Chapa MD [Med Staff - Active Staff] - 3-5 Days Activity Restrictions/Additional Instructions: X-ray alert right femur and left knee negative for any fractures. Osteoarthri tic changes to the left knee noted. Maintain knee immobilizer for comfort, use a walker for support. Take pain medicine as prescribed. Follow-up with Dr. Chapa as you seen him in the past for outpatient reevaluation. Print Language: Maltese Disposition Disposition: Home, Self Care Discharge Date/Time: 12/03/23 14:37
[2023-12-03] MEDS: oxyCODONE 5 MG Tablet PO (13:13)
[2023-12-03 13:17] VITALS: BMI 30.4
--- NOTE | 2023-12-03 13:30 | RAD_ITS ---
EXAM: XR RIGHT FEMUR, 2 VIEWS CLINICAL INDICATION: Trauma injury. TECHNIQUE: Frontal and lateral views of the right femur. COMPARISON: No relevant prior studies available. FINDINGS: BONES/JOINTS: Unremarkable. No acute fracture. No subluxation. Normal alignment. Preservation of the joint space. No sclerotic or destructive changes observed. SOFT TISSUES: Unremarkable. No soft tissue swelling or gas. No radiopaque foreign body. RAD/Femur Min 2 Views IMPRESSION: Negative right femur x-rays. Electronically Signed: Huseyin Martins MD at 14:01 EDT ,
== END 2023-12-03 14:37 | disposition home or self-care (01) ==
PROVIDERS: Emergency Provider Emergency Medicine; PCP Internal Medicine; Visit Provider Emergency Medicine
DX: M23.92 Unspecified internal derangement of left knee (principal); M17.12 Unilateral primary osteoarthritis, left knee; I25.10 Atherosclerotic heart disease of native coronary artery without angina pectoris; E78.5 Hyperlipidemia, unspecified; F17.210 Nicotine dependence, cigarettes, uncomplicated; S70.11XA Contusion of right thigh, initial encounter; Z95.5 Presence of coronary angioplasty implant and graft; Z79.82 Long term (current) use of aspirin; Z79.02 Long term (current) use of antithrombotics/antiplatelets; K21.9 Gastro-esophageal reflux disease without esophagitis; J45.909 Unspecified asthma, uncomplicated; W18.42XA Slipping, tripping and stumbling without falling due to stepping into hole or opening, initial encounter
CPT/HCPCS: 73552; 73564; 99283

== ENCOUNTER 2023-12-16 22:25 | Emergency (ER) | payer MEDICARE, MEDICAID, SELFPAY ==
[2018-03-21 13:13] VITALS: BMI 31.7
[2023-12-16 22:25] VITALS: BP 118/76; PULSE 90; RESP 14; TEMP 36.6; O2SAT 97; BMI 30.4
[2023-12-16 22:28] VITALS: BP 118/76; PULSE 90; RESP 14; TEMP 36.6; O2SAT 98
--- NOTE | 2023-12-16 22:42 | ED.VIS.DENTA ---
HPI History of Present Illness Chief Complaint: Dental Narrative Narrative: 63-year-old female past medical history of poor dentition presents with pain in her left upper jaw and dental pain that she has had since last evening. She has been taking Tylenol. She last saw maxillofacial surgeon last year, but they could not do anything because they state that they lost the x-rays. She presents with dental pain in her left upper jaw in the area of tooth #11, the cuspid. She denies any fevers or chills, no facial swelling, no other symptoms. [facility] Medical History Difficulty swallowing solids Left hip pain Elevated troponin Flu Cellulitis Tobacco abuse Coronary artery disease Ulcerative colitis Obesity Cellulitis of left lower leg Hyperlipidemia Atherosclerotic heart disease of [place] coronary artery without angina pectoris Rheumatoid arthritis Depression GERD (gastroesophageal reflux disease) Hypothyroidism Asthma Premature ventricular contractions Home Medications ?Medication ?Instructions ?Recorded ?Last Taken ?Type melatonin 10 mg capsule 10 mg PO QHS SLEEP 05/11/22 01/15/23 History aspirin 81 mg tablet,delayed See Rx Instructions .Route 04/14/23 Unknown Rx release .COMPLEX #90 tabs paroxetine HCl 40 mg tablet 40 mg PO QHS DEPRESSION #90 tabs 07/14/23 Unknown Rx lansoprazole 30 mg capsule,delayed 30 mg PO QAM for acid reflux #90 10/23/23 Unknown Rx release caps oxycodone-acetaminophen 5 mg-325 1 tab PO Q6H PRN PRN Pain 3 days 12/03/23 Unknown Rx mg tablet #12 TABLETS levothyroxine 88 mcg tablet See Rx Instructions .Route 12/04/23 Unknown Rx .COMPLEX #90 tabs montelukast 10 mg tablet 10 mg PO DAILY ALLERGIES #90 tabs 12/04/23 Unknown Rx albuterol sulfate 90 mcg/actuation 2 puff inhalation Q4H PRN PRN for 12/06/23 Unknown Rx aerosol inhaler dyspnea #8.5 GMS atorvastatin 20 mg tablet See Rx Instructions .Route 12/06/23 Unknown Rx .COMPLEX #90 tabs clopidogrel 75 mg tablet See Rx Instructions .Route 12/06/23 Unknown Rx .COMPLEX #90 tabs mesalamine 0.375 gram 0.75 g (2 x 0.375 gram) PO BID 12/06/23 Unknown Rx capsule,extended release 24 hr ULCERATIVE COLITIS 3 months #360 caps clindamycin HCl 300 mg capsule 300 mg PO Q6H #40 caps 12/16/23 Unknown Rx Allergy/AdvReac Type Severity Reaction Status Date / Time amoxicillin (From Augmentin) Allergy Swelling Verified 12/16/23 22:26 clavulanic acid (From Allergy Swelling Verified 12/16/23 22:26 Augmentin) latex Allergy Rash Verified 12/16/23 22:26 codeine AdvReac Nausea Verified 12/16/23 22:26 Family History Mother COPD (chronic obstructive pulmonary disease) Daughter Bipolar disorder Schizophrenia PTSD (post-traumatic stress disorder) Daughter Schizophrenia Bipolar disorder PTSD (post-traumatic stress disorder) Surgical History History of tonsillectomy and adenoidectomy History of coronary artery stent placement (03/21/18) History of total hysterectomy (2003) History of carpal tunnel release Social History Smoking Status: Current every day smoker tobacco type: cigarettes substance use type: marijuana ROS ROS ED ROS Narrative Left upper jaw pain, dental pain. No fever. No chills, no nausea, no vomiting. No exacerbating or alleviating factors. EXAM Physical Exam Narrative Exam Narrative: Afebrile. Vital signs noted. Nontoxic-appearing. Inspection of the mouth shows very poor dentition with numerous dental caries. No drooling or trismus. No F[place]o angina. In the area of the gingiva just above the tooth #11 is a draining gingival abscess. There is purulent material. No erythema of cheek, no swelling of cheek. Const Vital Signs: 12/16/23 22:25 12/16/23 22:28 Temperature 98 F 98 F Temperature Source Temporal Temporal Pulse Rate 90 90 Respiratory Rate 14 14 Blood Pressure 118/76 118/76 Blood Pressure Mean 90 90 Pulse Ox 97 98 Oxygen Delivery Method Room Air Room Air MDM MDM MDM Narrative Medical decision making narrative: I do feel that this is more of a gingival abscess, and I do not feel that incision and drainage is indicated as it is already draining purulent material. Smoking cessation was discussed. Patient has an allergy to Augmentin. She will continue her Tylenol and she was given her first dose of clindamycin here and prescription written to take 300 mg 4 times a day for 10 days. Envision be discharged to follow-up with her maxillofacial surgeon/dentist. Return instructions to the emergency department were reviewed. Disposition is discharged home in stable condition. History & Record Review Discussion w/independent historian: Patient Discharge Plan Triage Chief Complaint: Dental ED Provider: Huseyin Escalante Dx/Rx/DC Orders Clinical Impression: Abscess of upper gingiva, Pain due to dental caries Instructions: ED Abscess Antibiotic Treatment Only, ED Dental Abscess Prescriptions: New clindamycin HCl 300 mg capsule 300 mg PO Q6H Qty: 40 0RF No Action melatonin 10 mg capsule 10 mg PO QHS oxycodone-acetaminophen 5-325 mg tablet 1 tab PO Q6H PRN PRN (Reason: Pain) 3 Days Qty: 12 0RF aspirin 81 mg tablet,delayed release (DR/EC) See Rx Instructions .ROUTE .COMPLEX Qty: 90 3RF Dose Instruction: TAKE ONE TABLET BY MOUTH DAILY AT 9AM Rx Instructions: TAKE ONE TABLET BY MOUTH DAILY AT 9AM paroxetine HCl 40 mg tablet 40 mg PO QHS Qty: 90 0RF lansoprazole 30 mg capsule,delayed release(DR/EC) 30 mg PO QAM Qty: 90 2RF levothyroxine 88 mcg tablet See Rx Instructions .ROUTE .COMPLEX Qty: 90 1RF Dose Instruction: TAKE ONE TABLET BY MOUTH DAILY AT 8AM Rx Instructions: TAKE ONE TABLET BY MOUTH DAILY AT 8AM montelukast 10 mg tablet 10 mg PO DAILY Qty: 90 1RF clopidogrel 75 mg tablet See Rx Instructions .ROUTE .COMPLEX Qty: 90 3RF Dose Instruction: TAKE ONE TABLET BY MOUTH DAILY AT 9AM Rx Instructions: TAKE ONE TABLET BY MOUTH DAILY AT 9AM atorvastatin 20 mg tablet See Rx Instructions .ROUTE .COMPLEX Qty: 90 3RF Dose Instruction: TAKE ONE TABLET BY MOUTH DAILY AT 9PM AT BEDTIME Rx Instructions: TAKE ONE TABLET BY MOUTH DAILY AT 9PM AT BEDTIME mesalamine 0.375 gram capsule,extended release 24hr 0.75 g PO BID 90 Days Qty: 360 1RF albuterol sulfate 90 mcg/actuation HFA aerosol inhaler 2 puff inhalation Q4H PRN PRN (Reason: for dyspnea) Qty: 8.5 3RF Primary Care Provider: Shelli Richter Referrals: Shelli Richter MD [Primary Care Provider] - Activity Restrictions/Additional Instructions: Continue Tylenol or ibuprofen as needed for analgesia. Take all the antibiotics. Stop smoking. Follow-up with your dentist/maxillofacial surgeon as soon as possible. Print Language: Macedonian Disposition Disposition: Home, Self Care
[2023-12-16] MEDS: Clindamycin HCl 150 MG Capsule 300 MG PO (22:48)
== END 2023-12-16 22:49 | disposition home or self-care (01) ==
PROVIDERS: Emergency Provider Emergency Medicine; PCP Internal Medicine; Visit Provider Emergency Medicine
DX: K02.9 Dental caries, unspecified (principal); K08.89 Other specified disorders of teeth and supporting structures; E78.5 Hyperlipidemia, unspecified; I25.10 Atherosclerotic heart disease of native coronary artery without angina pectoris; F17.210 Nicotine dependence, cigarettes, uncomplicated; K21.9 Gastro-esophageal reflux disease without esophagitis; J45.909 Unspecified asthma, uncomplicated
CPT/HCPCS: 99282

== ENCOUNTER → 2023-12-25 | Outpatient (CLI) | payer MEDICARE, MEDICAID, SELFPAY ==
[2018-03-21 13:13] VITALS: BMI 31.7
[2023-12-25 15:06] LABS: Absolute Lymphocyte Count 3.61 X10^3/uL (0.83-4.51); Absolute Neutrophil Count 4.3 X10^3/uL (2.0-7.7); Basophil% 1.1 % (0-1); Eosinophil# 0.52 X10^3/uL; Eosinophils% 5.5 % (0-5); Hematocrit 39.4 % (37-47); Hemoglobin 12.9 g/dL (12.0-15.0); Lymphocyte # 3.61 X10^3/ul (0.83-4.51); Lymphocyte % 38.5 % (19-41); Mean Corp Hgb Conc 32.7 g/dL (32-36); Mean Corpuscular Volume 91.6 fL (81-99); Mean Platelet Vol. 9.6 fl (6.2-12.0); Monocyte# 0.84 X10^3/uL; NRBC Flagged by Analyzer 0 % (0-5); Neutrophil # 4.27 X10^3/uL (2.7-7.7); Neutrophil % 45.6 % (47-70); Platelet Count 311 K/mm3 (150-450); RBC Distribution Width CV 13.4 % (11.6-14.6); RBC Distribution Width SD 45.5 fl (35.1-43.9); White Blood Count 9.4 K/mm3 (4.4-11.0)
[2023-12-25 15:41] LABS: ALB/GLOB Ratio 0.9 RATIO (0.9-2.4); AST(SGOT) 14 U/L (15-37); Alanine Aminotransfer ALT/SGPT 18 U/L (13-56); Albumin, Serum 3.2 g/dL (3.2-5.0); Alkaline Phosphatase 82 U/L (45-117); Anion Gap 9 (5-15); BUN 11 mg/dL (7-18); BUN/Creat Ratio 17.2 RATIO (10-20); Calcium,Total 9.5 mg/dL (8.5-10.1); Chloride 108 mmol/L (98-107); Cholesterol 138 mg/dL (200); Creatinine, Serum 0.64 mg/dL (0.55-1.02); EST Glomerular Filtration Rate 99 mL/min (>60); Est Glom Filt Rate - Afr Amer 120 mL/min (>60); Globulin 3.6 g/dL (2.2-4.2); Glucose 108 mg/dL (74-106); High Density Lipoprotein 44 mg/dL; Potassium 3.7 mmol/L (3.5-5.1); Protein, Total 6.8 g/dL (6.4-8.2); Sodium Level 140 mmol/L (136-145); Triglycerides 277 mg/dL; Very Low Density Lipoprotein 55 mg/dL (5-40)
== END | disposition home or self-care (01) ==
LOC: BIMLAB 14:06
PROVIDERS: PCP Internal Medicine; Referring Provider Internal Medicine; Visit Provider Internal Medicine
DX: E78.5 Hyperlipidemia, unspecified (principal); K51.90 Ulcerative colitis, unspecified, without complications
CPT/HCPCS: 36415; 80053; 80061; 85025

== ENCOUNTER → 2024-01-09 | Outpatient (CLI) | payer MEDICARE, MEDICAID, SELFPAY ==
[2018-03-21 13:13] VITALS: BMI 31.7
--- NOTE | 2024-01-09 13:46 | CT_ITS ---
STUDY: LOW DOSE CT LUNG CANCER SCREENING REASON FOR EXAM: Female, 63 years old. Lung cancer screening -- and gt;20 pk yr hx;current smoker; asymptomatic RADIATION DOSAGE (If Supplied By Facility): CTDIvol = ( 3.02 ) mGy, DLP = ( 94.02 ) mGycm TECHNIQUE: No contrast was administered. Low dose technique was utilized (average mAS-38 and kVp 120). 1.25 mm axial source images with a slice interval of 1.25-mm were reconstructed in lung windows. 2.5 mm axial source images with a slice interval of 2.5-mm were reconstructed in lung windows. 5.0 mm axial source images with a slice interval of 5.0-mm were reconstructed in soft tissue windows. COMPARISON: Comparison is made with prior study dated January 16, 2023. NODULES: No suspicious nodules are seen. Emphysema: Mild scarring at the right lung apex. Minimal increased markings at the lung bases suggestive of mild scarring. Endobronchial lesion: Unremarkable Aorta: Scattered atherosclerotic plaque formation of the aortic arch. CORONARY ARTERIES: Coronary artery calcification is seen. Heart: Unremarkable Pulmonary artery: Markable Mediastinal nodes: Small mediastinal lymph nodes. Other chest and abdominal findings: CT/Low Dose CT Lung Screening IMPRESSION: Lung-RADS category 2 - Continue annual screening with LDCT in 12 months. IMPORTANT NOTES FOR USE: ACR Lung-RADS Version 1.1 Assessment Categories Release Date: 2018 Category: Coded 0-4 bases on nodule(s) with highest degree of suspicion. Negative screen is defined as categories 1 and 2; a positive screen is defined as categories 3 and 4. Category 3 and 4A nodules that are unchanged on interval CT should be coded as category 2, and individuals returned to screening in 12 months. Category 4X: Category 3 or 4 nodules with additional imaging findings that increase the suspicion of lung cancer, such as spiculation, GGN that doubles in size in 1 year, enlarged lymph notes, etc. Category Modifiers: S (significant finding unrelated to lung cancer) Electronically Signed: Shai Coombs MD at 14:14 EDT ,
== END | disposition home or self-care (01) ==
LOC: CT 13:46
PROVIDERS: PCP Internal Medicine; Referring Provider Nurse Practitioner Family; Visit Provider Nurse Practitioner Family
DX: Z12.2 Encounter for screening for malignant neoplasm of respiratory organs (principal); Z87.891 Personal history of nicotine dependence
CPT/HCPCS: 71271

== ENCOUNTER → 2024-01-11 | Outpatient (CLI) | payer MEDICARE, MEDICAID, SELFPAY ==
[2018-03-21 13:13] VITALS: BMI 31.7
--- NOTE | 2024-01-11 16:07 | BD_ITS ---
STUDY: DUAL ENERGY X-RAY ABSORPTIOMETRY / DXA REASON FOR EXAM: Female, 63 years old. Post menopausal TECHNIQUE: Bone Mineral Density (BMD) measurements of lumbar spine and bilateral hips were obtained. COMPARISON: None. FINDINGS: Lumbar Spine (L1-L4): g/cm2 (1.089) / T-score (0.4) / Z-score (2.1) Findings are suggestive of normal bone density with a low fracture risk. Left Femur Total: g/cm2 (0.848) / T-score (-0.8) / Z-score (0.4) Left Femoral Neck: g/cm2 (0.712) / T-score (-1.2) / Z-score (0.3) Right Femur Total: g/cm2 (0.836) / T-score (-0.9) / Z-score (0.4) Right Femoral Neck: g/cm2 (0.670) / T-score (-1.6) / Z-score (-0.1) BD/Dexa Bone Density Study IMPRESSION: The patient is considered osteopenic as outlined below according to World [employer] Organization (WHO) criteria with a moderate fracture risk. Reference Information: The T-score is the number of standard deviations above or below the standard which is normal for young adults at their peak bone mineral density. The World Health Organization (WHO) interprets the T-scores as follows: Above -1 Normal bone density Between -1 and -2.5 Osteopenia Equal to / or below -2.5 Osteoporosis As a practical clinical guideline, osteopenia may be graded as follows: Mild -1 through -1.5 Moderate -1.6 through -2.0 Severe -2.1 through -2.4 The Z-score is the number of standard deviations above or below age-matched controls. A Z-score of less than -1.5 would be considered abnormal. References: 1. NIH Osteoporosis and Related Bone Diseases www osteo.org 2. International Society for Clinical Densitometry www iscd.org 3. National Osteoporosis Foundation www nof.org Electronically Signed: Shai Coombs MD at 9:28 EDT ,
--- NOTE | 2024-01-11 16:07 | BI_ITS ---
MAMMOGRAPHY - BILATERAL SCREENING REASON FOR EXAM: Female, 63 years old. Routine annual screening examination. PERTINENT HISTORY: Aunt with breast cancer. TECHNIQUE: Digital bilateral breast helena (3D mammographic acquisition) in the CC and MLO projections. 2-D mediolateral oblique (MLO) and craniocaudad (CC) views of both breasts were obtained. CAD: Full Field Digital Mammography with Computer Added Detection was performed. COMPARISON: Comparison is made with prior study dated August 19, 2016 and December 20, 2013. FINDINGS: Breast Composition: The breasts are almost entirely fatty. There are no dominant masses or suspicious calcifications. No other significant abnormalities are identified. There has been no significant change since the prior study. BI/SCRN MAMM (CAD)W/HELENA BILAT IMPRESSION: Stable bilateral screening mammogram. Yearly follow-up mammogram recommended. (A) ASSESSMENT CATEGORY: BIRADS Category 1: Negative. A letter regarding these results will be sent to the patient by the facility within 30 days. Approximately 10% of breast cancers are not detected by mammography. A normal mammogram should not delay biopsy of a clinically suspicious abnormality. [id number] Electronically Signed: Shai Coombs MD at 8:36 EDT ,
== END | disposition home or self-care (01) ==
LOC: OPBD 16:07
PROVIDERS: PCP Internal Medicine; Referring Provider Internal Medicine; Visit Provider Internal Medicine
DX: Z12.31 Encounter for screening mammogram for malignant neoplasm of breast (principal); Z78.0 Asymptomatic menopausal state
CPT/HCPCS: 77063; 77067; 77080

== ENCOUNTER 2024-03-28 17:40 | Emergency (ER) | payer MEDICARE, MEDICAID, SELFPAY ==
[2018-03-21 13:13] VITALS: BMI 31.7
[2024-03-28 17:41] VITALS: BP 104/74; PULSE 99; RESP 15; TEMP 36.2; O2SAT 98; BMI 29.8
[2024-03-28 18:07] VITALS: BP 104/74; PULSE 99; RESP 15; TEMP 36.2; O2SAT 98
--- NOTE | 2024-03-28 18:12 | EDS_ITS ---
HPI History of Present Illness HPI Narrative: 64-year-old female history of rheumatoid and osteoarthritis. Complaining of acute on chronic left knee pain. Began today. Denies any recent fall in the last week. No fever. No significant swelling. Has seen multiple orthopedic physicians. States that she needs knee replacement. But multiple physicians that she seen no longer take her insurance. She also saw pain management and told her they would not prescribe her narcotic pain meds. She has had 3 prior knee joint injections stating that none gave her any significant relief or improvement. She denies any fever or redness. Chief Complaint: Lower Extremity Injury Informant: patient Occured/Mechanism Mechanism/Context: No injury and No blunt trauma Onset/Context/Timing Onset: Today Context: Gradual Onset Timing: Continuous Quality of Pain: Dull and Aching Current Severity: Moderate Maximum Severity: Moderate Associated Symptoms Associated Symptoms: Negative for Parasthesia, Weakness or Loss of Funtion Narrative Narrative: 64-year-old female with acute on chronic knee pain with a history of osteo and rheumatoid Prior similar symptoms: Yes Recent Illness/Hospitalization: No PFSH PFSH Medical History Wears glasses Post-menopausal Depression Thyroid disease Arthritis Excessive bleeding Back pain Gastric reflux Smoker Shortness of breath on exertion Leg cramps History of pain when walking History of edema History of echocardiogram History of stress test Cardiology follow-up encounter History of heart attack Encounter for screening for malignant neoplasm of lung Health care maintenance Anxiety and depression Bilateral knee pain Difficulty swallowing solids Left hip pain Elevated troponin Flu Cellulitis Tobacco abuse Coronary artery disease Ulcerative colitis Obesity Cellulitis of left lower leg Hyperlipidemia Atherosclerotic heart disease of [place] coronary artery without angina pectoris Rheumatoid arthritis Depression GERD (gastroesophageal reflux disease) Hypothyroidism Asthma Premature ventricular contractions Home Medications ?Medication ?Instructions ?Recorded ?Last Taken ?Type melatonin 10 mg capsule 10 mg PO QHS SLEEP 05/11/22 01/15/23 History aspirin 81 mg tablet,delayed See Rx Instructions .Route 04/14/23 02/26/24 Rx release .COMPLEX #90 tabs montelukast 10 mg tablet 10 mg PO DAILY ALLERGIES #90 tabs 12/04/23 Unknown Rx atorvastatin 20 mg tablet See Rx Instructions .Route 12/06/23 Unknown Rx .COMPLEX #90 tabs clopidogrel 75 mg tablet See Rx Instructions .Route 08/28/24 11/18/24 Rx .COMPLEX #90 tabs mesalamine 0.375 gram 0.75 g (2 x 0.375 gram) PO BID 12/06/23 Unknown Rx capsule,extended release 24 hr ULCERATIVE COLITIS 3 months #360 caps albuterol sulfate 90 mcg/actuation 2 puff inhalation Q4H PRN PRN for 02/14/24 Unknown Rx aerosol inhaler dyspnea #8.5 GMS lansoprazole 30 mg capsule,delayed 30 mg PO QAM for acid reflux #90 02/14/24 Unknown Rx release caps levothyroxine 88 mcg tablet See Rx Instructions .Route 02/14/24 Unknown Rx .COMPLEX #90 tabs paroxetine HCl 40 mg tablet 40 mg PO QHS DEPRESSION #90 tabs 02/26/24 Unknown Rx Allergy/AdvReac Type Severity Reaction Status Date / Time amoxicillin (From Augmentin) Allergy Swelling Verified 03/28/24 17:44 clavulanic acid (From Allergy Swelling Verified 03/28/24 17:44 Augmentin) latex Allergy Rash Verified 03/28/24 17:44 codeine AdvReac Nausea Verified 03/28/24 17:44 Family History Mother COPD (chronic obstructive pulmonary disease) Daughter Bipolar disorder Schizophrenia PTSD (post-traumatic stress disorder) Daughter Schizophrenia Bipolar disorder PTSD (post-traumatic stress disorder) Surgical History History of cardiac catheterization Hx of thumb surgery History of tonsillectomy and adenoidectomy History of coronary artery stent placement (03/21/18) History of total hysterectomy (2003) History of carpal tunnel release Social History housing: homeless Smoking Status: Current every day smoker tobacco type: cigarettes substance use type: marijuana ROS ROS ED ROS Narrative Denies recent illness. Constitutional Constitutional ED: Denies chills or fever(s) Eyes Eyes: Denies blurry vision ENT ENT ED: Denies ear pain Cardiovascular Cardiovascular: Denies chest pain Respiratory/Chest Respiratory/Chest: Denies cough or dyspnea Gastrointestinal Gastrointestinal: Denies abdominal pain Genitourinary Genitourinary ED: Denies dysuria or hematuria Musculoskeletal Musculoskeletal: Reports arthralgias Integumentary Denies abscess or Abrasions Neurologic Neurologic: Denies headache(s) Psychiatric Psychiatric: Denies anxiety or depression Endocrine Endocrinology: Denies polydipsia Hematologic/Lymphatic Hematologic/Lymphatic: Denies easy bleeding Allergic/Immunologic Allergic/Immunologic ED: Denies mouth swelling or tongue swelling EXAM Physical Exam Narrative Exam Narrative: Well-appearing 64-year-old female. Vital signs stable afebrile. No distress. H EENT exam unremarkable. Neck nontender. Lungs clear. Heart regular rhythm rate about 95 no murmur. Chest wall and ribs nontender. Abdomen soft nontender. She has normal range of motion both upper and lower extremities. 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 Normal dorsi plantarflexion. She complains of discomfort in her left knee. There is no swelling or effusion. No redness or warmth. No signs of septic joint or cellulitis. She is able to flex and extend her left knee. There is crepitance consistent with arthritis. Neurologically she is awake and alert no focal motor deficits. There is no edema in her lower extremities. Const Vital Signs: 03/28/24 17:41 03/28/24 18:07 Temperature 97.1 F L 97.1 F L Temperature Source Temporal Pulse Rate 99 99 Respiratory Rate 15 15 Blood Pressure 104/74 104/74 Blood Pressure Mean 84 84 Pulse Ox 98 98 Oxygen Delivery Method Room Air Positive well nourished and well developed; Negative for cachectic, contractures or unkempt General Appearance ED: well developed; Negative for unkempt, cachectic or contractures Nutritional Appearance: Negative for cachectic HEENT Reports moist mucous membranes normocephalic and atraumatic Eyes PERRL Neck full ROM and supple Chest Wall inspection of chest normal and palpation of chest normal Resp normal respiratory effort, no retractions and clear to auscultation bilaterally Auscultation: Negative for rales, rhonchi, wheezes or diminished lung sounds Cardio regular rate, regular rhythm, S1 normal heart sound, S2 normal heart sound and no murmurs Rate: Negative for bradycardia or tachycardic Rhythm: Negative for abnormal rhythm Bruits: Negative for other GI non-tender, non-distended and no masses Inspection: Negative for abdominal distention Palpation: Negative for tender, guarding or rebound tenderness present Back/Spine no CVA tenderness General Back: Negative for CVA tenderness Cervical Spine: Negative for cervical spine tenderness Thoracic Spine / Upper Back: Negative for thoracic spinal tenderness Lumbar Spine / Lower Back: Negative for lumbar spinal tenderness Extremity full ROM; Negative for normal to inspection Extremity Narrative: Left knee normal flexion extension. No effusion. No significant swelling. No redness or warmth. No septic joint. No cellulitis. ACL and PCL are intact as are MCL and LCL. Able to fully extend 180 degrees. Normal dorsi plantarflexion. Normal sensation to her foot. Exam is consistent with arthritis. No signs of septic joint. General Extremety ED: Negative for cyanosis or edema General Extremity: Negative for cyanosis or edema Neuro oriented x3, CN's II-XII intact bilaterally and moves all extremities Sensorium / Orientation: alert, oriented to person, oriented to place and oriented to time; Negative for orientation impaired Motor Exam: strength 5/5 throughout Psych mental status grossly normal Appearance: Negative for unkempt Speech: No other Mood & Affect: Negative for anxious Skin no wounds Lesions: no lesions Rashes: no rashes MDM MDM MDM Narrative Medical decision making narrative: 64-year-old female history of rheumatoid not osteoarthritis. Acute on chronic knee pain today in the left. Has seen orthopedic physicians before was told she needs knee replacement. He has not been able to have that done as of yet. No fever. This is acute on chronic knee pain. I suspect is from degenerative joint disease and her arthritis. She has had 3 prior knee injections and does not want one today. I was happy to do that for her she said they have never helped. She does not need any labs, x-ray or workup. Explained her we did not typically give narcotic prescriptions for this type of pain. Was happy to give her an oxycodone which she will take at home because she drove. Otherwise Tylenol and ice. History & Record Review Discussion w/independent historian: Patient Additional record(s) reviewed:: Prior outpatient record, Prior ED visit and Prior labs Discharge Plan Triage Chief Complaint: Lower Extremity Injury ED Provider: Chaz Morales Dx/Rx/DC Orders Clinical Impression: Osteoarthritis, Rheumatoid arthritis, Acute knee pain Instructions: ED Knee Sprain Prescriptions: No Action melatonin 10 mg capsule 10 mg PO QHS aspirin 81 mg tablet,delayed release (DR/EC) See Rx Instructions .ROUTE .COMPLEX Qty: 90 3RF Dose Instruction: TAKE ONE TABLET BY MOUTH DAILY AT 9AM Patient Comments: HOLD 3 DAYS PRIOR TO PROCEDURE Rx Instructions: TAKE ONE TABLET BY MOUTH DAILY AT 9AM montelukast 10 mg tablet 10 mg PO DAILY Qty: 90 1RF clopidogrel 75 mg tablet See Rx Instructions .ROUTE .COMPLEX Qty: 90 3RF Dose Instruction: TAKE ONE TABLET BY MOUTH DAILY AT 9AM Rx Instructions: TAKE ONE TABLET BY MOUTH DAILY AT 9AM atorvastatin 20 mg tablet See Rx Instructions .ROUTE .COMPLEX Qty: 90 3RF Dose Instruction: TAKE ONE TABLET BY MOUTH DAILY AT 9PM AT BEDTIME Rx Instructions: TAKE ONE TABLET BY MOUTH DAILY AT 9PM AT BEDTIME mesalamine 0.375 gram capsule,extended release 24hr 0.75 g PO BID 90 Days Qty: 360 1RF albuterol sulfate 90 mcg/actuation HFA aerosol inhaler 2 puff inhalation Q4H PRN PRN (Reason: for dyspnea) Qty: 8.5 3RF lansoprazole 30 mg capsule,delayed release(DR/EC) 30 mg PO QAM Qty: 90 1RF levothyroxine 88 mcg tablet See Rx Instructions .ROUTE .COMPLEX Qty: 90 1RF Dose Instruction: TAKE ONE TABLET BY MOUTH DAILY AT 8AM Rx Instructions: TAKE ONE TABLET BY MOUTH DAILY AT 8AM paroxetine HCl 40 mg tablet 40 mg PO QHS Qty: 90 0RF Primary Care Provider: Shelli Richter Referrals: Shelli Richter MD [Primary Care Provider] - As Needed Activity Restrictions/Additional Instructions: Ice to your knees to decrease pain and swelling. Tylenol for pain. Call your insurance company to find out who locally takes your insurance and follow-up with them for a knee replacement. Return if you develop a fever or redness to your knee. Print Language: Spanish Disposition Disposition: Home, Self Care
[2024-03-28] MEDS: oxyCODONE 5 MG Tablet PO (18:14)
== END 2024-03-28 18:17 | disposition home or self-care (01) ==
PROVIDERS: Emergency Provider Emergency Medicine; PCP Internal Medicine; Visit Provider Emergency Medicine
DX: M17.12 Unilateral primary osteoarthritis, left knee (principal); M06.9 Rheumatoid arthritis, unspecified; K51.90 Ulcerative colitis, unspecified, without complications; G89.29 Other chronic pain; F32.A Depression, unspecified; K21.9 Gastro-esophageal reflux disease without esophagitis; I25.2 Old myocardial infarction; F41.9 Anxiety disorder, unspecified; I25.10 Atherosclerotic heart disease of native coronary artery without angina pectoris; E78.5 Hyperlipidemia, unspecified; E03.9 Hypothyroidism, unspecified; J45.909 Unspecified asthma, uncomplicated; F17.210 Nicotine dependence, cigarettes, uncomplicated; Z95.5 Presence of coronary angioplasty implant and graft; Z88.0 Allergy status to penicillin; Z79.02 Long term (current) use of antithrombotics/antiplatelets; Z79.82 Long term (current) use of aspirin; Z79.899 Other long term (current) drug therapy; Z79.890 Hormone replacement therapy
CPT/HCPCS: 99282

== ENCOUNTER → 2024-04-17 | Outpatient (CLI) | payer MEDICARE, MEDICAID, SELFPAY ==
[2018-03-21 13:13] VITALS: BMI 31.7
[2024-04-17 17:31] LABS: ALB/GLOB Ratio 0.9 RATIO (0.9-2.4); AST(SGOT) 12 U/L (15-37); Alanine Aminotransfer ALT/SGPT 18 U/L (13-56); Albumin, Serum 3.4 g/dL (3.2-5.0); Alkaline Phosphatase 79 U/L (45-117); Anion Gap 4 (5-15); BUN 11 mg/dL (7-18); BUN/Creat Ratio 16.7 RATIO (10-20); Calcium,Total 9.5 mg/dL (8.5-10.1); Chloride 106 mmol/L (98-107); Creatinine, Serum 0.66 mg/dL (0.55-1.02); EST Glomerular Filtration Rate 96 mL/min (>60); Est Glom Filt Rate - Afr Amer 116 mL/min (>60); Globulin 3.6 g/dL (2.2-4.2); Glucose 139 mg/dL (74-106); Potassium 3.7 mmol/L (3.5-5.1); Sodium Level 137 mmol/L (136-145)
== END | disposition home or self-care (01) ==
LOC: BIMLAB 14:38
PROVIDERS: PCP Internal Medicine; Referring Provider Internal Medicine; Visit Provider Internal Medicine
DX: K51.90 Ulcerative colitis, unspecified, without complications (principal); E03.9 Hypothyroidism, unspecified
CPT/HCPCS: 36415; 80053; 84443

== ENCOUNTER → 2024-08-05 | Outpatient (CLI) | payer MEDICAID, OTHER, SELFPAY ==
[2018-03-21 13:13] VITALS: BMI 31.7
[2024-08-05 15:39] LABS: Bacteria 0 SEEN /hpf (None Seen); Mucous, Urine 0 SEEN /hpf (<or=2+)
[2024-08-05 17:04] LABS: Absolute Lymphocyte Count 3.35 X10^3/uL (0.83-4.51); Absolute Neutrophil Count 3.7 X10^3/uL (2.0-7.7); Basophil% 1.2 % (0-1); Eosinophil# 0.75 X10^3/uL; Eosinophils% 8.8 % (0-5); Hematocrit 42.4 % (37-47); Hemoglobin 14.3 g/dL (12.0-15.0); Lymphocyte # 3.35 X10^3/ul (0.83-4.51); Lymphocyte % 39.2 % (19-41); Mean Corp Hgb Conc 33.7 g/dL (32-36); Mean Corpuscular Hgb 30.6 pg (27.0-32.0); Mean Corpuscular Volume 90.8 fL (81-99); Mean Platelet Vol. 9.9 fl (6.2-12.0); Monocyte# 0.61 X10^3/uL; Monocyte% 7.1 % (0-10); NRBC Flagged by Analyzer 0 % (0-5); Neutrophil # 3.72 X10^3/uL (2.7-7.7); Neutrophil % 43.5 % (47-70); Platelet Count 306 K/mm3 (150-450); RBC Distribution Width CV 13.3 % (11.6-14.6); RBC Distribution Width SD 44.9 fl (35.1-43.9); Red Blood Count 4.67 M/mm3 (4.2-5.4); White Blood Count 8.6 K/mm3 (4.4-11.0)
[2024-08-05 17:27] LABS: Color, Urine Yellow (Yellow); Glucose, Dipstick Normal (Normal); Ketone-Dipstick Negative (Negative); Specific Gravity, Urine 1.025 (1.002-1.030); Urine Bilirubin Dipstick Negative (Negative); Urine Clarity Clear (Clear)
[2024-08-05 17:28] LABS: Nitrite-Dipstick Negative (Negative); Protein-Dipstick 30 mg/dl (Negative); Urine Urobilinogen Normal (Normal)
[2024-08-05 17:30] LABS: Anion Gap 11 (5-15); BUN 10 mg/dL (4-19); Calcium,Total 9.8 mg/dL (7.6-11.0); Carbon Dioxide 21.8 mmol/L (21.0-32.0); Chloride 106 mmol/L (98-108); Creatinine, Serum 0.74 mg/dL (0.70-1.20); EST Glomerular Filtration Rate 90 (>60); Glucose 137 mg/dL (70-99); Sodium Level 138 mmol/L (133-145)
[2024-08-05 17:32] LABS: Leukocyte Esterase-Dipstick Negative /ul (Negative); Occult Blood-Urine 150 /ul (Negative)
[2024-08-05 19:55] LABS: Red Blood Cells-Urine 0-5 SEEN /hpf (0-5); White Blood Cells 0-5 SEEN /hpf (0-5)
[2024-08-05 19:56] LABS: Squamous Epithelial Cells - UA 0-5 SEEN /hpf (5-10)
[2024-08-06 10:09] LABS: Hemoglobin A1c 5.7 % (<=5.6)
== END | disposition home or self-care (01) ==
LOC: BIMLAB 15:38
PROVIDERS: PCP Internal Medicine; Visit Provider Internal Medicine
DX: E78.5 Hyperlipidemia, unspecified (principal); E03.9 Hypothyroidism, unspecified
CPT/HCPCS: 36415; 80048; 81001; 83036; 85025

== ENCOUNTER → 2024-08-06 | Outpatient (CLI) | payer MEDICAID, OTHER, SELFPAY ==
[2018-03-21 13:13] VITALS: BMI 31.7
--- NOTE | 2024-08-06 14:09 | RAD_ITS ---
PROCEDURE: KNEE 4 OR MORE VIEWS 08/06/2024 REASON FOR EXAM: BILATERAL KNEE PAIN TECHNIQUE: 4 views of the left knee COMPARISON: 12/03/2023 FINDINGS: Bones: No fracture. No suspicious bone lesion. Joints: Severe degenerative changes. Effusion: No effusion. Soft tissues: Soft tissues are unremarkable. Other: RAD/Knee 4 or More Views IMPRESSION: DEGENERATIVE OSTEOARTHROSIS. NO ACUTE FINDINGS. Reading Location: [id number]
--- NOTE | 2024-08-06 14:09 | RAD_ITS ---
PROCEDURE: KNEE 4 OR MORE VIEWS 08/06/2024 REASON FOR EXAM: PAIN TECHNIQUE: 4 views of the right knee FINDINGS: Bones: No fracture. No suspicious bone lesion. Joints: Moderate degenerative changes. Effusion: Small joint effusion. Soft tissues: Soft tissues are unremarkable. Other: RAD/Knee 4 or More Views IMPRESSION: DEGENERATIVE OSTEOARTHROSIS. NO ACUTE FINDINGS. Reading Location: [id number]
== END | disposition home or self-care (01) ==
LOC: RAD 13:50
PROVIDERS: PCP Internal Medicine; Referring Provider Internal Medicine; Visit Provider Internal Medicine
DX: M25.561 Pain in right knee (principal); M25.562 Pain in left knee
CPT/HCPCS: 73564

== ENCOUNTER → 2024-10-14 | Outpatient (CLI) | payer MEDICARE, MEDICAID, SELFPAY ==
[2018-03-21 13:13] VITALS: BMI 31.7
== END | disposition home or self-care (01) ==
PROVIDERS: PCP Internal Medicine; Referring Provider Nurse Practitioner Family; Visit Provider Nurse Practitioner Family
DX: S43.402A Unspecified sprain of left shoulder joint, initial encounter (principal)
CPT/HCPCS: 73030

== ENCOUNTER 2024-11-26 09:56 | Day surgery (SDC) | payer MEDICARE, MEDICAID, SELFPAY ==
[2018-03-21 13:13] VITALS: BMI 31.7
--- NOTE | 2024-11-25 14:58 | PAT.ANESEVAL ---
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 When Was Last Pacemaker Check QUESTION #4 FULL TEXT: You/Your Family Experience fever (hyperthermia) with Anesthesia Last Oral Intake Last Oral intake: Last Oral Intake NPO since Meds taken in AM with sips of water? 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 Female Yes 11/25/24 12:39 HX of Motion Sickness No 11/25/24 12:39 HX of N/V After Surgery No 11/25/24 12:39 Non-Smoker No 11/25/24 12:39 Duration of Surgery greater No 11/25/24 12:39 than 60 minutes Number of Risk Factors 1 11/25/24 12:39 PONV Score Low Risk 11/25/24 12:39 Height & Weight Height & Weight: Anesthesia: Height & Weight Height 5 ft 4 in 08/05/24 15:03 Respiratory Assessment Respiratory Assessment - banquet server: Respiratory Tract Infection Hx - banquet server Hx Respiratory Tract Infection No 11/25/24 12:39 STOP Sleep Apnea STOP Sleep Apnea - banquet server: STOP Sleep Apnea - banquet server Hx Hypertension No 11/25/24 12:39 Hx Sleep Apnea No 11/25/24 12:39 CPAP BIPAP Do you snore loudly (louder No 11/25/24 12:39 than talking or can be heard Do you often feel tired/ No 11/25/24 12:39 fatigued/ sleepy during daytime? Has anyone observed you stop No 11/25/24 12:39 breathing during sleep? STOP Results Negative 11/25/24 12:39 QUESTION #5 FULL TEXT : Do you snore loudly (louder than talking or can be heard through closed doors)? 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 Specify any problems Hx of Preganancy in last 3 N/A 11/25/24 12:39 Months Nurse Filling Out Transfusion NBUCHER 11/25/24 12:39 & Questions: Date: 11/25/24 11/25/24 12:39 Time: 12:40 11/25/24 12:39 Patient unable to answer at this time (ie. 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: /Reproductive Hx- banquet server Hx Now No 11/25/24 12:39 Gestational Age (in weeks): EDC: Hx Hx Para Hx Section SAB No 11/25/24 12:39 PFSH Medical History Blood glucose elevated Urinary frequency Wears glasses Post-menopausal Depression Thyroid disease Arthritis Excessive bleeding Back pain Gastric reflux Smoker Shortness of breath on exertion Leg cramps History of pain when walking History of edema History of echocardiogram History of stress test Cardiology follow-up encounter History of heart attack Encounter for screening for malignant neoplasm of lung Health care maintenance Anxiety and depression Bilateral knee pain Difficulty swallowing solids Left hip pain Elevated troponin Flu Cellulitis Tobacco abuse Coronary artery disease Ulcerative colitis Obesity Cellulitis of left lower leg Hyperlipidemia Atherosclerotic heart disease of [place] coronary artery without angina pectoris Rheumatoid arthritis Depression GERD (gastroesophageal reflux disease) Hypothyroidism Asthma Premature ventricular contractions Home Medications ?Medication ?Instructions ?Recorded ?Last Taken ?Type aspirin 81 mg tablet,delayed See Rx Instructions .Route 04/14/23 02/26/24 Rx release .COMPLEX #90 tabs atorvastatin 20 mg tablet See Rx Instructions .Route 12/06/23 Unknown Rx .COMPLEX #90 tabs clopidogrel 75 mg tablet See Rx Instructions .Route 12/06/23 02/26/24 Rx .COMPLEX #90 tabs albuterol sulfate 90 mcg/actuation 2 puff inhalation Q4H PRN PRN for 02/14/24 Unknown Rx aerosol inhaler dyspnea #8.5 GMS lansoprazole 30 mg capsule,delayed 30 mg PO QAM for acid reflux #90 02/14/24 Unknown Rx release caps gabapentin 100 mg capsule 100 mg PO BID #60 caps 08/05/24 Unknown Rx mesalamine 0.375 gram 0.75 g (2 x 0.375 gram) PO BID 08/05/24 Unknown Rx capsule,extended release 24 hr ULCERATIVE COLITIS 3 months #360 caps montelukast 10 mg tablet 10 mg PO QDAY 08/05/24 Unknown History paroxetine HCl 40 mg tablet 40 mg PO QHS DEPRESSION #90 tabs 08/05/24 Unknown Rx levothyroxine 100 mcg tablet See Rx Instructions .Route 08/27/24 Unknown Rx .COMPLEX #60 tabs Allergy/AdvReac Type Severity Reaction Status Date / Time amoxicillin (From Augmentin) Allergy Swelling Verified 11/25/24 12:36 clavulanic acid (From Allergy Swelling Verified 11/25/24 12:36 Augmentin) latex Allergy Rash Verified 11/25/24 12:36 codeine AdvReac Nausea Verified 11/25/24 12:36 Family History Mother COPD (chronic obstructive pulmonary disease) Daughter Bipolar disorder Schizophrenia PTSD (post-traumatic stress disorder) Daughter Schizophrenia Bipolar disorder PTSD (post-traumatic stress disorder) Surgical History History of cardiac catheterization Hx of thumb surgery History of tonsillectomy and adenoidectomy History of coronary artery stent placement (03/21/18) History of total hysterectomy (2003) History of carpal tunnel release Social History housing: homeless Smoking Status: Current every day smoker tobacco type: cigarettes substance use type: marijuana Audit: Pertinent Findings Pertinent Findings EKG Perinent findings: January 16, 2023. Sinus tachycardia at 130 bpm. Left axis deviation. Septal infarct, age undetermined. Stress test pertinent findings: August 03, 2022. EF of 72%. No areas of reversibility noted to suggest ischemia. No previous infarct. Echo (EF%) pertinent findings: 03/15/2018. EF of 65%. No aortic valve stenosis noted. Heart catheterization pertinent findings: January 17, 2023. Nonobstructive coronary arteries. Previously placed stent in the mid LAD is patent. EF of 60%. Consult pertinent findings: June 17, 2022. George WATERS. 1. History of coronary artery stent placement-CAPRICE to the mid LAD. Check stress test (see above). Recommendation Anesthesia Recommendation Anesthesia recommendation: OPTIMIZED for anesthesia
[2024-11-26] VITALS (8 sets, daily range): BP systolic 99–118; BP diastolic 57–89; PULSE 67–77; RESP 14–20; TEMP 36.4–36.8; O2SAT 97–100; BMI 30.1
[2024-11-26] MEDS: Lactated Ringers 1,000 ML 15 ML IV (10:48)
--- NOTE | 2024-11-26 10:57 | PCM.PRE.AN2 ---
ASA Classification* ASA Classification ASA Classification: 3 Assessment & Plan Anesthesia* Anesthesia Assessment Anesthesia Assessment: Discussed sedation and/or anesthesia options, risks, benefits, and alternatives with patient/parents/legal guardian/POA. Questions invited. The patient/parents/legal guardian/POA seems to understand and agrees to proceed with anesthesia plan. Reviewed the physical assessment, medical history, allergy history and patient home medications list prior to surgery/procedure/anesthetic and documented any changes. Performed airway and anesthesia risk assessments. Anesthesia Type Anesthesia Type: MAC History Source History Obtained from:: Patient and Chart Anesthesia Focused Assessment* Temperature: 97.9 F Pulse Rate: 77 Blood Pressure: 118/89 Respiratory Rate: 20 Pulse Ox: 97 Oxygen Delivery Method: Room Air Airway Assessment Mouth opens: >3 cm Mallampati Score: III Teeth Condition: Chipped/Broken Neck Range of motion (ROM): Full ROM Labs Anesthesia Preop lab: CBC WBC 8.6 K/mm3 (4.4-11.0) 08/05/24 15:38 08/05/24 RBC 4.67 M/mm3 (4.2-5.4) 08/05/24 15:38 08/05/24 Hgb 14.3 g/dL (12.0-15.0) 08/05/24 15:38 08/05/24 Hct 42.4 % (37-47) 08/05/24 15:38 08/05/24 Plt Count 306 K/mm3 (150-450) 08/05/24 15:38 08/05/24 CHEMISTRY Potassium 4.0 mmol/L (3.3-5.1) 08/05/24 15:38 08/05/24 Sodium 138 mmol/L (133-145) 08/05/24 15:38 08/05/24 BUN 10 mg/dL (4-19) 08/05/24 15:38 08/05/24 Creatinine 0.74 mg/dL (0.70-1.20) 08/05/24 15:38 08/05/24 Glucose 137 mg/dL (70-99) H 08/05/24 15:38 08/05/24 POC Glucose 118 mg/dL (74-106) H 01/16/23 15:52 01/16/23 TSH 6.890 uIU/mL (0.358-3.740) H 04/17/24 14:39 04/17/24 COAG PT 13.7 SECONDS (11.7-14.9) 03/21/18 09:00 03/21/18 Pre-Assessment Diagnosis/Proposed Procedure Planned Operative Procedure(s): CSCOPE Anesthesia History 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 When Was Last Pacemaker Check QUESTION #4 FULL TEXT: You/Your Family Experience fever (hyperthermia) with Anesthesia Last Oral Intake Last Oral intake: Last Oral Intake NPO since 07:30 11/26/24 10:31 Meds taken in AM with sips of Yes 11/26/24 10:31 water? 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 Has anyone observed you stop No 11/25/24 12:39 breathing during sleep? STOP Results Negative 11/25/24 12:39 QUESTION #5 FULL TEXT : Do you snore loudly (louder than talking or can be heard through closed doors)? 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 Specify any problems Hx of Preganancy in last 3 N/A 11/25/24 12:39 Months Nurse Filling Out Transfusion [facility]BU[facility] 11/25/24 12:39 & Questions: Date: 11/25/24 11/25/24 12:39 Time: 12:40 11/25/24 12:39 Patient unable to answer at this time (ie. 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: /Reproductive Hx- solar pool heating installer Hx Now No 11/25/24 12:39 Gestational Age (in weeks): EDC: Hx Hx Para Hx Section SAB No 11/25/24 12:39 Active Medications Active Medications: Current Medications Generic Name Dose Route Start Last Admin Trade Name Freq PRN Reason Stop Dose Admin Lactated Ringer's 1,000 mls @ 15 mls/hr 11/26/24 10:15 11/26/24 10:48 IV 15 mls/hr .Q48H JERALD Administration PFSH Medical History Blood glucose elevated Urinary frequency Wears glasses Post-menopausal Depression Thyroid disease Arthritis Excessive bleeding Back pain Gastric reflux Smoker Shortness of breath on exertion Leg cramps History of pain when walking History of edema History of echocardiogram History of stress test Cardiology follow-up encounter History of heart attack Encounter for screening for malignant neoplasm of lung Health care maintenance Anxiety and depression Bilateral knee pain Difficulty swallowing solids Left hip pain Elevated troponin Flu Cellulitis Tobacco abuse Coronary artery disease Ulcerative colitis Obesity Cellulitis of left lower leg Hyperlipidemia Atherosclerotic heart disease of [place] coronary artery without angina pectoris Rheumatoid arthritis Depression GERD (gastroesophageal reflux disease) Hypothyroidism Asthma Premature ventricular contractions Home Medications ?Medication ?Instructions ?Recorded ?Last Taken ?Type aspirin 81 mg tablet,delayed See Rx Instructions .Route 04/14/23 11/24/24 Rx release .COMPLEX #90 tabs atorvastatin 20 mg tablet See Rx Instructions .Route 12/06/23 11/24/24 Rx .COMPLEX #90 tabs clopidogrel 75 mg tablet See Rx Instructions .Route 12/06/23 11/26/24 Rx .COMPLEX #90 tabs albuterol sulfate 90 mcg/actuation 2 puff inhalation Q4H PRN PRN for 02/14/24 11/26/24 Rx aerosol inhaler dyspnea #8.5 GMS lansoprazole 30 mg capsule,delayed 30 mg PO QAM for acid reflux #90 02/14/24 11/24/24 Rx release caps gabapentin 100 mg capsule 100 mg PO BID #60 caps 08/05/24 11/24/24 Rx mesalamine 0.375 gram 0.75 g (2 x 0.375 gram) PO BID 08/05/24 11/25/24 Rx capsule,extended release 24 hr ULCERATIVE COLITIS 3 months #360 caps montelukast 10 mg tablet 10 mg PO QDAY 08/05/24 11/24/24 History paroxetine HCl 40 mg tablet 40 mg PO QHS DEPRESSION #90 tabs 08/05/24 11/23/24 Rx levothyroxine 100 mcg tablet See Rx Instructions .Route 08/27/24 11/24/24 Rx .COMPLEX #60 tabs Allergy/AdvReac Type Severity Reaction Status Date / Time amoxicillin (From Augmentin) Allergy Swelling Verified 11/26/24 10:29 clavulanic acid (From Allergy Swelling Verified 11/25/24 12:36 Augmentin) latex Allergy Rash Verified 11/26/24 10:29 codeine AdvReac Nausea Verified 11/25/24 12:36 Family History Mother COPD (chronic obstructive pulmonary disease) Daughter Bipolar disorder Schizophrenia PTSD (post-traumatic stress disorder) Daughter Schizophrenia Bipolar disorder PTSD (post-traumatic stress disorder) Surgical History History of cardiac catheterization Hx of thumb surgery History of tonsillectomy and adenoidectomy History of coronary artery stent placement (03/21/18) History of total hysterectomy (2003) History of carpal tunnel release Social History housing: homeless Smoking Status: Current every day smoker tobacco type: cigarettes substance use type: marijuana Review of Systems (Anesthesia) ROS Narrative System reviewed and no additional complaints, except as documented. Cardiovascular Cardiovascular: Denies chest pain, dyspnea, hypertension or palpitations Respiratory/Chest Respiratory/Chest: Denies chest congestion, cough or wheezing Physical Exam Const alert and oriented x3 Orientation / Consciousness: awake HEENT Teeth and Ging[place]: caries and poor dentition Neck full ROM Resp normal respiratory effort and normal air movement Cardio regular rate and regular rhythm
--- NOTE | 2024-11-26 11:56 | PCM.HP.STD ---
HPI - General General Date of Admission: 11/26/24 Date of Service: 11/26/24 Chief Complaint: ulcerative colitis HPI Narrative BRANDON REDD, is a 64 F who presents Chief Complaint: UC, due for colonoscopy Pt has a PMHx OA, RA, DDD, asthma, cellulitis, CAD, GERD, hypothyroidism and UC. She is here today as she feels she is due for a colonoscopy. She tells me her last one was a few year ago. She was previously seeing a GI in [place] who diagnosed her with UC many years ago. Since then she has been on mesalamine which she feels is controlling her disease well. She has no record here of enterography, CRP, ESR or stool testing. During a flare she will have bloating, nausea and softer stools. She baseline has soft stools. She denies abdominal pain, heartburn, n/v, blood in her stool or constipation [facility] Medical History Blood glucose elevated Urinary frequency Wears glasses Post-menopausal Depression Thyroid disease Arthritis Excessive bleeding Back pain Gastric reflux Smoker Shortness of breath on exertion Leg cramps History of pain when walking History of edema History of echocardiogram History of stress test Cardiology follow-up encounter History of heart attack Encounter for screening for malignant neoplasm of lung Health care maintenance Anxiety and depression Bilateral knee pain Difficulty swallowing solids Left hip pain Elevated troponin Flu Cellulitis Tobacco abuse Coronary artery disease Ulcerative colitis Obesity Cellulitis of left lower leg Hyperlipidemia Atherosclerotic heart disease of [place] coronary artery without angina pectoris Rheumatoid arthritis Depression GERD (gastroesophageal reflux disease) Hypothyroidism Asthma Premature ventricular contractions Home Medications ?Medication ?Instructions ?Recorded ?Last Taken ?Type aspirin 81 mg tablet,delayed See Rx Instructions .Route 04/14/23 11/24/24 Rx release .COMPLEX #90 tabs atorvastatin 20 mg tablet See Rx Instructions .Route 12/06/23 11/24/24 Rx .COMPLEX #90 tabs clopidogrel 75 mg tablet See Rx Instructions .Route 12/06/23 11/26/24 Rx .COMPLEX #90 tabs albuterol sulfate 90 mcg/actuation 2 puff inhalation Q4H PRN PRN for 02/14/24 11/26/24 Rx aerosol inhaler dyspnea #8.5 GMS lansoprazole 30 mg capsule,delayed 30 mg PO QAM for acid reflux #90 02/14/24 11/24/24 Rx release caps gabapentin 100 mg capsule 100 mg PO BID #60 caps 08/05/24 11/24/24 Rx mesalamine 0.375 gram 0.75 g (2 x 0.375 gram) PO BID 08/05/24 11/25/24 Rx capsule,extended release 24 hr ULCERATIVE COLITIS 3 months #360 caps montelukast 10 mg tablet 10 mg PO QDAY 08/05/24 11/24/24 History paroxetine HCl 40 mg tablet 40 mg PO QHS DEPRESSION #90 tabs 08/05/24 11/23/24 Rx levothyroxine 100 mcg tablet See Rx Instructions .Route 08/27/24 11/24/24 Rx .COMPLEX #60 tabs Allergy/AdvReac Type Severity Reaction Status Date / Time amoxicillin (From Augmentin) Allergy Swelling Verified 11/26/24 10:29 clavulanic acid (From Allergy Swelling Verified 11/25/24 12:36 Augmentin) latex Allergy Rash Verified 11/26/24 10:29 codeine AdvReac Nausea Verified 11/25/24 12:36 Family History Mother COPD (chronic obstructive pulmonary disease) Daughter Bipolar disorder Schizophrenia PTSD (post-traumatic stress disorder) Daughter Schizophrenia Bipolar disorder PTSD (post-traumatic stress disorder) Surgical History History of cardiac catheterization Hx of thumb surgery History of tonsillectomy and adenoidectomy History of coronary artery stent placement (03/21/18) History of total hysterectomy (2003) History of carpal tunnel release Social History housing: homeless Smoking Status: Current every day smoker tobacco type: cigarettes substance use type: marijuana ROS Constitutional Constitutional: Denies fatigue, fever(s), poor appetite, weight gain or weight loss Gastrointestinal Gastrointestinal: Denies belching, bloating, change in bowel habits, change in stool character, chewing difficulty, coffee ground emesis, constipation, cramping, diarrhea, dyspepsia, dysphagia, early satiety, excessive flatus, fecal incontinence, heartburn, hematemesis, hematochezia, hemorrhoids, loose stools, melena, nausea, odynophagia, rectal bleeding, tenesmus, vomiting or weight changes Vital Signs Vital Signs Vital Signs: 11/26/24 10:31 11/26/24 10:58 Temperature 97.9 F 97.9 F Temperature Source Temporal Pulse Rate 77 77 Respiratory Rate 20 H 20 H Blood Pressure 118/89 H 118/89 H Blood Pressure Mean 98 Blood Pressure Source Monitor Blood Pressure Position Semi-Fowlers Blood Pressure Location Left Arm Pulse Ox 97 97 Oxygen Delivery Method Room Air Room Air Weight Weight: 175 lb 11.335 oz Body Mass Index (BMI) 30.1 Physical Exam Const alert, oriented x3, no apparent distress and healthy appearing General Appearance: cooperative GI normal to inspection, nondistended, normoactive bowel sounds, soft to palpation, non-tender and non-distended Percussion: normal to percussion Rectal Exam: deferred Assessment & Plan Assessment/Plan (1) Ulcerative colitis: PLAN: Assessment and Plan Assessment and Plan (1) Ulcerative colitis: Status: Chronic Plan: Pt is a 63 yo female here today for establishment with [facility]. She has a hx of UC and feels its time for a colonoscopy. SHe has not had a GI since her Dr in [place] retired. She was diagnosed with UC years ago and has been on mesalamine with symptom relief. There is no record in our system of CRP, ESR, stool tests or imaging of her bowels. I will order blood work and stool testing to monitor for inflammation. SHe will also be scheduled for colonoscopy. -Colonoscopy -Stool tests and blood work for inflammation -Continue mesalamine
--- NOTE | 2024-11-26 12:00 | COLBX_PTH ---
PATIENT: BRANDON REDD LOC: EN U#:[id number] AGE/SX: 64/F ROOM: RE11/26/[address]: Dr. Eber Emerson DO : 1960 BED: DIS: 11/26/2024 SPEC #: [id number] RECD: 11/26/24 16:36 STATUS: SAM REGerardo #: [id number] RICARDO: 11/26/24 12:[address]: Eber Emerson DEPT: SURGICAL PATHOLOGY RECD BY: Frandy Lawson ENTERED: 11/27/24 08:49 SP TYPE: COLON BX OTHR DR: Dr. Shelli Richter MD Tissues: A - Ileum, NOS B - Cecum, NOS C - Ascending colon D - Transverse colon E - Descending colon F - Sigmoid colon biopsy G - Rectum, NOS Procedures: Surgery Specimen Level IV HEADER OPERATION: Colonoscopy PRE-OP DIAGNOSIS: Ulcerative colitis TISSUE SUBMITTED: A- Terminal ileum biopsy, B- Cecum biopsy, C- Ascending colon biopsy, D- Transverse colon biopsy, E- Descending colon biopsy, F- Sigmoid colon biopsy, G- Rectum biopsy MICROSCOPIC DIAGNOSIS A. Small intestine, terminal ileum, biopsies: - Benign small intestinal mucosa without dysplasia B. Large intestine, cecum: - No cryptic architectural distortion - Focal acute cryptitis - Increased mixed lymphoplasmacytic and eosinophilic inflammatory cell infiltrate predominantly in the superficial lamina propria C. Large intestine, ascending: * Moderate cryptic architectural distortion with crypt abscesses and an increased mixed lymphoplasmacytic, eosinophilic, and neutrophilic inflammatory cell infiltrate expanding the lamina propria, consistent with active inflammatory bowel disease (ulcerative colitis) D. Large intestine, transverse - Moderate cryptic architectural distortion with crypt abscesses and an increased mixed lymphoplasmacytic, eosinophilic, and neutrophilic inflammatory cell infiltrate expanding the lamina propria, consistent with active inflammatory bowel disease (ulcerative colitis) E. Large intestine, descending: * Moderate cryptic architectural distortion with crypt abscesses and an increased mixed lymphoplasmacytic, eosinophilic, and neutrophilic inflammatory cell infiltrate expanding the lamina propria, consistent with active inflammatory bowel disease (ulcerative colitis) F. Large intestine, sigmoid: * Slight cryptic architectural distortion with focal acute cryptitis and one crypt abscess and an increased mixed lymphoplasmacytic, eosinophilic, and neutrophilic inflammatory cell infiltrate expanding the lamina propria G. Rectum: * Slight cryptic architectural distortion with focal acute cryptitis and crypt abscesses and an increased mixed lymphoplasmacytic, eosinophilic, and neutrophilic inflammatory cell infiltrate expanding the lamina propria COMMENT The findings are consistent with active inflammatory bowel disease (ulcerative colitis). No dysplasia is identified the these specimens. MICROSCOPIC DESCRIPTION Slides are reviewed. GROSS DESCRIPTION A. Received in fixative is one container labeled with the patient's name and designated Terminal ileum biopsy. The specimen consists of two irregular fragments of light ovalle tissue that measure 0.1 and 0.3 cm. The specimen is totally submitted in one cassette. B. Received in fixative is one container labeled with the patient's name and designated Cecum biopsy. The specimen consists of two irregular fragments of light ovalle tissue, each measuring 0.3 cm. The specimen is totally submitted in one cassette. C. Received in fixative is one container labeled with the patient's name and designated Ascending colon biopsy. The specimen consists of two irregular fragments of light ovalle tissue that measure 0.1 and 0.5 cm. Smallest fragment may not survive processing. The specimen is totally submitted in one cassette. D. Received in fixative is one container labeled with the patient's name and designated Transverse colon biopsy. The specimen consists of two irregular fragments of light ovalle tissue, each measuring 0.4 cm. The specimen is totally submitted in one cassette. E. Received in fixative is one container labeled with the patient's name and designated Descending colon biopsy. The specimen consists of one irregular fragment of light ovalle tissue that measures 0.6 cm. The specimen is totally submitted in one cassette. F. Received in fixative is one container labeled with the patient's name and designated Sigmoid colon biopsy. The specimen consists of one irregular fragment of light ovalle tissue that measures 0.5 cm. The specimen is totally submitted in one cassette. G. Received in fixative is one container labeled with the patient's name and designated Rectum biopsy. The specimen consists of three irregular fragments of light ovalle tissue that measure 0.2 to 0.4 cm. The specimen is totally submitted in one cassette. ME 11/27/2024 CPT:48236o5
--- NOTE | 2024-11-26 13:23 | PCM.POST.ANE ---
Anesthesia: Postop Eval I Current Vital Signs Temperature: 98.3 F Pulse Rate: 70 Blood Pressure: 99/62 Respiratory Rate: 16 Pulse Ox: 100 Oxygen Delivery Method: Room Air Assessment Airway patent: Yes Spontaneous unlabored respirations: Yes Mental status: Awake and Calm nausea: No Vomiting: No Anesthesia Complication: No Fluid Hydration Crystalloid volume administer (ml): 400 Total IV fluid infused: 400 Progress Note Anesthesia document: Postop Eval 1 completed: Yes
--- NOTE | 2024-11-26 13:24 | OP.COLON_ITS ---
Patient Name: Ally Limon Procedure Date: 11/26/2024 12:50 PM Date of : 1960 Age: 64 Procedure: Colonoscopy Indications: Suspected chronic ulcerative pancolitis Providers: Eber Emerson DO Referring MD: Shelli Richter MD Medicines: Monitored Anesthesia Care Patient Profile: This is a 64 year old female. Refer to note in patient chart for documentation of history and physical. Last Colonoscopy: several years ago. Complications: No immediate complications. Procedure: Pre-Anesthesia Assessment: - Prior to the procedure, a History and Physical was performed, and patient medications and allergies were reviewed. The patient is competent. The risks and benefits of the procedure and the sedation options and risks were discussed with the patient. All questions were answered and informed consent was obtained. Patient identification and proposed procedure were verified by the physician in the pre-procedure area. Mental Status Examination: alert and oriented. Respiratory Examination: clear to auscultation. CV Examination: normal. ASA Grade Assessment: II - A patient with mild systemic disease. After reviewing the risks and benefits, the patient was deemed in satisfactory condition to undergo the procedure. The anesthesia plan was to use monitored anesthesia care (MAC). Immediately prior to administration of medications, the patient was re-assessed for adequacy to receive sedatives. The heart rate, respiratory rate, oxygen saturations, blood pressure, adequacy of pulmonary ventilation, and response to care were monitored throughout the procedure. The physical status of the patient was re-assessed after the procedure. After I obtained informed consent, the scope was passed under direct vision. Throughout the procedure, the patient's blood pressure, pulse, and oxygen saturations were monitored continuously. The pediatric colonoscope was introduced through the anus and advanced to the terminal ileum. The colonoscopy was performed without difficulty. The patient tolerated the procedure fairly well. The quality of the bowel preparation was adequate. The terminal ileum, ileocecal valve, appendiceal orifice, and rectum were photographed. Scope In: 1:04:25 PM Scope Withdrawal Time 0 hours 6 minutes 21 seconds Scope Out: 1:13:26 PM Total Procedure Duration Time 0 hours 9 minutes 1 second Findings: The perianal and digital rectal examinations were normal. Inflammation was found in a continuous and circumferential pattern from the anus to the cecum. This was graded as Artis Score 3 (severe, with spontaneous bleeding, ulcerations), and when compared to the previous examination, the findings are worsened. Biopsies were taken with a cold forceps for histology. Verification of patient identification for the specimen was done. Estimated blood loss was minimal. The terminal ileum appeared normal. Biopsies were taken with a cold forceps for histology. Verification of patient identification for the specimen was done. Estimated blood loss was minimal. Impression: - Severe (Artis Score 3) pancolitis ulcerative colitis, worsened since the last examination. Biopsied. - The examined portion of the ileum was normal. Biopsied. Recommendation: - Discharge patient to home. - Resume previous diet. - Continue present medications. - Await pathology results. - Repeat colonoscopy in 1 year for surveillance. Procedure Code(s): --- Professional --- 15064, Colonoscopy, flexible; with biopsy, single or multiple CPT copyright 2021 [employer]. All rights reserved. The codes documented in this report are preliminary and upon breakfast and room attendant review may be revised to meet current compliance requirements. Eber Emerson DO 11/26/2024 1:24:18 PM This report has been signed electronically. Number of Addenda: 0 Note Initiated On: 11/26/2024 12:50 PM
--- NOTE | 2024-11-26 13:24 | OP.PROVAT_ITS ---
11/26/2024 Shelli Richter MD [address] [place] [address] [place] [address] Re : Colonoscopy procedure for Ally Limon Dear Dr. Richter This procedure was performed on Tuesday, November 26, 2024. My impressions and recommendations are as follows: Impressions : - Severe (Artis Score 3) pancolitis ulcerative colitis, worsened since the last examination. Biopsied. - The examined portion of the ileum was normal. Biopsied. Recommendations : - Discharge patient to home. - Resume previous diet. - Continue present medications. - Await pathology results. - Repeat colonoscopy in 1 year for surveillance. My findings are described in the full procedure note, which is enclosed. If I can be of further assistance, please feel free to contact me at . Sincerely, Eber Friend, 11/26/2024 1:24:18 PM This report has been signed electronically.
--- NOTE | 2024-11-26 14:29 | PCM.POSTANE2 ---
Anesthesia Postop Eval I Sum Postop Eval Completion status Anesthesia document: Postop Eval 1 completed: Yes Anesthesia Postop Eval I Summary Anesthesia Postop Eval I Summary: Anesthesia Postop Eval I: Assessment Summary Airway patent Yes 11/26/24 13:24 [email or web address] Spontaneous unlabored Yes 11/26/24 13:24 [email or web address] respirations Mental status Awake,Calm 11/26/24 13:24 [email or web address] nausea No 11/26/24 13:24 [email or web address] Vomiting No 11/26/24 13:24 [email or web address] Anesthesia Postop Eval I: Fluid Summary Crystalloid volume administer 400 11/26/24 13:24 [email or web address] (ml) Colloids volume administered ( ml) Blood Product volume administered (ml) Total IV fluid infused 400 11/26/24 13:24 [email or web address] Anesthesia Postop Eval I: Summary Notes Anesthesia Complication No 11/26/24 13:24 [email or web address] Anesthesia Complication Comment: Post-operative progress note Anesthesia: Postop Eval II Evaluation Mental status: Awake Pain Level: 0 nausea: No Vomiting: No Complications Anesthesia Complication: No
== END 2024-11-26 13:58 | disposition home or self-care (01) ==
LOC: EN 09:57 → AC 10:00
PROVIDERS: PCP Internal Medicine; Referring Provider Internal Medicine; Visit Provider Internal Medicine Gastroenterology
PROC: 0DJD8ZZ Inspection of Lower Intestinal Tract, Via Natural or Artificial Opening Endoscopic (ICD-10-PCS; CPT 45378; principal; 2024-11-26 11:55)
DX: K51.00 Ulcerative (chronic) pancolitis without complications (principal); F17.210 Nicotine dependence, cigarettes, uncomplicated; K21.9 Gastro-esophageal reflux disease without esophagitis; E78.5 Hyperlipidemia, unspecified; Z59.00 Homelessness unspecified; I25.10 Atherosclerotic heart disease of native coronary artery without angina pectoris; Z79.82 Long term (current) use of aspirin; Z79.899 Other long term (current) drug therapy; Z79.02 Long term (current) use of antithrombotics/antiplatelets; I25.2 Old myocardial infarction; E03.9 Hypothyroidism, unspecified; Z79.890 Hormone replacement therapy; F32.A Depression, unspecified; Z95.5 Presence of coronary angioplasty implant and graft; Z90.710 Acquired absence of both cervix and uterus; K62.89 Other specified diseases of anus and rectum
CPT/HCPCS: 45380; 88305; J2405

== ENCOUNTER → 2025-01-06 | Outpatient (CLI) | payer MEDICARE, MEDICAID, SELFPAY ==
[2018-03-21 13:13] VITALS: BMI 31.7
[2025-01-06 13:03] LABS: Hematocrit 42.2 % (37-47); Hemoglobin 13.8 g/dL (12.0-15.0); Immature Granulocytes Count 0.020 X10^3/uL (0.0-0.0); Mean Corp Hgb Conc 32.7 g/dL (32-36); Mean Corpuscular Volume 90.9 fL (81-99); Mean Platelet Vol. 9.5 fl (6.2-12.0); NRBC Flagged by Analyzer 0 % (0-5); Platelet Count 299 K/mm3 (150-450); RBC Distribution Width CV 14.1 % (11.6-14.6); RBC Distribution Width SD 47.3 fl (35.1-43.9); Red Blood Count 4.64 M/mm3 (4.2-5.4); White Blood Count 6.8 K/mm3 (4.4-11.0)
[2025-01-06 14:22] LABS: AST(SGOT) 19 U/L (<=31); Alanine Aminotransfer ALT/SGPT 14 U/L (<=34); Albumin, Serum 3.9 g/dL (3.4-4.8); Alkaline Phosphatase 75 U/L (35-104); Anion Gap 11 (5-15); BUN 10 mg/dL (4-19); BUN/Creat Ratio 13.3 RATIO (10-20); Calcium,Total 9.2 mg/dL (7.6-11.0); Carbon Dioxide 21.8 mmol/L (21.0-32.0); Chloride 104 mmol/L (98-108); Globulin 2.8 g/dL (2.2-4.2); Glucose 112 mg/dL (70-99); Potassium 3.8 mmol/L (3.3-5.1)
[2025-01-06 15:24] LABS: Amylase 47 U/L (28-100); CRP 5.24 mg/L (0.0-3.0); Lipase 37 U/L (13-75)
[2025-01-09 05:07] LABS: HEPATITIS B SURFACE AG Negative (Negative); Hep C Antibodies Non Reactive (Non Reactive); QNTFERON TB Mitogen Value > 10.00 IU/mL (.); QNTFERON TB Nil Value 0.09 IU/mL (.); QNTFERON TB1+ Ag Value 0.10 IU/mL (.); QNTFERON TB2+ Ag Value 0.08 IU/mL (.); QNTIFERON TB Positive Criteria Negative (Negative)
== END | disposition home or self-care (01) ==
LOC: LAB 12:31
PROVIDERS: PCP Internal Medicine; Referring Provider Student in an Organized Health Care Education/Training Program; Visit Provider Student in an Organized Health Care Education/Training Program
DX: K51.90 Ulcerative colitis, unspecified, without complications (principal); R10.9 Unspecified abdominal pain
CPT/HCPCS: 36415; 80053; 80074; 82150; 83690; 85025; 85652; 86140; 86480

== ENCOUNTER → 2025-03-10 | Outpatient (CLI) | payer MEDICARE, MEDICAID, SELFPAY ==
[2018-03-21 13:13] VITALS: BMI 31.7
[2025-03-10 15:17] LABS: Hematocrit 43.5 % (37-47); Hemoglobin 14.0 g/dL (12.0-15.0); Immature Granulocytes Count 0.080 X10^3/uL (0.0-0.0); Mean Corp Hgb Conc 32.2 g/dL (32-36); Mean Corpuscular Volume 90.1 fL (81-99); Mean Platelet Vol. 9.6 fl (6.2-12.0); NRBC Flagged by Analyzer 0 % (0-5); Platelet Count 326 K/mm3 (150-450); RBC Distribution Width CV 14.5 % (11.6-14.6); RBC Distribution Width SD 47.8 fl (35.1-43.9); Red Blood Count 4.83 M/mm3 (4.2-5.4); White Blood Count 12.0 K/mm3 (4.4-11.0)
[2025-03-10 15:58] LABS: Anion Gap 14 (5-15); BUN 11 mg/dL (4-19); BUN/Creat Ratio 19.2 RATIO (10-20); Calcium,Total 9.5 mg/dL (7.6-11.0); Carbon Dioxide 23.3 mmol/L (21.0-32.0); Chloride 104 mmol/L (98-108); Glucose 103 mg/dL (70-99); Potassium 3.8 mmol/L (3.3-5.1); Pro- Brain NATRIURETIC PEPTIDE 48 pg/mL (<=900)
== END | disposition home or self-care (01) ==
PROVIDERS: PCP Internal Medicine; Referring Provider Nurse Practitioner Family; Visit Provider Nurse Practitioner Family
DX: R06.00 Dyspnea, unspecified (principal); Z95.5 Presence of coronary angioplasty implant and graft; E03.9 Hypothyroidism, unspecified; Z72.0 Tobacco use; E66.9 Obesity, unspecified
CPT/HCPCS: 36415; 80048; 83880; 84443; 85025

== ENCOUNTER 2025-03-13 09:48 | Outpatient (CLI) | payer MEDICARE, MEDICAID, SELFPAY ==
[2018-03-21 13:13] VITALS: BMI 31.7
[2025-03-13 09:57] VITALS: BP 150/78; RESP 16; TEMP 35.6; O2SAT 95; BMI 30.9
[2025-03-13 13:34] VITALS: BP 117/81; PULSE 76; RESP 16; TEMP 36.2; O2SAT 97
== END 2025-03-13 23:59 | disposition home or self-care (01) ==
LOC: MEDOUTP 09:48
PROVIDERS: PCP Internal Medicine; Referring Provider Student in an Organized Health Care Education/Training Program; Visit Provider Student in an Organized Health Care Education/Training Program
DX: K51.90 Ulcerative colitis, unspecified, without complications (principal)
CPT/HCPCS: 96365; 96366; A4216; J2327

== ENCOUNTER → 2025-04-01 | Outpatient (CLI) | payer MEDICARE, MEDICAID, SELFPAY ==
[2018-03-21 13:13] VITALS: BMI 31.7
== END | disposition home or self-care (01) ==
PROVIDERS: PCP Internal Medicine; Referring Provider Nurse Practitioner Family; Visit Provider Nurse Practitioner Family
DX: R06.00 Dyspnea, unspecified (principal); Z95.5 Presence of coronary angioplasty implant and graft
CPT/HCPCS: 94060; 94726; 94729